=== PATIENT | female | born 1960 | race African-American/Black ===

== ENCOUNTER 2017-05-26 12:52 | Outpatient (CLI) | payer MEDICARE, MEDICAID ==
--- NOTE | 2017-05-26 15:40 | MMO ---
BILATERAL SCREENING MAMMOGRAMS: Date: 05/26/17 Comparison made to prior exam from 2014. This patient's mammogram was interpreted with the assistance of computer-aided detection. FINDINGS: Scattered fibroglandular densities. No evidence of mass or distortion. No suspicious calcification. Recommend one year follow-up. IMPRESSION: BIRADS 1: Negative POS: [facility]
== END 2017-05-26 12:53 | disposition home or self-care (01) ==
LOC: MAMMO 12:52
PROVIDERS: ATTEND Specialist
DX: Z12.31 Encounter for screening mammogram for malignant neoplasm of breast (principal)
CPT/HCPCS: 77067; G0202

== ENCOUNTER 2017-05-26 13:34 | Emergency (ER) | payer MEDICARE, MEDICAID ==
--- NOTE | 2017-05-26 14:06 | RAD ---
PA AND LATERAL CHEST: Date: 05/26/17 HISTORY: Cough and pleuritic chest pain. Fever. COMPARISON: 02/24/16. FINDINGS: Right subclavian MediPort catheter remains in place. Surgical clips again overlie the medial and lef t upper quadrant. There is mild eventration of each hemidiaphragm. Cardiac silhouette and pulmonary vasculature are within normal limits. Lungs remain clear. There has been no interval change from the prior study. IMPRESSION: No acute cardiopulmonary process. POS: [facility]
[2017-05-26 16:10] LABS: #Eosinphils 0.1 thou/uL (0.0-0.7); #Lymphocytes 3.3 thou/uL (1.20-3.40); #Monocytes 0.6 thou/uL (0.11-0.59); #Neutrophils 4.2 thou/uL (1.40-6.50); %Basophils 0.4 % (0.0-1.0); %Eosinophils 1.6 % (0.0-10.0); %Lymphocytes 40.2 % (21.0-51.0); %Monocytes 7.2 % (0.0-10.0); Hematocrit 37.5 % (36.0-47.0); Mean Platelet Volume 7.5 fL (7.4-10.4); Red Blood Cell (RBC) Count 4.23 mill/uL (4.20-5.40); White Blood Cell (WBC) Count 8.3 thou/uL (4.8-10.8)
[2017-05-26 16:34] LABS: ALT (SGPT) Less than 7 U/L (8-55); AST (SGOT) 12 U/L (5-34); Alkaline Phosphatase 77 U/L (40-150); Anion Gap 13 mmol/L (10-20); BUN (Urea Nitrogen) 13 mg/dL (9.8-20.1); Bilirubin, Total 0.5 mg/dL (0.2-1.2); Calc. Creatinine Clearance 0 mL/min (70-130); Calcium 9.8 mg/dL (7.8-10.44); Carbon Dioxide 26 mmol/L (22-29); Chloride 105 mmol/L (98-107); Estimated GFR-MDRD 67; Globulin 3.7 g/dL (2.4-3.5); Protein, Total 7.5 g/dL (6.0-8.3)
[2017-05-26] MEDS ORDERED: methylPREDNISolone Sod Succ/PF 125 MG/2 ML VIAL ONE (16:59)
[2017-05-26] MEDS ORDERED: Water For Inject, Bacteriostat 30 ML ONE (16:59)
[2017-05-26] MEDS ORDERED: Albuterol Sulfate 2.5 mg/0.5 ml Neb ONE (17:12)
[2017-05-26 18:19] LABS: Bilirubin Negative (Negative); Blood, Urine Negative (Negative); Glucose, Urine (Dipstick) Negative (Negative); Ketone, Urine Negative (Negative); Nitrite Negative (Negative); Protein, Urine (Dipstick) Negative (Neg-Trace)
== END 2017-05-26 19:05 | disposition home or self-care (01) ==
LOC: ERS 13:34
DX: J45.901 Unspecified asthma with (acute) exacerbation (principal); I11.0 Hypertensive heart disease with heart failure; I50.9 Heart failure, unspecified; K21.9 Gastro-esophageal reflux disease without esophagitis; F41.9 Anxiety disorder, unspecified; F32.9 Major depressive disorder, single episode, unspecified
CPT/HCPCS: 71020; 80053; 81003; 82274; 85025; 94640; 96374; J1642; J2930; J7611; J7620

== ENCOUNTER 2017-05-27 11:17 | Outpatient (CLI) | payer MEDICARE, MEDICAID ==
--- NOTE | 2017-05-27 13:27 | RAD ---
CHEST TWO VIEWS: History: Dyspnea. Comparison: 05-26-17 FINDINGS: Port catheter is similar. Mild elevation of the left hemidiaphragm. No pneumothorax or effusion. No focal airspace consolidation. IMPRESSION: No acute intrathoracic abnormality. No significant change from yesterday. POS: [facility]
== END 2017-05-27 11:18 | disposition home or self-care (01) ==
LOC: RAD 11:17
PROVIDERS: ATTEND Internal Medicine Critical Care Medicine
DX: R06.00 Dyspnea, unspecified (principal)
CPT/HCPCS: 71020

== ENCOUNTER 2017-07-11 21:59 | Emergency (ER) | payer MEDICARE, MEDICAID ==
--- NOTE | 2017-07-12 00:06 | RAD ---
AP VIEW OF THE CHEST 07/11/17 INDICATION: Chest pain. IMPRESSION: The examination does not appear appreciably changed from the comparison dated 06/13/17. Heart size rem ains mildly prominent. Surgical changes are again seen within the upper abdomen. Right chest wall por t is similar. No acute air space opacity or pleural effusion is evident. POS: [facility]
[2017-07-12] MEDS ORDERED: Acetaminophen 500 MG TAB ONE (00:22)
[2017-07-12] MEDS ORDERED: Acetaminophen 325 MG TAB ONE (00:55)
[2017-07-12 01:16] LABS: #Basophils 0.1 thou/uL (0.0-0.2); #Eosinphils 0.3 thou/uL (0.0-0.7); #Lymphocytes 2.9 thou/uL (1.20-3.40); #Neutrophils 5.6 thou/uL (1.40-6.50); %Basophils 0.6 % (0.0-1.0); %Eosinophils 2.6 % (0.0-10.0); %Lymphocytes 29.5 % (21.0-51.0); Hematocrit 28.7 % (36.0-47.0); Mean Platelet Volume 5.2 fL (7.4-10.4); Red Blood Cell (RBC) Count 3.13 mill/uL (4.20-5.40); White Blood Cell (WBC) Count 9.8 thou/uL (4.8-10.8)
[2017-07-12 01:38] LABS: ALT (SGPT) Less than 7 U/L (8-55); AST (SGOT) 11 U/L (5-34); Alkaline Phosphatase 52 U/L (40-150); Anion Gap 11 mmol/L (10-20); BUN (Urea Nitrogen) 11 mg/dL (9.8-20.1); Bilirubin, Total 0.6 mg/dL (0.2-1.2); Calc. Creatinine Clearance 0 mL/min (70-130); Carbon Dioxide 27 mmol/L (22-29); Chloride 101 mmol/L (98-107); Estimated GFR-MDRD 65; Globulin 3.4 g/dL (2.4-3.5); Magnesium 2.1 mg/dL (1.6-2.6); Protein, Total 6.5 g/dL (6.0-8.3)
[2017-07-12 01:41] LABS: Troponin I Less than 0.010 ng/mL (< 0.028)
--- NOTE | 2017-07-12 08:08 | ULT ---
PRELIMINARY REPORT/[facility]/EMERGENCY AFTER HOURS PROCEDURE: EXAM: US Duplex Right Lower Extremity Veins EXAM DATE/TIME: Exam ordered 07/12/2017 12:19 AM CLINICAL HISTORY: 57 years old, female; Pain; Other: Rle pain, S/P knee surg; Prior surgery; Surgery date: 3-7 days pos t-operative TECHNIQUE: Real-time ultrasound scan of the veins of the right lower extremity with color Doppler flow, spectral waveform analysis and compression. COMPARISON: No relevant prior studies available. FINDINGS: Deep veins: Unremarkable. No DVT in the visualized common femoral, femoral, proximal deep femoral or popliteal veins. The veins demonstrate normal color flow, are normally compressible, with normal phas ic flow and/or augmentation response. Superficial veins: Unremarkable. No thrombus in the visualized great saphenous vein. Soft tissues: No acute findings. No popliteal cyst. IMPRESSION: Normal right lower extremity duplex venous ultrasound. Thank you for allowing us to participate in the care of your patient. Dictated and Authenticated by: Jagdish Chanel MD 07/12/2017 2:04 AM Central Time ([place] & [place]) FINAL REPORT RIGHT LOWER EXTREMITY VENOUS DUPLEX EXAM: HISTORY: Right lower extremity pain status post knee surgery. FINDINGS: Real-time color Doppler evaluation of right lower extremity was performed from groin to calf. This i ncludes evaluation of common femoral, superficial, and profunda femoral, saphenous, popliteal, and t rifurcation veins. This shows a patent deep venous system with normal compressibility and augmentati on. There is no evidence of DVT. IMPRESSION: 1. No evidence of deep vein thrombosis of the right lower extremity. 2. This report is in agreement with the temporary report issued by [facility]. POS: [facility]
--- NOTE | 2017-07-12 08:09 | CT ---
PRELIMINARY REPORT/[facility]/EMERGENCY AFTER HOURS PROCEDURE: EXAM: CT Head Without Intravenous Contrast CLINICAL HISTORY: 57 years old, female; Signs and symptoms; Altered mental status/memory loss; Confusion or disorientat ion; Patient HX: 57 yo f with pmhx of chf here for r leg pain and AMS, resolved. Pt notes she felt we ird and altered 3 hours ago. She had trouble finding words and difficulty speaking but this resolved. Pt recently had r knee SX. TECHNIQUE: Axial computed tomography images of the head/brain without intravenous contrast. COMPARISON: No relevant prior studies available. FINDINGS: Brain: No intracranial hemorrhage. No CT evidence of acute ischemia. Ventricles: No ventriculomegaly. The subarachnoid cisterns and extar-axial CSF spaces are unremarkabl e. Bones/joints: Unremarkable. No acute fracture. Soft tissues: Unremarkable. Sinuses: No acute sinusitis. Mastoid air cells: No mastoid effusion. IMPRESSION: No acute intracranial pathology. Thank you for allowing us to participate in the care of your patient. Dictated and Authenticated by: Wander Hoffman MD 07/12/2017 12:12 AM Central Time ([place] & [place]) FINAL REPORT EMERGENT AFTER HOURS CT OF BRAIN PERFORMED WITHOUT CONTRAST ENHANCEMENT: HISTORY: Altered mental status, memory loss. COMPARISON: 02/11/17 study. FINDINGS: The ventricular and cisternal system is within normal limits. There are no signs of intracerebral he morrhage or extraaxial fluid collections. Mastoid air cells and visualized sinuses are clear. IMPRESSION: 1. No acute intracranial abnormality. 2. This report is in agreement with the temporary report issued by [facility]. POS: [facility]
--- NOTE | 2017-07-21 13:25 | EKG ---
Test Reason : CHEST PAIN Blood Pressure : / mmHG Vent. Rate : 087 BPM Atrial Rate : 087 BPM P-R Int : 126 ms QRS Dur : 076 ms QT Int : 344 ms P-R-T Axes : 049 003 015 degrees QTc Int : 413 ms Normal sinus rhythm Normal ECG Confirmed by ENRIQUE MARTIN ([id number]), index editor KAREN GAMBOA ([id number]) on 07/21/2017 1:24:31 PM Referred By: VIKKI Confirmed By:ENRIQUE MARTIN
== END 2017-07-12 05:13 | disposition home or self-care (01) ==
LOC: ERS 21:59
DX: R51 Headache (principal); R60.0 Localized edema; I11.0 Hypertensive heart disease with heart failure; I50.9 Heart failure, unspecified; I25.10 Atherosclerotic heart disease of native coronary artery without angina pectoris; K21.9 Gastro-esophageal reflux disease without esophagitis; J45.909 Unspecified asthma, uncomplicated; J44.9 Chronic obstructive pulmonary disease, unspecified; F41.9 Anxiety disorder, unspecified; F32.9 Major depressive disorder, single episode, unspecified; F20.9 Schizophrenia, unspecified
CPT/HCPCS: 36415; 70450; 71010; 80053; 82553; 83735; 83880; 84484; 85025; 87040; 93005

== ENCOUNTER 2017-12-18 22:06 | Observation (INO) | payer MEDICARE, MEDICAID ==
[2017-12-18 22:39] LABS: #Basophils 0.1 thou/uL (0.0-0.2); #Eosinphils 1.1 thou/uL (0.0-0.7); #Lymphocytes 4.4 thou/uL (1.20-3.40); #Monocytes 0.6 thou/uL (0.11-0.59); #Neutrophils 3.6 thou/uL (1.40-6.50); %Basophils 0.7 % (0.0-1.0); %Eosinophils 11.8 % (0.0-10.0); %Neutrophils 36.5 % (42.0-75.0); Hemoglobin 10.2 g/dL (12.0-16.0); Mean Corpuscular HGB CONC 32.9 g/dL (32.0-36.0); Mean Corpuscular Hemoglobin 28.7 pg (27.0-31.0); Mean Corpuscular Volume 87.4 fl (81.0-99.0); Mean Platelet Volume 7.1 fL (7.4-10.4); Platelet Count 259 thou/uL (130-400); RBC Distribution Width 13.5 % (11.5-14.5); Red Blood Cell (RBC) Count 3.55 mill/uL (4.20-5.40); White Blood Cell (WBC) Count 9.7 thou/uL (4.8-10.8)
[2017-12-18 23:01] LABS: ALT (SGPT) Less than 7 U/L (8-55); AST (SGOT) 9 U/L (5-34); Albumin 3.5 g/dL (3.5-5.0); Alkaline Phosphatase 70 U/L (40-150); Anion Gap 12 mmol/L (10-20); BUN (Urea Nitrogen) 16 mg/dL (9.8-20.1); Bilirubin, Total 0.4 mg/dL (0.2-1.2); CK (CPK) 90 U/L (29-168); Calc. Creatinine Clearance 0 mL/min (70-130); Calcium 8.8 mg/dL (7.8-10.44); Carbon Dioxide 21 mmol/L (22-29); Chloride 110 mmol/L (98-107); Estimated GFR-MDRD 89; Globulin 2.7 g/dL (2.4-3.5); Glucose 135 mg/dL (70-105); Potassium 3.6 mmol/L (3.5-5.1); Protein, Total 6.2 g/dL (6.0-8.3); Sodium 139 mmol/L (136-145)
--- NOTE | 2017-12-18 23:01 | RAD ---
AP VIEW OF THE CHEST: 12/18/17 INDICATION: History of chest pain. COMPARISON: Prior exam dated 07/11/17. IMPRESSION: No acute cardiopulmonary abnormality. There is stable cardiomegaly. Right chest wall is unchanged. Feng rgical clips are seen within the left upper quadrant. POS: [facility]
[2017-12-18 23:05] LABS: CKMB 0.8 ng/mL (0-6.6); Troponin I Less than 0.010 ng/mL (< 0.028)
[2017-12-19] MEDS ORDERED: Morphine 4 MG/ML VIAL ONE (00:29)
[2017-12-19] MEDS ORDERED: Nitroglycerin 0.4 MG TAB (25 Tab Bottle) ONE ×2 (00:56→03:53)
[2017-12-19 02:50] LABS: Troponin I Less than 0.010 ng/mL (< 0.028)
[2017-12-19] MEDS ORDERED: Nitroglycerin 2% Ointment 1 INCH/1 GM Packet ONE (03:53)
[2017-12-19 04:34] VITALS: BMI 30.2
[2017-12-19] MEDS ORDERED: Ondansetron HCl/PF 4 MG/2 ML Vial IVP PRN (04:36)
[2017-12-19] MEDS ORDERED: Acetaminophen 325 MG TAB PO PRN ×2 (04:36→08:53)
[2017-12-19] MEDS ORDERED: Ondansetron ODT 4 MG TAB SL PRN (04:36)
[2017-12-19] MEDS ORDERED: ADENOSINE 60 MG/20 ML VIAL ONE (06:47)
[2017-12-19 07:30] LABS: Troponin I Less than 0.010 ng/mL (< 0.028)
--- NOTE | 2017-12-19 08:50 | CT ---
PRELIMINARY REPORT/[facility]/EMERGENTY AFTER-HOURS PROCEDURE CT Angiography Chest With Intravenous Contrast CLINICAL HISTORY: 57 years old, female; Signs and symptoms; Shortness of breath; Patient HX: [id number] reports to ed C/O chest pain. Pt reports the pain is sharp. Pt reports she was lying down when the pain started and wang s been intermittent, longest duration is 30 minutes. Pt reports the pain radiates into her armpit. Pt reports subjective fever. Pt reports have an mi back in june, sees dr. Lund. Pt reports mild cp right now. Pt took x2 325 mg aspirin today. TECHNIQUE: Axial computed tomographic angiography images of the chest with intravenous contrast using pulmonary embolism protocol. MIP reconstructed images were created and reviewed. COMPARISON: No relevant prior studies available. FINDINGS: Pulmonary arteries: No pulmonary embolism. Aorta: No acute findings. Lungs: Moderate bilateral upper and lower lobe bronchial wall thickening, compatible with reactive ai rway disease or bronchitis. Pleural space: Normal. No significant effusion. No pneumothorax. Heart: Normal. Bones/joints: No acute fracture. No dislocation. Soft tissues: Normal. Lymph nodes: Several small lymph nodes within the mediastinum, likely reactive, but nonspecific. Gallbladder and bile ducts: Gallbladder is surgically absent. Adrenals: 13 mm left adrenal adenoma. Kidneys and ureters: Simple left renal cyst measuring approximately 3 cm in diameter. Intraperitoneal space: Multiple surgical clips within the left upper abdomen. Tubes, lines and devices: Right internal jugular central venous catheter in the lower superior vena cava. IMPRESSION: 1. No pulmonary embolism. 2. Moderate bilateral upper and lower lobe bronchial wall thickening, compatible with reactive airway disease or bronchitis. 3. Incidental/non-acute findings are described above. Thank you for allowing us to participate in the care of your patient. Dictated and Authenticated by: Jason Baptiste MD 12/19/2017 2:03 AM Central Time ([place] & [place]) FINAL REPORT CT ANGIOGRAM OF THE CHEST: HISTORY: Chest pain. COMPARISON: 01/10/17. TECHNIQUE: CT angiogram of the chest was performed in the axial plane. Three-dimensional reformatted images are submitted for interpretation. FINDINGS: This report is in agreement with the preliminary report by [facility]. No evidence of pulmonary artery embo lism to the level of the segmental arteries. Stable left adrenal lesion. POS: [facility]
--- NOTE | 2017-12-19 08:52 | ULT ---
PRELIMINARY REPORT/[facility]/EMERGENTY AFTER-HOURS PROCEDURE US Duplex Bilateral Lower Extremity Veins CLINICAL HISTORY: 57 years old, female; Pain; Other: Leg pain, elevated d-dimer, prev dvt; Prior surgery; Surgery date: 1-6 months; Surgery type: Lt knee surg TECHNIQUE: Real-time duplex ultrasound scan of the bilateral lower extremity veins integrating B-mode two dimens ional vascular structure, Doppler spectral analysis, color flow Doppler imaging and compression. COMPARISON: No relevant prior studies available. FINDINGS: Right deep veins: Normal. No DVT in the right common femoral, femoral, proximal deep femoral or popli teal veins. The veins demonstrate normal color flow, are normally compressible, with normal phasic fl ow and/or augmentation response. Right superficial veins: Normal. No thrombus in the visualized right great saphenous vein. Left deep veins: Normal. No DVT in the left common femoral, femoral, proximal deep femoral or poplite al veins. The veins demonstrate normal color flow, are normally compressible, with normal phasic flow and/or augmentation response. Left superficial veins: Normal. No thrombus in the visualized left great saphenous vein. Soft tissues: No acute findings. No popliteal cyst. IMPRESSION: Normal bilateral lower extremity duplex venous ultrasound. Thank you for allowing us to participate in the care of your patient. Dictated and Authenticated by: Jason Baptiste MD 12/19/2017 2:27 AM Central Time ([place] & [place]) FINAL REPORT BILATERAL LOWER EXTERMITY VENOUS ULTRASOUND WITH DOPPLER: HISTORY: Pain. Pervious surgery. COMPARISON: None. TECHNIQUE: Salmeron scale, color flow, Doppler imaging and spectral waveform analysis was performed of the left and right lower extremity venous system. FINDINGS: This report is in agreement with the preliminary report by [facility]. No evidence of thrombus in the left or right lower extremity deep venous system. POS: [facility]
[2017-12-19] MEDS ORDERED: Nitroglycerin 0.4 MG TAB (25 Tab Bottle) PO PRN (08:53)
[2017-12-19] MEDS ORDERED: Bisacodyl 5 MG TAB PO PRN (08:53)
[2017-12-19] MEDS ORDERED: Aspirin 325 MG TAB PO SCH (09:00)
[2017-12-19] MEDS ORDERED: Acetaminophen/Codeine 30-300mg Tablet PO PRN (11:01)
[2017-12-19] MEDS: Acetaminophen/Codeine 30-300mg Tablet PO PRN ×2 (11:19→12:02)
[2017-12-19] MEDS ORDERED: diphenhydrAMINE 50 MG/ML VIAL IVP SCH (11:45)
[2017-12-19] MEDS ORDERED: ISOVUE-370 76%-LOCM 1 ML ONE (13:22)
--- NOTE | 2017-12-19 15:24 | HP ---
PRIMARY CARE PROVIDER: Jean Ragsdale M.D. CHIEF COMPLAINT: Chest pain. HISTORY OF PRESENT ILLNESS: Ms. Krishna is a pleasant 57-year-old lady, who was seen at [facility] on 12/19/2017. She reports that she developed chest discomfort over the last couple of days. She describes that it is sharp, retrosternal, radiating to her left axilla, 8/10 at its worst, on and off, no known aggrava ting or relieving factors, accompanied by cough and by shortness of breath but not by nausea. She de nies any lightheadedness. She denies any fevers or chills. She does report that it improved with nitrates after she came to the emergency room. REVIEW OF SYSTEMS: All other systems reviewed and found to be negative. PAST MEDICAL HISTORY: Schizophrenia, rhabdomyolysis, lymphoma, bladder polyps x3, mitral valve prola pse, coronary artery disease, chronic diastolic heart failure, small-bowel obstruction, gastroesophag eal reflux disease, chronic abdominal pain, hypertension, COPD, asthma. PAST SURGICAL HISTORY: Significant for hysterectomy, AICD placement, cardiac catheterization with st ent placement, appendectomy, cholecystectomy, tonsillectomy, esophageal variceal banding, bowel resec tion, bladder sling surgery, lymph node dissection of the left axilla, bilateral carpal tunnel releas e, cystectomy of both breasts and MediPort placement. FAMILY HISTORY: Significant for heart attacks in both parents. SOCIAL HISTORY: The patient denies tobacco use, alcohol use or recreational drug use. ALLERGIES: CHLORPROMAZINE, HALOPERIDOL, LITHIUM CARBONATE, PENICILLIN, SULFA, THORAZINE, TOMATO and TRAMADOL. CURRENT MEDICATIONS: Include furosemide 40 mg daily, potassium 10 mg daily, Depakote 500 mg 2 times a day, risperidone 2 mg 2 times a day, magnesium 500 mg daily, montelukast 10 mg daily, metoprolol ta rtrate 25 mg 2 times a day, Nexium 40 mg 2 times a day, flecainide 50 mg 2 times a day, Ventolin p.r. n. and aspirin 325 mg daily. PHYSICAL EXAMINATION: GENERAL: On examination, Ms. Krishna is awake and alert, not in acute distress. VITAL SIGNS: Blood pressure is 108/74, pulse is 60. She is breathing at rate of 12 and saturating 9 7% on room air. She is afebrile. She is obese. EYES: No scleral icterus. No conjunctival pallor. ENT: Moist mucosal membranes. No oropharyngeal erythema or exudates. NECK: Supple, nontender, normal range of movement. Trachea is midline. RESPIRATORY: Accessory muscles of breathing are not active. Chest wall movements are symmetric bila terally. LUNGS: Clear to auscultation without wheeze, rhonchi or crepitations. CARDIOVASCULAR: S1 and S2 are heard, regular. Peripheral pulses palpable. No carotid bruit, no per icardial rub. ABDOMEN: Soft, nontender, bowel sounds are heard, no hepatomegaly, no splenomegaly. NEUROLOGIC: Cranial nerves II through XII intact. Deep tendon reflexes are 2+. MUSCULOSKELETAL: Power is 5/5 in all 4 extremities. SKIN: No rashes or subcutaneous nodules. LYMPHATIC: No cervical lymphadenopathy. PSYCHIATRIC: Normal mood, normal affect. The patient is oriented to person, place, and time. LABORATORY DATA: Ms. Krishna's labs and investigations were reviewed. I reviewed her electrocardi ogram, which shows normal sinus rhythm, no ST changes to suggest an acute coronary syndrome. I also reviewed her chest x-ray, which does not show any pulmonary infiltrates. She also had a CT angiogram of the chest, which did not show any pulmonary embolism. She had moderate bilateral upper and lower lobe bronchial wall thickening, compatible with reactive airway disease or bronchitis. She had nena ral small lymph nodes within the mediastinum, likely reactive, but nonspecific according to radiologi st. She also had a simple left renal cyst measuring approximately 3 cm in diameter. She has a margaret l white count, normocytic anemia with hemoglobin 10.2, normal platelet count, elevated D-dimer of 0.5 2, normal sodium, normal potassium, normal creatinine, unremarkable liver profile and normal troponin I x3. BNP is normal. ASSESSMENT AND PLAN: Ms. Krishna is a pleasant 57-year-old lady, who was seen at [facility] on 12/19/2017. Her problem list includes: 1. Chest pain: She has a history of coronary artery disease. At this point in time, pulmonary embo lism has been ruled out. We will admit the patient to athletic monitor and for a stress test. 2. Hypertension: Monitor vital signs, titrate antihypertensives as needed. 3. Chronic obstructive pulmonary disease/asthma: Stable, continue home medications. 4. Chronic diastolic heart failure: The patient is currently not in congestive heart failure exacer bation. 5. Gastroesophageal reflux disease: Stable. Many thanks for allowing me to participate in your patient's care. Please feel free to contact me wi th any questions or concerns. LEVEL OF RISK: High. LEVEL OF COMPLEXITY: High.
[2017-12-19 15:58] VITALS: BP 117/67; TEMP 97.8
--- NOTE | 2017-12-19 16:21 | NM ---
MYOCARDIAL PERFUSION STUDY: 12/19/17 HISTORY: Chest pain. Numbness in left arm. Shortness of breath. RADIOPHARMACEUTICALS: 29 millicuries technetium 99m Sestamibi, IV at stress and 9.6 millicuries technetium 99m Sestamibi, I V at rest. COMPARISON: 09/01/15. FINDINGS: There is a very small relatively fixed defect at the ventricular apex. No significant reversible defe ct is seen between stress and resting acquisitions. Gated images show normal ventricular wall motion and wall thickening. The calculated left ventricular ejection fraction is 69%. Quantitative analysis shows no significant reversible defect. The calculated left ventricular ejection fraction on prior study was 74%. The rotating planar images demonstrate activity seen within the anterior chest. Patient does have a M ediport catheter in place and this is likely site of injection of radiotracer within the Mediport. IMPRESSION: 1. Probably normal myocardial perfusion study without evidence of a reversible defect seen to guardado ggest ischemia. There is very small relatively fixed defect witin the ventricular apex which is proba efrem related to apical thinning as there is normal ventricular wall motion and wall thickening in this region. 2. Normal LVEF of 69%. LVEF on prior study of 09/01/15 was 74%. POS: [facility]
--- NOTE | 2017-12-19 23:03 | DIS ---
PRIMARY CARE PHYSICIAN: Dr. Jean Ragsdale. DATE OF ADMISSION: 12/20/2017 DATE OF DISCHARGE: 12/20/2017 DISCHARGE DIAGNOSIS: Chest pain. HOSPITAL COURSE: Ms. Krishna is a pleasant 57-year-old lady who was admitted to [facility] on 12/19/2017 for chest pain. Please refer to my history and physical note dated 07/2018 for further information. She had CT angiogram of the chest, which did not show any pulmonary embolism. She had a stable left adrenal lesion, simple left renal cyst measuring approximately 3 cm in diameter and moderate bilateral upper and lower lobe bronchial wall thickening, compatible with r eactive airway disease or bronchitis. She also had several small lymph nodes within the mediastinum, likely reactive, but nonspecific. She had nuclear stress test, which did not show any evidence of reversible defect to suggest ischemia . There is a very small relatively fixed defect within the ventricular apex, which is probably relat ed to apical thinning, as there is normal ventricular wall motion and wall thickening in this region, according to Radiology service. Her chest pain also resolved during this hospitalization. Left ventricular ejection fraction was 69% on the stress test. No change was made to her preadmissio n home medications as dictated on history and physical note. Many thanks for allowing me to participate in your patient's care. Please feel free to contact me wi th any questions or concerns. DISCHARGE DESTINATION: Home.
--- NOTE | 2017-12-26 14:31 | EKG ---
Test Reason : Blood Pressure : / mmHG Vent. Rate : 081 BPM Atrial Rate : 081 BPM P-R Int : 136 ms QRS Dur : 078 ms QT Int : 370 ms P-R-T Axes : 045 -03 014 degrees QTc Int : 429 ms Normal sinus rhythm Normal ECG Leftward axis No ST elevation/LA Confirmed by MELANIE GARZA M.D. ([id number]), web editor GIORGIO GARCIA ([id number]) on 12/26/2017 2:30:52 PM Referred By: Confirmed By:MELANIE GARZA M.D.
== END 2017-12-19 17:13 | disposition home or self-care (01) ==
LOC: ERS 22:06 → 2SW 12-19 02:20
PROVIDERS: ADMIT Internal Medicine; ATTEND Internal Medicine
DX: R07.89 Other chest pain (principal); F20.9 Schizophrenia, unspecified; I25.10 Atherosclerotic heart disease of native coronary artery without angina pectoris; I11.0 Hypertensive heart disease with heart failure; I50.32 Chronic diastolic (congestive) heart failure; I34.1 Nonrheumatic mitral (valve) prolapse; K21.9 Gastro-esophageal reflux disease without esophagitis; J44.9 Chronic obstructive pulmonary disease, unspecified; Z79.82 Long term (current) use of aspirin; Z79.51 Long term (current) use of inhaled steroids; Z79.899 Other long term (current) drug therapy; Z88.0 Allergy status to penicillin; Z88.2 Allergy status to sulfonamides; Z88.8 Allergy status to other drugs, medicaments and biological substances; Z88.5 Allergy status to narcotic agent; Z91.018 Allergy to other foods; Z95.810 Presence of automatic (implantable) cardiac defibrillator; Z95.5 Presence of coronary angioplasty implant and graft
CPT/HCPCS: 71045; 71275; 78452; 80053; 82550; 82553; 83880; 84484 ×3; 85025; 85379; 93005; 93017; 93970; 96361; 96374; 96375; 99285; A9500; G0378; 36415; J0153; J1200; J1642; J2270

== ENCOUNTER 2017-12-21 12:14 | Emergency (ER) | payer MEDICARE, MEDICAID ==
[2017-12-21 12:50] LABS: #Eosinphils 0.6 thou/uL (0.0-0.7); #Monocytes 0.5 thou/uL (0.11-0.59); #Neutrophils 3.8 thou/uL (1.40-6.50); %Basophils 0.5 % (0.0-1.0); %Eosinophils 7.2 % (0.0-10.0); %Lymphocytes 44.2 % (21.0-51.0); %Monocytes 5.6 % (0.0-10.0); %Neutrophils 42.6 % (42.0-75.0); Hemoglobin 10.7 g/dL (12.0-16.0); Mean Corpuscular HGB CONC 31.7 g/dL (32.0-36.0); Mean Corpuscular Hemoglobin 28.2 pg (27.0-31.0); Mean Corpuscular Volume 88.9 fl (81.0-99.0); Mean Platelet Volume 7.3 fL (7.4-10.4); Platelet Count 275 thou/uL (130-400); RBC Distribution Width 13.3 % (11.5-14.5); Red Blood Cell (RBC) Count 3.82 mill/uL (4.20-5.40)
[2017-12-21 13:11] LABS: ALT (SGPT) 9 U/L (8-55); AST (SGOT) 12 U/L (5-34); Albumin 3.9 g/dL (3.5-5.0); Alkaline Phosphatase 77 U/L (40-150); Anion Gap 8 mmol/L (10-20); BUN (Urea Nitrogen) 13 mg/dL (9.8-20.1); Bilirubin, Total 0.6 mg/dL (0.2-1.2); CK (CPK) 100 U/L (29-168); Calc. Creatinine Clearance 0 mL/min (70-130); Calcium 9.3 mg/dL (7.8-10.44); Carbon Dioxide 24 mmol/L (22-29); Chloride 109 mmol/L (98-107); Estimated GFR-MDRD 87; Globulin 3.1 g/dL (2.4-3.5); Glucose 87 mg/dL (70-105); Potassium 3.7 mmol/L (3.5-5.1); Sodium 137 mmol/L (136-145)
[2017-12-21 13:14] LABS: CKMB 0.9 ng/mL (0-6.6); Troponin I Less than 0.010 ng/mL (< 0.028)
--- NOTE | 2017-12-21 14:03 | RAD ---
AP VIEW OF THE CHEST: INDICATION: Chest pain and shortness of breath. COMPARISON: Prior exam dated 12/18/17. FINDINGS: Right chest wall port is stable. Heart size is mildly prominent but stable. Pulmonary vasculature i s within normal limits. No consolidation, pleural effusion, or pneumothorax is evident. There are s urgical clips in the left upper quadrant of the abdomen. No acute osseous abnormality is evident. IMPRESSION: Stable exam. No acute abnormality. POS: [facility]
[2017-12-21] MEDS ORDERED: Methocarbamol 500 MG TAB PO SCH (17:00)
[2017-12-21 18:30] LABS: CKMB 0.8 ng/mL (0-6.6); Troponin I Less than 0.010 ng/mL (< 0.028)
[2017-12-21] MEDS ORDERED: Enoxaparin Sodium 60 MG/0.6 ML SYRINGE ONE (19:47)
== END 2017-12-21 20:06 | disposition home or self-care (01) ==
LOC: ERS 12:14
DX: R07.9 Chest pain, unspecified (principal); I25.10 Atherosclerotic heart disease of native coronary artery without angina pectoris; I11.0 Hypertensive heart disease with heart failure; I50.9 Heart failure, unspecified; K21.9 Gastro-esophageal reflux disease without esophagitis; J44.9 Chronic obstructive pulmonary disease, unspecified; F41.9 Anxiety disorder, unspecified; F32.9 Major depressive disorder, single episode, unspecified; F20.9 Schizophrenia, unspecified; Z79.82 Long term (current) use of aspirin; Z79.899 Other long term (current) drug therapy
CPT/HCPCS: 36415; 71045; 80053; 82550; 82553; 84484; 85025; 85379; 93005; 94760; 96372; 96374; J1642; J1650

== ENCOUNTER 2017-12-28 16:41 | Emergency (ER) | payer MEDICARE, MEDICAID ==
[2017-12-28 21:04] LABS: #Basophils 0.1 thou/uL (0.0-0.2); #Eosinphils 0.5 thou/uL (0.0-0.7); #Lymphocytes 3.7 thou/uL (1.20-3.40); #Monocytes 0.5 thou/uL (0.11-0.59); #Neutrophils 3.6 thou/uL (1.40-6.50); %Eosinophils 6.5 % (0.0-10.0); %Lymphocytes 43.7 % (21.0-51.0); %Monocytes 5.9 % (0.0-10.0); %Neutrophils 42.9 % (42.0-75.0); Hemoglobin 11.1 g/dL (12.0-16.0); Mean Corpuscular HGB CONC 31.6 g/dL (32.0-36.0); Mean Corpuscular Hemoglobin 27.7 pg (27.0-31.0); Mean Corpuscular Volume 87.6 fl (81.0-99.0); Mean Platelet Volume 7.5 fL (7.4-10.4); Platelet Count 270 thou/uL (130-400); RBC Distribution Width 13.2 % (11.5-14.5); Red Blood Cell (RBC) Count 4.01 mill/uL (4.20-5.40); White Blood Cell (WBC) Count 8.4 thou/uL (4.8-10.8)
[2017-12-28 21:11] LABS: INR-International Normal Ratio 1.1; Prothrombin Time 14.5 SEC (12.0-14.7)
[2017-12-28 21:13] LABS: PTT 95.3 SEC (22.9-36.1)
[2017-12-28 21:23] LABS: ALT (SGPT) 12 U/L (8-55); AST (SGOT) 15 U/L (5-34); Albumin 3.7 g/dL (3.5-5.0); Alkaline Phosphatase 74 U/L (40-150); Anion Gap 11 mmol/L (10-20); BUN (Urea Nitrogen) 9 mg/dL (9.8-20.1); Bilirubin, Total 0.5 mg/dL (0.2-1.2); Calc. Creatinine Clearance 0 mL/min (70-130); Calcium 8.6 mg/dL (7.8-10.44); Carbon Dioxide 24 mmol/L (22-29); Chloride 109 mmol/L (98-107); Estimated GFR-MDRD Greater than 90; Globulin 2.8 g/dL (2.4-3.5); Glucose 80 mg/dL (70-105); Potassium 3.4 mmol/L (3.5-5.1); Protein, Total 6.5 g/dL (6.0-8.3); Sodium 141 mmol/L (136-145)
[2017-12-28 21:24] LABS: Magnesium 1.7 mg/dL (1.6-2.6)
== END 2017-12-28 21:19 | disposition home or self-care (01) ==
LOC: ERS 16:41
DX: K92.2 Gastrointestinal hemorrhage, unspecified (principal); N93.9 Abnormal uterine and vaginal bleeding, unspecified; F32.9 Major depressive disorder, single episode, unspecified; F41.9 Anxiety disorder, unspecified; F20.9 Schizophrenia, unspecified; I11.0 Hypertensive heart disease with heart failure; I50.9 Heart failure, unspecified; J44.9 Chronic obstructive pulmonary disease, unspecified; K21.9 Gastro-esophageal reflux disease without esophagitis; I25.10 Atherosclerotic heart disease of native coronary artery without angina pectoris; Z85.72 Personal history of non-Hodgkin lymphomas; Z79.82 Long term (current) use of aspirin; Z79.899 Other long term (current) drug therapy
CPT/HCPCS: 80053; 83690; 83735; 85025; 85610; 85730; 93005; J1642

== ENCOUNTER 2018-01-09 15:02 | Emergency (ER) | payer MEDICARE, MEDICAID ==
[2018-01-09 16:28] LABS: #Basophils 0.1 thou/uL (0.0-0.2); #Eosinphils 0.4 thou/uL (0.0-0.7); #Lymphocytes 2.8 thou/uL (1.20-3.40); #Monocytes 0.6 thou/uL (0.11-0.59); #Neutrophils 5.2 thou/uL (1.40-6.50); %Basophils 0.6 % (0.0-1.0); %Eosinophils 4.2 % (0.0-10.0); %Lymphocytes 30.9 % (21.0-51.0); %Monocytes 6.4 % (0.0-10.0); %Neutrophils 57.9 % (42.0-75.0); Mean Corpuscular HGB CONC 31.9 g/dL (32.0-36.0); Mean Corpuscular Hemoglobin 28.2 pg (27.0-31.0); Mean Corpuscular Volume 88.4 fl (81.0-99.0); Mean Platelet Volume 7.3 fL (7.4-10.4); Platelet Count 242 thou/uL (130-400); RBC Distribution Width 13.2 % (11.5-14.5); Red Blood Cell (RBC) Count 3.89 mill/uL (4.20-5.40)
[2018-01-09 16:51] LABS: ALT (SGPT) Less than 7 U/L (8-55); AST (SGOT) 11 U/L (5-34); Albumin 3.9 g/dL (3.5-5.0); Alkaline Phosphatase 78 U/L (40-150); Anion Gap 14 mmol/L (10-20); BUN (Urea Nitrogen) 12 mg/dL (9.8-20.1); Bilirubin, Total 0.5 mg/dL (0.2-1.2); Calc. Creatinine Clearance 0 mL/min (70-130); Calcium 8.8 mg/dL (7.8-10.44); Carbon Dioxide 21 mmol/L (22-29); Chloride 109 mmol/L (98-107); Estimated GFR-MDRD 72; Globulin 2.9 g/dL (2.4-3.5); Glucose 92 mg/dL (70-105); Potassium 3.8 mmol/L (3.5-5.1); Protein, Total 6.8 g/dL (6.0-8.3); Sodium 140 mmol/L (136-145)
== END 2018-01-09 16:59 | disposition home or self-care (01) ==
LOC: ERS 15:02
DX: E86.0 Dehydration (principal); I25.10 Atherosclerotic heart disease of native coronary artery without angina pectoris; K21.9 Gastro-esophageal reflux disease without esophagitis; I50.9 Heart failure, unspecified; I11.0 Hypertensive heart disease with heart failure; J44.9 Chronic obstructive pulmonary disease, unspecified; F41.9 Anxiety disorder, unspecified; F32.9 Major depressive disorder, single episode, unspecified; F20.9 Schizophrenia, unspecified; Z79.899 Other long term (current) drug therapy; Z79.82 Long term (current) use of aspirin
CPT/HCPCS: 36415; 80053; 85025; 93005; 96360

== ENCOUNTER 2018-01-10 00:40 | Emergency (ER) | payer MEDICARE, MEDICAID ==
[2018-01-10 01:27] LABS: #Basophils 0.1 thou/uL (0.0-0.2); #Eosinphils 0.5 thou/uL (0.0-0.7); #Lymphocytes 4.5 thou/uL (1.20-3.40); #Monocytes 0.7 thou/uL (0.11-0.59); #Neutrophils 5.2 thou/uL (1.40-6.50); %Basophils 0.8 % (0.0-1.0); %Eosinophils 4.7 % (0.0-10.0); %Neutrophils 47.5 % (42.0-75.0); Hemoglobin 11.1 g/dL (12.0-16.0); Mean Corpuscular HGB CONC 32.9 g/dL (32.0-36.0); Mean Corpuscular Hemoglobin 28.6 pg (27.0-31.0); Mean Corpuscular Volume 86.9 fl (81.0-99.0); Mean Platelet Volume 7.1 fL (7.4-10.4); Platelet Count 245 thou/uL (130-400); RBC Distribution Width 13.1 % (11.5-14.5); Red Blood Cell (RBC) Count 3.86 mill/uL (4.20-5.40)
[2018-01-10 01:49] LABS: ALT (SGPT) Less than 7 U/L (8-55); AST (SGOT) 14 U/L (5-34); Albumin 4.1 g/dL (3.5-5.0); Alkaline Phosphatase 79 U/L (40-150); Anion Gap 15 mmol/L (10-20); BUN (Urea Nitrogen) 10 mg/dL (9.8-20.1); Bilirubin, Total 0.6 mg/dL (0.2-1.2); CK (CPK) 135 U/L (29-168); Calc. Creatinine Clearance 0 mL/min (70-130); Calcium 9.1 mg/dL (7.8-10.44); Carbon Dioxide 21 mmol/L (22-29); Chloride 102 mmol/L (98-107); Estimated GFR-MDRD 77; Globulin 3.2 g/dL (2.4-3.5); Glucose 101 mg/dL (70-105); Potassium 3.3 mmol/L (3.5-5.1); Protein, Total 7.3 g/dL (6.0-8.3); Sodium 135 mmol/L (136-145)
[2018-01-10 01:52] LABS: CKMB 0.9 ng/mL (0-6.6); Troponin I Less than 0.010 ng/mL (< 0.028)
--- NOTE | 2018-01-10 10:16 | RAD ---
CHEST 1 VIEW: Date: 01/10/18 HISTORY: 57-year-old female with history of chest pain. COMPARISON: 12/21/17. FINDINGS: Extensive postoperative changes are noted in the left upper quadrant. Right subclavian catheter and i njection port. Heart size is normal. The lungs are clear. IMPRESSION: No acute intrathoracic disease. Stable from prior study. POS: [facility]
== END 2018-01-10 04:15 | disposition home or self-care (01) ==
LOC: ERS 00:40
DX: R07.9 Chest pain, unspecified (principal); J45.909 Unspecified asthma, uncomplicated; R51 Headache; R25.2 Cramp and spasm; F41.9 Anxiety disorder, unspecified; F32.9 Major depressive disorder, single episode, unspecified; F20.9 Schizophrenia, unspecified; K21.9 Gastro-esophageal reflux disease without esophagitis; I11.0 Hypertensive heart disease with heart failure; I50.9 Heart failure, unspecified; G89.29 Other chronic pain; I25.10 Atherosclerotic heart disease of native coronary artery without angina pectoris
CPT/HCPCS: 36415; 71045; 80053; 82550; 82553; 83880; 84484; 85025; 93005; J1642

== ENCOUNTER 2018-05-18 16:34 | Emergency (ER) | payer MEDICARE, OTHER ==
[2018-05-18 17:46] LABS: #Basophils 0.2 thou/uL (0.0-0.2); #Eosinphils 0.4 thou/uL (0.0-0.7); #Lymphocytes 4.9 thou/uL (1.20-3.40); #Monocytes 0.8 thou/uL (0.11-0.59); #Neutrophils 4.8 thou/uL (1.40-6.50); %Basophils 1.5 % (0.0-1.0); %Eosinophils 3.5 % (0.0-10.0); %Monocytes 7.2 % (0.0-10.0); %Neutrophils 43.9 % (42.0-75.0); Hemoglobin 11.7 g/dL (12.0-16.0); Mean Corpuscular HGB CONC 30.8 g/dL (32.0-36.0); Mean Corpuscular Hemoglobin 27.6 pg (27.0-31.0); Mean Corpuscular Volume 89.5 fL (78.0-98.0); Mean Platelet Volume 7.5 fL (7.4-10.4); Platelet Count 342 thou/uL (130-400); RBC Distribution Width 13.4 % (11.5-14.5); Red Blood Cell (RBC) Count 4.24 mill/uL (4.20-5.40)
[2018-05-18 18:16] LABS: CKMB 1.3 ng/mL (0-6.6); Troponin I Less than 0.010 ng/mL (< 0.028)
[2018-05-18 18:18] LABS: ALT (SGPT) 11 U/L (8-55); AST (SGOT) 13 U/L (5-34); Alkaline Phosphatase 72 U/L (40-150); Anion Gap 10 mmol/L (10-20); BUN (Urea Nitrogen) 11 mg/dL (9.8-20.1); Bilirubin, Total 0.4 mg/dL (0.2-1.2); CK (CPK) 109 U/L (29-168); Calc. Creatinine Clearance 0 mL/min (70-130); Carbon Dioxide 26 mmol/L (22-29); Chloride 110 mmol/L (98-107); Estimated GFR-MDRD 84; Globulin 3.2 g/dL (2.4-3.5); Glucose 95 mg/dL (70-105); Lipase 10 U/L (8-78); Potassium 4.1 mmol/L (3.5-5.1); Protein, Total 7.2 g/dL (6.0-8.3); Sodium 142 mmol/L (136-145)
--- NOTE | 2018-05-18 19:41 | RAD ---
PORTABLE CHEST ONE VIEW: 05/18/18 at 5:43 p.m. HISTORY: Chest pain, dizziness, headache. FINDINGS: Comparison is made with exam of 01/10/18. Right sided Port-A-Cath remains in place. The heart size is normal. Postop changes of the right upper quadrant are again seen. The lungs are well expanded without focal areas of consolidation, pneumotho races or pleural effusions. IMPRESSION: No acute process. POS: [facility]
[2018-05-18 20:05] LABS: Troponin I Less than 0.010 ng/mL (< 0.028)
== END 2018-05-18 20:38 | disposition home or self-care (01) ==
LOC: ERS 16:34
DX: R07.89 Other chest pain (principal); I25.10 Atherosclerotic heart disease of native coronary artery without angina pectoris; I50.9 Heart failure, unspecified; K21.9 Gastro-esophageal reflux disease without esophagitis; J44.9 Chronic obstructive pulmonary disease, unspecified; F41.9 Anxiety disorder, unspecified; F20.9 Schizophrenia, unspecified; Z79.82 Long term (current) use of aspirin; Z79.899 Other long term (current) drug therapy
CPT/HCPCS: 36415; 71045; 80053; 82553; 83690; 83880; 84484; 85025; 93005

== ENCOUNTER 2018-06-01 08:07 | Outpatient (CLI) | payer MEDICARE, MEDICAID | END 2018-06-01 08:08 | disposition home or self-care (01) | LOC: BICMAMMO 08:07 | PROVIDERS: ATTEND Specialist | DX: Z12.31 Encounter for screening mammogram for malignant neoplasm of breast (principal); Z80.3 Family history of malignant neoplasm of breast | CPT/HCPCS: 77063; 77067 ==

== ENCOUNTER 2018-06-15 19:12 | Observation (INO) | payer MEDICARE, MEDICAID ==
[2018-06-15 19:43] LABS: #Basophils 0.1 thou/uL (0.0-0.2); #Eosinphils 0.3 thou/uL (0.0-0.7); #Lymphocytes 4.5 thou/uL (1.20-3.40); #Monocytes 0.7 thou/uL (0.11-0.59); #Neutrophils 8.7 thou/uL (1.40-6.50); %Basophils 0.9 % (0.0-1.0); %Eosinophils 2.4 % (0.0-10.0); %Lymphocytes 31.1 % (21.0-51.0); %Neutrophils 60.6 % (42.0-75.0); Hemoglobin 12.4 g/dL (12.0-16.0); Mean Corpuscular HGB CONC 31.6 g/dL (32.0-36.0); Mean Corpuscular Hemoglobin 27.7 pg (27.0-31.0); Mean Corpuscular Volume 87.7 fL (78.0-98.0); Mean Platelet Volume 7.5 fL (7.4-10.4); Platelet Count 342 thou/uL (130-400); RBC Distribution Width 12.9 % (11.5-14.5); Red Blood Cell (RBC) Count 4.48 mill/uL (4.20-5.40); White Blood Cell (WBC) Count 14.3 thou/uL (4.8-10.8)
--- NOTE | 2018-06-15 19:48 | RAD ---
CHEST ONE VIEW: 06/15/18 INDICATION: Chest pain. FINDINGS: The lungs are clear. Right chest wall port is stable. Heart size is normal. No acute osseous abnormal ity is evident. IMPRESSION: No acute cardiopulmonary abnormality. POS: [facility]
[2018-06-15 20:07] LABS: ALT (SGPT) 8 U/L (8-55); AST (SGOT) 12 U/L (5-34); Albumin 4.1 g/dL (3.5-5.0); Alkaline Phosphatase 65 U/L (40-150); Anion Gap 18 mmol/L (10-20); BUN (Urea Nitrogen) 26 mg/dL (9.8-20.1); Bilirubin, Total 0.6 mg/dL (0.2-1.2); CK (CPK) 81 U/L (29-168); Calc. Creatinine Clearance 0 mL/min (70-130); Calcium 9.7 mg/dL (7.8-10.44); Carbon Dioxide 25 mmol/L (22-29); Chloride 101 mmol/L (98-107); Estimated GFR-MDRD 35; Globulin 3.1 g/dL (2.4-3.5); Glucose 83 mg/dL (70-105); Potassium 3.7 mmol/L (3.5-5.1); Protein, Total 7.2 g/dL (6.0-8.3); Sodium 140 mmol/L (136-145)
[2018-06-15 20:09] LABS: CKMB 1.1 ng/mL (0-6.6); Troponin I Less than 0.010 ng/mL (< 0.028)
[2018-06-15 23:16] LABS: Troponin I Less than 0.010 ng/mL (< 0.028)
[2018-06-15] MEDS ORDERED: Ondansetron PF 4 MG/2 ML Vial IVP PRN (23:27)
[2018-06-15] MEDS ORDERED: Bisacodyl 5 MG TAB PO PRN (23:27)
[2018-06-15] MEDS ORDERED: Calcium Carbonate 500 MG ChewTAB PO PRN (23:27)
[2018-06-15] MEDS ORDERED: Senokot S 8.6-50 MG TAB PO PRN (23:27)
[2018-06-15] MEDS ORDERED: Ondansetron ODT 4 MG TAB PO PRN (23:27)
[2018-06-15] MEDS ORDERED: Acetaminophen 325 MG TAB PO PRN (23:27)
[2018-06-15] MEDS ORDERED: Sodium Chloride 0.9% 1,000 ML IV SCH (23:30)
[2018-06-15 23:56] VITALS: BMI 28.4
[2018-06-16 02:57] LABS: Troponin I Less than 0.010 ng/mL (< 0.028)
[2018-06-16 04:41] LABS: #Basophils 0.1 thou/uL (0.0-0.2); #Eosinphils 0.4 thou/uL (0.0-0.7); #Lymphocytes 4.4 thou/uL (1.20-3.40); #Monocytes 0.6 thou/uL (0.11-0.59); #Neutrophils 4.5 thou/uL (1.40-6.50); %Basophils 0.9 % (0.0-1.0); %Eosinophils 3.9 % (0.0-10.0); %Lymphocytes 44.1 % (21.0-51.0); %Monocytes 5.6 % (0.0-10.0); %Neutrophils 45.5 % (42.0-75.0); Mean Corpuscular HGB CONC 31.5 g/dL (32.0-36.0); Mean Corpuscular Hemoglobin 27.8 pg (27.0-31.0); Mean Corpuscular Volume 88.1 fL (78.0-98.0); Mean Platelet Volume 7.4 fL (7.4-10.4); Platelet Count 304 thou/uL (130-400); RBC Distribution Width 12.8 % (11.5-14.5); Red Blood Cell (RBC) Count 3.97 mill/uL (4.20-5.40); White Blood Cell (WBC) Count 9.9 thou/uL (4.8-10.8)
[2018-06-16 05:01] LABS: Albumin 3.5 g/dL (3.5-5.0); Anion Gap 14 mmol/L (10-20); BUN (Urea Nitrogen) 24 mg/dL (9.8-20.1); BUN/Creatinine Ratio 17.78; Calc. Creatinine Clearance 52 mL/min (70-130); Calcium 8.9 mg/dL (7.8-10.44); Carbon Dioxide 25 mmol/L (22-29); Chloride 106 mmol/L (98-107); Estimated GFR-MDRD 49; Glucose 77 mg/dL (70-105); Potassium 3.6 mmol/L (3.5-5.1); Sodium 141 mmol/L (136-145)
[2018-06-16] MEDS ORDERED: Mometasone/Formoterol 120 PUFF INHALER INH SCH (06:30)
[2018-06-16] MEDS ORDERED: HYDROcodone/Acetaminophen 10/325 mg Tablet PO PRN ×2 (08:53→08:54)
[2018-06-16] MEDS ORDERED: Flecainide 50 MG TAB PO SCH (09:00)
[2018-06-16] MEDS ORDERED: risperiDONE 1 MG TAB PO SCH (09:00)
[2018-06-16] MEDS ORDERED: Heparin 5,000 UNITS/ML VIAL SC SCH (09:00)
[2018-06-16] MEDS ORDERED: Non-Formulary Item 1 EACH (Budesonide-Formoterol [Symbicort 160-4.5] 2 PUFF) INH SCH (09:00)
[2018-06-16] MEDS ORDERED: Montelukast Sodium 10 mg Tablet PO SCH (09:00)
[2018-06-16] MEDS ORDERED: Magnesium Oxide 250 MG TAB PO SCH (09:00)
[2018-06-16] MEDS ORDERED: Metoprolol Tartrate 25 MG TAB PO SCH (09:00)
[2018-06-16] MEDS ORDERED: Aspirin 325 mg Enteric Coated Tablet PO SCH (09:00)
--- NOTE | 2018-06-16 09:31 | HP ---
CHIEF COMPLAINT: Chest pain, lightheadedness. HISTORY OF PRESENT ILLNESS: This is a 58-year-old female who presented to our ED with chief complain t of chest pain and lightheadedness. The patient states that she had dizziness and then she sat down and passed out for a couple of minutes and the patient also reported associated symptoms of chest pa in which has been intermittent, it is located under the left breast and radiates to her back. She st ates that the chest pain is exacerbated by loud noises and when the chest pain comes on the patient states that she took aspirin at 1530 and this seemed to help somewhat with the pain. The patient sta marvin that when the pain comes on it is 8/10 and radiates to the back. The patient's chest pain is ass ociated with shortness of breath, nausea. Of note, the patient has been in our hospital numerous nilo es for similar symptoms of chest pain and lightheadedness. Last visit, the patient was here on 12/19 for chest pain. The patient had a CT angiogram of the chest which did not show any pulmonary e mbolism. The patient was stable and a stress test was done which did not show any evidence of revers ible defect to suggest ischemia. There was a small relatively fixed defect within the ventricular ap ex which probably related to apical thinning and a left ventricular ejection fraction on echo that wa s done showed 69% on the stress test. The patient was then discharged and the patient has been here numerous times for similar episodes. At this time the patient denies any fever, chills, abdominal pa in, dysuria, hematuria, hematochezia, diarrhea, constipation, generalized weakness. REVIEW OF SYSTEMS: Positive for chest discomfort, lightheadedness, otherwise as documented in my HPI . All other systems were reviewed and are negative. PAST MEDICAL HISTORY: Schizophrenia, rhabdomyolysis, lymphoma, bladder polyps x3, mitral valve prola pse, coronary artery disease, chronic diastolic heart failure, small-bowel obstruction, GERD, chronic abdominal pain, hypertension, COPD, asthma. FAMILY HISTORY: Reviewed and noncontributory to this visit. PAST SURGICAL HISTORY: Significant for hysterectomy, AICD placement, cardiac catheterization with st ent placement, appendectomy, cholecystectomy, tonsillectomy, esophageal variceal banding, bowel resec tion, bladder sling surgery, lymph node dissection of the left axilla, bilateral carpal tunnel releas e, cystectomy on both breast and MediPort placement at the right chest. SOCIAL HISTORY: The patient denied tobacco use and the patient denies illicit drug use. The patient states that she drinks recreationally. ALLERGIES: Patient is allergic to CHLORPROMAZINE, HALOPERIDOL, LITHIUM CARBONATE, PENICILLIN, SULFA, THYROXINE, TOMATO and TRAMADOL. MEDICATIONS: 1. Furosemide 40 mg. 2. Potassium 10 mEq daily. 3. Depakote 500 mg b.i.d. 4. Risperdal 2 mg b.i.d. 5. Magnesium 500 mg daily. 6. Montelukast 10 mg daily. 7. Metoprolol tartrate 25 mg b.i.d. 8. Nexium 40. 9. Flecainide 50. 10. Ventolin. 11. Aspirin. PHYSICAL EXAMINATION: GENERAL: The patient is awake, alert, and oriented x3, not in acute distress. The patient is able t o speak in full sentences. HEENT: Normocephalic, atraumatic. Pupils are equally round and react to light. Extraocular movemen ts are intact. No sclerae icterus. Mucous membranes are moist. NECK: Trachea is midline, full range of motion, supple. LUNGS: Clear to auscultation bilateral. No wheeze, no rales, no rhonchi is appreciated. CARDIOVASCULAR: S1, S2, regular rate and rhythm. No murmurs, no gallops or rubs appreciated. The p atient does have a right Port-A-Cath placed on the right upper chest. ABDOMEN: Soft, nontender, nondistended. Positive bowel sounds in all quadrants. No palpable masses . EXTREMITIES: The patient is has 5/5 upper extremity strength, 5/5 lower extremity strength. SKIN: Dry and intact. PSYCHIATRIC: Normal mood, normal affect. LABORATORY DATA: WBCs of 14.3, hemoglobin is 12.4, hematocrit is 39.3, RDW is 12.9, platelet count i s 243. Sodium 140, potassium 3.7, chloride 101, carbon dioxide 25, anion gap of 18, BUN is 28, creat inine is 1.78. Troponin is less than 0.010 x3. Lipase is 18. TSH is 1.5. AST is 12, ALT is 8, alk vitor phosphatase is 65. ASSESSMENT AND PLAN: 1. This is a 58-year-old female being admitted for chest pain to rule out acute coronary syndrome. At this point, patient's troponins have been negative x3. We will follow up with morning labs and we will possibly discharge the patient. We will continue patient on her home medications. 2. Acute kidney injury likely due to dehydration. The patient is currently on gentle hydration. We will follow up on morning creatinine. 3. Hypertension. We will monitor the patient's blood pressure closely. 4. Chronic obstructive pulmonary disease, currently stable. We will continue the patient on current management. 5. History of gastroesophageal reflux disease. Continue patient on current management. 6. Lymphoma, currently stable. 7. Deep venous thrombosis and gastrointestinal prophylaxis.
--- NOTE | 2018-06-16 10:30 | PDOC.EVN ---
Event Note - Event Note Event Note: patient management reviewed with VIDEO NEWS EDITOR Obriant, concur with DC home
[2018-06-16] MEDS: Famotidine/PF 20 mg/2ml Vial SLOW IVP SCH ×2 (10:34→10:39)
[2018-06-16 11:57] VITALS: BP 87/67; TEMP 97.9
--- NOTE | 2018-06-16 12:12 | ULT ---
CAROTID ULTRASOUND WITH MARTEL SCALE AND DOPPLER DUPLEX COLOR FLOW IMAGING SPECTRAL ANALYSIS PERFORMED: CLINICAL INDICATION: Syncope FINDINGS: There is no significant atherosclerotic calcification of the carotid arteries. PEAK SYSTOLIC VELOCITY (CM/S): Right CCA 117 Left CCA 139 Right ICA 79 Left ICA 93 There is antegrade flow within the visualized bilateral vertebral arteries. IMPRESSION: 1. No hemodynamically significant stenosis of the right internal carotid artery. 2. No hemodynamically significant stenosis of the left internal carotid artery. POS: [facility]
[2018-06-16] MEDS ORDERED: Lubiprostone 24 MCG CAP PO SCH (17:00)
--- NOTE | 2018-06-17 01:54 | DIS ---
DATE OF ADMISSION: 06/15/2018 DATE OF DISCHARGE: 06/16/2018 CHIEF COMPLAINT: Chest pain and lightheadedness. PRIMARY CARE PHYSICIAN: Dr. Ragsdale. CONSULTANTS: None. CODE STATUS: FULL. PROCEDURES: Patient had a carotid Doppler study that showed no hemodynamically significant stenosis of either internal carotid artery and no significant atherosclerotic calcification of the carotid arteries. Patient had a chest x- ray that showed no acute cardiopulmonary abnormality. DISCHARGE DIAGNOSES: 1. Chest pain, likely atypical. Serial troponins negative. 2. Presyncope. 3. Hypertension. 4. Schizophrenia. 5. Coronary artery disease. 6. Chronic diastolic heart failure, gastroesophageal reflux disease, chronic abdominal pain, chronic obstructive pulmonary disease, chronic asthma. REVIEW OF SYSTEMS: Review of systems performed. Patient denied any dizziness, current chest pain, lightheadedness. Denied any abdominal pain. All other review of systems is otherwise negative. PHYSICAL EXAMINATION: VITAL SIGNS: Temperature 98.2, pulse 75, respirations 16, blood pressure was 100/57. Patient's pulse ox 98 on room air. GENERAL: Patient is lying in bed, is nontoxic appearing, answering questions. Alert and oriented x3. HEENT: Head is normocephalic, atraumatic. Pupils are equal, round, and reactive to light. Extraocular motions are intact. Mucous membranes are moist. NECK: Supple. Trachea is midline. No tenderness. LUNGS: Clear to auscultation bilaterally. No wheezing, rales, or rhonchi. CARDIOVASCULAR: Positive S1, S2. Regular rate and rhythm. ABDOMEN: Soft, nontender, nondistended, positive bowel sounds in all quadrants. EXTREMITIES: Patient has upper and lower strength pulses and sensation. Patient has no edema in lower extremities is appreciated. NEUROLOGIC: Cranial nerves II through XII are grossly intact. No focal neurologic deficits are noted. SKIN: Warm, dry, and intact. HOSPITAL COURSE: This is a 58-year-old female who presented to the ED on 06/15/2018 with a complaint of chest pain and lightheadedness, reports that she has had some intermittent dizziness when she sat down and reports a presyncopal episode. Patient also states chest pain exacerbated by loud noises and was relieved by aspirin, which she took prior to arrival. Patient also reports the chest pain was associated with shortness of breath and nausea. Patient has been seen in our hospital numerous times for similar symptoms of chest pain and lightheadedness. On the last visit, patient was here on 12/19/2017 for chest pain, had a CT angiogram which was negative for pulmonary embolism. She also had a stress test at that time, did not show any evidence of reversible defect to suggest ischemia. There was at that time a small relatively fixed defect within the ventricular apex, which was probably related to apical thinning in the left ventricular ejection fraction on the echo that was shown at 69% on the stress test. Patient was admitted to observation. Serial troponins x3 were negative. Had a Doppler of carotids, which was also negative. Chest x-ray which was negative. Patient denied any chest pain or dizziness this morning. Dr. Bowers also saw patient and agreed with the assessment and discharge plan to home. HOME MEDICATIONS: Home medications will be continued which includes albuterol 0.5 mg nebs q.6 hours as needed, ProAir inhaler 2 puffs q.4 hours as needed, aspirin 81 mg p.o. daily, budesonide and formoterol two puffs b.i.d., vitamin D 1000 units p.o. daily, Depakote ER 500 mg p.o. q.a.m., Depakote 1000 mg p.o. q.p.m., Nexium 40 mg p.o. b.i.d., Tambocor 50 mg p.o. b.i.d., Lasix 40 mg p.o. b.i.d., Lortab 10 mg - 365 q.6 hours as needed for pain, Amitiza 24 mcg p.o. b.i.d., magnesium oxide 500 mg p.o. daily, metoprolol 25 mg p.o. b.i.d., Singulair 10 mg p.o. daily, potassium 20 mEq p.o. b.i.d., and Risperdal 2 mg p.o. b.i.d. ALLERGIES: THORAZINE, ALLOPURINOL, LITHIUM, PENICILLIN, SULFA, THYROXINE, TOMATO, AND TRAMADOL. DISCHARGE PLAN: Patient's condition is stable. Patient will be discharged to home. Patient is instructed to follow up with Dr. Ragsdale within 1 week. SID
[2018-06-17] MEDS ORDERED: Famotidine 20 MG TAB PO SCH (09:00)
== END 2018-06-16 12:54 | disposition home or self-care (01) ==
LOC: ERS 19:12 → 2SW 23:09
PROVIDERS: ADMIT Internal Medicine; ATTEND Internal Medicine
DX: R07.89 Other chest pain (principal); R55 Syncope and collapse; R42 Dizziness and giddiness; F20.9 Schizophrenia, unspecified; I25.10 Atherosclerotic heart disease of native coronary artery without angina pectoris; I11.0 Hypertensive heart disease with heart failure; I50.32 Chronic diastolic (congestive) heart failure; K21.9 Gastro-esophageal reflux disease without esophagitis; G89.29 Other chronic pain; R10.9 Unspecified abdominal pain; J44.9 Chronic obstructive pulmonary disease, unspecified; I34.1 Nonrheumatic mitral (valve) prolapse; N17.9 Acute kidney failure, unspecified; Z85.72 Personal history of non-Hodgkin lymphomas; Z79.51 Long term (current) use of inhaled steroids; Z79.82 Long term (current) use of aspirin; Z79.899 Other long term (current) drug therapy; Z88.0 Allergy status to penicillin; Z88.2 Allergy status to sulfonamides; Z88.5 Allergy status to narcotic agent; Z88.8 Allergy status to other drugs, medicaments and biological substances; Z91.018 Allergy to other foods
CPT/HCPCS: 71045; 80069; 82550; 82553; 83690; 84484 ×3; 85025; 93005; 93880; 94640 ×3; 96360; 96361; 99285; G0378 ×2; 36415; 80053; 84443; J1642; J1644; J7620; S0028

== ENCOUNTER 2018-06-20 19:31 | Emergency (ER) | payer MEDICARE, MEDICAID ==
[2018-06-20 20:25] LABS: #Basophils 0.1 thou/uL (0.0-0.2); #Eosinphils 0.3 thou/uL (0.0-0.7); #Lymphocytes 4.6 thou/uL (1.20-3.40); #Monocytes 0.6 thou/uL (0.11-0.59); %Eosinophils 2.7 % (0.0-10.0); %Lymphocytes 43.3 % (21.0-51.0); %Monocytes 5.5 % (0.0-10.0); %Neutrophils 47.5 % (42.0-75.0); Hemoglobin 11.5 g/dL (12.0-16.0); Mean Corpuscular Hemoglobin 27.5 pg (27.0-31.0); Mean Corpuscular Volume 88.6 fL (78.0-98.0); Mean Platelet Volume 7.5 fL (7.4-10.4); Platelet Count 298 thou/uL (130-400); RBC Distribution Width 12.8 % (11.5-14.5); Red Blood Cell (RBC) Count 4.19 mill/uL (4.20-5.40); White Blood Cell (WBC) Count 10.6 thou/uL (4.8-10.8)
--- NOTE | 2018-06-20 20:34 | RAD ---
CHEST ONE VIEW: History: Difficulty breathing. Comparison: 06-15-15 FINDINGS: Port catheter in similar position. No focal confluent airspace consolidation, pneumothorax, or effusi on. Interposition of bowel to the left hemidiaphragm and stomach. IMPRESSION: No acute intrathoracic abnormaliy. POS: [facility]
[2018-06-20] MEDS ORDERED: Acetaminophen 500 MG TAB ONE (20:37)
[2018-06-20 20:43] LABS: ALT (SGPT) 8 U/L (8-55); AST (SGOT) 14 U/L (5-34); Alkaline Phosphatase 60 U/L (40-150); Anion Gap 15 mmol/L (10-20); BUN (Urea Nitrogen) 8 mg/dL (9.8-20.1); Bilirubin, Total 0.9 mg/dL (0.2-1.2); Calc. Creatinine Clearance 0 mL/min (70-130); Calcium 9.8 mg/dL (7.8-10.44); Carbon Dioxide 21 mmol/L (22-29); Chloride 102 mmol/L (98-107); Estimated GFR-MDRD 84; Globulin 2.8 g/dL (2.4-3.5); Glucose 81 mg/dL (70-105); Potassium 3.8 mmol/L (3.5-5.1); Protein, Total 6.8 g/dL (6.0-8.3); Sodium 134 mmol/L (136-145)
[2018-06-20 20:45] LABS: CKMB 2.3 ng/mL (0-6.6); Troponin I Less than 0.010 ng/mL (< 0.028)
== END 2018-06-20 21:02 | disposition home or self-care (01) ==
LOC: ERS 19:31
DX: R06.00 Dyspnea, unspecified (principal); R07.9 Chest pain, unspecified; I11.0 Hypertensive heart disease with heart failure; I50.9 Heart failure, unspecified; J44.9 Chronic obstructive pulmonary disease, unspecified; Z79.899 Other long term (current) drug therapy
CPT/HCPCS: 36415; 71045; 80053; 82553; 83880; 84484; 85025; 93005

== ENCOUNTER 2018-06-21 00:31 | Emergency (ER) | payer MEDICARE, MEDICAID ==
[2018-06-21 01:28] LABS: Troponin I Less than 0.010 ng/mL (< 0.028)
--- NOTE | 2018-06-21 08:39 | RAD ---
TWO VIEW ABDOMEN SERIES: COMPARISON: 04/24/2017. INDICATION: Pain. FINDINGS: There are multiple metallic clips overlying the abdomen bilaterally. There are mildly distended air- filled loops of bowel with a component of differential air fluid levels. No free air is identified o n the upright view. Several calcifications of the pelvis indicate phleboliths. IMPRESSION: Bowel gas pattern, which can be seen in the setting of ileus versus developing obstruction. Correlat e clinically. This may be further assessed with contrast-enhanced CT exam utilizing IV and enteric c ontrast, as clinically necessary. POS: [facility]
== END 2018-06-21 02:10 | disposition home or self-care (01) ==
LOC: ERS 00:31
DX: R07.89 Other chest pain (principal); R10.9 Unspecified abdominal pain; I34.1 Nonrheumatic mitral (valve) prolapse; J44.9 Chronic obstructive pulmonary disease, unspecified; K21.9 Gastro-esophageal reflux disease without esophagitis; I11.0 Hypertensive heart disease with heart failure; I50.9 Heart failure, unspecified; F41.9 Anxiety disorder, unspecified; F32.9 Major depressive disorder, single episode, unspecified; F20.9 Schizophrenia, unspecified; Z79.899 Other long term (current) drug therapy; Z79.82 Long term (current) use of aspirin
CPT/HCPCS: 36415; 74019; 82274; 84484; 93005

== ENCOUNTER 2018-06-22 09:46 | Emergency (ER) | payer MEDICARE, MEDICAID ==
[2018-06-22 10:37] LABS: #Basophils 0.1 thou/uL (0.0-0.2); #Eosinphils 0.2 thou/uL (0.0-0.7); #Lymphocytes 5.7 thou/uL (1.20-3.40); #Neutrophils 7.5 thou/uL (1.40-6.50); %Eosinophils 1.3 % (0.0-10.0); %Lymphocytes 38.9 % (21.0-51.0); %Monocytes 7.1 % (0.0-10.0); %Neutrophils 51.7 % (42.0-75.0); Hemoglobin 11.6 g/dL (12.0-16.0); Mean Corpuscular HGB CONC 31.6 g/dL (32.0-36.0); Mean Corpuscular Hemoglobin 27.5 pg (27.0-31.0); Mean Corpuscular Volume 87.1 fL (78.0-98.0); Mean Platelet Volume 7.2 fL (7.4-10.4); Platelet Count 345 thou/uL (130-400); RBC Distribution Width 12.6 % (11.5-14.5); White Blood Cell (WBC) Count 14.5 thou/uL (4.8-10.8)
[2018-06-22 10:53] LABS: ALT (SGPT) 9 U/L (8-55); AST (SGOT) 19 U/L (5-34); Albumin 4.2 g/dL (3.5-5.0); Alkaline Phosphatase 61 U/L (40-150); Anion Gap 18 mmol/L (10-20); BUN (Urea Nitrogen) 10 mg/dL (9.8-20.1); Bilirubin, Total 0.8 mg/dL (0.2-1.2); Calc. Creatinine Clearance 0 mL/min (70-130); Calcium 9.2 mg/dL (7.8-10.44); Carbon Dioxide 20 mmol/L (22-29); Chloride 91 mmol/L (98-107); Estimated GFR-MDRD 78; Globulin 2.7 g/dL (2.4-3.5); Glucose 99 mg/dL (70-105); Potassium 3.5 mmol/L (3.5-5.1); Protein, Total 6.9 g/dL (6.0-8.3); Sodium 125 mmol/L (136-145)
[2018-06-22 10:57] LABS: CKMB 3.4 ng/mL (0-6.6); Troponin I Less than 0.010 ng/mL (< 0.028)
[2018-06-22 11:18] LABS: Bilirubin Negative (Negative); Blood, Urine Negative (Negative); Clarity CLEAR (Clear); Glucose, Urine (Dipstick) Negative (Negative); Leukocyte Negative (Negative); Nitrite Negative (Negative); Protein, Urine (Dipstick) Negative (Neg-Trace); Specific Gravity, Urine 1.005 (1.002-1.036)
--- NOTE | 2018-06-22 13:06 | RAD ---
SINGLE VIEW OF THE CHEST TWO VIEWS OF THE ABDOMEN: Comparison: 04-26-17 History: Intermittent chest pain that began three days ago with shortness of breath. Abdominal pain. FINDINGS: Supine and upright views of the abdomen and upright view of the chest shows a nonspecific, nonobstruc sandra bowel gas pattern. Surgical clips are seen in the abdomen. No free air or air fluid levels are se en on the upright examination. The Mediport is unchanged in position. There is no evidence of consolidation, mass or pleural effusio n. IMPRESSION: No evidence of obstruction or acute cardiopulmonary process. POS: [facility]
== END 2018-06-22 12:18 | disposition home or self-care (01) ==
LOC: ERS 09:46
DX: R07.9 Chest pain, unspecified (principal); D72.829 Elevated white blood cell count, unspecified; I25.10 Atherosclerotic heart disease of native coronary artery without angina pectoris; I11.0 Hypertensive heart disease with heart failure; I50.9 Heart failure, unspecified; I34.1 Nonrheumatic mitral (valve) prolapse; J44.9 Chronic obstructive pulmonary disease, unspecified; F41.9 Anxiety disorder, unspecified; F32.9 Major depressive disorder, single episode, unspecified; K21.9 Gastro-esophageal reflux disease without esophagitis; F20.9 Schizophrenia, unspecified; Z79.82 Long term (current) use of aspirin; Z79.899 Other long term (current) drug therapy
CPT/HCPCS: 36415; 51701; 74022; 80053; 81003; 82553; 84484; 85025; 87086; 93005; A4353

== ENCOUNTER 2018-06-27 04:52 | Emergency (ER) | payer MEDICARE, MEDICAID ==
[2018-06-27 05:41] LABS: #Eosinphils 0.1 thou/uL (0.0-0.7); #Lymphocytes 2.5 thou/uL (1.20-3.40); #Monocytes 0.8 thou/uL (0.11-0.59); #Neutrophils 5.8 thou/uL (1.40-6.50); %Basophils 0.3 % (0.0-1.0); %Eosinophils 1.2 % (0.0-10.0); %Lymphocytes 26.7 % (21.0-51.0); %Monocytes 9.1 % (0.0-10.0); %Neutrophils 62.7 % (42.0-75.0); Hemoglobin 11.9 g/dL (12.0-16.0); Mean Corpuscular HGB CONC 31.8 g/dL (32.0-36.0); Mean Corpuscular Hemoglobin 27.6 pg (27.0-31.0); Mean Corpuscular Volume 86.8 fL (78.0-98.0); Mean Platelet Volume 6.9 fL (7.4-10.4); Platelet Count 296 thou/uL (130-400); RBC Distribution Width 12.8 % (11.5-14.5); White Blood Cell (WBC) Count 9.3 thou/uL (4.8-10.8)
[2018-06-27 06:07] LABS: BHCG - Serum Negative (NEGATIVE); Pregs Control Background? CLEAR/WHITE (CLR/WHITE); Pregs Control Bar Appear? YES (CONTROL BAR)
[2018-06-27 06:08] LABS: ALT (SGPT) 11 U/L (8-55); AST (SGOT) 15 U/L (5-34); Albumin 4.4 g/dL (3.5-5.0); Alcohol Less than 10 mg/dL (Less than 10); Alkaline Phosphatase 64 U/L (40-150); Anion Gap 16 mmol/L (10-20); BUN (Urea Nitrogen) 9 mg/dL (9.8-20.1); Calc. Creatinine Clearance 0 mL/min (70-130); Carbon Dioxide 21 mmol/L (22-29); Chloride 98 mmol/L (98-107); Estimated GFR-MDRD 74; Globulin 2.9 g/dL (2.4-3.5); Glucose 126 mg/dL (70-105); Lipase 8 U/L (8-78); Protein, Total 7.3 g/dL (6.0-8.3); Sodium 131 mmol/L (136-145)
[2018-06-27 06:09] LABS: CKMB 2.6 ng/mL (0-6.6); Troponin I Less than 0.010 ng/mL (< 0.028)
[2018-06-27 06:23] LABS: Bilirubin Negative (Negative); Blood, Urine Moderate (Negative); Clarity CLOUDY (Clear); Glucose, Urine (Dipstick) Negative (Negative); Leukocyte Large (Negative); Nitrite Positive (Negative); Protein, Urine (Dipstick) Trace mg/dL (Neg-Trace); Specific Gravity, Urine 1.009 (1.002-1.036); pH, Urine 5.5 (5.0-9.0)
[2018-06-27 06:26] LABS: Bacteria/HPF 4+ HPF (None Seen); Hyaline Casts/LPF 0-3 HYALINE CAST LPF (0-3 Hyaline); RBC/HPF 21-50 HPF (0-3); Squamous Epithelial None Seen HPF (0-3)
[2018-06-27 06:33] LABS: Amphetamine Not Detected (NotDetected); Barbiturates Screen Not Detected (NotDetected); Benzodiazepine Screen Detected (NotDetected); Cocaine Metabolite Screen Not Detected (NotDetected); Medtox Control Line Valid? VALID (VALID); Medtox Reader # READER 1; Methadone Not Detected (NotDetected); Methamphetamine Not Detected (NotDetected); Opiate Screen Not Detected (NotDetected); Oxycodone Screen Not Detected (NotDetected); Phencyclidine (PCP) Not Detected (NotDetected); THC/Cannabinoid Screen Not Detected (NotDetected); Tricyclic Screen Not Detected (NotDetected)
[2018-06-27 06:43] LABS: Acetaminophen Less than 6.0 mcg/mL (10.0-30.0); Alcohol Less than 10 mg/dL (Less than 10); CK (CPK) 408 U/L (29-168); Salicylate Less than 8.0 mg/dL (15.0-30.0)
[2018-06-27] MEDS ORDERED: Ziprasidone 20 MG VIAL ONE (06:51)
[2018-06-27] MEDS ORDERED: Lidocaine 1% (PF) 30 ML VIAL ONE (06:51)
[2018-06-27] MEDS ORDERED: cefTRIAXone\\ROCEPHIN 1 GM VIAL ONE (06:51)
[2018-06-27] MEDS ORDERED: Water For Inject, Bacteriostat 30 ML ONE (06:54)
--- NOTE | 2018-06-27 10:09 | RAD ---
CHEST 1 VIEW AND ABDOMEN 2 VIEWS: Date: 06/27/18 HISTORY: Abdominal pain. FINDINGS/IMPRESSION: Comparison made with exam of 06/22/18. The heart size is normal. Right-sided Port-A-Cath remains in place. The lungs are well expanded witho ut focal areas of consolidation, pneumothorax, or pleural effusions. Postop changes in the left upper and right upper quadrant are again noted. No free air or differentia l fluid levels are seen. Bowel gas pattern is unremarkable. POS: [facility]
[2018-06-27] MEDS ORDERED: Lorazepam 1 MG TAB ONE (12:25)
== END 2018-06-27 13:08 ==
LOC: ERS 04:52
DX: R10.9 Unspecified abdominal pain (principal); F23 Brief psychotic disorder; I11.0 Hypertensive heart disease with heart failure; I50.9 Heart failure, unspecified; J44.9 Chronic obstructive pulmonary disease, unspecified
CPT/HCPCS: 36415; 51701; 74022; 80053; 80306; 80307; 81003; 81015; 82553; 83690; 84443; 84484; 84703; 85025; 93005; 96372; A4353; J0696; J2001; J3486

== ENCOUNTER 2018-10-01 13:47 | Observation (INO) | payer MEDICARE, MEDICAID ==
--- NOTE | 2018-10-01 15:19 | ULT ---
BILATERAL VENOUS DOPPLER ULTRASOUND: History: Post-operative syncope. Knee replacement with left knee edema. Technique: Multiplanar grayscale and color doppler images were obtained in a bilateral lower extremit y venous ultrasound. Spectral analysis of the doppler waveforms were performed. FINDINGS: The bilateral common femoral vein, profunda femoral veins, superficial femoral veins, and popliteal v eins are normal in appearance without visible thrombus. These vessels demonstrate normal compression, flow, and augmentation. The posterior tibial vein and greater saphenous vein are also patent. IMPRESSION: No evidence of DVT in either leg. POS: [facility]
[2018-10-01 15:58] LABS: #Eosinphils 0.5 thou/uL (0.0-0.7); #Monocytes 0.5 thou/uL (0.11-0.59); #Neutrophils 5.8 thou/uL (1.40-6.50); %Basophils 0.5 % (0.0-1.0); %Eosinophils 5.8 % (0.0-10.0); %Lymphocytes 22.5 % (21.0-51.0); %Monocytes 5.1 % (0.0-10.0); %Neutrophils 66.1 % (42.0-75.0); Hemoglobin 8.7 g/dL (12.0-16.0); Mean Corpuscular HGB CONC 30.7 g/dL (32.0-36.0); Mean Corpuscular Hemoglobin 27.3 pg (27.0-31.0); Mean Corpuscular Volume 89.1 fL (78.0-98.0); Mean Platelet Volume 7.1 fL (7.4-10.4); Platelet Count 302 thou/uL (130-400); RBC Distribution Width 12.1 % (11.5-14.5); Red Blood Cell (RBC) Count 3.19 mill/uL (4.20-5.40); White Blood Cell (WBC) Count 8.8 thou/uL (4.8-10.8)
--- NOTE | 2018-10-01 16:13 | CT ---
HEAD CT WITHOUT CONTRAST: Date: 10/01/18 HISTORY: Altered mental status. Unconsciousness. Hypotension. COMPARISON: 07/12/17. FINDINGS: Limited evaluation by motion degradation. No parenchymal hemorrhage. No extra-axial hematoma. No midl ine shift. Basilar cisterns are patent. Brain volume, age-appropriate. Cortical awrren-white matter dif ferentiation preserved. No evidence of hydrocephalus. Note is made of a prominent calvarium with a slight component of hyperostosis frontalis interna. Calvarium is intact. No fracture. Adequate aeration of the sinuses and mastoid air cells. IMPRESSION: No intracranial post-traumatic sequelae. POS: [facility]
[2018-10-01 16:24] LABS: ALT (SGPT) Less than 7 U/L (8-55); AST (SGOT) 8 U/L (5-34); Albumin 3.2 g/dL (3.5-5.0); Alkaline Phosphatase 58 U/L (40-150); Anion Gap 12 mmol/L (10-20); BUN (Urea Nitrogen) 13 mg/dL (9.8-20.1); Bilirubin, Total 0.4 mg/dL (0.2-1.2); CK (CPK) 81 U/L (29-168); Calc. Creatinine Clearance 0 mL/min (70-130); Calcium 8.3 mg/dL (7.8-10.44); Carbon Dioxide 22 mmol/L (22-29); Chloride 109 mmol/L (98-107); Estimated GFR-MDRD 81; Globulin 2.8 g/dL (2.4-3.5); Glucose 100 mg/dL (70-105); Potassium 4.1 mmol/L (3.5-5.1); Sodium 139 mmol/L (136-145)
[2018-10-01] MEDS ORDERED: Ondansetron ODT 4 MG TAB PO PRN (17:43)
[2018-10-01] MEDS ORDERED: Ondansetron PF 4 MG/2 ML Vial IVP PRN (17:43)
[2018-10-01 20:02] VITALS: BMI 28.4
--- NOTE | 2018-10-01 20:24 | HP ---
PRIMARY CARE PHYSICIAN: Jean Ragsdale MD CHIEF COMPLAINT: Hypotension. HISTORY OF PRESENT ILLNESS: Mrs. Krishna is a pleasant 58-year-old female with past medical history of schizophrenia, lymphoma, coronary artery disease, chronic diastolic heart failure, GERD, hypertension, COPD, and asthma, who had presented to [facility] via EMS status post being unconscious. Family friend called EMS due to the patient being unconscious and unresponsive and upon arrival, the patient was noticed to have a very low blood pressure with a systolic blood pressure in the 60s. She was treated with IV fluids. Upon arrival to see [facility] ER, the patient was awake, alert, and oriented x4. Blood pressures had improved. However, she had remained on IV fluids for hydration. The patient states that she had pain down her legs over the last several days and had been taking someone else's pain medication earlier today prior to her symptoms starting. CT brain was unremarkable. Lower extremity venous Doppler was negative for DVT at this time. The patient had denied any headache, blurred vision, dizziness, chest pain, palpitations, shortness of breath, abdominal pain, nausea, vomiting. It was determined that the patient be admitted under observation and be kept on tele overnight for further monitoring with possible discharge home tomorrow. REVIEW OF SYSTEMS: All other systems reviewed and found to be negative unless mentioned in the HPI. PAST MEDICAL HISTORY: Schizophrenia, lymphoma, coronary artery disease, chronic diastolic heart failure, GERD, hypertension, COPD, and asthma. PAST SURGICAL HISTORY: Hysterectomy, AICD placement, cardiac catheterization with stent placement, appendectomy, cholecystectomy, tonsillectomy, esophageal varices banding, bowel resection, bladder sling surgery, lymph node dissection of left axilla, bilateral carpal tunnel release, cystectomy on both breasts, MediPort placement in right chest. SOCIAL HISTORY: The patient denies any alcohol, tobacco, or illicit drug use. ALLERGIES: THE PATIENT IS ALLERGIC TO CHLORPROMAZINE, HALOPERIDOL, LITHIUM CARBONATE, PENICILLIN, SULFA, THYROXINE, TOMATO, AND TRAMADOL. CURRENT HOME MEDICATIONS: The patient cannot tell me her home medications at this time. PHYSICAL EXAMINATION: VITAL SIGNS: BP 101/65, pulse 75, respirations 18, temp 99.1 degrees Fahrenheit, O2 saturation 99% on room air. GENERAL: The patient is awake, alert, and oriented x4. No acute distress noted. HEENT: Atraumatic, normocephalic. Pupils are round and reactive to light. Extraocular muscles are intact. The patient is edentulous. Moist mucous membranes are noted. NECK: Soft and supple. No JVD noted. CARDIOVASCULAR: Positive S1 and S2. Regular rate and rhythm. No murmurs are auscultated. RESPIRATORY: Clear to auscultation bilaterally. No wheezes, rales, or rhonchi. ABDOMEN: Soft, nontender. Bowel sounds are present. Nondistended. MUSCULOSKELETAL: Strength 5+ bilaterally, upper and lower extremities. Moves all extremities equal. 1+ nonpitting edema, bilateral lower extremities. NEUROLOGIC: Cranial nerves 2 through 12 are grossly intact. No focal deficits noted. Speech is intact and normal. Gait is normal. PSYCHIATRIC: Good mood and affect. LABORATORY DATA: WBC 8.8, RBC 3.19, hemoglobin 8.7, platelet 302. Sodium 139, potassium 4.1, anion gap 12, creatinine 0.87, estimated GFR 81. Troponin less than 0.010, lactic acid 0.8. DIAGNOSTIC IMAGING: Lower extremity venous Doppler showed no evidence of DVT in either leg. CT brain was unremarkable. EKG showed normal sinus rhythm with a rate of 78 beats per minute. No ST-T wave changes. Normal axis. ASSESSMENT/PLAN: 1. Hypotension, symptomatic, continue with IV fluid hydration at this time. We will hold off on any further IV fluids than what she has gotten in the emergency department secondary to her history of chronic diastolic heart failure. Monitor for further signs of edema. The patient had a negative cardiac workup within the last 12 months. Therefore, we will hold off at this time, and place the patient on telemetry for observation overnight. Once her home medications are reconciled, we will restart her home medications. Monitor vital signs closely and adjust home medications as needed. Check urine drug screen, the patient had ingested several unknown medications prior to her symptoms starting, she states that these were all for pain. However, we will rule out any illicit drugs. 2. History of diastolic heart failure, currently stable at this time. 3. History of coronary artery disease. The patient remains asymptomatic. Denies any chest pain, troponin less than 0.010. Continue on home regimen once reconciled. 4. History of schizophrenia. 5. History of gastroesophageal reflux disease. Continue with GI prophylaxis. 6. History of chronic obstructive pulmonary disease and asthma. Continue with home bronchodilators as needed. 7. Acute on chronic anemia. Recheck CBC. We will hold off on any blood transfusions at this time secondary to the patient being asymptomatic and showing no signs of any bleeding. If her repeat H and H shows a hemoglobin trending down, we will then add blood transfusions as needed. 8. Code status, full code. DISPOSITION: Pending further workup and clinical findings. Job ID: [id number]
[2018-10-01 20:28] LABS: Amphetamine Not Detected (NotDetected); Barbiturates Screen Not Detected (NotDetected); Benzodiazepine Screen Not Detected (NotDetected); Cocaine Metabolite Screen Not Detected (NotDetected); Medtox Reader # READER 1; Methadone Not Detected (NotDetected); Methamphetamine Not Detected (NotDetected); Opiate Screen Detected (NotDetected); Oxycodone Screen Not Detected (NotDetected); Phencyclidine (PCP) Not Detected (NotDetected); THC/Cannabinoid Screen Not Detected (NotDetected); Tricyclic Screen Not Detected (NotDetected)
[2018-10-01 20:29] LABS: Medtox Control Line Valid? VALID (VALID)
[2018-10-01] MEDS ORDERED: PROVENTIL INHALER 6.7 G (200 INHALATIONS) INH PRN (20:37)
[2018-10-01] MEDS ORDERED: Cyclobenzaprine 10 MG TAB PO PRN (20:37)
[2018-10-01] MEDS ORDERED: Albuterol Sulfate 1.25 MG/3 ML NEB NEB PRN (20:37)
[2018-10-01] MEDS: Famotidine 20 MG TAB PO SCH (20:44)
[2018-10-01] MEDS: Acetaminophen 325 MG TAB PO PRN (20:44)
[2018-10-01 20:54] LABS: Bilirubin Negative (Negative); Blood, Urine Small (Negative); Clarity TURBID (Clear); Glucose, Urine (Dipstick) Negative (Negative); Leukocyte Large (Negative); Nitrite Positive (Negative); Protein, Urine (Dipstick) Negative (Neg-Trace); Specific Gravity, Urine 1.011 (1.002-1.036)
[2018-10-01 20:55] LABS: Bacteria/HPF Rare-Few HPF (None Seen); Hyaline Casts/LPF 0-3 HYALINE CAST LPF (0-3 Hyaline); Pathc Cast-AUWi Flag 0.33 (0-2.49); Squamous Epithelial None Seen HPF (0-3)
[2018-10-01] MEDS ORDERED: Non-Formulary Item 1 EACH (Budesonide-Formoterol [Symbicort 160-4.5] 2 PUFF) INH SCH (21:00)
[2018-10-01] MEDS: Flecainide 50 MG TAB PO SCH (21:15)
[2018-10-01] MEDS: RisperDAL M-TAB 1 MG TAB PO SCH (21:15)
[2018-10-01] MEDS: Ketorolac Tromethamine 30 MG/ML VIAL IVP SCH (23:37)
[2018-10-02 05:12] VITALS: TEMP 98.4
[2018-10-02 05:20] LABS: #Eosinphils 0.5 thou/uL (0.0-0.7); #Lymphocytes 2.7 thou/uL (1.20-3.40); #Monocytes 0.4 thou/uL (0.11-0.59); #Neutrophils 3.1 thou/uL (1.40-6.50); %Basophils 0.4 % (0.0-1.0); %Lymphocytes 39.1 % (21.0-51.0); %Monocytes 6.4 % (0.0-10.0); %Neutrophils 46.1 % (42.0-75.0); Hemoglobin 8.8 g/dL (12.0-16.0); Mean Corpuscular HGB CONC 30.8 g/dL (32.0-36.0); Mean Corpuscular Hemoglobin 27.7 pg (27.0-31.0); Mean Corpuscular Volume 89.9 fL (78.0-98.0); Mean Platelet Volume 7.1 fL (7.4-10.4); Platelet Count 309 thou/uL (130-400); RBC Distribution Width 12.1 % (11.5-14.5); Red Blood Cell (RBC) Count 3.19 mill/uL (4.20-5.40); White Blood Cell (WBC) Count 6.8 thou/uL (4.8-10.8)
[2018-10-02 05:48] LABS: Anion Gap 10 mmol/L (10-20); BUN (Urea Nitrogen) 12 mg/dL (9.8-20.1); Calc. Creatinine Clearance 92 mL/min (70-130); Calcium 8.7 mg/dL (7.8-10.44); Carbon Dioxide 23 mmol/L (22-29); Chloride 109 mmol/L (98-107); Estimated GFR-MDRD 90; Glucose 84 mg/dL (70-105); Potassium 4.4 mmol/L (3.5-5.1); Sodium 138 mmol/L (136-145)
[2018-10-02] MEDS ORDERED: Furosemide 40 MG TAB PO SCH (06:00)
[2018-10-02] MEDS: Ketorolac Tromethamine 30 MG/ML VIAL IVP SCH (06:09)
[2018-10-02] MEDS ORDERED: Mometasone/Formoterol 120 PUFF INHALER INH SCH (06:30)
[2018-10-02] MEDS ORDERED: Lubiprostone 24 MCG CAP PO SCH (08:00)
[2018-10-02] MEDS: Acetaminophen 325 MG TAB PO PRN (08:18)
[2018-10-02] MEDS: Famotidine 20 MG TAB PO SCH (08:18)
[2018-10-02] MEDS: Flecainide 50 MG TAB PO SCH (08:18)
[2018-10-02] MEDS: RisperDAL M-TAB 1 MG TAB PO SCH (08:18)
[2018-10-02 08:27] VITALS: BP 111/71
[2018-10-02] MEDS ORDERED: Nitrofurantoin Monohyd/M-Cryst 100 MG CAP PO SCH (09:00)
[2018-10-02] MEDS ORDERED: Aspirin 325 MG TAB PO SCH (09:00)
--- NOTE | 2018-10-02 10:03 | DIS ---
DATE OF ADMISSION: 10/01/2018 DATE OF DISCHARGE: 10/02/2018 PRIMARY CARE PHYSICIAN: [facility] call admission. DISCHARGE DISPOSITION: Home. PRIMARY DISCHARGE DIAGNOSES: 1. Transient hypotension, resolved. 2. Acute metabolic encephalopathy, resolved. 3. Urinary tract infection. SECONDARY DISCHARGE DIAGNOSES: 1. Schizoaffective disorder. 2. Noncompliance with medication. 3. Hypertension. 4. Gastroesophageal reflux disease. 5. Chronic diastolic heart failure. 6. Coronary artery disease. 7. Mild asthma. 8. Normocytic normochromic anemia. PRIMARY PROCEDURE/OPERATION: None. RADIOLOGICAL INVESTIGATION: CT brain; negative. Ultrasound; negative for DVT. SIGNIFICANT LABORATORY DATA: WBC 6.8, hemoglobin 8.8, and platelets 309. Sodium 138, creatinine 0.79. LFT normal. Cardiac enzyme negative. Lactic acid 0.8. Urinalysis suggestive of UTI. Urine drug screen positive for opiates. DISCHARGE MEDICATION: 1. ProAir HFA two puffs q.4 hourly p.r.n. 2. Ventolin nebulization q.6 hourly p.r.n. 3. [place] 1 tablet q.6 hourly p.r.n. 4. Ipratropium nebulization q.6 hourly. 5. Aspirin 325 mg p.o. daily. 6. Symbicort two puffs inhalation b.i.d. 7. Vitamin D3, 1000 units p.o. daily. 8. Flexeril 10 mg t.i.d. p.r.n. 9. Nexium 40 mg p.o. b.i.d. 10. Tambocor 50 mg p.o. b.i.d. 11. Lasix 40 mg p.o. b.i.d. 12. Amitiza 24 mcg p.o. b.i.d. 13. Magnesium 500 mg p.o. daily. 14. Metoprolol 25 mg b.i.d. 15. Singulair 10 mg daily. 16. Potassium chloride 99 mg tablet daily. 17. Risperidone 1 mg b.i.d. 18. Macrobid 100 mg p.o. b.i.d. for 7 days. CONTRAINDICATION: None. CODE STATUS: Full code. INPATIENT SUPPORT SERVICES MANAGER: None. ALLERGIES: CHLORPROMAZINE, PENICILLIN, AND HALOPERIDOL. DISCHARGE PLAN: Posthospital, the patient will follow up with primary care physician. HOSPITAL COURSE: A 58-year-old female who was brought to hospital by paramedics for acute alteration in mental status. She was found hypotensive at the scene, but rapidly improved with IV fluid. She was found with urinary tract infection. Her CT brain was negative. She is completely neurologically intact. Her vitals stabilized after admission. She did not have any sepsis. At this point, the patient is back to her baseline and normal. We educated about the patient's medication. She will resume all medication as previous. During this admission, ultrasound was done, which was negative for any DVT. She was on room air. She was given Macrobid for possible urinary tract infection. The patient was seen and examined at bedside today. All review of systems reviewed with her and negative. PHYSICAL EXAMINATION: VITAL SIGNS: Currently, temperature 98.4, pulse 93, respiratory rate 20, blood pressure 124/81, and saturation 97% on room air. Weight 165 pounds. GENERAL: The patient is currently alert, awake, in no obvious acute distress. HEENT: Head; normocephalic, atraumatic. LUNGS: Clear to auscultation without any rhonchi or rales. CARDIAC: S1, S2. Regular without any murmur. No gallop. No rub. ABDOMEN: Soft and benign. EXTREMITIES: No edema. NEUROLOGIC: Nonfocal examination. The patient is medically stable for discharge. Job ID: [id number]
== END 2018-10-02 10:28 | disposition home or self-care (01) ==
LOC: ERS 13:47 → 2SW 18:17
PROVIDERS: ADMIT Internal Medicine; ATTEND Internal Medicine
DX: I95.89 Other hypotension (principal); D64.89 Other specified anemias; J44.9 Chronic obstructive pulmonary disease, unspecified; I11.0 Hypertensive heart disease with heart failure; I50.32 Chronic diastolic (congestive) heart failure; I25.10 Atherosclerotic heart disease of native coronary artery without angina pectoris; F20.9 Schizophrenia, unspecified; K21.9 Gastro-esophageal reflux disease without esophagitis; G93.41 Metabolic encephalopathy; N39.0 Urinary tract infection, site not specified; Z79.51 Long term (current) use of inhaled steroids; Z79.82 Long term (current) use of aspirin; Z79.899 Other long term (current) drug therapy; Z88.0 Allergy status to penicillin; Z88.2 Allergy status to sulfonamides; Z88.8 Allergy status to other drugs, medicaments and biological substances; Z91.018 Allergy to other foods; Z91.14 Patient's other noncompliance with medication regimen
CPT/HCPCS: 70450; 80048; 80053; 80306; 81001; 82550; 83605; 84484; 85025 ×2; 87077; 87086; 87186; 93005; 93970; 94640; 96361; 96374; 96376; 99285; G0378 ×2; 36415; 96360; J1642; J1885

== ENCOUNTER 2018-10-05 19:03 | Emergency (ER) | payer MEDICARE, MEDICAID | END 2018-10-05 19:33 | disposition left against medical advice (07) | LOC: ERS 19:03 | DX: Z53.21 Procedure and treatment not carried out due to patient leaving prior to being seen by health care provider (principal) ==

== ENCOUNTER 2019-01-06 08:12 | Day surgery (SDC) | payer MEDICARE, MEDICAID ==
[2019-01-05 12:38] VITALS: BMI 26.2
[2019-01-06] MEDS ORDERED: Sodium Chloride 0.9% 10 ML ONE (10:32)
[2019-01-06] MEDS ORDERED: PROPOFOL 200 MG/20 ML VIAL ONE (15:20)
--- NOTE | 2019-01-06 15:59 | OP ---
DATE OF PROCEDURE: 01/06/2019 PROCEDURES PERFORMED: Esophagogastroduodenoscopy with biopsy, colonoscopy (diagnostic). INDICATIONS FOR PROCEDURE: Nausea, vomiting, hematochezia, anemia. DESCRIPTION OF PROCEDURE: After the risks and benefits of the procedures were explained to the patient including risks of bleeding, infection, perforation, reaction to anesthesia, aspiration and/or pain, informed consent was obtained. The patient was then taken to the endoscopy suite, where deep sedation was administered via propofol and anesthesia support. Once adequate sedation was achieved, the standard gastroscope was introduced into the mouth with intubation of the esophagus, stomach, and the proximal small intestines with the findings listed below. Upon completion of this portion of the procedures, all equipment was removed from the patient and the bed was rotated to 180 degrees in anticipation for the colonoscopy. A digital rectal examination was then performed, followed by introduction of the standard colonoscope, which was then advanced to the terminal ileum with some difficulty due to significant tortuosity and looping of the colonoscope itself, but was able to be advanced without any additional interventions. The quality of the prep was excellent. The patient tolerated this portion of the procedure well with no immediate perioperative complications. Upon completion of the colonoscopy, all equipment was removed from the patient and she was taken to Day Stay in satisfactory condition. EGD FINDINGS: Esophagus: Normal-appearing mucosa was seen in the proximal, mid, and distal esophagus. There was no evidence of erosions, ulcerations, mass, lesions, or active/recent bleeding. Both the diaphragmatic pinch and GE junction were well seen at approximately 38 cm past the incisors. Stomach: Diffuse mildly erythematous mucosa was seen throughout the entire stomach including the gastric cardia, fundus, body, antrum, and incisura. However, there were no associated erosions, ulcerations, mass, lesions, or active/recent bleeding associated with this increased redness. Random biopsies were then taken from the antrum body and fundus for evaluation of possible H. pylori. On gastric retroflexion, the gastric cardia appeared to be slightly rotated in a swirl type pattern around the GE junction and maybe indicative of a paraesophageal hernia. Duodenum: The duodenal bulb was easily intubated with a widely patent pyloric valve. Normal-appearing mucosa was seen in both the duodenal bulb and second portion of the duodenum. There was no evidence of erosions, ulcerations, mass, lesions, or active/recent bleeding. IMPRESSION: 1. Diffuse mildly erythematous mucosa seen throughout the entire stomach concerning for possible NSAID use versus Helicobacter pylori status post random biopsies. 2. Slight swirl pattern to the gastric cardia around the gastroesophageal junction concerning for possible paraesophageal hernia versus a prior Mary procedure. 3. Widely patent pyloric valve with indeterminate significance. 4. No etiology for the patient's nausea and vomiting was seen during this examination. COLONOSCOPY FINDINGS: Digital rectal exam, small external hemorrhoids were seen on external examination. COLON FINDINGS: Normal-appearing mucosa was seen in the terminal ileum as well as at the ileocecal valve and appendiceal orifice. Normal-appearing mucosa was then seen in the cecum, ascending, transverse, descending, sigmoid colons, and rectum. There was no evidence of erosions, ulcerations, mass, lesions, or active/recent bleeding seen throughout the entire colon. On rectal retroflexion, there were small internal hemorrhoids seen as well, but none actively bleeding or erythematous. IMPRESSION: 1. Small internal and external hemorrhoids, which is likely source of the patient's hematochezia in addition to her constipation. 2. Otherwise normal colonoscopy. RECOMMENDATIONS: 1. We will follow up on the biopsy results with further care dictated by the pathology report. 2. Would continue with the current acid reflux regimen given the mild symptomatic relief. 3. We will continue with bowel regimen including Amitiza and higher fiber/FODMAP diet with a likely source of hematochezia being from either her internal or external hemorrhoids. 4. Would have the patient follow up in the GI Clinic in 3 weeks with the physician assistant front office manager. Job ID: [id number]
== END 2019-01-06 11:20 | disposition home or self-care (01) ==
LOC: SDC 08:12
PROVIDERS: ATTEND Internal Medicine
PROC: 0DJD8ZZ Inspection of Lower Intestinal Tract, Via Natural or Artificial Opening Endoscopic (ICD-10-PCS; principal; 2019-01-06)
PROC: 0DB68ZX Excision of Stomach, Via Natural or Artificial Opening Endoscopic, Diagnostic (ICD-10-PCS; 2019-01-06)
DX: K92.1 Melena (principal); D64.9 Anemia, unspecified; K64.4 Residual hemorrhoidal skin tags; K64.8 Other hemorrhoids; K59.00 Constipation, unspecified; K29.50 Unspecified chronic gastritis without bleeding; R11.2 Nausea with vomiting, unspecified; Z79.82 Long term (current) use of aspirin; Z79.899 Other long term (current) drug therapy; Z88.0 Allergy status to penicillin; Z88.2 Allergy status to sulfonamides; Z88.6 Allergy status to analgesic agent; Z88.8 Allergy status to other drugs, medicaments and biological substances
CPT/HCPCS: 88305; 88312; J1642; J2704

== ENCOUNTER 2019-01-22 03:49 | Observation (INO) | payer MEDICARE, MEDICAID ==
[2019-01-22 04:27] LABS: #Eosinphils 0.1 thou/uL (0.0-0.7); #Lymphocytes 3.3 thou/uL (1.20-3.40); #Monocytes 1.1 thou/uL (0.11-0.59); %Basophils 0.4 % (0.0-1.0); %Eosinophils 0.5 % (0.0-10.0); %Lymphocytes 26.6 % (21.0-51.0); %Neutrophils 63.6 % (42.0-75.0); Hemoglobin 13.2 g/dL (12.0-16.0); Mean Corpuscular HGB CONC 32.4 g/dL (32.0-36.0); Mean Corpuscular Hemoglobin 26.7 pg (27.0-31.0); Mean Corpuscular Volume 82.3 fL (78.0-98.0); Mean Platelet Volume 7.4 fL (7.4-10.4); Platelet Count 328 thou/uL (130-400); RBC Distribution Width 13.4 % (11.5-14.5); Red Blood Cell (RBC) Count 4.95 mill/uL (4.20-5.40); White Blood Cell (WBC) Count 12.5 thou/uL (4.8-10.8)
[2019-01-22] MEDS ORDERED: Lorazepam 2 MG/ML VIAL ONE (04:27)
[2019-01-22] MEDS ORDERED: Ketorolac Tromethamine 30 MG/ML VIAL ONE (04:27)
[2019-01-22 04:48] LABS: ALT (SGPT) 17 U/L (8-55); AST (SGOT) 24 U/L (5-34); Albumin 4.7 g/dL (3.5-5.0); Alkaline Phosphatase 95 U/L (40-150); Anion Gap 19 mmol/L (10-20); BUN (Urea Nitrogen) 21 mg/dL (9.8-20.1); Bilirubin, Total 0.7 mg/dL (0.2-1.2); Calc. Creatinine Clearance 0 mL/min (70-130); Calcium 10.1 mg/dL (7.8-10.44); Carbon Dioxide 20 mmol/L (22-29); Chloride 99 mmol/L (98-107); Estimated GFR-MDRD 41; Globulin 3.5 g/dL (2.4-3.5); Glucose 110 mg/dL (70-105); Lipase 21 U/L (8-78); Potassium 3.2 mmol/L (3.5-5.1); Protein, Total 8.2 g/dL (6.0-8.3); Sodium 135 mmol/L (136-145)
[2019-01-22 04:53] LABS: Acetaminophen Less than 6.0 mcg/mL (10.0-30.0); Alcohol Less than 10 mg/dL (Less than 10); Salicylate Less than 8.0 mg/dL (15.0-30.0)
[2019-01-22 06:10] LABS: Bilirubin Negative (Negative); Blood, Urine Negative (Negative); Clarity CLEAR (Clear); Glucose, Urine (Dipstick) Negative (Negative); Leukocyte Small (Negative); Nitrite Negative (Negative); Protein, Urine (Dipstick) Negative (Neg-Trace); Specific Gravity, Urine 1.008 (1.002-1.036); Urobilinogen 0.2 mg/dL (0.2-1.0)
[2019-01-22 06:11] LABS: Bacteria/HPF None Seen HPF (None Seen); Hyaline Casts/LPF 0-3 HYALINE CAST LPF (0-3 Hyaline); Pathc Cast-AUWi Flag 0.27 (0-2.49); RBC/HPF 0-3 HPF (0-3); Squamous Epithelial 0-3 HPF (0-3); WBC/HPF 0-3 HPF (0-3)
[2019-01-22 06:23] LABS: Amphetamine Not Detected (NotDetected); Barbiturates Screen Not Detected (NotDetected); Benzodiazepine Screen Not Detected (NotDetected); Cocaine Metabolite Screen Not Detected (NotDetected); Medtox Reader # READER 4; Methadone Not Detected (NotDetected); Methamphetamine Not Detected (NotDetected); Opiate Screen Detected (NotDetected); Oxycodone Screen Not Detected (NotDetected); Phencyclidine (PCP) Not Detected (NotDetected); THC/Cannabinoid Screen Not Detected (NotDetected); Tricyclic Screen Not Detected (NotDetected)
[2019-01-22 06:24] LABS: Medtox Control Line Valid? VALID (VALID)
[2019-01-22 07:08] LABS: Troponin I 0.023 ng/mL (< 0.028)
[2019-01-22] MEDS ORDERED: Aspirin Chewable 81 MG TAB ONE (07:58)
[2019-01-22] MEDS ORDERED: Potassium Chloride 20 MEQ TAB ONE (07:58)
--- NOTE | 2019-01-22 08:23 | RAD ---
EXAM: Single view of the chest HISTORY: Chest pain COMPARISON: 06/20/2018 FINDINGS: Single view of the chest shows a normal sized cardiomediastinal silhouette. The Mediport i s unchanged in position. There is no evidence of consolidation, mass, or pleural effusion. Degenerative changes are seen in the spine. Surgical clips are seen near the gastroesophageal junctio n. IMPRESSION: No evidence of acute cardiopulmonary disease
[2019-01-22 09:33] VITALS: BMI 25.0
[2019-01-22] MEDS ORDERED: Acetaminophen/Codeine 30-300mg Tablet PO PRN (10:57)
[2019-01-22] MEDS ORDERED: PROVENTIL INHALER 6.7 G (200 INHALATIONS) INH PRN (10:57)
[2019-01-22] MEDS ORDERED: risperiDONE 1 MG TAB PO SCH (10:58)
[2019-01-22 13:00] LABS: Troponin I 0.027 ng/mL (< 0.028)
--- NOTE | 2019-01-22 15:49 | HP ---
REASON FOR ADMISSION: Acute psychosis, chest pain. HISTORY OF PRESENTING ILLNESS: The patient gives history of having had chest pain associated with diaphoresis earlier this morning. She has been having rough time with her family members. The patient is hallucinating at present. She is also worried about some of her family members being injured, again this could be hallucination which cannot be confirmed at present. The patient also says that she has not been taking her Risperdal as prescribed for schizoaffective disorder for almost a month now. She has dry cough, but no expectoration. No complaints of palpitations, PND, or orthopnea. The patient is ambulating in the room. No nausea, vomiting, or diarrhea. PAST MEDICAL AND SURGICAL HISTORY: History of cardiac catheterization done in January of 2016, which was normal. She has had a stress test done in December of 2017 which was normal, schizoaffective disorder, paroxysmal atrial fibrillation, COPD, hypertension, AICD, hysterectomy, prior cardiac cath done in January of [address] Roberts was negative, GERD, cholecystectomy, appendectomy, tonsillectomy, bowel surgery, bladder sling surgery, carpal tunnel release, MediPort in the right chest for venous access. CURRENT MEDICATIONS: 1. The patient is on Risperdal 1 mg p.o. at bedtime, which she has not been taking for almost a month now. 2. Zantac 300 mg p.o. at bedtime. 3. Potassium 99 mg p.o. daily. 4. Singulair 10 mg p.o. daily. 5. Lopressor 25 mg twice daily. 6. Lasix 40 mg daily. 7. Flecainide 50 mg twice daily. 8. Symbicort inhaler 160/4.5 mcg two puffs twice daily. 9. Aspirin 325 mg daily. 10. Albuterol inhaler q.6 hourly p.r.n. 11. Tylenol No. 3 p.r.n. ALLERGIES: TO CHLORPROMAZINE, PENICILLIN, HALOPERIDOL, LITHIUM, MORPHINE, SULFA , TOMATO, AND ULTRAM. PERSONAL HISTORY: Denies alcohol use or tobacco. Does not abuse drugs. The patient is currently psychotic and does not recall if her parents have any heart disease. But per prior records from December of 2017, there is family members who have had history of heart attacks in specifically parents. CODE STATUS: Full. REVIEW OF SYSTEMS: CONSTITUTIONAL: Negative for weight loss or gain, ability to conduct usual activities. SKIN: Negative for rash, itching. EYES: Negative for double vision, pain. ENT/MOUTH: Negative for nose bleeding, neck stiffness, pain, tenderness. CARDIOVASCULAR: Negative for palpitations, dyspnea on exertion, orthopnea. RESPIRATORY: Negative for shortness of breath, wheezing, cough, hemoptysis, fever or night sweats. GASTROINTESTINAL: Negative for poor appetite, abdominal pain, heartburn, nausea , vomiting, constipation, or diarrhea. GENITOURINARY: Negative for urgency, frequency, dysuria, nocturia. MUSCULOSKELETAL: Negative for pain, swelling. NEUROLOGIC/PSYCHIATRIC: Negative for anxiety, depression. ALLERGY/IMMUNOLOGIC: Negative for skin rash, bleeding tendency. PHYSICAL EXAMINATION: GENERAL: The patient is a 58-year-old female, who is currently not in any acute distress, but psychotic at present. She is currently maniac and singing. VITAL SIGNS: Blood pressure 116/86, pulse 100 per minute, respiratory rate 18 per minute, temperature 98 degrees Fahrenheit, saturating 96% on room air. NECK: Supple. No elevated JVD. HEENT: Eyes; extraocular muscles intact. Pupils reacting to light. Oral cavity, mucous membranes are moist. No exudates or congestion. The patient does not have much teeth left in the oral cavity. CARDIOVASCULAR: S1 and S2 heard, regular rhythm. RESPIRATORY: Air entry 1+ bilateral. Scattered rhonchi. No rales or wheezes. ABDOMEN: Soft. Bowel sounds heard. No tenderness, rigidity, or guarding. EXTREMITIES: No peripheral edema or calf tenderness. VASCULAR SYSTEM: Peripheral pulses 1+ bilateral. No ischemic ulcerations or gangrene. CENTRAL NERVOUS SYSTEM: No gross focal deficits noted. The patient is alert, awake, and oriented well. PSYCHIATRIC: The patient's mood is a bit psychotic at present and is hallucinating. No suicidal ideation or thoughts at present. LABORATORY DATA: EKG done shows normal sinus rhythm at 100 beats per minute. There is poor R-wave progression. White count of 12, hemoglobin and hematocrit of 13 and 40, platelet count 328. MCV is 82 with 63% neutrophils. D-dimer 0.43. Potassium 3.2, bicarb 20, BUN 21, creatinine 1.56, serum glucose 110. Liver enzymes are within normal limits. Troponin I x3 is negative. Lipase is 21. Urine drug screen is positive for opiates. Plasma alcohol less than 10. DIAGNOSTIC DATA: Chest x-ray done shows no acute cardiopulmonary abnormalities. CLINICAL IMPRESSION AND PLAN: The patient is hemodynamically stable with no current chest pains. Three sets of troponin were negative. Ms. Krishna has had coronary angiogram done in 2016, which was clean. She has had a stress test done last year which showed no reversible ischemia. She is currently having acute psychosis due to noncompliance with her Risperdal for schizoaffective disorder. [facility] counselor is here evaluating the patient. Per [facility] counselors advise, she likely will need inpatient psychiatric hospitalization to control her psychosis. She is trying to arrange the same and the patient is cleared medically for discharge at any time. She is given a dose of 1 mg Risperdal at present. We will also continue aspirin , flecainide, Lasix, Lopressor, Singulair, DuoNebs p.r.n. as before. Addendum: she has been accepted to [facility]. Please note this is a same day observation admit and discharge. This is a short stay summary. Job ID: [id number] MTDD
[2019-01-22 16:24] VITALS: BP 122/69; TEMP 98.4
[2019-01-22] MEDS ORDERED: Mometasone/Formoterol 120 PUFF INHALER INH SCH (18:30)
[2019-01-22] MEDS ORDERED: Flecainide 50 MG TAB PO SCH (21:00)
[2019-01-22] MEDS ORDERED: Metoprolol Tartrate 25 MG TAB PO SCH (21:00)
[2019-01-22] MEDS ORDERED: Famotidine 20 MG TAB PO SCH (21:00)
[2019-01-23] MEDS ORDERED: Potassium Chloride 20 MEQ TAB PO SCH (08:00)
[2019-01-23] MEDS ORDERED: Furosemide 40 MG TAB PO SCH (09:00)
[2019-01-23] MEDS ORDERED: Aspirin 325 MG TAB PO SCH (09:00)
[2019-01-23] MEDS ORDERED: Montelukast Sodium 10 mg Tablet PO SCH (09:00)
== END 2019-01-22 18:41 | disposition short-term general hospital (02) ==
LOC: ERS 03:49 → 2SW 09:01
PROVIDERS: ADMIT Internal Medicine; ATTEND Internal Medicine
DX: F23 Brief psychotic disorder (principal); R07.9 Chest pain, unspecified; F25.9 Schizoaffective disorder, unspecified; I48.0 Paroxysmal atrial fibrillation; J44.9 Chronic obstructive pulmonary disease, unspecified; I11.0 Hypertensive heart disease with heart failure; I50.9 Heart failure, unspecified; K21.9 Gastro-esophageal reflux disease without esophagitis; Z91.14 Patient's other noncompliance with medication regimen; Z98.890 Other specified postprocedural states; Z88.0 Allergy status to penicillin; Z88.5 Allergy status to narcotic agent; Z88.2 Allergy status to sulfonamides; Z91.018 Allergy to other foods; Z88.8 Allergy status to other drugs, medicaments and biological substances; Z79.82 Long term (current) use of aspirin; Z79.899 Other long term (current) drug therapy
CPT/HCPCS: 71045; 80053; 80306; 80307; 83690; 84484 ×2; 85025; 85379; 93005; 96361; 96374; 96375; 99285; G0378 ×2; 36415; 81003; 81015; J1885; J2060

== ENCOUNTER 2019-02-08 12:17 | Emergency (ER) | payer MEDICARE, MEDICAID ==
[2019-02-08] MEDS ORDERED: Ketorolac Tromethamine 60 MG/2 ML VIAL ONE (13:09)
== END 2019-02-08 13:25 | disposition home or self-care (01) ==
LOC: ERS 12:17
DX: R51 Headache (principal); R00.2 Palpitations; F20.9 Schizophrenia, unspecified
CPT/HCPCS: 93005; 96372; J1885

== ENCOUNTER 2019-02-14 23:21 | Emergency (ER) | payer MEDICARE, MEDICAID ==
[2019-02-15 02:53] LABS: #Basophils 0.1 thou/uL (0.0-0.2); #Eosinphils 0.1 thou/uL (0.0-0.7); #Lymphocytes 4.2 thou/uL (1.20-3.40); #Monocytes 0.7 thou/uL (0.11-0.59); #Neutrophils 4.3 thou/uL (1.40-6.50); %Basophils 0.8 % (0.0-1.0); %Eosinophils 1.1 % (0.0-10.0); %Lymphocytes 45.1 % (21.0-51.0); Hemoglobin 11.8 g/dL (12.0-16.0); Mean Corpuscular HGB CONC 31.6 g/dL (32.0-36.0); Mean Corpuscular Hemoglobin 26.9 pg (27.0-31.0); Platelet Count 452 thou/uL (130-400); RBC Distribution Width 14.2 % (11.5-14.5); Red Blood Cell (RBC) Count 4.41 mill/uL (4.20-5.40); White Blood Cell (WBC) Count 9.2 thou/uL (4.8-10.8)
[2019-02-15 03:13] LABS: ALT (SGPT) 8 U/L (8-55); AST (SGOT) 12 U/L (5-34); Albumin 4.4 g/dL (3.5-5.0); Alkaline Phosphatase 77 U/L (40-150); Anion Gap 17 mmol/L (10-20); BUN (Urea Nitrogen) 19 mg/dL (9.8-20.1); Calc. Creatinine Clearance 0 mL/min (70-130); Calcium 10.3 mg/dL (7.8-10.44); Carbon Dioxide 20 mmol/L (22-29); Chloride 106 mmol/L (98-107); Estimated GFR-MDRD 46; Globulin 3.2 g/dL (2.4-3.5); Glucose 107 mg/dL (70-105); Lipase 17 U/L (8-78); Potassium 4.1 mmol/L (3.5-5.1); Protein, Total 7.6 g/dL (6.0-8.3); Sodium 139 mmol/L (136-145)
[2019-02-15] MEDS ORDERED: Ketorolac Tromethamine 30 MG/ML VIAL ONE (03:30)
[2019-02-15] MEDS ORDERED: Ondansetron ODT 4 MG TAB ONE (03:30)
--- NOTE | 2019-02-15 07:41 | RAD ---
ACUTE ABDOMINAL SERIES: INDICATIONS: History of nausea and vomiting. Suspicious for small bowel obstruction. COMPARISON: Prior exam dated 06/27/2018. FINDINGS: The right-sided chest wall port is stable. The lungs are clear. No pneumoperitoneum is evident. Th ere is extensive surgical change within the upper abdomen. The bowel gas pattern is nonspecific but without overt evidence of obstruction. There are numerous phleboliths within the lower pelvis. No a cute osseous abnormality is noted. IMPRESSION: No acute abnormality. POS: [facility]
--- NOTE | 2019-02-19 12:12 | EKG ---
Test Reason : CP Blood Pressure : / mmHG Vent. Rate : 080 BPM Atrial Rate : 080 BPM P-R Int : 106 ms QRS Dur : 086 ms QT Int : 380 ms P-R-T Axes : 069 022 050 degrees QTc Int : 438 ms Sinus rhythm with short NE Nonspecific ST and T wave abnormality Abnormal ECG Confirmed by AYLIN HERMAN ([id number]), film and video editor GIORGIO GARCIA ([id number]) on 02/19/2019 12:12:27 PM Referred By: PERI Confirmed By:AYLIN HERMAN
== END 2019-02-15 04:05 | disposition home or self-care (01) ==
LOC: ERS 23:21
DX: K59.00 Constipation, unspecified (principal); I20.9 Angina pectoris, unspecified; K21.9 Gastro-esophageal reflux disease without esophagitis; I11.0 Hypertensive heart disease with heart failure; I50.9 Heart failure, unspecified; Z86.73 Personal history of transient ischemic attack (TIA), and cerebral infarction without residual deficits; F25.9 Schizoaffective disorder, unspecified
CPT/HCPCS: 74022; 80053; 83690; 84484; 85025; 93005; 96361; 96374; J1885; Q0162

== ENCOUNTER 2019-02-18 22:46 | Emergency (ER) | payer MEDICARE, MEDICAID ==
[2019-02-18 23:21] LABS: #Basophils 0.1 thou/uL (0.0-0.2); #Eosinphils 0.1 thou/uL (0.0-0.7); #Lymphocytes 3.9 thou/uL (1.20-3.40); #Monocytes 0.8 thou/uL (0.11-0.59); #Neutrophils 6.1 thou/uL (1.40-6.50); %Basophils 0.5 % (0.0-1.0); %Eosinophils 0.6 % (0.0-10.0); %Lymphocytes 35.7 % (21.0-51.0); %Neutrophils 56.2 % (42.0-75.0); Hemoglobin 11.4 g/dL (12.0-16.0); Mean Corpuscular HGB CONC 31.7 g/dL (32.0-36.0); Mean Corpuscular Hemoglobin 26.5 pg (27.0-31.0); Mean Corpuscular Volume 83.6 fL (78.0-98.0); Platelet Count 407 thou/uL (130-400); Red Blood Cell (RBC) Count 4.32 mill/uL (4.20-5.40); White Blood Cell (WBC) Count 10.9 thou/uL (4.8-10.8)
--- NOTE | 2019-02-18 23:28 | RAD ---
Exam: Chest one view HISTORY:Chest pain Comparison: 01/22/2019 FINDINGS: Lungs: No masses or consolidation. Cardiac silhouette:Stable Pulmonary vessels: Normal Pleural Spaces: Clear Pneumothorax: None Right chest port remains. Persistent elevation of left hemidiaphragm with underlying surgical bia at the left upper quadran t. Osseous abnormalities: None of acuity. IMPRESSION: No focal consolidation.
[2019-02-18 23:43] LABS: ALT (SGPT) 7 U/L (8-55); AST (SGOT) 15 U/L (5-34); Albumin 4.3 g/dL (3.5-5.0); Alkaline Phosphatase 76 U/L (40-150); Anion Gap 16 mmol/L (10-20); BUN (Urea Nitrogen) 16 mg/dL (9.8-20.1); Calc. Creatinine Clearance 0 mL/min (70-130); Carbon Dioxide 20 mmol/L (22-29); Chloride 106 mmol/L (98-107); Estimated GFR-MDRD 46; Globulin 3.2 g/dL (2.4-3.5); Glucose 113 mg/dL (70-105); Potassium 3.7 mmol/L (3.5-5.1); Protein, Total 7.5 g/dL (6.0-8.3); Sodium 138 mmol/L (136-145)
[2019-02-19 02:42] LABS: Troponin I 0.014 ng/mL (< 0.028)
== END 2019-02-19 03:09 | disposition home or self-care (01) ==
LOC: ERS 22:46
DX: R07.89 Other chest pain (principal); I11.0 Hypertensive heart disease with heart failure; I50.9 Heart failure, unspecified; K21.9 Gastro-esophageal reflux disease without esophagitis; Z86.73 Personal history of transient ischemic attack (TIA), and cerebral infarction without residual deficits; F20.9 Schizophrenia, unspecified
CPT/HCPCS: 36415; 71045; 80053; 84484; 85025; 93005

== ENCOUNTER 2019-02-19 09:19 | Emergency (ER) | payer MEDICARE, MEDICAID ==
[2019-02-19 10:08] LABS: Bilirubin Negative (Negative); Blood, Urine Negative (Negative); Clarity Turbid (Clear); Glucose, Urine (Dipstick) Normal (Negative); Leukocyte 500 Leu/uL (Negative); Nitrite Negative (Negative); Protein, Urine (Dipstick) 30 mg/dL (Neg-Trace); Urobilinogen 6 mg/dL (Less than 2)
[2019-02-19 10:09] LABS: Pregnancy Test - Urine (BHCG) Negative (Negative); Pregu Control Background? CLEAR/WHITE (CLR/WHITE); Pregu Control Bar Appear? YES (CONTROL BAR); Specific Gravity 1.029 (1.002-1.036)
[2019-02-19 10:11] LABS: #Basophils 0.1 thou/uL (0.0-0.2); #Lymphocytes 2.7 thou/uL (1.20-3.40); #Monocytes 0.8 thou/uL (0.11-0.59); #Neutrophils 8.5 thou/uL (1.40-6.50); %Basophils 0.8 % (0.0-1.0); %Eosinophils 0.2 % (0.0-10.0); %Monocytes 6.8 % (0.0-10.0); %Neutrophils 70.2 % (42.0-75.0); Hemoglobin 12.4 g/dL (12.0-16.0); Mean Corpuscular HGB CONC 31.3 g/dL (32.0-36.0); Mean Corpuscular Hemoglobin 26.4 pg (27.0-31.0); Mean Corpuscular Volume 84.3 fL (78.0-98.0); Platelet Count 422 thou/uL (130-400); RBC Distribution Width 14.2 % (11.5-14.5); White Blood Cell (WBC) Count 12.1 thou/uL (4.8-10.8)
[2019-02-19 10:17] LABS: Bacteria/HPF Rare-Few HPF (None Seen); RBC/HPF 0-3 HPF (0-3)
[2019-02-19 10:29] LABS: Amphetamine Not Detected (NotDetected); Barbiturates Screen Not Detected (NotDetected); Benzodiazepine Screen Not Detected (NotDetected); Cocaine Metabolite Screen Not Detected (NotDetected); Medtox Reader # READER 1; Methadone Not Detected (NotDetected); Methamphetamine Not Detected (NotDetected); Opiate Screen Not Detected (NotDetected); Oxycodone Screen Not Detected (NotDetected); Phencyclidine (PCP) Not Detected (NotDetected); THC/Cannabinoid Screen Not Detected (NotDetected); Tricyclic Screen Not Detected (NotDetected)
[2019-02-19 10:30] LABS: Medtox Control Line Valid? VALID (VALID)
[2019-02-19 10:34] LABS: Acetaminophen Less than 6.0 mcg/mL (10.0-30.0); Alcohol Less than 10 mg/dL (Less than 10); Salicylate Less than 8.0 mg/dL (15.0-30.0)
[2019-02-19 10:37] LABS: ALT (SGPT) 8 U/L (8-55); AST (SGOT) 18 U/L (5-34); Albumin 4.7 g/dL (3.5-5.0); Alkaline Phosphatase 82 U/L (40-150); Anion Gap 17 mmol/L (10-20); BUN (Urea Nitrogen) 23 mg/dL (9.8-20.1); Bilirubin, Total 1.5 mg/dL (0.2-1.2); CK (CPK) 348 U/L (29-168); Calc. Creatinine Clearance 0 mL/min (70-130); Calcium 10.5 mg/dL (7.8-10.44); Carbon Dioxide 21 mmol/L (22-29); Chloride 106 mmol/L (98-107); Estimated GFR-MDRD 39; Globulin 3.4 g/dL (2.4-3.5); Glucose 106 mg/dL (70-105); Potassium 4.1 mmol/L (3.5-5.1); Protein, Total 8.1 g/dL (6.0-8.3); Sodium 140 mmol/L (136-145)
[2019-02-19] MEDS ORDERED: risperiDONE 1 MG TAB ONE (11:23)
[2019-02-19] MEDS ORDERED: Ziprasidone 20 MG VIAL ONE (16:19)
[2019-02-19] MEDS ORDERED: Lorazepam 2 MG/ML VIAL ONE (23:22)
[2019-02-20] MEDS ORDERED: Ziprasidone 20 MG VIAL ONE (06:26)
== END 2019-02-19 11:07 | disposition home or self-care (01) ==
LOC: ERS 09:19
DX: F23 Brief psychotic disorder (principal)
CPT/HCPCS: 80053; 80306; 80307; 81003; 81015; 81025; 82550; 84443; 85025; 87086; 93005; 94640; 96361; 96372; 96374; J2060; J3486; J7620

== ENCOUNTER 2019-03-23 08:34 | Outpatient (CLI) | payer MEDICARE, MEDICAID ==
--- NOTE | 2019-03-23 10:52 | RAD ---
GASTROGRAFIN SMALL BOWEL: HISTORY: Right abdominal pain. Evaluate for obstruction. FINDINGS: Initial energy scheduler radiograph demonstrates fecal material in a nondistended colon. The one hour image dem onstrates passage of oral contrast into the colon. There are contrast opacified distal small bowel l oops. IMPRESSION: No evidence of high-grade obstruction. POS: OFF
== END 2019-03-23 08:35 | disposition home or self-care (01) ==
LOC: RAD 08:34
PROVIDERS: ATTEND Specialist
DX: R10.9 Unspecified abdominal pain (principal)
CPT/HCPCS: 74250

== ENCOUNTER 2019-04-04 15:00 | Emergency (ER) | payer MEDICARE, MEDICAID ==
[2019-04-04] MEDS ORDERED: Ondansetron ODT 8 MG TAB ONE (15:55)
[2019-04-04 16:10] LABS: Bilirubin Negative (Negative); Blood, Urine Trace (Negative); Clarity Clear (Clear); Glucose, Urine (Dipstick) Normal (Negative); Leukocyte Negative Leu/uL (Negative); Nitrite Negative (Negative); Protein, Urine (Dipstick) Negative (Neg-Trace); RBC/HPF 0-3 HPF (0-3); Squamous Epithelial 0-3 HPF (0-3); WBC/HPF 0-3 HPF (0-3)
[2019-04-04 16:18] LABS: Bacteria/HPF 1+ HPF (None Seen)
== END 2019-04-04 16:43 | disposition home or self-care (01) ==
LOC: ERS 15:00
DX: R19.7 Diarrhea, unspecified (principal); R11.2 Nausea with vomiting, unspecified; I11.0 Hypertensive heart disease with heart failure; I50.9 Heart failure, unspecified; I20.9 Angina pectoris, unspecified; K21.9 Gastro-esophageal reflux disease without esophagitis; F20.9 Schizophrenia, unspecified; Z86.73 Personal history of transient ischemic attack (TIA), and cerebral infarction without residual deficits; Z79.82 Long term (current) use of aspirin; Z79.899 Other long term (current) drug therapy
CPT/HCPCS: 81003; 81015; 99284

== ENCOUNTER 2019-04-07 12:30 | Outpatient (CLI) | payer MEDICARE, MEDICAID ==
--- NOTE | 2019-04-07 13:53 | RAD ---
2 views of the abdomen: 04/07/2019 COMPARISON: 06/21/2018 HISTORY: Abdominal pain FINDINGS: There are numerous postoperative clips in the left upper quadrant. There are also postopera tive clips in the right upper quadrant. The bowel gas pattern appears nonobstructed. Vascular calcifications are noted within the pelvis. IMPRESSION: Postoperative clips within the upper abdomen. Nonobstructed bowel gas pattern.
== END 2019-04-07 12:31 | disposition home or self-care (01) ==
LOC: RAD 12:30
PROVIDERS: ATTEND Specialist
DX: R10.9 Unspecified abdominal pain (principal); Z98.890 Other specified postprocedural states
CPT/HCPCS: 74019

== ENCOUNTER 2019-04-21 13:00 | Emergency (ER) | payer MEDICARE, MEDICAID ==
--- NOTE | 2019-04-21 13:35 | RAD ---
XR Chest 1 View Portable HISTORY: Chest pain COMPARISON: 02/18/2019 study. FINDINGS: Heart size and mediastinum are within normal limits. The lungs are clear of infiltrates. A right-sided Mediport catheter is present. Surgical clips are seen in the left upper quadrant of the abdomen. IMPRESSION: No active intrathoracic disease.
[2019-04-21 13:38] LABS: #Basophils 0.1 thou/uL (0.0-0.2); #Eosinphils 0.2 thou/uL (0.0-0.7); #Lymphocytes 4.4 thou/uL (1.20-3.40); #Monocytes 0.6 thou/uL (0.11-0.59); #Neutrophils 7.3 thou/uL (1.40-6.50); %Eosinophils 1.5 % (0.0-10.0); %Neutrophils 57.5 % (42.0-75.0); Hemoglobin 13.6 g/dL (12.0-16.0); Mean Corpuscular HGB CONC 31.5 g/dL (32.0-36.0); Mean Corpuscular Hemoglobin 26.7 pg (27.0-31.0); Mean Platelet Volume 7.9 fL (7.4-10.4); Platelet Count 340 thou/uL (130-400); RBC Distribution Width 14.2 % (11.5-14.5); Red Blood Cell (RBC) Count 5.08 mill/uL (4.20-5.40); White Blood Cell (WBC) Count 12.7 thou/uL (4.8-10.8)
[2019-04-21 13:51] LABS: ALT (SGPT) Less than 7 U/L (8-55); AST (SGOT) 14 U/L (5-34); Albumin 4.6 g/dL (3.5-5.0); Alkaline Phosphatase 69 U/L (40-150); Anion Gap 17 mmol/L (10-20); BUN (Urea Nitrogen) 21 mg/dL (9.8-20.1); Bilirubin, Total 0.4 mg/dL (0.2-1.2); CK (CPK) 71 U/L (29-168); Calc. Creatinine Clearance 0 mL/min (70-130); Carbon Dioxide 24 mmol/L (22-29); Chloride 100 mmol/L (98-107); Estimated GFR-MDRD 53; Globulin 3.8 g/dL (2.4-3.5); Glucose 95 mg/dL (70-105); Lipase 16 U/L (8-78); Potassium 4.9 mmol/L (3.5-5.1); Protein, Total 8.4 g/dL (6.0-8.3); Sodium 136 mmol/L (136-145)
[2019-04-21] MEDS ORDERED: Aspirin Chewable 81 MG TAB ONE (14:32)
--- NOTE | 2019-04-23 13:39 | EKG ---
Test Reason : ER INDICATION Blood Pressure : / mmHG Vent. Rate : 101 BPM Atrial Rate : 101 BPM P-R Int : 118 ms QRS Dur : 076 ms QT Int : 318 ms P-R-T Axes : 064 014 055 degrees QTc Int : 412 ms Sinus tachycardia Otherwise normal ECG Confirmed by SHADY LANDAVERDE D.O. ([id number]), visual effects editor GIORGIO GARCIA ([id number]) on 04/23/2019 1:38:49 PM Referred By: Confirmed By:SHADY LANDAVERDE D.O.
== END 2019-04-21 15:46 | disposition home or self-care (01) ==
LOC: ERS 13:00
DX: R07.89 Other chest pain (principal); I50.9 Heart failure, unspecified; I20.9 Angina pectoris, unspecified; Z86.73 Personal history of transient ischemic attack (TIA), and cerebral infarction without residual deficits; J44.9 Chronic obstructive pulmonary disease, unspecified; F20.9 Schizophrenia, unspecified; K21.9 Gastro-esophageal reflux disease without esophagitis; I10 Essential (primary) hypertension; Z79.899 Other long term (current) drug therapy; Z79.82 Long term (current) use of aspirin
CPT/HCPCS: 36415; 71045; 80053; 82550; 83690; 84484; 85025; 93005; 94760

== ENCOUNTER 2019-05-01 18:11 | Emergency (ER) | payer MEDICARE, MEDICAID ==
--- NOTE | 2019-05-01 19:24 | RAD ---
Frontal radiograph chest Upright and supine imaging of abdomen and pelvis: 05/02/2019 COMPARISON: 02/15/2019 HISTORY: Chest pain FINDINGS: There is a right-sided Port-A-Cath. There is no pneumothorax or pleural fluid and no focal consolidation or alveolar edema. There is mild elevation of the left hemidiaphragm, stable. Stable surgical clips are noted in the right upper quadrant and left upper quadrant the abdomen. No free intraperitoneal air. The bowel gas pattern appears nonobstructed. IMPRESSION: No acute findings.
[2019-05-01 19:55] LABS: #Basophils 0.1 thou/uL (0.0-0.2); #Eosinphils 0.2 thou/uL (0.0-0.7); #Lymphocytes 3.7 thou/uL (1.20-3.40); %Basophils 0.9 % (0.0-1.0); %Eosinophils 2.3 % (0.0-10.0); %Lymphocytes 41.1 % (21.0-51.0); %Monocytes 11.3 % (0.0-10.0); %Neutrophils 44.4 % (42.0-75.0); Hemoglobin 10.2 g/dL (12.0-16.0); Mean Corpuscular HGB CONC 32.6 g/dL (32.0-36.0); Mean Corpuscular Hemoglobin 28.1 pg (27.0-31.0); Mean Platelet Volume 7.3 fL (7.4-10.4); Platelet Count 289 thou/uL (130-400); RBC Distribution Width 13.4 % (11.5-14.5); Red Blood Cell (RBC) Count 3.63 mill/uL (4.20-5.40)
[2019-05-01 20:19] LABS: ALT (SGPT) 8 U/L (8-55); AST (SGOT) 20 U/L (5-34); Alkaline Phosphatase 56 U/L (40-150); Anion Gap 13 mmol/L (10-20); BUN (Urea Nitrogen) 13 mg/dL (9.8-20.1); Bilirubin, Total 0.4 mg/dL (0.2-1.2); Calc. Creatinine Clearance 0 mL/min (70-130); Calcium 9.1 mg/dL (7.8-10.44); Carbon Dioxide 24 mmol/L (22-29); Chloride 99 mmol/L (98-107); Estimated GFR-MDRD 54; Globulin 2.6 g/dL (2.4-3.5); Glucose 85 mg/dL (70-105); Potassium 4.3 mmol/L (3.5-5.1); Protein, Total 6.6 g/dL (6.0-8.3); Sodium 132 mmol/L (136-145)
[2019-05-01 22:24] LABS: Troponin I Less than 0.010 ng/mL (< 0.028)
== END 2019-05-01 22:37 | disposition home or self-care (01) ==
LOC: ERS 18:11
DX: R07.89 Other chest pain (principal); I11.0 Hypertensive heart disease with heart failure; I50.9 Heart failure, unspecified; I20.9 Angina pectoris, unspecified; K21.9 Gastro-esophageal reflux disease without esophagitis; J44.9 Chronic obstructive pulmonary disease, unspecified; F20.9 Schizophrenia, unspecified; Z86.73 Personal history of transient ischemic attack (TIA), and cerebral infarction without residual deficits
CPT/HCPCS: 36415; 74022; 80053; 84484; 85025; 93005; J1642

== ENCOUNTER 2019-05-03 06:36 | Emergency (ER) | payer MEDICARE, MEDICAID ==
[2019-05-03 07:19] LABS: Bilirubin Small (Negative); Blood, Urine Trace (Negative); Glucose, Urine (Dipstick) Negative (Negative); Leukocyte Negative (Negative); Nitrite Negative (Negative); Protein, Urine (Dipstick) Negative (Neg-Trace)
[2019-05-03 07:20] LABS: Clarity Clear (Clear)
[2019-05-03 07:29] LABS: Bacteria/HPF 1+ HPF (None Seen); Squamous Epithelial 0-3 HPF (0-3)
[2019-05-03 07:34] LABS: #Eosinphils 0.1 thou/uL (0.0-0.7); #Lymphocytes 3.6 thou/uL (1.20-3.40); #Monocytes 0.7 thou/uL (0.11-0.59); #Neutrophils 4.4 thou/uL (1.40-6.50); %Basophils 0.5 % (0.0-1.0); %Eosinophils 1.6 % (0.0-10.0); %Lymphocytes 40.1 % (21.0-51.0); %Monocytes 8.1 % (0.0-10.0); %Neutrophils 49.8 % (42.0-75.0); Hemoglobin 11.2 g/dL (12.0-16.0); Mean Corpuscular Hemoglobin 27.8 pg (27.0-31.0); Mean Corpuscular Volume 86.9 fL (78.0-98.0); Mean Platelet Volume 7.3 fL (7.4-10.4); Platelet Count 330 thou/uL (130-400); RBC Distribution Width 13.8 % (11.5-14.5); Red Blood Cell (RBC) Count 4.04 mill/uL (4.20-5.40); White Blood Cell (WBC) Count 8.9 thou/uL (4.8-10.8)
[2019-05-03 07:50] LABS: Albumin 4.3 g/dL (3.5-5.0)
[2019-05-03 07:51] LABS: Chloride 103 mmol/L (98-107)
[2019-05-03 07:52] LABS: Calcium 9.4 mg/dL (7.8-10.44); Potassium 4.3 mmol/L (3.5-5.1); Sodium 136 mmol/L (136-145)
[2019-05-03 07:53] LABS: Glucose 92 mg/dL (70-105); Protein, Total 7.3 g/dL (6.0-8.3)
[2019-05-03 07:54] LABS: Anion Gap 15 mmol/L (10-20); Carbon Dioxide 22 mmol/L (22-29)
[2019-05-03 07:55] LABS: Bilirubin, Total 0.4 mg/dL (0.2-1.2)
[2019-05-03 07:56] LABS: Alkaline Phosphatase 58 U/L (40-150); Calc. Creatinine Clearance 0 mL/min (70-130); Estimated GFR-MDRD 50
[2019-05-03 07:59] LABS: ALT (SGPT) 10 U/L (8-55); AST (SGOT) 20 U/L (5-34); BUN (Urea Nitrogen) 18 mg/dL (9.8-20.1); Lipase 12 U/L (8-78)
[2019-05-03] MEDS ORDERED: predniSONE 20 MG TAB ONE (08:41)
--- NOTE | 2019-05-03 08:59 | RAD ---
CHEST ONE VIEW: INDICATIONS: Chest pain and anxiety. COMPARISON: Prior exam dated 04/21/2019. FINDINGS: Lungs are clear. Heart size is normal. Right chest wall port is unchanged. Surgical changes in the left upper quadrant of the abdomen appear similar appearing. Bowel gas pattern underlying the left hemidiaphragm is stable. No acute osseous abnormality is evident. IMPRESSION: No acute cardiopulmonary abnormality. POS: [facility]
== END 2019-05-03 09:30 | disposition home or self-care (01) ==
LOC: ERS 06:36
DX: J45.901 Unspecified asthma with (acute) exacerbation (principal); F20.9 Schizophrenia, unspecified; I11.0 Hypertensive heart disease with heart failure; I50.9 Heart failure, unspecified; K21.9 Gastro-esophageal reflux disease without esophagitis; Z86.73 Personal history of transient ischemic attack (TIA), and cerebral infarction without residual deficits; Z79.899 Other long term (current) drug therapy; Z95.5 Presence of coronary angioplasty implant and graft; Z79.82 Long term (current) use of aspirin
CPT/HCPCS: 36415; 71045; 80053; 81003; 81015; 83690; 84484; 85025; 93005; 94640; J7512; J7620

== ENCOUNTER 2019-05-03 22:28 | Emergency (ER) | payer MEDICARE, MEDICAID | END 2019-05-04 00:32 | disposition home or self-care (01) | LOC: ERS 22:28 | DX: R07.89 Other chest pain (principal); I11.0 Hypertensive heart disease with heart failure; I50.9 Heart failure, unspecified; Z79.899 Other long term (current) drug therapy | CPT/HCPCS: 36415; 71045; 80053; 81003; 81015; 83690; 84484; 85025; 93005; 94640; J7512; J7620 ==

== ENCOUNTER 2019-05-10 00:25 | Emergency (ER) | payer MEDICARE, MEDICAID ==
[2019-05-10 01:02] LABS: #Eosinphils 0.1 thou/uL (0.0-0.7); #Lymphocytes 4.3 thou/uL (1.20-3.40); #Monocytes 0.7 thou/uL (0.11-0.59); #Neutrophils 4.3 thou/uL (1.40-6.50); %Basophils 0.4 % (0.0-1.0); %Eosinophils 0.7 % (0.0-10.0); %Lymphocytes 46.1 % (21.0-51.0); %Monocytes 7.2 % (0.0-10.0); %Neutrophils 45.7 % (42.0-75.0); Hemoglobin 10.4 g/dL (12.0-16.0); Mean Corpuscular HGB CONC 32.4 g/dL (32.0-36.0); Mean Corpuscular Hemoglobin 27.9 pg (27.0-31.0); Platelet Count 276 thou/uL (130-400); RBC Distribution Width 13.8 % (11.5-14.5); Red Blood Cell (RBC) Count 3.71 mill/uL (4.20-5.40); White Blood Cell (WBC) Count 9.4 thou/uL (4.8-10.8)
[2019-05-10] MEDS ORDERED: predniSONE 20 MG TAB ONE (01:12)
[2019-05-10 01:22] LABS: ALT (SGPT) 8 U/L (8-55); AST (SGOT) 15 U/L (5-34); Albumin 3.7 g/dL (3.5-5.0); Alkaline Phosphatase 50 U/L (40-110); Anion Gap 11 mmol/L (10-20); BUN (Urea Nitrogen) 25 mg/dL (9.8-20.1); Bilirubin, Total 0.3 mg/dL (0.2-1.2); Calc. Creatinine Clearance 0 mL/min (70-130); Calcium 8.8 mg/dL (7.8-10.44); Carbon Dioxide 22 mmol/L (22-29); Chloride 109 mmol/L (98-107); Estimated GFR-MDRD 61; Globulin 2.8 g/dL (2.4-3.5); Glucose 90 mg/dL (70-105); Protein, Total 6.5 g/dL (6.0-8.3); Sodium 138 mmol/L (136-145)
--- NOTE | 2019-05-10 08:09 | RAD ---
SINGLE VIEW OF THE CHEST: COMPARISON: 05/03/2019. HISTORY: Cough and shortness of breath. FINDINGS: A single view of the chest shows a normal-size cardiomediastinal silhouette. The MediPort is unchang ed in position. There is no evidence of consolidation, mass, or pleural effusion. IMPRESSION: No evidence of acute cardiopulmonary disease. POS: [facility]
--- NOTE | 2019-05-14 13:57 | EKG ---
Test Reason : Blood Pressure : / mmHG Vent. Rate : 087 BPM Atrial Rate : 087 BPM P-R Int : 118 ms QRS Dur : 072 ms QT Int : 358 ms P-R-T Axes : 066 007 017 degrees QTc Int : 430 ms Normal sinus rhythm Normal ECG Confirmed by SHREYAS HENRIQUEZ DO ([id number]), editor publications KAREN GAMBOA ([id number]) on 05/14/2019 1:56:44 PM Referred By: Confirmed By:SHREYAS HENRIQUEZ DO
== END 2019-05-10 02:01 | disposition home or self-care (01) ==
LOC: ERS 00:25
DX: J45.901 Unspecified asthma with (acute) exacerbation (principal); K21.9 Gastro-esophageal reflux disease without esophagitis; I11.0 Hypertensive heart disease with heart failure; I50.9 Heart failure, unspecified; F20.9 Schizophrenia, unspecified; Z79.899 Other long term (current) drug therapy; Z79.51 Long term (current) use of inhaled steroids; Z79.82 Long term (current) use of aspirin
CPT/HCPCS: 36415; 71045; 80053; 85025; 93005; 94640; J7512; J7620

== ENCOUNTER 2019-05-11 00:31 | Emergency (ER) | payer MEDICARE, MEDICAID ==
[2019-05-11] MEDS ORDERED: Acetaminophen 500 MG TAB ONE (01:28)
--- NOTE | 2019-05-11 09:19 | RAD ---
ABDOMINAL SURVEY WITH UPRIGHT PA CHEST AND TWO VIEW ABDOMEN: INDICATIONS: Abdominal pain. FINDINGS: The lungs are clear on the frontal chest film. A Mediport catheter is in place and appears adequately positioned. Two views of the abdomen show numerous surgical clips overlying the left upper quadrant and surgical clips in the right mid abdomen. There is scattered stool and gas throughout the colon. Some scattered small bowel gas is unremarkable . No free air or soft tissue mass identified. No abnormal calcification. IMPRESSION: No acute findings. POS: OFF
== END 2019-05-11 02:08 | disposition home or self-care (01) ==
LOC: ERS 00:31
DX: R51 Headache (principal); R10.9 Unspecified abdominal pain; I11.0 Hypertensive heart disease with heart failure; I50.9 Heart failure, unspecified; K21.9 Gastro-esophageal reflux disease without esophagitis; J44.9 Chronic obstructive pulmonary disease, unspecified; F25.9 Schizoaffective disorder, unspecified; Z85.060 Personal history of malignant carcinoid tumor of small intestine; Z79.899 Other long term (current) drug therapy; Z79.82 Long term (current) use of aspirin; Z79.52 Long term (current) use of systemic steroids; Z95.5 Presence of coronary angioplasty implant and graft; Z86.73 Personal history of transient ischemic attack (TIA), and cerebral infarction without residual deficits
CPT/HCPCS: 74022

== ENCOUNTER 2019-07-01 09:28 | Emergency (ER) | payer MEDICARE, MEDICAID ==
[2019-07-01 10:52] LABS: #Eosinphils 0.2 thou/uL (0.0-0.7); #Lymphocytes 2.8 thou/uL (1.20-3.40); #Monocytes 0.5 thou/uL (0.11-0.59); #Neutrophils 4.3 thou/uL (1.40-6.50); %Basophils 0.5 % (0.0-1.0); %Eosinophils 2.2 % (0.0-10.0); %Lymphocytes 35.9 % (21.0-51.0); %Monocytes 6.7 % (0.0-10.0); %Neutrophils 54.7 % (42.0-75.0); Hemoglobin 11.1 g/dL (12.0-16.0); Mean Corpuscular HGB CONC 32.2 g/dL (32.0-36.0); Mean Corpuscular Hemoglobin 28.2 pg (27.0-31.0); Mean Corpuscular Volume 87.4 fL (78.0-98.0); Mean Platelet Volume 7.2 fL (7.4-10.4); Platelet Count 213 thou/uL (130-400); RBC Distribution Width 13.7 % (11.5-14.5); Red Blood Cell (RBC) Count 3.93 mill/uL (4.20-5.40); White Blood Cell (WBC) Count 7.9 thou/uL (4.8-10.8)
[2019-07-01 11:22] LABS: ALT (SGPT) 8 U/L (8-55); AST (SGOT) 12 U/L (5-34); Albumin 3.6 g/dL (3.5-5.0); Alkaline Phosphatase 50 U/L (40-110); Anion Gap 13 mmol/L (10-20); BUN (Urea Nitrogen) 35 mg/dL (9.8-20.1); Bilirubin, Total 0.4 mg/dL (0.2-1.2); Calc. Creatinine Clearance 0 mL/min (70-130); Calcium 8.8 mg/dL (7.8-10.44); Carbon Dioxide 25 mmol/L (22-29); Chloride 105 mmol/L (98-107); Estimated GFR-MDRD 60; Globulin 2.8 g/dL (2.4-3.5); Glucose 98 mg/dL (70-105); Lipase 14 U/L (8-78); Potassium 4.6 mmol/L (3.5-5.1); Protein, Total 6.4 g/dL (6.0-8.3); Sodium 138 mmol/L (136-145)
[2019-07-01] MEDS ORDERED: Ketorolac Tromethamine 30 MG/ML VIAL ONE (11:25)
[2019-07-01] MEDS ORDERED: Metoclopramide HCl 10 MG/2 ML VIAL ONE (11:25)
[2019-07-01] MEDS ORDERED: diphenhydrAMINE 50 MG/ML VIAL ONE (11:25)
[2019-07-01 11:34] LABS: Bilirubin Negative (Negative); Blood, Urine Negative (Negative); Clarity Clear (Clear); Glucose, Urine (Dipstick) Normal (Negative); Leukocyte Negative Leu/uL (Negative); Nitrite Negative (Negative); Protein, Urine (Dipstick) Negative (Neg-Trace); Urobilinogen Normal mg/dL (Less than 2)
--- NOTE | 2019-07-01 11:35 | RAD ---
PORTABLE CHEST 1 VIEW: Date: 07/01/19 Time: 1048 hours HISTORY: Chest pain. FINDINGS: Comparison made with exam of 05/10/19. Right-sided Port-A-Cath remains in place. The heart size is normal. The lungs are expanded without fo armando areas of consolidation, pneumothoraces, or pleural effusions. IMPRESSION: No radiographic evidence of acute cardiopulmonary process. POS: [facility]
== END 2019-07-01 14:22 | disposition home or self-care (01) ==
LOC: ERS 09:28
DX: R51 Headache (principal); R25.1 Tremor, unspecified; R07.9 Chest pain, unspecified; M54.41 Lumbago with sciatica, right side; K21.9 Gastro-esophageal reflux disease without esophagitis; I10 Essential (primary) hypertension; J44.9 Chronic obstructive pulmonary disease, unspecified; I20.9 Angina pectoris, unspecified; F20.9 Schizophrenia, unspecified; Z86.73 Personal history of transient ischemic attack (TIA), and cerebral infarction without residual deficits; Z79.899 Other long term (current) drug therapy; Z79.51 Long term (current) use of inhaled steroids; Z79.82 Long term (current) use of aspirin
CPT/HCPCS: 36415; 71045; 80053; 81003; 83690; 84443; 84484; 85025; 93005; 94760; 96365; 96366; 96375; J1200; J1642; J1885; J2765

== ENCOUNTER 2019-07-11 15:11 | Outpatient (CLI) | payer MEDICARE, MEDICAID ==
--- NOTE | 2019-07-11 15:53 | MMO ---
Bilateral MAMMO Bilat Screen [facility]. CLINICAL HISTORY: Patient is 59 years old and is seen for screening. The patient has the following family history of breast cancer: mother, malignant (generic); sister, malignant (generic) and niece, malignant (generic). The patient has a history of lymphoma. The patient has a history of right Ultrasound Guided Core Biopsy in 2006 - benign and left needle biopsy more than 10 years ago - benign. VIEWS: The views performed were: bilateral craniocaudal with tomosynthesis and bilateral mediolateral oblique with tomosynthesis. FILMS COMPARED: The present examination has been compared to prior imaging studies performed at [facility] on 11/16/2015, 05/15/2016, 05/26/2017 and 06/01/2018. This study has been interpreted with the assistance of computer-aided detection. MAMMOGRAM FINDINGS: There are scattered fibroglandular densities. There are vascular calcifications seen in both breasts. There are no suspicious masses, suspicious calcifications, or new areas of architectural distortion. IMPRESSION: A ROUTINE FOLLOW-UP MAMMOGRAM IN 1 YEAR IS RECOMMENDED. THE RESULTS OF THIS EXAM WERE SENT TO THE PATIENT. ACR BI-RADS Category 2 - Benign finding MAMMOGRAPHY NOTE: 1. A negative mammogram report should not delay a biopsy if a dominant of clinically suspicious mass is present. 2. Approximately 10% to 15% of breast cancers are not detected by mammography. 3. Adenosis and dense breasts may obscure an underlying neoplasm. Reported by: RADHA URIARTE MD Electonically Signed: [id number]
== END 2019-07-11 15:12 | disposition home or self-care (01) ==
LOC: BICMAMMO 15:11
PROVIDERS: ATTEND Specialist
DX: Z12.31 Encounter for screening mammogram for malignant neoplasm of breast (principal); Z91.89 Other specified personal risk factors, not elsewhere classified; Z85.72 Personal history of non-Hodgkin lymphomas; Z80.3 Family history of malignant neoplasm of breast
CPT/HCPCS: 77063; 77067

== ENCOUNTER 2019-07-16 14:33 | Observation (INO) | payer MEDICARE, MEDICAID ==
[2019-07-16 15:22] LABS: #Eosinphils 0.2 thou/uL (0.0-0.7); #Lymphocytes 3.5 thou/uL (1.20-3.40); #Monocytes 0.8 thou/uL (0.11-0.59); #Neutrophils 3.5 thou/uL (1.40-6.50); %Basophils 0.4 % (0.0-1.0); %Eosinophils 2.5 % (0.0-10.0); %Lymphocytes 43.6 % (21.0-51.0); %Monocytes 9.5 % (0.0-10.0); %Neutrophils 44.1 % (42.0-75.0); Hemoglobin 10.6 g/dL (12.0-16.0); Mean Corpuscular HGB CONC 32.2 g/dL (32.0-36.0); Mean Corpuscular Hemoglobin 28.6 pg (27.0-31.0); Mean Corpuscular Volume 88.9 fL (78.0-98.0); Mean Platelet Volume 7.7 fL (7.4-10.4); Platelet Count 198 thou/uL (130-400); RBC Distribution Width 14.3 % (11.5-14.5); Red Blood Cell (RBC) Count 3.71 mill/uL (4.20-5.40)
--- NOTE | 2019-07-16 15:25 | RAD ---
EXAM: Single view of the chest HISTORY: Left-sided numbness COMPARISON: 07/01/2019 FINDINGS: Single view of the chest shows a normal sized cardiomediastinal silhouette. The Mediport i s unchanged in position. There is no evidence of consolidation, mass, or pleural effusion. The bones are unremarkable. IMPRESSION: No evidence of acute cardiopulmonary disease
--- NOTE | 2019-07-16 15:37 | CT ---
EXAM: CT brain without contrast HISTORY: Left-sided numbness COMPARISON: 10/01/2018 TECHNIQUE: Multiple contiguous axial images were obtained and a CT of the brain without contrast. FINDINGS: The brain is normal in morphology and attenuation without focal lesions or confluent areas of infarction. There is no evidence of hydrocephalus, intracranial hemorrhage, or extra-axial fluid collection. The calvarium and overlying soft tissues are unremarkable. The visualized paranasal sinuses and masto id air cells are well aerated. IMPRESSION: No evidence of acute intracranial abnormality
[2019-07-16 15:45] LABS: ALT (SGPT) Less than 7 U/L (8-55); AST (SGOT) 12 U/L (5-34); Albumin 3.4 g/dL (3.5-5.0); Alkaline Phosphatase 51 U/L (40-110); Anion Gap 12 mmol/L (10-20); BUN (Urea Nitrogen) 23 mg/dL (9.8-20.1); Bilirubin, Total 0.3 mg/dL (0.2-1.2); Calc. Creatinine Clearance 0 mL/min (70-130); Calcium 8.7 mg/dL (7.8-10.44); Carbon Dioxide 24 mmol/L (22-29); Chloride 106 mmol/L (98-107); Estimated GFR-MDRD 60; Glucose 94 mg/dL (70-105); Potassium 4.3 mmol/L (3.5-5.1); Protein, Total 6.4 g/dL (6.0-8.3); Sodium 138 mmol/L (136-145)
[2019-07-16 15:51] LABS: Bilirubin Negative (Negative); Blood, Urine Negative (Negative); Glucose, Urine (Dipstick) Negative (Negative); Leukocyte Small (Negative); Nitrite Negative (Negative); Protein, Urine (Dipstick) Negative (Neg-Trace)
[2019-07-16 16:01] LABS: Clarity Clear (Clear); RBC/HPF 0-3 HPF (0-3); Squamous Epithelial 0-3 HPF (0-3)
[2019-07-16 16:02] LABS: Bacteria/HPF None Seen HPF (None Seen); Renal Epithelial None Seen HPF (None Seen)
[2019-07-16] MEDS ORDERED: Acetaminophen 500 MG TAB ONE (16:22)
[2019-07-16] MEDS ORDERED: Aspirin 325 MG TAB ONE (17:37)
[2019-07-16] MEDS ORDERED: Benztropine 1 MG TAB PO SCH (21:00)
[2019-07-16] MEDS ORDERED: Metoprolol Tartrate 25 MG TAB PO SCH (21:00)
[2019-07-16] MEDS ORDERED: risperiDONE 1 MG TAB PO SCH ×2 (21:00→22:12)
[2019-07-16 21:10] VITALS: BMI 28.8
--- NOTE | 2019-07-16 22:12 | HP ---
HISTORY OF PRESENT ILLNESS: Mrs. Krishna is a 59-year-old black woman. She came to this facility earlier today after she was complaining of left-sided numbness and weakness which started since yesterday. She was seen by her PCP today and she was sent to the ER in view of possible CVA. She denies any associated headache. She had multiple TIAs in the past. She is also known to have hypertension, coronary artery disease. She is status post pacemaker placement, and also she has a history of COPD. PAST SURGICAL HISTORY: Remarkable for colon resection due to colon cancer and also she had some surgery involved in her laryngeal area. ALLERGIES: SHE CLAIMS TO HAVE ALLERGY TO PENICILLIN, SULFA, THORAZINE, ULTRAM, AND LITHIUM. SOCIAL HISTORY: She denies any history of cigarette smoking, ETOH abuse, or substance abuse . FAMILY HISTORY: Reviewed and is not contributory. MEDICATIONS: Prior to admission, she was on 1. Tylenol with Codeine. 2. Albuterol inhaler. 3. Aspirin. 4. Cogentin. 5. Symbicort inhaler. 6. Flecainide. 7. Lasix. 8. Metoprolol tartrate. 9. Singulair. 10. Potassium chloride. 11. Ranitidine. 12. Risperdal. REVIEW OF SYSTEMS: CONSTITUTIONAL: Denies any fever. HEENT: No headache. No ocular pain. No sore throat. No rhinorrhea. No earache. No epistaxis. NECK: No neck pain. No neck stiffness. CARDIOVASCULAR: Admits to shortness of breath. No chest pain. PULMONARY: Some dry cough. GASTROINTESTINAL: No nausea, no vomiting. No diarrhea. No abdominal pain. GENITOURINARY: No dysuria. No hematuria. ENDOCRINOLOGY: No heat or cold intolerance. No polyuria, polydipsia or polyphagia. MUSCULOSKELETAL: Arthralgia, on and off. HEMATOLOGY: No abnormal bleeding. No ecchymosis. LYMPHATIC: No palpable lymphadenopathy. No painful lymphadenopathy. SKIN: No rash. No itching. ALLERGY: No hay fever. NEUROLOGIC: She has left-sided weakness and numbness which started since yesterday. PSYCHOLOGICAL: Admits to anxiety and depression. PHYSICAL EXAMINATION: GENERAL: At the current time, she is alert, oriented, in no distress. VITAL SIGNS: Her latest vital signs show a temperature of 98.1, pulse rate 76, respiratory rate 16, blood pressure 117/79. HEENT: Head is normocephalic and atraumatic. Both her pupils are equal, reactive. Ears and nose normal. Oral mucosa is moist. Pharyngeal area is clear with no exudate. No hyperemia. NECK: Supple. There is no distention of the jugular vein. No lymphadenopathy felt. Thyroid gland is not palpable. There is no carotid bruit. CHEST: Symmetrical with regular S1 and S2. LUNGS: Clear. ABDOMEN: Soft. Bowel sounds heard. We could not appreciate any organomegaly. LIMBS: Show no edema. NEUROLOGIC: She has 4/5 muscular power on the left side. LABORATORY DATA: Her CBC showed WBC of 8, hemoglobin of 10.6, hematocrit of 32.9, MCV of 88.9, platelet of 198. Chemistry and lytes showed a sodium of 138, potassium 4.3, chloride 106, CO2 24, BUN 23, creatinine 1.12. Urinalysis was reviewed. Head CT without contrast was reported to show no acute intracranial abnormality. Chest x-ray was reported to show no evidence of acute pulmonary disease. ASSESSMENT: This is a 59-year-old black woman with a history of hypertension, previous transient ischemic attack, coronary artery disease, chronic obstructive pulmonary disease, status post pacemaker placement in the past, who was admitted with left-sided weakness. A head CT done is negative. The patient has a pacemaker and we will not be able to order an MRI of the brain. We will order a CT angiogram of the head and neck and also an echocardiogram. We will start TIA protocol. Neurology will be consulted. She will be admitted to the stroke floor. Further evaluation and management will depend on the course of her hospitalization and her response to therapy. Job ID: [id number]
[2019-07-16] MEDS ORDERED: PROVENTIL INHALER 6.7 G (200 INHALATIONS) INH PRN (22:13)
[2019-07-16] MEDS ORDERED: risperiDONE 3 MG TAB PO SCH (22:45)
[2019-07-16] MEDS ORDERED: Divalproex Sodium DR 500 MG TAB PO SCH (22:45)
[2019-07-16] MEDS: Atorvastatin Calcium 40 MG TAB PO SCH (22:59)
[2019-07-16] MEDS: Famotidine 20 MG TAB PO SCH (22:59)
[2019-07-16] MEDS: Flecainide 50 MG TAB PO SCH (22:59)
[2019-07-16] MEDS: Enoxaparin Sodium 40 MG/0.4 ML SYRINGE SC SCH (23:00)
[2019-07-17] MEDS: HYDROcodone/Acetaminophen 10/325 mg Tablet PO PRN ×2 (03:00→18:15)
[2019-07-17] MEDS: Budesonide 0.25 MG/2 ML NEB INH SCH ×2 (06:15→19:01)
[2019-07-17] MEDS: Mometasone/Formoterol 120 PUFF INHALER INH SCH ×2 (06:27→19:19)
--- NOTE | 2019-07-17 10:01 | PDOC.HOSPP ---
- Subjective Encounter Date: 07/17/19 Encounter Time: 08:00 Subjective: No new complaint.. +numbness still present. - Objective Vital Signs & Weight: Vital Signs (12 hours) Temp Pulse Resp BP BP Pulse Ox 07/17/19 07:19 98.3 F 72 16 112/67 98 07/17/19 06:27 71 16 07/17/19 06:15 71 6 L 07/17/19 03:39 69 18 100 07/17/19 02:27 98.0 F 67 14 100/59 L 97 Weight Weight 167 lb 9.6 oz I&O: 07/16/19 07/17/19 07/18/19 06:59 06:59 06:59 Intake Total 720 Output Total 600 Balance 120 Result Diagrams: 07/16/19 14:41 07/16/19 14:41 Hospitalist ROS - Medication Medications: Active Medications Generic Name Dose Route Start Last Admin Trade Name Freq PRN Reason Stop Dose Admin Hydrocodone Bitart/Acetaminophen 1 tab 07/16/19 22:13 07/17/19 03:00 [place] 10/325 PO 1 tab Q6HR PRN Administration Moderate Pain (4-6) Albuterol/Ipratropium 3 ml 07/17/19 07:00 07/17/19 06:15 Duoneb NEB 3 ml [id number] YESSI Administration Albuterol/Ipratropium 3 ml 07/16/19 22:13 07/17/19 03:39 Duoneb NEB 3 ml QID PRN Administration Wheezing Atorvastatin Calcium 40 mg 07/16/19 21:00 07/16/19 22:59 Lipitor PO 40 mg HS YESSI Administration Budesonide 0.25 mg 07/17/19 06:30 07/17/19 06:15 Pulmicort Neb Solution INH 0.25 mg BID-RT YESSI Administration Enoxaparin Sodium 40 mg 07/16/19 21:00 07/16/19 23:00 Lovenox SC 40 mg 2100 YESSI Administration Famotidine 20 mg 07/16/19 21:00 07/16/19 22:59 Pepcid PO 20 mg 2100 YESSI Administration Flecainide Acetate 50 mg 07/16/19 21:00 07/16/19 22:59 Tambocor PO 50 mg BID YESSI Administration Mometasone Furoate/Formoterol Fumar 2 puff 07/17/19 06:30 07/17/19 06:27 Dulera 200 Mcg/5 Mcg Inhaler INH 2 puff BID-RT YESSI Administration - Exam General Appearance: NAD Neck: no JVD Heart: RRR Respiratory: CTAB Gastrointestinal: soft Extremities: no edema (Left hemiparesis 4/5 muscular power...) Hosp A/P (1) COPD (chronic obstructive pulmonary disease) Status: Acute (2) COPD (chronic obstructive pulmonary disease) Status: Acute (3) CVA (cerebral vascular accident) Code(s): I63.9 - CEREBRAL INFARCTION, UNSPECIFIED Status: Acute (4) CAD (coronary artery disease) Code(s): I25.10 - ATHSCL HEART DISEASE OF [place] CORONARY ARTERY W/O ANG PCTRS Status: Chronic (5) HTN (hypertension) Code(s): I10 - ESSENTIAL (PRIMARY) HYPERTENSION Status: Chronic (6) Schizoaffective disorder Code(s): F25.9 - SCHIZOAFFECTIVE DISORDER, UNSPECIFIED Status: Chronic - Plan F/u with neurology.. On watch list because of many CT's in the past.. On ASA, Statin. Continue steroids, bronchodilators. Continue antipsychotic meds..
--- NOTE | 2019-07-17 10:36 | CON ---
DATE OF CONSULTATION: 07/17/2019 CONSULTING PHYSICIAN: Hospitalist Service. IMPRESSION: 1. Possible lacunar stroke with left hemibody numbness. 2. Aspirin failure. PLAN: 1. Continue aspirin. 2. Lipitor has been added. 3. Add Plavix 75 mg per day. HISTORY OF PRESENT ILLNESS: Ms. Krishna is a 59-year-old black female with a known history of prior stroke earlier this year. She reports being worked up at the [facility]. No changes in her treatment were made from her baseline of taking aspirin daily. She presented at this point with complaints of left hemibody numbness, this began about 3 days ago. There was no other associated headache, nausea, vomiting, vertigo, chest pain, or shortness of breath. She reports some slight difficulty with her strength and walking. She had a CT of the brain done on admission, which did not reveal any significant ischemic changes. Lab work was unremarkable other than mildly elevated creatinine of 1.12. Cholesterol panel has not been run. Urine was clear. She reports her symptoms are stable. PAST MEDICAL HISTORY: Bipolar disorder, stroke, and hyperlipidemia. FAMILY HISTORY: Noncontributory. SOCIAL HISTORY: She denies tobacco use. MEDICATIONS: Medication list was reviewed. REVIEW OF SYSTEMS: Ten-system review of systems otherwise negative. PHYSICAL EXAMINATION: VITAL SIGNS: Blood pressure 112/67, pulse 72, respirations 16, and temperature 98.3. HEENT: Pupils equal and reactive. Conjunctivae clear. Oropharynx clear. Cranium, normocephalic and atraumatic. NECK: Supple. No lymphadenopathy. EXTREMITIES: No cyanosis, clubbing, or edema. NEUROLOGIC: She is alert and cooperative. Her speech is fluent and clear. I did not see any definitive facial asymmetry. There is subjective decreased light touch on the left side of the face. Motor exam showed good antigravity strength bilaterally. No fix or drift was noted. She did not have any tremor or dysmetria. She reports diminished sensation to light touch in the left arm and leg. LABORATORY DATA: Laboratory studies were reviewed. IMAGING STUDIES: Imaging was reviewed. SUMMARY: A 59-year-old woman with complaints of hemibody numbness, suggesting the possibility of a right thalamic stroke. Nothing was visible on CT scan. An MRI of the brain would be helpful to determine whether this is organic in etiology. Job ID: [id number]
[2019-07-17] MEDS: Flecainide 50 MG TAB PO SCH ×2 (10:37→20:36)
[2019-07-17] MEDS: Furosemide 40 MG TAB PO SCH (10:37)
[2019-07-17] MEDS: Montelukast Sodium 10 mg Tablet PO SCH (10:37)
[2019-07-17] MEDS: risperiDONE 1 MG TAB PO SCH (10:37)
[2019-07-17] MEDS: Divalproex Sodium DR 500 MG TAB PO SCH (10:38)
[2019-07-17] MEDS: Ferrous Sulfate 325 MG TAB PO SCH (10:38)
[2019-07-17] MEDS: Aspirin 325 MG TAB PO SCH (10:38)
[2019-07-17] MEDS: methylPREDNISolone Sod Succ/PF 125 MG/2 ML VIAL IVP SCH (10:38)
[2019-07-17] MEDS: Lubiprostone 8 MCG CAP PO SCH (12:09)
[2019-07-17] MEDS: Atorvastatin Calcium 40 MG TAB PO SCH (20:35)
[2019-07-17] MEDS: Famotidine 20 MG TAB PO SCH (20:35)
[2019-07-17] MEDS: Enoxaparin Sodium 40 MG/0.4 ML SYRINGE SC SCH (20:36)
[2019-07-17] MEDS ORDERED: risperiDONE 3 MG TAB PO SCH (21:00)
[2019-07-17] MEDS ORDERED: Divalproex Sodium DR 500 MG TAB PO SCH (21:00)
[2019-07-18] MEDS: Mometasone/Formoterol 120 PUFF INHALER INH SCH (08:05)
[2019-07-18] MEDS: Budesonide 0.25 MG/2 ML NEB INH SCH (08:05)
[2019-07-18] MEDS: Ferrous Sulfate 325 MG TAB PO SCH (09:32)
[2019-07-18] MEDS: Divalproex Sodium DR 500 MG TAB PO SCH (09:32)
[2019-07-18] MEDS: Furosemide 40 MG TAB PO SCH (09:32)
[2019-07-18] MEDS: Aspirin 325 MG TAB PO SCH (09:32)
[2019-07-18] MEDS: Montelukast Sodium 10 mg Tablet PO SCH (09:32)
[2019-07-18] MEDS: Flecainide 50 MG TAB PO SCH (09:32)
[2019-07-18] MEDS: risperiDONE 1 MG TAB PO SCH (09:32)
[2019-07-18] MEDS: Lubiprostone 8 MCG CAP PO SCH (09:33)
[2019-07-18] MEDS: methylPREDNISolone Sod Succ/PF 125 MG/2 ML VIAL IVP SCH (10:17)
--- NOTE | 2019-07-18 11:47 | MRI ---
Exam: Brain MRI without contrast HISTORY: Left-sided weakness. Evaluate for CVA. COMPARISON: None FINDINGS: Calvarial marrow signal intensity: Appropriate T1 signal Gradient echo sequence: No hemorrhage Brain parenchyma: No mass, mass effect or midline shift. Brain volume, slightly less than expected fo r patient's age. Cortical warren-white matter differentiation: Preserved Restricted diffusion: Central arterial flow voids are maintained. Absent restricted diffusion White matter signal intensities: T2, FLAIR white matter hyperintensities due to chronic small vessel ischemic changes Sinuses: Adequate aeration of the paranasal sinuses and mastoid air cells. IMPRESSION: 1. Absent restricted diffusion. No acute infarct. 2. Brain volume, slightly less than expected for patient's age.
--- NOTE | 2019-07-18 14:59 | MRI ---
MRI Cervical Spine WO Con History: Neck pain and left arm numbness Comparison: None. Findings: The cerebral tonsils terminate at level of the foramen magnum. Subtle increased cord signal at C6/C7. No marrow infiltrative process. Paraspinal musculature is symmetric. No adenopathy. The levels are as follows: C2/C3: Mild degenerative disc space height loss. Mild uncinate process hypertrophy. No significant ne ural foraminal or spinal canal narrowing. C3/C4: Moderate degenerative disc space height loss. Circumferential disc osteophyte complex. Moderat e left and mild right neural foraminal narrowing. Moderate to severe left hypertrophic facet arthropathy. Spinal canal is mildly narrowed measuring 9 mm. Mild ligament of flavum hypertrophy. C4/C5: Moderate degenerative disc space height loss. Circumferential disc osteophyte complex. Moderat e to severe left and moderate right hypertrophic facet arthropathy. Minimal effacement of ventral CSF space with the spinal canal measuring approximately 1 cm. Moderate bilateral neural foraminal claire rowing. C5/C6: Moderate degenerative disc space height loss. Circumferential disc osteophyte complex. Moderat e ligament of flavum hypertrophy. The spinal canal is narrowed to approximately 8 mm. Moderate to severe right and left neural foraminal narrowing. C6/C7: Moderate degenerative disc space height loss and circumferential disc osteophyte complex. Liga ment of flavum hypertrophy. There is cord abutment with the spinal canal measuring approximately 7 mm. Mild bilateral neural foraminal narrowing. Impression: Multilevel spondylosis as described with neural foraminal and spinal canal narrowing jonathan g with subtle increased cord signal at C6/C7.
[2019-07-18 15:20] VITALS: BP 126/83; TEMP 97.8
[2019-07-18] MEDS ORDERED: Sodium Chloride 0.9% 10 ML ONE (17:38)
--- NOTE | 2019-07-19 10:35 | DIS ---
DATE OF ADMISSION: 07/16/2019 DATE OF DISCHARGE: 07/18/2019 DISCHARGE DIAGNOSES: Left arm numbness and leg weakness, possibly secondary to cervical spine degenerative disk disease with possible increased cord signal at C6/C7, anemia, and chronic kidney disease. BRIEF HISTORY OF PRESENT ILLNESS: This is a 59-year-old female, who presented to the emergency room with left-sided numbness and weakness. She had gone to her PCP's office, who sent her to the ER to rule out a stroke. Upon presentation in the emergency room, the patient had mild anemia with a hemoglobin of 10.6, and a CMP that was unremarkable. She underwent a CT scan of her head, which was negative. The patient was admitted for stroke workup. HOSPITAL COURSE: Left arm numbness/weakness, possibly secondary to cervical degenerative disk disease, the possible pinched nerve: The patient had a CT scan of her brain on admission, which was negative. She was initially placed on aspirin and atorvastatin for workup of TIA. She underwent an echocardiogram on 07/17, which showed an EF of 60% to 65% with no thrombus. She underwent an MRI of her brain, which ruled out a stroke. She was seen by Neurology, who did not have any further recommendations. Upon exam, the patient was noted to have pain while abducting her left arm above 180 degrees. She also had pain to palpation of her neck. For this reason, a cervical spine MRI was ordered, which showed multilevel spondylosis with neuroforaminal and spinal canal narrowing with increased cord signal at C6/C7. On exam, the patient does have 3/5 strength in her left upper extremity. She was seen by Physical Therapy and was discharged from Physical Therapy and was ambulating without any assistive devices. Subjectively, however, she reports numbness in her left arm and left leg, however, she is able to move both of these with full range of motion. The patient will be referred as an outpatient to Neurosurgery. This was discussed with physician financial sales assistant that was nursing home admissions director, and the patient was advised to follow up with Dr. Nielson as an outpatient. She should return to the ER if she has any new bowel or bladder incontinence or saddle anesthesia. Anemia: The patient has hemoglobin and hematocrit of 10.6/32.9, which is stable and chronic. This can be followed as an outpatient. CKD: The patient has a creatinine of 1.12, which is her baseline. She can follow up with her PCP as an outpatient. DISCHARGE PHYSICAL EXAMINATION: VITAL SIGNS: Temperature is 97.8, heart rate 83, respiratory rate 16, O2 saturations 100% on room air, and blood pressure 126/ 83. GENERAL: The patient is alert, awake, and oriented x3. She has some mild head bobbing and tremor of her neck with unclear etiology. NEURO: Cranial nerves 2 through 12 are intact. The patient does have pain with passive abduction of her left arm above 180 degrees. She has 3/5 strength in her left upper extremity, 4/5 strength in her left lower extremity. Her right upper extremity, right lower extremity are 5/5 in strength. She has intact sensation in all 4 extremities. Reflexes are 2+ in all 4 extremities. She has negative Babinski sign. CVS: Regular rate and rhythm with no murmurs, rubs, or gallops. LUNGS: Clear to auscultation bilaterally. ABDOMEN: Positive bowel sounds, soft, nontender, and nondistended. EXTREMITIES: No edema. NECK: The patient has tenderness to palpation of her cervical spine. PERTINENT LABORATORY DATA: CBC on 07/16: hemoglobin and hematocrit of 10.6/32.9. BMP on 07/16:shows a creatinine of 1.12. LFTs and rest of BMP are unremarkable. UA on 07/16: shows small leukocyte esterase, 4 to 6 white blood cells, 4 to 6 transitional epithelial cells. The patient denies any symptoms of UTI. PERTINENT IMAGING STUDIES: CT brain on 07/16: shows no evidence of acute intracranial abnormality. Chest x-ray on 07/16: shows no evidence of acute cardiopulmonary disease. Brain MRI on 07/18: shows no acute infarct. Brain volume slightly less than expected for the patient's age. Cervical spine MRI on 07/18,:shows moderate degenerative disk disease with narrowing of the spinal canal to 8 mm at C5/C6. [id number] right and left neuroforaminal narrowing at C5 to C6. There is also cord abutment within the spinal canal measuring approximately 7 mm at C6/C7. ACTIVITY: As tolerated. DIET: Regular diet. DISCHARGE MEDICATIONS: The patient will resume all her home medications. She was advised that she can take gabapentin for her neuropathy, which she already has at home. DISCHARGE INSTRUCTIONS: The patient should follow up with her PCP and Dr. Nielson from Neurosurgery within a week. She should come back to the ER if she has any saddle anesthesia or bowel or bladder incontinence. Job ID: [id number] MTDD
== END 2019-07-18 17:55 | disposition home or self-care (01) ==
LOC: ERS 14:33 → 2SW 20:21
PROVIDERS: ADMIT Hospitalist; ATTEND Hospitalist
DX: R20.0 Anesthesia of skin (principal); R53.1 Weakness; M50.30 Other cervical disc degeneration, unspecified cervical region; M48.02 Spinal stenosis, cervical region; M47.812 Spondylosis without myelopathy or radiculopathy, cervical region; I12.9 Hypertensive chronic kidney disease with stage 1 through stage 4 chronic kidney disease, or unspecified chronic kidney disease; N18.9 Chronic kidney disease, unspecified; D63.1 Anemia in chronic kidney disease; J44.9 Chronic obstructive pulmonary disease, unspecified; I25.10 Atherosclerotic heart disease of native coronary artery without angina pectoris; F25.9 Schizoaffective disorder, unspecified; Z86.73 Personal history of transient ischemic attack (TIA), and cerebral infarction without residual deficits; Z79.82 Long term (current) use of aspirin; Z79.899 Other long term (current) drug therapy; Z88.8 Allergy status to other drugs, medicaments and biological substances; Z88.0 Allergy status to penicillin; Z88.2 Allergy status to sulfonamides; Z88.5 Allergy status to narcotic agent; Z91.018 Allergy to other foods; Z95.0 Presence of cardiac pacemaker
CPT/HCPCS: 51701; 70450; 70551; 71045; 72141; 80053; 85025; 93005; 93306; 94640 ×5; 94664; 96372; 96374 ×2; 96376; 97116; 97139 ×2; 99285; G0378 ×4; 81003; 81015; J1642; J1650; J2930; J7620; J7626

== ENCOUNTER 2019-09-05 15:43 | Outpatient (CLI) | payer MEDICARE, MEDICAID ==
--- NOTE | 2019-09-05 16:06 | RAD ---
Exam: Single view of the chest and 2 views of the abdomen HISTORY: Abdominal pain COMPARISON: 05/11/2019 FINDINGS: 2 views of the abdomen and a single view the chest shows a nonspecific, nonobstructive ainsley l gas pattern. Surgical clips are seen in the left upper quadrant of the abdomen. Air is seen to the level of the rectum. No free air or air-fluid levels are seen on upright examination. The cardiomediastinal silhouette is normal in size. There is a Mediport with its tip in the superior vena cava. There is no evidence of consolidation, mass, or pleural effusion. IMPRESSION: Nonobstructive bowel gas pattern
== END 2019-09-05 15:44 | disposition home or self-care (01) ==
LOC: BICRAD 15:43
PROVIDERS: ATTEND Specialist
DX: R10.84 Generalized abdominal pain (principal)
CPT/HCPCS: 74022

== ENCOUNTER 2019-09-28 14:54 | Emergency (ER) | payer MEDICARE, MEDICAID ==
[2019-09-28] MEDS ORDERED: predniSONE 20 MG TAB ONE (16:15)
--- NOTE | 2019-09-28 16:28 | RAD ---
PA AND LATERAL CHEST: 09/28/19 HISTORY: Cough. COMPARISON: 06/04/17 study. Heart size is within normal limits. A right sided Mediport catheter is present. Lungs are clear of in filtrates. Surgical clips are seen in the left upper quadrant of the abdomen. IMPRESSION: No active intrathoracic disease. POS: TPC
== END 2019-09-28 17:05 | disposition home or self-care (01) ==
LOC: ERS 14:54
DX: J44.1 Chronic obstructive pulmonary disease with (acute) exacerbation (principal); I11.0 Hypertensive heart disease with heart failure; I50.9 Heart failure, unspecified; K21.9 Gastro-esophageal reflux disease without esophagitis; Z86.73 Personal history of transient ischemic attack (TIA), and cerebral infarction without residual deficits; F25.9 Schizoaffective disorder, unspecified; I48.91 Unspecified atrial fibrillation; Z79.899 Other long term (current) drug therapy; Z79.82 Long term (current) use of aspirin; Z79.51 Long term (current) use of inhaled steroids
CPT/HCPCS: 71046; 94640; J7512; J7620

== ENCOUNTER 2019-10-04 12:54 | Outpatient (CLI) | payer MEDICARE, MEDICAID ==
--- NOTE | 2019-10-04 13:14 | RAD ---
EXAM: Chest PA and lateral: HISTORY: Dyspnea COMPARISON: 05/27/2017 FINDINGS: Lung harman are clear. Vascular markings are normal. Elevated left hemidiaphragm is stable. Heart and mediastinum appear unremarkable. Mediport catheter is unchanged in position. Osseous structures are unremarkable. IMPRESSION: Unremarkable chest
== END 2019-10-04 12:55 | disposition home or self-care (01) ==
LOC: RAD 12:54
PROVIDERS: ATTEND Internal Medicine Critical Care Medicine
DX: R06.00 Dyspnea, unspecified (principal)
CPT/HCPCS: 71046

== ENCOUNTER 2019-10-20 10:55 | Emergency (ER) | payer MEDICARE, MEDICAID ==
[2019-10-20] MEDS ORDERED: Ondansetron PF 4 MG/2 ML Vial ONE (11:38)
[2019-10-20] MEDS ORDERED: Fentanyl 100 MCG/2 ML VIAL ONE (11:38)
[2019-10-20 12:04] LABS: #Eosinphils 0.3 thou/uL (0.0-0.7); #Lymphocytes 3.1 thou/uL (1.20-3.40); #Monocytes 0.9 thou/uL (0.11-0.59); #Neutrophils 4.3 thou/uL (1.40-6.50); %Basophils 0.1 % (0.0-1.0); %Eosinophils 3.2 % (0.0-10.0); %Lymphocytes 36.2 % (21.0-51.0); %Monocytes 9.9 % (0.0-10.0); %Neutrophils 50.6 % (42.0-75.0); Hemoglobin 11.1 g/dL (12.0-16.0); Mean Corpuscular HGB CONC 32.6 g/dL (32.0-36.0); Mean Corpuscular Hemoglobin 30.1 pg (27.0-31.0); Mean Corpuscular Volume 92.3 fL (78.0-98.0); Mean Platelet Volume 7.7 fL (7.4-10.4); Platelet Count 177 thou/uL (130-400); RBC Distribution Width 13.4 % (11.5-14.5); White Blood Cell (WBC) Count 8.6 thou/uL (4.8-10.8)
[2019-10-20 12:21] LABS: Bacteria/HPF None Seen HPF (None Seen); Bilirubin Negative (Negative); Blood, Urine 1+ (Negative); Clarity Clear (Clear); Glucose, Urine (Dipstick) Normal (Negative); Leukocyte Negative Leu/uL (Negative); Nitrite Negative (Negative); Protein, Urine (Dipstick) Negative (Neg-Trace); Squamous Epithelial 0-3 HPF (0-3); Urobilinogen 3 mg/dL (Less than 2); WBC/HPF 0-3 HPF (0-3)
--- NOTE | 2019-10-20 12:22 | RAD ---
ABDOMEN 2 VIEWS CHEST 1 VIEW: Date: 10/20/2019 HISTORY: Abdominal pain, vomiting, headache. History of pancreatitis. FINDINGS: CHEST 1 VIEW: Inspiration is less than optimal. Hair víctor overlie the right chest, somewhat obscuring it. Right s ubclavian catheter and injection port. Multiple surgical clips in the upper abdomen. No significant a cute intrathoracic disease. Stable appearing chest from 10/04/2019. ABDOMEN 2 VIEWS: In the abdomen, scattered gas and fecal material are noted in the colon. Postoperative changes. No ev idence for free intraperitoneal air. No evidence for large or small bowel obstruction, or overt calcu yves. IMPRESSION: Fecal material in the colon without bowel obstruction or other acute process. POS: TPC
[2019-10-20 12:28] LABS: ALT (SGPT) 9 U/L (8-55); AST (SGOT) 15 U/L (5-34); Albumin 3.5 g/dL (3.5-5.0); Alkaline Phosphatase 50 U/L (40-110); Anion Gap 14 mmol/L (10-20); BUN (Urea Nitrogen) 27 mg/dL (9.8-20.1); Bilirubin, Total 0.4 mg/dL (0.2-1.2); Calc. Creatinine Clearance 0 mL/min (70-130); Calcium 8.6 mg/dL (7.8-10.44); Carbon Dioxide 23 mmol/L (22-29); Chloride 105 mmol/L (98-107); Estimated GFR-MDRD 68; Glucose 79 mg/dL (70-105); Lipase 11 U/L (8-78); Potassium 4.1 mmol/L (3.5-5.1); Protein, Total 6.5 g/dL (6.0-8.3); Sodium 138 mmol/L (136-145)
[2019-10-20] MEDS ORDERED: Lidocaine Viscous Sol 2% 15 ml UD Cup ONE (14:10)
[2019-10-20] MEDS ORDERED: Mag-Al 1200 mg/1200 mg/30 ML UDCUP ONE (14:10)
--- NOTE | 2019-10-22 16:24 | EKG ---
Test Reason : Blood Pressure : / mmHG Vent. Rate : 079 BPM Atrial Rate : 079 BPM P-R Int : 122 ms QRS Dur : 070 ms QT Int : 366 ms P-R-T Axes : 048 007 012 degrees QTc Int : 419 ms Normal sinus rhythm Normal ECG Confirmed by MELANIE GARZA M.D. ([id number]), editor farm journal GIORGIO GARCIA ([id number]) on 10/22/2019 4:24:09 PM Referred By: Confirmed By:MELANIE GARZA M.D.
== END 2019-10-20 15:09 | disposition home or self-care (01) ==
LOC: ERS 10:55
DX: R10.9 Unspecified abdominal pain (principal); I10 Essential (primary) hypertension; J44.9 Chronic obstructive pulmonary disease, unspecified; I20.9 Angina pectoris, unspecified; K21.9 Gastro-esophageal reflux disease without esophagitis; F25.9 Schizoaffective disorder, unspecified; F32.9 Major depressive disorder, single episode, unspecified; Z86.73 Personal history of transient ischemic attack (TIA), and cerebral infarction without residual deficits; Z79.82 Long term (current) use of aspirin; Z79.899 Other long term (current) drug therapy
CPT/HCPCS: 36415; 74022; 80053; 81003; 81015; 83605; 83690; 85025; 93005; 96361; 96374; 96375; J2405; J3010

== ENCOUNTER 2019-10-27 15:41 | Emergency (ER) | payer MEDICARE, MEDICAID ==
--- NOTE | 2019-10-27 17:04 | RAD ---
KUB INDICATION: Nausea vomiting and abdominal pain COMPARISON: None FINDINGS: Bowel gas: Nonspecific but without overt appearance of obstruction. There is stable surgical clips se en within the upper abdomen. Lung bases: Clear. Additional findings: No suspicious calcification demonstrated. Osseous structures: No acute osseous abnormality is demonstrated. IMPRESSION: 1. No acute abnormality.
== END 2019-10-27 17:35 | disposition home or self-care (01) ==
LOC: ERS 15:41
DX: R10.84 Generalized abdominal pain (principal); K21.9 Gastro-esophageal reflux disease without esophagitis; I10 Essential (primary) hypertension; J45.909 Unspecified asthma, uncomplicated; F20.9 Schizophrenia, unspecified; F25.9 Schizoaffective disorder, unspecified; F32.9 Major depressive disorder, single episode, unspecified; Z86.73 Personal history of transient ischemic attack (TIA), and cerebral infarction without residual deficits; Z79.899 Other long term (current) drug therapy; Z79.82 Long term (current) use of aspirin
CPT/HCPCS: 74018

== ENCOUNTER 2019-10-29 11:23 | Emergency (ER) | payer MEDICARE, MEDICAID ==
[2019-10-29] MEDS ORDERED: Promethazine 25 MG TAB ONE (12:07)
--- NOTE | 2019-10-29 12:24 | RAD ---
Exam: Chest one view HISTORY:Chest pain. Comparison: 07/16/2019, 10/20/2019, 10/04/2019 FINDINGS: Mediport catheter: Stable right-sided Mediport catheter. Cardiac silhouette: Normal Aorta: Unremarkable Pulmonary vessels: Normal Costophrenic angles: Clear LUNGS: No masses or consolidation. Pneumothorax: None Osseous abnormalities: None IMPRESSION: No acute cardiopulmonary process.
[2019-10-29 12:30] LABS: #Eosinphils 0.1 thou/uL (0.0-0.7); #Lymphocytes 3.7 thou/uL (1.20-3.40); #Monocytes 0.9 thou/uL (0.11-0.59); #Neutrophils 5.1 thou/uL (1.40-6.50); %Basophils 0.4 % (0.0-1.0); %Eosinophils 1.2 % (0.0-10.0); %Lymphocytes 37.2 % (21.0-51.0); %Monocytes 8.9 % (0.0-10.0); %Neutrophils 52.3 % (42.0-75.0); Hemoglobin 12.2 g/dL (12.0-16.0); Mean Corpuscular Volume 93.8 fL (78.0-98.0); Mean Platelet Volume 7.1 fL (7.4-10.4); Platelet Count 242 thou/uL (130-400); RBC Distribution Width 13.1 % (11.5-14.5); Red Blood Cell (RBC) Count 4.05 mill/uL (4.20-5.40); White Blood Cell (WBC) Count 9.8 thou/uL (4.8-10.8)
[2019-10-29 12:51] LABS: ALT (SGPT) 10 U/L (8-55); AST (SGOT) 16 U/L (5-34); Albumin 3.7 g/dL (3.5-5.0); Alkaline Phosphatase 54 U/L (40-110); Anion Gap 14 mmol/L (10-20); BUN (Urea Nitrogen) 27 mg/dL (9.8-20.1); Bilirubin, Total 0.5 mg/dL (0.2-1.2); Calc. Creatinine Clearance 0 mL/min (70-130); Calcium 8.8 mg/dL (7.8-10.44); Carbon Dioxide 25 mmol/L (22-29); Chloride 106 mmol/L (98-107); Estimated GFR-MDRD 50; Globulin 3.2 g/dL (2.4-3.5); Glucose 100 mg/dL (70-105); Potassium 4.7 mmol/L (3.5-5.1); Protein, Total 6.9 g/dL (6.0-8.3); Sodium 140 mmol/L (136-145)
[2019-10-29] MEDS ORDERED: Aspirin Chewable 81 MG TAB ONE (13:39)
== END 2019-10-29 14:05 | disposition home or self-care (01) ==
LOC: ERS 11:23
DX: R07.89 Other chest pain (principal); I10 Essential (primary) hypertension; K21.9 Gastro-esophageal reflux disease without esophagitis; J44.9 Chronic obstructive pulmonary disease, unspecified; F32.9 Major depressive disorder, single episode, unspecified; Z79.899 Other long term (current) drug therapy
CPT/HCPCS: 71045; 80053; 83880; 84484; 85025; 85379; 93005; Q0169

== ENCOUNTER 2019-11-05 13:21 | Observation (INO) | payer MEDICARE, MEDICAID ==
[2019-11-05 14:24] LABS: #Basophils 0.1 thou/uL (0.0-0.2); #Eosinphils 0.2 thou/uL (0.0-0.7); #Lymphocytes 3.5 thou/uL (1.20-3.40); #Monocytes 0.7 thou/uL (0.11-0.59); #Neutrophils 3.2 thou/uL (1.40-6.50); %Eosinophils 2.7 % (0.0-10.0); %Lymphocytes 46.2 % (21.0-51.0); %Monocytes 8.8 % (0.0-10.0); %Neutrophils 41.3 % (42.0-75.0); Hemoglobin 11.6 g/dL (12.0-16.0); Mean Corpuscular HGB CONC 32.8 g/dL (32.0-36.0); Mean Corpuscular Hemoglobin 30.2 pg (27.0-31.0); Mean Corpuscular Volume 92.3 fL (78.0-98.0); Mean Platelet Volume 7.5 fL (7.4-10.4); Platelet Count 188 thou/uL (130-400); RBC Distribution Width 12.6 % (11.5-14.5); Red Blood Cell (RBC) Count 3.83 mill/uL (4.20-5.40); White Blood Cell (WBC) Count 7.7 thou/uL (4.8-10.8)
--- NOTE | 2019-11-05 14:28 | RAD ---
EXAM: CHEST ONE VIEW HISTORY: Chest pain COMPARISON: 10/29/2019 FINDINGS: Right subclavian Mediport catheter remains in place The cardiac silhouette and pulmonary vasculature is within normal limits. The lungs are clear. Multiple surgical clips again overlie the left upper quadrant. Chest is stable compared to prior exam. IMPRESSION: No acute cardiopulmonary process.
[2019-11-05 14:54] LABS: ALT (SGPT) 11 U/L (8-55); AST (SGOT) 25 U/L (5-34); Albumin 3.6 g/dL (3.5-5.0); Alkaline Phosphatase 54 U/L (40-110); Anion Gap 15 mmol/L (10-20); BUN (Urea Nitrogen) 40 mg/dL (9.8-20.1); Bilirubin, Total 0.3 mg/dL (0.2-1.2); Calc. Creatinine Clearance 0 mL/min (70-130); Calcium 8.5 mg/dL (7.8-10.44); Carbon Dioxide 23 mmol/L (22-29); Chloride 103 mmol/L (98-107); Estimated GFR-MDRD 49; Globulin 2.9 g/dL (2.4-3.5); Glucose 95 mg/dL (70-105); Lipase 22 U/L (8-78); Potassium 4.3 mmol/L (3.5-5.1); Protein, Total 6.5 g/dL (6.0-8.3); Sodium 137 mmol/L (136-145)
[2019-11-05] MEDS ORDERED: Fentanyl 100 MCG/2 ML VIAL ONE (16:24)
[2019-11-05 18:16] LABS: Troponin I Less than 0.010 ng/mL (< 0.028)
[2019-11-05] MEDS ORDERED: Acetaminophen 325 MG TAB PO PRN (18:21)
[2019-11-05] MEDS ORDERED: Senokot S 8.6-50 MG TAB PO PRN (18:21)
[2019-11-05] MEDS ORDERED: Bisacodyl 10 MG SUPP PR PRN (18:21)
[2019-11-05] MEDS ORDERED: Guaifenesin DM 100-10/5 ML UDCUP PO PRN (18:21)
[2019-11-05] MEDS ORDERED: Nitroglycerin 0.4 MG TAB (25 Tab Bottle) PO PRN (18:21)
[2019-11-05] MEDS ORDERED: Sodium Chloride 0.9% 1,000 ML IV SCH (18:30)
[2019-11-05] MEDS ORDERED: Albuterol Sulfate 2.5 mg/3 ml Neb NEB PRN (18:30)
[2019-11-05 18:44] VITALS: BMI 33.6
--- NOTE | 2019-11-05 20:54 | HP ---
REASON FOR ADMISSION: Chest pain, acute kidney injury, adzj-gx-gftapion dehydration. HISTORY OF PRESENTING ILLNESS: The patient gives history of having retrosternal chest pain, going to radiate into her right armpit off and on from last 4 days on minimal exertion. She also found her heart rate to be going up to 129 beats per minute per the patient. Her blood pressure was also low at home, sometimes recording 60/48 per the patient. She had noticed some swelling on her feet yesterday, but none at present. In view of multiple issues, the patient made it to emergency room. Currently, has no chest pain. No cough or expectoration. No complaints of fever at home or exposure to flu-like illness from others. She has not traveled outside of her home and immediate surroundings. PAST MEDICAL AND SURGICAL HISTORY: 1. History of hypertension. 2. Schizophrenia. 3. History of chronic AFib. 4. History of asthma. 5. Prior TIA. 6. History of pancreatic cancer with prior radiation and chemotherapy. 7. CABG. 8. History of colon resection. 9. Bilateral knee replacement. 10. Tonsillectomy. 11. Carpal tunnel surgery. 12. Cholecystectomy. 13. Cardiac cath in 2015 was normal. 14. Stress test in 12/2017 was negative. 15. Appendectomy. 16. Bladder sling surgery. 17. MediPort in the right chest. PERSONAL HISTORY: Does not abuse alcohol or drugs. Denies tobacco use. She ambulates by herself. FAMILY HISTORY: Mother of ovarian cancer and its complications at the age of 73. Father of pancreatic cancer and its complications at the age of 67. CURRENT MEDICATIONS: The patient is on: 1. Cogentin 1 mg twice daily. 2. Amitiza 8 mcg p.o. daily. 3. Albuterol inhaler q.i.d. p.r.n. 4. Aspirin 325 mg daily. 5. Symbicort inhaler 160/4.5 mcg two puffs twice daily. 6. Vitamin D3 at 1000 units p.o. daily. 7. Depakote 1500 mg p.o. nightly and 500 mg p.o. q.a.m. 8. Nexium 40 mg daily. 9. Ferrous sulfate 325 mg daily. 10. Flecainide 50 mg twice daily. 11. Lasix 40 mg daily. 12. [place] p.r.n. for pain. 13. Singulair 10 mg daily. 14. Potassium chloride 20 mEq p.o. daily. 15. Risperdal 2 mg p.o. q.a.m. and 3 mg p.o. nightly. ALLERGIES: ALLERGIC TO MULTIPLE MEDICATIONS INCLUDING THORAZINE, PENICILLIN, HALDOL, LITHIUM, MORPHINE, SULFA, TOMATO, AND ULTRAM. CODE STATUS: Full. REVIEW OF SYSTEMS: CONSTITUTIONAL: Negative for weight loss or gain, ability to conduct usual activities. SKIN: Negative for rash, itching. EYES: Negative for double vision, pain. ENT/MOUTH: Negative for nose bleeding, neck stiffness, pain, tenderness. CARDIOVASCULAR: Negative for palpitations, dyspnea on exertion, orthopnea. RESPIRATORY: Negative for shortness of breath, wheezing, cough, hemoptysis, fever or night sweats. GASTROINTESTINAL: Negative for poor appetite, abdominal pain, heartburn, nausea, vomiting, constipation, or diarrhea. GENITOURINARY: Negative for urgency, frequency, dysuria, nocturia. MUSCULOSKELETAL: Negative for pain, swelling. NEUROLOGIC/PSYCHIATRIC: Negative for anxiety, depression. ALLERGY/IMMUNOLOGIC: Negative for skin rash, bleeding tendency. PHYSICAL EXAMINATION: GENERAL: The patient is a 59-year-old female who is currently not in any acute distress. VITAL SIGNS: Blood pressure 112/82, pulse 90 per minute, respiratory rate 20 per minute, temperature 98.1 degrees Fahrenheit, and saturating 100% on room air. NECK: Supple. No elevated JVP. EYES: Extraocular muscles intact. Pupils reacting to light. ORAL CAVITY: Mucous membranes are dry. No exudates or congestion. CARDIOVASCULAR SYSTEM: S1 and S2 heard. Regular rhythm. RESPIRATORY SYSTEM: Air entry 2+ bilateral. Scattered rhonchi. No wheezes or rales. ABDOMEN: Soft. Bowel sounds heard. No tenderness, rigidity, or guarding. EXTREMITIES: No peripheral edema or calf tenderness. VASCULAR SYSTEM: Peripheral pulses 1+ bilateral. No ischemic ulcerations or gangrene. CENTRAL NERVOUS SYSTEM: No gross focal deficits noted. The patient is alert, awake, and oriented well. PSYCHIATRIC SYSTEM: No obvious hallucinations or delusions. LABORATORY DATA: EKG done shows normal sinus rhythm at 91 beats per minute, there is Q-wave seen in V2 and V3, EKG has low voltage. White count of 7.7, hemoglobin and hematocrit 11 and 35, platelet count 188, MCV is 92 with 41% neutrophils, 46% lymphocytes. BUN 40, creatinine 1.3, and serum bicarb 23. Liver enzymes within normal limits. Two sets of troponin are negative. Albumin is 3.6. BNP is 36. Lipase is 22. Chest x-ray done shows no acute cardiopulmonary process. CLINICAL IMPRESSION AND PLAN: The patient will be placed under observation on telemetry for chest pain, which likely is atypical to rule out acute coronary syndrome. We will follow ACS evidence based protocol. She will be on full-dose aspirin and we will obtain a nuclear stress test in the morning. We will continue her home dose of Risperdal, Depakote, Cogentin, flecainide, Amitiza, albuterol inhaler, and Singulair inhaler as before. She will be gently hydrated with normal saline at 100 mL per hour for a total of 1 L due to acute kidney injury with wauv-vo-wzzzvjpe dehydration. The patient has history of chronic atrial fibrillation, but her current rhythm is sinus. She will be closely monitored on telemetry. Job ID: [id number]
[2019-11-05 20:57] LABS: Troponin I Less than 0.010 ng/mL (< 0.028)
[2019-11-05] MEDS ORDERED: Divalproex Sodium DR 500 MG TAB PO SCH (21:00)
[2019-11-05] MEDS ORDERED: risperiDONE 3 MG TAB PO SCH (21:00)
[2019-11-05] MEDS: Famotidine 20 MG TAB PO SCH (21:12)
[2019-11-05] MEDS: Flecainide 50 MG TAB PO SCH (21:12)
[2019-11-05] MEDS: HYDROcodone/Acetaminophen 10/325 mg Tablet PO PRN (21:16)
[2019-11-05] MEDS: Ondansetron PF 4 MG/2 ML Vial IVP PRN (22:11)
[2019-11-06] MEDS: HYDROcodone/Acetaminophen 10/325 mg Tablet PO PRN ×2 (04:03→14:22)
[2019-11-06 04:52] LABS: Anion Gap 14 mmol/L (10-20); BUN (Urea Nitrogen) 32 mg/dL (9.8-20.1); Calc. Creatinine Clearance 73 mL/min (70-130); Carbon Dioxide 24 mmol/L (22-29); Chloride 106 mmol/L (98-107); Cholesterol 146 mg/dl (< 200 Desired); Estimated GFR-MDRD 57; Glucose 80 mg/dL (70-105); HDL Cholesterol 72 mg/dL (>60 Neg Risk); LDL Cholesterol, Calculated 63 mg/dL; Potassium 4.5 mmol/L (3.5-5.1); Sodium 139 mmol/L (136-145); Triglycerides 56 mg/dL (Less than 150)
[2019-11-06] MEDS ORDERED: Mometasone 200 MCG/Formoterol 5 MCG 120 PUFF INHALER INH SCH (06:30)
[2019-11-06 08:36] LABS: Band 1 % (5-11); Eosinophils 1 % (0-10); Lymphocytes 68 % (21-51); MDiff Complete? YES; Mean Corpuscular HGB CONC 32.8 g/dL (32.0-36.0); Mean Corpuscular Hemoglobin 30.4 pg (27.0-31.0); Mean Corpuscular Volume 92.7 fL (78.0-98.0); Mean Platelet Volume 7.6 fL (7.4-10.4); Monocytes 8 % (0-10); Neutrophil 22 % (42-75); Platelet Count 180 thou/uL (130-400); RBC Distribution Width 12.8 % (11.5-14.5); Red Blood Cell (RBC) Count 3.62 mill/uL (4.20-5.40); White Blood Cell (WBC) Count 6.2 thou/uL (4.8-10.8)
[2019-11-06] MEDS ORDERED: Regadenoson 0.4 MG/5 ML SYRINGE ONE (08:55)
[2019-11-06] MEDS ORDERED: Enoxaparin Sodium 40 MG/0.4 ML SYRINGE SC SCH (09:00)
[2019-11-06] MEDS ORDERED: Lubiprostone 8 MCG CAP PO SCH (09:00)
[2019-11-06] MEDS ORDERED: Ferrous Sulfate 325 MG TAB PO SCH (09:00)
[2019-11-06] MEDS ORDERED: Divalproex Sodium DR 500 MG TAB PO SCH (09:00)
[2019-11-06] MEDS ORDERED: risperiDONE 1 MG TAB PO SCH ×2 (09:00→21:00)
[2019-11-06] MEDS ORDERED: Montelukast Sodium 10 mg Tablet PO SCH (09:00)
[2019-11-06] MEDS ORDERED: Aspirin 325 mg Enteric Coated Tablet PO SCH (09:00)
[2019-11-06 14:13] VITALS: TEMP 98.4
[2019-11-06] MEDS: Ondansetron PF 4 MG/2 ML Vial IVP PRN (14:42)
[2019-11-06] MEDS: Flecainide 50 MG TAB PO SCH (14:52)
[2019-11-06] MEDS: Famotidine 20 MG TAB PO SCH (14:52)
--- NOTE | 2019-11-06 15:14 | NM ---
EXAM: NM Cardiac Stress W EF WF PROVIDED CLINICAL HISTORY: Chest pain. History of coronary artery disease and prior CABG. COMPARISON: 07/29/2018. FINDINGS: There is normal uptake of radiotracer seen within the left ventricular myocardium. No significant rev ersible defect is seen between the stress and resting acquisitions. Gated images show normal ventricular wall motion and wall thickening. Calculated left ventricular ejection fraction of 88% was obtained. Left ventricular ejection fraction on the prior study in 2018 was 69%. IMPRESSION: 1. Normal myocardial perfusion study without evidence of a reversible defect seen to suggest ischemia . 2. Normal LVEF of 88%.
[2019-11-06 16:09] VITALS: BP 118/76
--- NOTE | 2019-11-07 12:02 | DIS ---
DATE OF ADMISSION: 11/05/2019 DATE OF DISCHARGE: 11/06/2019 DISCHARGE DISPOSITION: Home. PRIMARY DISCHARGE DIAGNOSES: Atypical chest pain, which is noncardiac; acute kidney injury. SECONDARY DISCHARGE DIAGNOSES: History of chronic atrial fibrillation, hypertension, schizophrenia, history of asthma, history of pancreatic cancer with prior radiation and chemotherapy. PROCEDURES DONE DURING HOSPITALIZATION: Chest x-ray done showed no acute cardiopulmonary abnormality. Nuclear stress test done showed normal myocardial perfusion study without evidence of reversible defect. EF was 88%. Hemoglobin and hematocrit 11 and 33, platelet count 180. MCV is 92. Discharge BUN and creatinine are 32 and 1.1. Admitting BUN and creatinine were 40 and 1.3. Troponin x3 negative. Total cholesterol 146, LDL 63, triglycerides 56, HDL 72. DISCHARGE MEDICATIONS: The patient is to continue all her home medication as before including, 1. Aspirin. 2. Symbicort inhaler. 3. Bentyl. 4. Depakote 500 mg twice daily. 5. Flecainide 50 mg twice daily. 6. [place] p.r.n. for pain. 7. Lactulose 20 g p.o. twice daily. 8. Prednisone 40 mg daily. 9. Risperdal 2 mg twice daily. 10. Amitiza 8 mcg p.o. twice daily p.r.n. 11. Albuterol inhaler 4 times daily p.r.n. ALLERGIES: CHLORPROMAZINE, PENICILLIN, HALDOL, LITHIUM, MORPHINE, SULFA, ULTRAM, AND TOMATOES. DISCHARGE PLAN: The patient to follow up with her primary care physician, Dr. Ragsdale in 1 week. BRIEF COURSE DURING HOSPITALIZATION: The patient initially came in with complaints of retrosternal chest pain radiating to right armpit, off and on for the last 4 days on minimal exertion. In view of this history, she was placed under observation on telemetry. Three sets of troponin were done, which were negative. Nuclear stress test done showed no reversible ischemia. Chest x-ray was clear. Her atypical chest pain completely got resolved during her stay here. She has remained hemodynamically stable, ambulating and eating well prior to discharge. Please note, I have seen and examined the patient on the day of discharge. Job ID: [id number]
--- NOTE | 2019-11-10 14:21 | EKG ---
Test Reason : Blood Pressure : / mmHG Vent. Rate : 091 BPM Atrial Rate : 091 BPM P-R Int : 132 ms QRS Dur : 070 ms QT Int : 336 ms P-R-T Axes : 039 -03 012 degrees QTc Int : 413 ms Normal sinus rhythm Cannot rule out Anterior infarct , age undetermined Abnormal ECG Reconfirmed by NORRIS PURVIS ([id number]), department editor KAREN GAMBOA ([id number]) on 11/10/2019 2:21:07 PM Referred By: Confirmed By:NORRIS Chamberlain
== END 2019-11-06 17:50 | disposition home or self-care (01) ==
LOC: ERS 13:21 → 2NO 16:41 → INTOOBSV 16:41
PROVIDERS: ADMIT Internal Medicine; ATTEND Internal Medicine
DX: R07.89 Other chest pain (principal); N17.9 Acute kidney failure, unspecified; E86.0 Dehydration; I10 Essential (primary) hypertension; F20.9 Schizophrenia, unspecified; I48.20 Chronic atrial fibrillation, unspecified; J45.909 Unspecified asthma, uncomplicated; Z86.73 Personal history of transient ischemic attack (TIA), and cerebral infarction without residual deficits; Z95.1 Presence of aortocoronary bypass graft; Z95.5 Presence of coronary angioplasty implant and graft; Z79.82 Long term (current) use of aspirin; Z79.899 Other long term (current) drug therapy; Z88.0 Allergy status to penicillin; Z88.5 Allergy status to narcotic agent; Z88.8 Allergy status to other drugs, medicaments and biological substances; Z91.018 Allergy to other foods
CPT/HCPCS: 71045; 78452; 80048; 80053; 80061; 83690; 83880; 84484 ×2; 85025 ×2; 93005; 93017; 94640; 94760; 96361; 96372; 96374; 96375; 96376; 99285; A9500; G0378 ×3; 36415; J1642; J1650; J2405; J2785; J3010

== ENCOUNTER 2019-11-09 17:04 | Emergency (ER) | payer MEDICARE, MEDICAID ==
--- NOTE | 2019-11-09 18:21 | RAD ---
SINGLE VIEW OF THE CHEST: 11/09/19 COMPARISON: 10/07/19 HISTORY: Chest pain and shortness of breath. FINDINGS: Single view of the chest shows a normal sized cardiomediastinal silhouette. The Mediport is unchanged in position. There is no evidence of consolidation, mass, or pleural effusion. Degenerative changes are seen in the spine. IMPRESSION: No evidence of acute cardiopulmonary disease. POS: C
[2019-11-09 18:27] LABS: #Basophils 0.1 thou/uL (0.0-0.2); #Eosinphils 0.2 thou/uL (0.0-0.7); #Lymphocytes 4.3 thou/uL (1.20-3.40); #Monocytes 0.8 thou/uL (0.11-0.59); #Neutrophils 4.2 thou/uL (1.40-6.50); %Basophils 0.8 % (0.0-1.0); %Eosinophils 2.6 % (0.0-10.0); %Lymphocytes 44.7 % (21.0-51.0); %Monocytes 8.5 % (0.0-10.0); %Neutrophils 43.5 % (42.0-75.0); Mean Corpuscular HGB CONC 32.7 g/dL (32.0-36.0); Mean Corpuscular Volume 91.6 fL (78.0-98.0); Mean Platelet Volume 7.5 fL (7.4-10.4); Platelet Count 198 thou/uL (130-400); RBC Distribution Width 12.7 % (11.5-14.5); White Blood Cell (WBC) Count 9.6 thou/uL (4.8-10.8)
[2019-11-09 18:49] LABS: ALT (SGPT) 11 U/L (8-55); AST (SGOT) 20 U/L (5-34); Albumin 3.8 g/dL (3.5-5.0); Alkaline Phosphatase 55 U/L (40-110); Anion Gap 17 mmol/L (10-20); BUN (Urea Nitrogen) 33 mg/dL (9.8-20.1); Bilirubin, Total 0.3 mg/dL (0.2-1.2); CK (CPK) 134 U/L (29-168); Calc. Creatinine Clearance 0 mL/min (70-130); Calcium 9.1 mg/dL (7.8-10.44); Carbon Dioxide 22 mmol/L (22-29); Chloride 107 mmol/L (98-107); Estimated GFR-MDRD 51; Globulin 3.1 g/dL (2.4-3.5); Glucose 85 mg/dL (70-105); Potassium 4.7 mmol/L (3.5-5.1); Protein, Total 6.9 g/dL (6.0-8.3); Sodium 141 mmol/L (136-145)
[2019-11-09] MEDS ORDERED: ALPRAZolam 0.25 MG TAB ONE (18:49)
== END 2019-11-09 20:15 | disposition home or self-care (01) ==
LOC: ERS 17:04
DX: R07.89 Other chest pain (principal); I10 Essential (primary) hypertension; J44.9 Chronic obstructive pulmonary disease, unspecified; I20.9 Angina pectoris, unspecified; F20.9 Schizophrenia, unspecified; K21.9 Gastro-esophageal reflux disease without esophagitis; Z86.73 Personal history of transient ischemic attack (TIA), and cerebral infarction without residual deficits; Z79.899 Other long term (current) drug therapy; Z79.82 Long term (current) use of aspirin
CPT/HCPCS: 36415; 71045; 80053; 82550; 84484; 85025; 93005; J1642

== ENCOUNTER 2019-11-13 20:02 | Emergency (ER) | payer MEDICARE, MEDICAID ==
[2019-11-13 20:49] LABS: #Eosinphils 0.2 thou/uL (0.0-0.7); #Lymphocytes 1.8 thou/uL (1.20-3.40); #Monocytes 0.4 thou/uL (0.11-0.59); #Neutrophils 5.9 thou/uL (1.40-6.50); %Eosinophils 2.5 % (0.0-10.0); %Monocytes 5.1 % (0.0-10.0); %Neutrophils 70.5 % (42.0-75.0); Hemoglobin 11.6 g/dL (12.0-16.0); Mean Corpuscular HGB CONC 32.8 g/dL (32.0-36.0); Mean Corpuscular Hemoglobin 30.7 pg (27.0-31.0); Mean Corpuscular Volume 93.8 fL (78.0-98.0); Mean Platelet Volume 7.4 fL (7.4-10.4); Platelet Count 181 thou/uL (130-400); RBC Distribution Width 13.1 % (11.5-14.5); Red Blood Cell (RBC) Count 3.76 mill/uL (4.20-5.40); White Blood Cell (WBC) Count 8.3 thou/uL (4.8-10.8)
[2019-11-13 21:11] LABS: ALT (SGPT) 11 U/L (8-55); AST (SGOT) 13 U/L (5-34); Albumin 3.8 g/dL (3.5-5.0); Alkaline Phosphatase 57 U/L (40-110); Anion Gap 14 mmol/L (10-20); BUN (Urea Nitrogen) 30 mg/dL (9.8-20.1); Bilirubin, Total 0.3 mg/dL (0.2-1.2); Calc. Creatinine Clearance 0 mL/min (70-130); Calcium 8.9 mg/dL (7.8-10.44); Carbon Dioxide 21 mmol/L (22-29); Chloride 107 mmol/L (98-107); Estimated GFR-MDRD 63; Globulin 3.4 g/dL (2.4-3.5); Glucose 109 mg/dL (70-105); Potassium 4.8 mmol/L (3.5-5.1); Protein, Total 7.2 g/dL (6.0-8.3); Sodium 137 mmol/L (136-145)
[2019-11-13 21:39] LABS: Bacteria/HPF None Seen HPF (None Seen); Bilirubin Negative (Negative); Blood, Urine Trace (Negative); Clarity Clear (Clear); Glucose, Urine (Dipstick) Normal (Negative); Leukocyte Negative Leu/uL (Negative); Nitrite Negative (Negative); Protein, Urine (Dipstick) Negative (Neg-Trace); RBC/HPF 0-3 HPF (0-3); Squamous Epithelial None Seen HPF (0-3); Urobilinogen Normal mg/dL (Less than 2); WBC/HPF None Seen HPF (0-3)
--- NOTE | 2019-11-13 21:52 | RAD ---
KUB: History: Left lower quadrant pain. History of small bowel obstruction. FINDINGS: There is air in both small and large bowel without evidence of obstruction. A moderate amount of stoo l is seen in the right colon. Post-operative changes are again noted. Surgical clips in the left uppe r quadrant and what appear to be probable cholecystectomy change. IMPRESSION: Nonobstructed bowel gas pattern. A moderate amount of stool is seen in the right and transverse colon regions. POS: EDIN
== END 2019-11-13 21:48 | disposition home or self-care (01) ==
LOC: ERS 20:02
DX: K59.00 Constipation, unspecified (principal); K21.9 Gastro-esophageal reflux disease without esophagitis; I10 Essential (primary) hypertension; J44.9 Chronic obstructive pulmonary disease, unspecified; I25.2 Old myocardial infarction; I48.91 Unspecified atrial fibrillation; F25.9 Schizoaffective disorder, unspecified; F31.9 Bipolar disorder, unspecified; Z86.73 Personal history of transient ischemic attack (TIA), and cerebral infarction without residual deficits; Z79.2 Long term (current) use of antibiotics; Z79.51 Long term (current) use of inhaled steroids; Z79.899 Other long term (current) drug therapy; Z79.52 Long term (current) use of systemic steroids
CPT/HCPCS: 74018; 80053; 81003; 81015; 85025

== ENCOUNTER 2019-11-14 14:22 | Emergency (ER) | payer MEDICARE, MEDICAID ==
--- NOTE | 2019-11-14 16:32 | RAD ---
Exam: One view chest 2 views abdomen COMPARISON: 10/20/2019, 11/13/2019 HISTORY: Pain FINDINGS: 1. View chest: Stable right-sided Mediport. Normal cardiac silhouette. Pulmonary vessels and hilum are normal. Costo phrenic angles are clear. No consolidation or mass. No pneumothorax or acute osseous abnormalities. Stable eventration of the right hemidiaphragm Abdomen 2 views: Stable postsurgical clips. Nonspecific bowel gas pattern. No suspicious densities in the abdomen. No evidence of pneumoperitoneum. Phlebolith in the left and right hemipelvis are redemonstrated. There is interval development of a oblique increased density in the right hemipelvis, measuring 1.8 cm in m aximum dimension. Etiology is uncertain. Better interrogation with CT may be beneficial. IMPRESSION: 1. No acute cardiac pulmonary process. 2. Nonspecific bowel gas pattern. Interval presence of the oblique density in the right hemipelvis of uncertain etiology.
[2019-11-14 17:06] LABS: #Eosinphils 0.2 thou/uL (0.0-0.7); #Lymphocytes 4.9 thou/uL (1.20-3.40); #Neutrophils 3.9 thou/uL (1.40-6.50); %Basophils 0.3 % (0.0-1.0); %Eosinophils 2.3 % (0.0-10.0); %Lymphocytes 48.8 % (21.0-51.0); %Monocytes 9.5 % (0.0-10.0); %Neutrophils 39.2 % (42.0-75.0); Hemoglobin 10.9 g/dL (12.0-16.0); Mean Corpuscular HGB CONC 32.3 g/dL (32.0-36.0); Mean Corpuscular Hemoglobin 30.3 pg (27.0-31.0); Mean Corpuscular Volume 93.6 fL (78.0-98.0); Mean Platelet Volume 7.5 fL (7.4-10.4); Platelet Count 172 thou/uL (130-400); Red Blood Cell (RBC) Count 3.59 mill/uL (4.20-5.40); White Blood Cell (WBC) Count 10.1 thou/uL (4.8-10.8)
[2019-11-14 17:42] LABS: ALT (SGPT) 11 U/L (8-55); AST (SGOT) 21 U/L (5-34); Albumin 3.5 g/dL (3.5-5.0); Alkaline Phosphatase 46 U/L (40-110); Anion Gap 12 mmol/L (10-20); BUN (Urea Nitrogen) 26 mg/dL (9.8-20.1); Bilirubin, Total 0.2 mg/dL (0.2-1.2); Calc. Creatinine Clearance 0 mL/min (70-130); Calcium 8.8 mg/dL (7.8-10.44); Carbon Dioxide 22 mmol/L (22-29); Chloride 110 mmol/L (98-107); Estimated GFR-MDRD 78; Globulin 2.9 g/dL (2.4-3.5); Lipase 23 U/L (8-78); Protein, Total 6.4 g/dL (6.0-8.3); Sodium 140 mmol/L (136-145)
[2019-11-14 17:46] LABS: Glucose 59 mg/dL (70-105)
[2019-11-14] MEDS ORDERED: Ondansetron ODT 4 MG TAB ONE (18:19)
[2019-11-14] MEDS ORDERED: Acetaminophen 500 MG TAB ONE (18:39)
[2019-11-14 19:35] LABS: Troponin I Less than 0.010 ng/mL (< 0.028)
== END 2019-11-14 19:42 | disposition home or self-care (01) ==
LOC: ERS 14:22
DX: K62.5 Hemorrhage of anus and rectum (principal); R07.89 Other chest pain; K21.9 Gastro-esophageal reflux disease without esophagitis; I10 Essential (primary) hypertension; J44.9 Chronic obstructive pulmonary disease, unspecified; Z79.899 Other long term (current) drug therapy; Z86.73 Personal history of transient ischemic attack (TIA), and cerebral infarction without residual deficits
CPT/HCPCS: 36415; 36416; 74022; 80053; 82274; 83690; 84484; 85025; 93005; Q0162

== ENCOUNTER 2019-12-19 19:20 | Observation (INO) | payer MEDICARE, MEDICAID ==
[2019-12-19 19:50] LABS: #Basophils 0.1 thou/uL (0.0-0.2); #Eosinphils 0.1 thou/uL (0.0-0.7); #Lymphocytes 3.5 thou/uL (1.20-3.40); #Neutrophils 5.1 thou/uL (1.40-6.50); %Basophils 1.4 % (0.0-1.0); %Eosinophils 0.9 % (0.0-10.0); %Lymphocytes 35.5 % (21.0-51.0); %Monocytes 9.8 % (0.0-10.0); %Neutrophils 52.5 % (42.0-75.0); Hemoglobin 12.2 g/dL (12.0-16.0); Mean Corpuscular Hemoglobin 30.4 pg (27.0-31.0); Mean Corpuscular Volume 94.8 fL (78.0-98.0); Mean Platelet Volume 7.9 fL (7.4-10.4); Platelet Count 182 thou/uL (130-400); RBC Distribution Width 12.9 % (11.5-14.5); Red Blood Cell (RBC) Count 4.02 mill/uL (4.20-5.40); White Blood Cell (WBC) Count 9.8 thou/uL (4.8-10.8)
[2019-12-19 20:10] LABS: ALT (SGPT) 14 U/L (8-55); AST (SGOT) 21 U/L (5-34); Albumin 4.2 g/dL (3.5-5.0); Alkaline Phosphatase 53 U/L (40-110); Anion Gap 18 mmol/L (10-20); BUN (Urea Nitrogen) 50 mg/dL (9.8-20.1); Bilirubin, Total 0.4 mg/dL (0.2-1.2); Calc. Creatinine Clearance 0 mL/min (70-130); Calcium 9.8 mg/dL (7.8-10.44); Carbon Dioxide 26 mmol/L (22-29); Chloride 102 mmol/L (98-107); Estimated GFR-MDRD 21; Globulin 3.4 g/dL (2.4-3.5); Glucose 81 mg/dL (70-105); Potassium 4.9 mmol/L (3.5-5.1); Protein, Total 7.6 g/dL (6.0-8.3); Sodium 141 mmol/L (136-145)
--- NOTE | 2019-12-19 20:48 | RAD ---
CHEST ONE VIEW: History: Chest pain, palpitations. Comparison: 11-09-2019 IMPRESSION: No acute cardiopulmonary abnormality is evident. The examination appears unchanged from the compariso n exam. Chest wall port is stable in position. POS: BH
--- NOTE | 2019-12-19 21:26 | PDOC.FPRHP ---
- History of Present Illness Chief Complaint: chest pain History of Present Illness: 59 y/o F wiht pmhx of CAD s/p X3 stents, schizophrenia, HTN and a fib presents to ED with CP off and on for the last 3 days. PT states today about 4 pm she became SOB, nauseous, and sweaty, feeling like she might pass out. The CP radiating to R arm and upper abdomen then followed. Exacerbated by movement and alleviated with rest. PT states she checked her BP which was 68/37 and began to hydrate with water. When she got to the ER BP improved per pt. c/o increased swelling in LE's and abdomen, and 20 lbs weight gain over last 2 weeks. c/o 4 pillow orthopnea and PND that started 2-3 weeks ago. Pt states she always has a tremor since she has had TIA's in the past. 3 days ago pt had N/D and this has now ceased. last BM 2 days ago was diarrhea. ED Course: trop 0.021, CXR no acute findings, Cr 2.76, BUN 36 - Allergies/Adverse Reactions Allergies Allergy/AdvReac Type Severity Reaction Status Date / Time chlorpromazine HCl Allergy Severe Anxiety Verified 11/05/19 20:34 [From Thorazine] Penicillins Allergy Severe Anaphylaxis Verified 11/05/19 20:34 haloperidol [From Haldol] Allergy Verified 11/05/19 20:34 lithium [[place]] Allergy SORES Verified 11/05/19 20:34 morphine Allergy Anaphylaxis Verified 11/05/19 20:34 Sulfa (Sulfonamide Allergy Anaphylaxis Verified 11/05/19 20:34 Antibiotics) tomato [Tomato] Allergy Hives Verified 11/05/19 20:34 tramadol HCl [From Ultram] Allergy Anaphylaxis Verified 11/05/19 20:34 - Home Medications Medication Instructions Recorded Confirmed Type Albuterol Sulfate [Proair HFA] 2 puff INH QID PRN 03/07/15 12/20/19 History Budesonide-Formoterol [Symbicort 2 puff INH BID 03/07/15 12/20/19 History 160-4.5] Flecainide [Tambocor] 50 mg PO BID 01/26/16 12/20/19 History Amitiza 8 mcg PO DAILY 07/16/19 12/20/19 History risperiDONE [RisperDAL] 4 mg PO HS 07/16/19 12/20/19 History Aspirin [Ecotrin] 325 mg PO DAILY 11/05/19 12/20/19 History Ondansetron [Zofran ODT] 8 mg PO Q6HR PRN 11/05/19 12/20/19 History predniSONE 5 mg PO DAILY 11/05/19 12/20/19 History Albuterol Sulfate [Albuterol 1.25 mg NEB QID 12/20/19 12/20/19 History Sulfate Neb] Divalproex Sodium DR [Depakote] 1,500 mg PO HS 12/20/19 12/20/[address] [Depakote] 500 mg PO DAILY 12/20/19 12/20/19 History Furosemide [Lasix] 40 mg PO DAILY 12/20/19 12/20/19 History HYDROcodone/Acetaminophen [[place] 1 each PO Q6H PRN 12/20/19 12/20/19 History 10-325 Tablet] - History PMHx: CAD s/p CABG, HTN, Schizophrenia, A fib, asthma, TIA, Pancreatic CA, mitral valve prolapse, obstructing colonic cancerous mass s/p resection PSHx: colon resection, CABG, carpal tunnel, cholecystectomy, appendectomy, bladder sling, mediport R chest FHx: father: pancreatic CA at age 67 Mother: ovarian CA at age 73 Social: denies tobacco, etoh or drug use lives with daughter who is a LOGGING ENGINEER and takes care of her - Review of Systems General: reports: fever/chills (denies fever, admits to chills), weight/appetite /sleep changes (increase in weight 20 lbs last 2-3 weeks) ENT: denies: nasal congestion Respiratory: reports: shortness of breath, exercise intolerance. denies: cough Cardiovascular: reports: chest pain, palpitation, edema, paroxysmal nocturnal dyspnea, orthopnea Gastrointestinal: reports: nausea, vomiting, diarrhea, other (abd swelling) Neurological: reports: weakness, other (light headedness) - Vital signs BP: 124/87 HR: 82 RR: 15 Tmax: 96.1 F Pox: 100% % on ra Wt: 88 kg - Physical Exam Constitutional: NAD -Constitutional: resting tremor HEENT: normocephalic and atraumatic, PERRLA, EOMI, grossly normal vision, grossly normal hearing -HEENT: dry MM Neck: supple, trachea midline Heart: RRR, normal S1/S2, no murmurs/rubs/gallops, pulses present, no edema (no LE pitting edema) Lungs: CTAB, no respiratory distress, good air movement, no rales/rhonchi, no wheezing, no retractions Abdomen: soft, bowel sounds present Musculoskeletal: normal structure, normal tone Neurological: no focal deficit, normal sensation Skin: no rash/lesions, capillary refill <2 seconds Heme/Lymphatic: no unusual bruising or bleeding, no purpura -Psychiatric: pressured speech alert and oriented X3 FMR H&P: Results - Labs Result Diagrams: 12/19/19 19:36 12/20/19 01:59 Lab results: WBC 9.8 thou/uL (4.8-10.8) 12/19/19 19:36 Hgb 12.2 g/dL (12.0-16.0) 12/19/19 19:36 Hct 38.1 % (36.0-47.0) 12/19/19 19:36 MCV 94.8 fL (78.0-98.0) 12/19/19 19:36 Plt Count 182 thou/uL (130-400) 12/19/19 19:36 Neutrophils % 52.5 % (42.0-75.0) 12/19/19 19:36 Sodium 141 mmol/L (136-145) 12/19/19 19:36 Potassium 4.9 mmol/L (3.5-5.1) 12/19/19 19:36 Chloride 102 mmol/L (98-107) 12/19/19 19:36 Carbon Dioxide 26 mmol/L (22-29) 12/19/19 19:36 BUN 50 mg/dL (9.8-20.1) H 12/19/19 19:36 Creatinine 2.76 mg/dL (0.6-1.1) H 12/19/19 19:36 Glucose 81 mg/dL (70-105) 12/19/19 19:36 Calcium 9.8 mg/dL (7.8-10.44) 12/19/19 19:36 Total Bilirubin 0.4 mg/dL (0.2-1.2) 12/19/19 19:36 AST 21 U/L (5-34) 12/19/19 19:36 ALT 14 U/L (8-55) 12/19/19 19:36 Alkaline Phosphatase 53 U/L (40-110) 12/19/19 19:36 Serum Total Protein 7.6 g/dL (6.0-8.3) 12/19/19 19:36 Albumin 4.2 g/dL (3.5-5.0) 12/19/19 19:36 - EKG Interpretation EK bpm NSR no STEMI - Radiology Interpretation Chest x-ray Status: report reviewed by me (no acute findings, port stable) FMR H&P: A/P - Problem List (1) MAYKEL (acute kidney injury) Current Visit: Yes Status: Acute Code(s): N17.9 - ACUTE KIDNEY FAILURE, UNSPECIFIED (2) Hypotension Current Visit: Yes Status: Acute (3) Typical angina Current Visit: Yes Status: Acute Code(s): I20.9 - ANGINA PECTORIS, UNSPECIFIED (4) CAD (coronary artery disease) Current Visit: No Status: Chronic Code(s): I25.10 - ATHSCL HEART DISEASE OF [place] CORONARY ARTERY W/O ANG PCTRS (5) HTN (hypertension) Current Visit: No Status: Chronic Code(s): I10 - ESSENTIAL (PRIMARY) HYPERTENSION (6) Schizoaffective disorder Current Visit: No Status: Chronic Code(s): F25.9 - SCHIZOAFFECTIVE DISORDER , UNSPECIFIED - Plan 59 y/o F admitted to [facility] obs for further workup and evaluation of typical chest pain 1. Typical angina - SOB, diaphoresis, radiating to R UE, exertional - EKG nml, Trop 0.021, Lipase 22 - Trend trops - Normal stress test 10/2019 - Dr. 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 Will trend trops and decide cardiology consult inpt vs f/u out pt in AM. - Echo 07/28: EF 60-65% no evidence of sys or virgie dysfunction 2. S/P X3 vessel stents 2002 - stress neg in 10/2019 - trop neg 3. MAYKEL - Cr 2.76, has been 1.1-1.2 in recent admission - Ordered 1 L LR and then 100 ml/hr LR - BMP in AM to monitor for improvement - Ordered FeUrea as pt takes lasix and may have continued lasix thorugh recent GI upset. 4. Hypotension - Ordered orthostatis BP's as pt is likely volume down with evidence of Cr and low BP's - Recent GI illness diarrhea and vomiting 2-3 days ago is not resolved but may have caused hypovolemia. - Orthostatic hypotension could be the leading cause of her symptoms. 5. Hx of HTN - hold BP medications until pt uvolemic 6. Hx of schizophrenia - nurse to reconcile medications as pt was unsure. - will restart home psych meds 7. Hx of a fib - stable, EKG normal upon admission - continue home meds 8. Hx of TIA - Neurologically intact upon PE 9. Hx of pancreatic CA - S/P chemo and radiation X3 years ago - in remission - Lipase 22 10. Hx of obstructing colonic mass, S/P partial colectomy - stable - will give miralax as pt has not had BM in 2 days Code status: full code diet: HH VTE ppx: SCD's, walking program dispo: stable, admit to tele obs. Trend trops, and IV fluid hydration. FMR H&P: Upper Level - Plan Date/Time: 12/19/192125 IRajan DO, have evaluated this patient and agree with findings/plan as outlined by legal summer intern resident. Pertinent changes/additions are listed here. This is a 59 yo female with a pmh of HTN, CAD, CVA who presents to the ED with a cc of chest pain. She states the pains started this afternoon around 5-6PM. She states the pain was made worse with standing and walking around She states she had low blood pressure at that time, 60s/30s. She reports associated diaphoresis, nausea, SOB, and radiation to her right arm and stomach. She states she has been feeling worse for the last 3 weeks. The last 3 days, she has been complaining of pain off and on but came in tonight because of worsening pain and at her daughters recommendations. She has a past history of SC with three stents placed. Objective: Vitals: BP 124/83, HR 79, RR 18, Temp 98.2, SpO2 99% on RA General: NAD HEENT: Dry mm Cardio: RRR, 2/6 systolic murmur Resp: CTAB, no crackles Extremities: 2+ pulses throughout, 1+ pitting edema A/P Typical chest pain -Admit to tele obs -EKG shows NSR, no ST elevations or depression -CXR: no acute changes -Trop negative x1 -Negative stress test in October 2019 -Likely related to hypotension from recent start of lasix -Pending orthostatic vitals MAYKEL -Cr 2.76, baseline appears to be around 1 -Will replace fluids, no signs of fluid overload -Pending FeUrea to r/o cause -Will monitor with AM BMP Hypotension -Likely related to above Mitral valve prolapse -Murmur consistent with diagnosis COPD, stable, will monitor See Clay Transporter note for further information regarding chronic conditions and history Code: Full Prophylaxis: SCDs, walking program Family: None at bedside Fluids: LR 100ml/hr Diet: HH Disposition: DC in 1-2 days PCP: [facility]ONE[facility], Dr. Jean Ragsdale Addendum - Attending - Attending Attestation Date/Time: 12/20/19 1018 I personally evaluated the patient and discussed the management with Dr. Huerta. I agree with the History, Examination, Assessment and Plan documented above with any addition or exceptions noted below. Patient with relatively typical chest pain, except started when not exerted herself and spontaneously remits. Also right sided. Of note, she recently restarted lasix about 7 days ago. She is convinced she still has edema, although I can find none. CP -recent negative stress -would repeat TnI MAYKEL -likely 2/2 patient directed over diuresis with resultant dehydration -fluid challenge -recheck in AM -hold lasix
[2019-12-19] MEDS ORDERED: Ondansetron ODT 4 MG TAB PO PRN (22:00)
[2019-12-19] MEDS ORDERED: Lactated Ringer's 1,000 ML IV SCH (22:30)
[2019-12-19] MEDS ORDERED: Polyethylene Glycol 3350 17 GM Packet PO PRN (22:39)
[2019-12-20] MEDS: Lactated Ringer's 1,000 ML IV SCH ×2 (01:10→08:51)
[2019-12-20 01:51] VITALS: BMI 32.8
[2019-12-20] MEDS ORDERED: PROVENTIL INHALER 6.7 G (200 INHALATIONS) INH PRN (02:36)
[2019-12-20 02:40] LABS: Anion Gap 17 mmol/L (10-20); BUN (Urea Nitrogen) 45 mg/dL (9.8-20.1); Calc. Creatinine Clearance 49 mL/min (70-130); Calcium 8.9 mg/dL (7.8-10.44); Carbon Dioxide 21 mmol/L (22-29); Chloride 106 mmol/L (98-107); Estimated GFR-MDRD 37; Glucose 92 mg/dL (70-105); Potassium 3.7 mmol/L (3.5-5.1); Sodium 140 mmol/L (136-145)
[2019-12-20] MEDS ORDERED: Mometasone 200 MCG/Formoterol 5 MCG 120 PUFF INHALER INH SCH (06:30)
--- NOTE | 2019-12-20 07:22 | PDOC.FM ---
- Subjective Subjective: pt resting in bed, reports 9/10 chest pain worse with deep breaths, sob. - Objective Vital Signs & Weight: Vital Signs (12 hours) Temp Pulse Resp BP Pulse Ox 12/20/19 07:03 97.8 F 66 14 107/62 98 12/20/19 04:00 97.9 F 67 18 106/60 97 12/19/19 22:00 97.4 F L 74 18 118/77 98 Weight Weight 86.806 kg I&O: 12/19/19 12/20/19 12/21/19 06:59 06:59 06:59 Intake Total 637 Output Total 400 Balance 237 Result Diagrams: 12/19/19 19:36 12/20/19 01:59 Phys Exam - Physical Examination Constitutional: NAD HEENT: moist MMs Neck: no JVD Respiratory: wheezing present Cardiovascular: RRR, no significant murmur Gastrointestinal: non-tender, no distention Musculoskeletal: pulses present Neurological: moves all 4 limbs Lymphatic: no nodes Psychiatric: normal affect Skin: no rash Dx/Plan (1) MAYKEL (acute kidney injury) Code(s): N17.9 - ACUTE KIDNEY FAILURE, UNSPECIFIED Status: Acute (2) Hypotension Status: Acute (3) COPD (chronic obstructive pulmonary disease) Status: Acute (4) CAD (coronary artery disease) Code(s): I25.10 - ATHSCL HEART DISEASE OF [place] CORONARY ARTERY W/O ANG PCTRS Status: Chronic (5) Chronic diastolic (congestive) heart failure Code(s): I50.32 - CHRONIC DIASTOLIC (CONGESTIVE) HEART FAILURE Status: Chronic (6) HTN (hypertension) Code(s): I10 - ESSENTIAL (PRIMARY) HYPERTENSION Status: Chronic (7) Schizoaffective disorder Code(s): F25.9 - SCHIZOAFFECTIVE DISORDER, UNSPECIFIED Status: Chronic - Plan Plan: Typical chest pain -EKG shows NSR, no ST elevations or depression, CXR: no acute changes -Trop negative x3 - prn ekg/nitro for chest pain -Negative stress test in October 2019 -most likely psychosomatic vs mild copd flare/pleurisy MAYKEL -Cr 2.76 on admission -improved, oral hydration Hypotension -Likely related to above Mitral valve prolapse -Murmur consistent with diagnosis COPD - start duonebs schizophrenia - cont. risperidone Code status: full code diet: HH VTE ppx: SCD's, walking program dispo: consider DC later today or tomorrow Addendum - Attending - Attending Attestation Date/Time: 12/20/19 1139 I personally evaluated the patient and discussed the management with Dr. Francis. I agree with the History, Examination, Assessment and Plan documented above with any addition or exceptions noted below. Patient stable, hypovolemic and MAYKEL from lasix use. She has no edema nor has any heart failure. Rehydrating kidneys and feels well. Likely d/c later today.
[2019-12-20] MEDS ORDERED: predniSONE 5 MG TAB PO SCH (08:00)
[2019-12-20] MEDS: Nitroglycerin 0.4 MG TAB (25 Tab Bottle) SL PRN ×3 (08:49→14:12)
[2019-12-20] MEDS ORDERED: Divalproex Sodium DR 500 MG TAB PO SCH ×2 (09:00→21:00)
[2019-12-20] MEDS ORDERED: Lubiprostone 8 MCG CAP PO SCH (09:00)
[2019-12-20] MEDS ORDERED: Flecainide 50 MG TAB PO SCH (09:00)
[2019-12-20] MEDS ORDERED: Aspirin 325 mg Enteric Coated Tablet PO SCH (09:00)
[2019-12-20] MEDS ORDERED: Ibuprofen 600 MG TAB PO PRN (14:19)
[2019-12-20 14:41] LABS: Anion Gap 15 mmol/L (10-20); BUN (Urea Nitrogen) 38 mg/dL (9.8-20.1); Calc. Creatinine Clearance 65 mL/min (70-130); Calcium 8.9 mg/dL (7.8-10.44); Carbon Dioxide 22 mmol/L (22-29); Chloride 107 mmol/L (98-107); Estimated GFR-MDRD 52; Glucose 90 mg/dL (70-105); Potassium 4.9 mmol/L (3.5-5.1); Sodium 139 mmol/L (136-145)
[2019-12-20 15:08] VITALS: BP 118/65; TEMP 97.8
--- NOTE | 2019-12-20 20:19 | EKG ---
Test Reason : C/O CHEST PAIN Blood Pressure : / mmHG Vent. Rate : 075 BPM Atrial Rate : 075 BPM P-R Int : 124 ms QRS Dur : 080 ms QT Int : 374 ms P-R-T Axes : 062 010 030 degrees QTc Int : 417 ms Normal sinus rhythm Normal ECG When compared with ECG of 19-DEC-2019 19:31, (Unconfirmed) No significant change was found Confirmed by KAROLINA LIANG, . S. ([id number]) on 12/20/2019 8:19:35 PM Referred By: KHOI Confirmed By:DR. Edith TURCIOS MD
[2019-12-20] MEDS ORDERED: risperiDONE 1 MG TAB PO SCH (21:00)
--- NOTE | 2019-12-21 10:00 | DIS ---
DATE OF ADMISSION: 12/19/2019 DATE OF DISCHARGE: 12/20/2019 ADMITTING ATTENDING: Nilo Harrell MD DISCHARGE ATTENDING: Sourav Benavidez MD CONSULTS: None. IMAGING: Chest x-ray shows a stable chest x-ray for previous exams. MEDICATIONS: 1. Symbicort two puffs inhaled b.i.d. 2. ProAir two puffs inhaled q.i.d. p.r.n. 3. Flecainide 50 mg p.o. b.i.d. 4. risperidal 4 mg p.o. at bedtime. 5. Amitiza 8 mcg p.o. daily. 6. Zofran 8 mg p.o. q.6 hours p.r.n. 7. Prednisone 5 mg p.o. daily. 8. Aspirin 325 mg p.o. daily. 9. Depakote 500 mg p.o. daily. 10. Depakote 1500 mg p.o. at bedtime. 11. [place]ia 10/325 one tablet p.o. q.6 hours p.r.n. 12. Albuterol nebs 1.25 mg nebs q.i.d. DISCONTINUED MEDICATIONS: Lasix 40 mg p.o. daily. DISCHARGE DIAGNOSES: 1. Atypical chest pain related to hypovolemia. 2. Acute kidney injury. SECONDARY DIAGNOSES: 1. Mitral valve prolapse. 2. Chronic obstructive pulmonary disease. 3. Schizophrenia. HISTORY OF PRESENT ILLNESS/HOSPITAL COURSE: Ms. Krishna is a 59-year-old female with a past medical history significant for schizophrenia and hypertension, presents to the ER frequently with complaints of chest pain among other things. This time, she reported chest pain that is very typical in nature, radiating to her arm and exacerbated by movement, made better with rest. However, later she did notice that it was more painful to take a deep breath. She was feeling short of breath at that time and reported varying other symptoms throughout her hospitalization. The patient was given nitroglycerin and aspirin and did not have any relief. Troponin remained normal. EKG was without any changes. No sternotomy wires were noted on chest x-ray reported coronary artery bypass graft. It was determined that the patient was hypertense. Electrolyte abnormalities were related to recent starting of Lasix. It is unknown who started this for. The patient was instructed to follow up with this person and not continue the Lasix. DISCHARGE INSTRUCTIONS: 1. Location: Home. 2. Diet: Heart healthy low-sodium. 3. Activity: As tolerated. 4. Followup: Follow up with PCP in the next 3 to 7 days. Job ID: [id number] MTDD
--- NOTE | 2019-12-24 11:54 | EKG ---
Test Reason : EPIGASTRIC PAIN Blood Pressure : / mmHG Vent. Rate : 092 BPM Atrial Rate : 092 BPM P-R Int : 118 ms QRS Dur : 078 ms QT Int : 328 ms P-R-T Axes : 050 -06 032 degrees QTc Int : 405 ms Normal sinus rhythm Normal ECG Confirmed by NORRIS PURVIS ([id number]), editor house organ GIORGIO GARCIA ([id number]) on 12/24/2019 11:54:37 AM Referred By: Confirmed By:NORRIS Chamberlain
== END 2019-12-20 16:32 | disposition home or self-care (01) ==
LOC: ERS 19:20 → 2NO 21:49
PROVIDERS: ADMIT Emergency Medicine; ATTEND Emergency Medicine
DX: R07.89 Other chest pain (principal); E86.1 Hypovolemia; N17.9 Acute kidney failure, unspecified; N14.1 Nephropathy induced by other drugs, medicaments and biological substances; T50.1X5A Adverse effect of loop [high-ceiling] diuretics, initial encounter; I34.1 Nonrheumatic mitral (valve) prolapse; J44.9 Chronic obstructive pulmonary disease, unspecified; F20.9 Schizophrenia, unspecified; I25.10 Atherosclerotic heart disease of native coronary artery without angina pectoris; I48.91 Unspecified atrial fibrillation; I95.1 Orthostatic hypotension; I11.0 Hypertensive heart disease with heart failure; I50.32 Chronic diastolic (congestive) heart failure; Z85.07 Personal history of malignant neoplasm of pancreas; Z86.73 Personal history of transient ischemic attack (TIA), and cerebral infarction without residual deficits; Z79.51 Long term (current) use of inhaled steroids; Z79.82 Long term (current) use of aspirin; Z79.899 Other long term (current) drug therapy; Z88.0 Allergy status to penicillin; Z88.2 Allergy status to sulfonamides; Z88.5 Allergy status to narcotic agent; Z88.8 Allergy status to other drugs, medicaments and biological substances; Z91.018 Allergy to other foods; Z95.5 Presence of coronary angioplasty implant and graft; Z90.49 Acquired absence of other specified parts of digestive tract
CPT/HCPCS: 71045; 80048 ×2; 80053; 82570; 84484 ×3; 84540; 85025; 93005 ×2; 94640 ×2; 94760; 97139; 99285; G0378 ×3; 36415; 93010; J7512; J7620; Q0162

== ENCOUNTER 2019-12-29 15:03 | Emergency (ER) | payer MEDICARE, MEDICAID ==
--- NOTE | 2019-12-29 16:18 | RAD ---
PORTABLE CHEST: 12/29/19 PROVIDED CLINICAL HISTORY: Chest pain. FINDINGS: comparison 12/19/19. Cardiac and mediastinal silhouette is unchanged in appearance. Right sided implanted port is again se en in similar position. No focal consolidation, pleural fluid, or pneumothorax apparent. IMPRESSION: No evidence for an acute cardiopulmonary process. POS: [facility]
[2019-12-29 17:03] LABS: #Basophils 0.1 thou/uL (0.0-0.2); #Eosinphils 0.2 thou/uL (0.0-0.7); #Lymphocytes 2.9 thou/uL (1.20-3.40); #Monocytes 0.5 thou/uL (0.11-0.59); #Neutrophils 5.1 thou/uL (1.40-6.50); %Basophils 0.7 % (0.0-1.0); %Eosinophils 1.9 % (0.0-10.0); %Lymphocytes 33.5 % (21.0-51.0); %Monocytes 5.8 % (0.0-10.0); %Neutrophils 58.1 % (42.0-75.0); Hemoglobin 11.6 g/dL (12.0-16.0); Mean Corpuscular HGB CONC 31.7 g/dL (32.0-36.0); Mean Corpuscular Hemoglobin 30.4 pg (27.0-31.0); Mean Corpuscular Volume 95.8 fL (78.0-98.0); Mean Platelet Volume 7.5 fL (7.4-10.4); Platelet Count 183 thou/uL (130-400); RBC Distribution Width 12.6 % (11.5-14.5); Red Blood Cell (RBC) Count 3.81 mill/uL (4.20-5.40); White Blood Cell (WBC) Count 8.7 thou/uL (4.8-10.8)
[2019-12-29] MEDS ORDERED: Ondansetron PF 4 MG/2 ML Vial ONE (17:17)
[2019-12-29] MEDS ORDERED: Aspirin Chewable 81 MG TAB ONE (17:17)
[2019-12-29 17:28] LABS: ALT (SGPT) 15 U/L (8-55); AST (SGOT) 20 U/L (5-34); Albumin 3.7 g/dL (3.5-5.0); Alkaline Phosphatase 53 U/L (40-110); Anion Gap 13 mmol/L (10-20); BUN (Urea Nitrogen) 23 mg/dL (9.8-20.1); Bilirubin, Total 0.3 mg/dL (0.2-1.2); CK (CPK) 95 U/L (29-168); Calc. Creatinine Clearance 0 mL/min (70-130); Calcium 8.7 mg/dL (7.8-10.44); Carbon Dioxide 24 mmol/L (22-29); Chloride 110 mmol/L (98-107); Estimated GFR-MDRD 78; Globulin 3.1 g/dL (2.4-3.5); Glucose 102 mg/dL (70-105); Protein, Total 6.8 g/dL (6.0-8.3); Sodium 142 mmol/L (136-145)
[2019-12-29 19:29] LABS: Troponin I 0.013 ng/mL (< 0.028)
== END 2019-12-29 19:53 | disposition home or self-care (01) ==
LOC: ERS 15:03
DX: R07.2 Precordial pain (principal); K21.9 Gastro-esophageal reflux disease without esophagitis; I10 Essential (primary) hypertension; J44.9 Chronic obstructive pulmonary disease, unspecified; I20.9 Angina pectoris, unspecified; I48.91 Unspecified atrial fibrillation; F20.9 Schizophrenia, unspecified; F31.9 Bipolar disorder, unspecified; Z79.899 Other long term (current) drug therapy; Z86.73 Personal history of transient ischemic attack (TIA), and cerebral infarction without residual deficits; Z79.82 Long term (current) use of aspirin
CPT/HCPCS: 36415; 71045; 80053; 82550; 84484; 85025; 93005; 96361; 96374; J2405

== ENCOUNTER 2019-12-30 10:29 | Emergency (ER) | payer MEDICARE, MEDICAID ==
[2019-12-30] MEDS ORDERED: Aspirin Chewable 81 MG TAB ONE (11:49)
[2019-12-30 12:38] LABS: #Basophils 0.1 thou/uL (0.0-0.2); #Eosinphils 0.2 thou/uL (0.0-0.7); #Lymphocytes 2.4 thou/uL (1.20-3.40); #Monocytes 0.5 thou/uL (0.11-0.59); #Neutrophils 4.6 thou/uL (1.40-6.50); %Basophils 1.1 % (0.0-1.0); %Eosinophils 2.4 % (0.0-10.0); %Lymphocytes 30.9 % (21.0-51.0); %Monocytes 6.9 % (0.0-10.0); %Neutrophils 58.8 % (42.0-75.0); Hemoglobin 11.6 g/dL (12.0-16.0); Mean Corpuscular HGB CONC 30.8 g/dL (32.0-36.0); Mean Corpuscular Hemoglobin 29.6 pg (27.0-31.0); Mean Corpuscular Volume 96.2 fL (78.0-98.0); Mean Platelet Volume 7.6 fL (7.4-10.4); Platelet Count 187 thou/uL (130-400); RBC Distribution Width 12.6 % (11.5-14.5); White Blood Cell (WBC) Count 7.9 thou/uL (4.8-10.8)
--- NOTE | 2019-12-30 12:47 | RAD ---
PORTABLE CHEST 1 VIEW: Date: 12/30/2019 Time: 1204 hours HISTORY: Chest pain. COMPARISON: 12/29/2019. FINDINGS: The heart size is normal. Right-sided Port-A-Cath remains in place. No pneumothoraces, lobar consolid ation, tsering pulmonary edema, or large effusions are seen. IMPRESSION: Stable exam since yesterday. POS: [facility]
[2019-12-30 13:08] LABS: ALT (SGPT) 13 U/L (8-55); AST (SGOT) 20 U/L (5-34); Albumin 3.6 g/dL (3.5-5.0); Alkaline Phosphatase 49 U/L (40-110); Anion Gap 14 mmol/L (10-20); BUN (Urea Nitrogen) 17 mg/dL (9.8-20.1); Bilirubin, Total 0.3 mg/dL (0.2-1.2); Calc. Creatinine Clearance 0 mL/min (70-130); Calcium 8.3 mg/dL (7.8-10.44); Carbon Dioxide 19 mmol/L (22-29); Chloride 111 mmol/L (98-107); Estimated GFR-MDRD 75; Globulin 2.9 g/dL (2.4-3.5); Glucose 105 mg/dL (70-105); Potassium 5.1 mmol/L (3.5-5.1); Protein, Total 6.5 g/dL (6.0-8.3); Sodium 139 mmol/L (136-145)
[2019-12-30] MEDS ORDERED: Nitroglycerin 2% Ointment 1 INCH/1 GM Packet ONE (14:17)
[2019-12-30 15:37] LABS: Troponin I 0.012 ng/mL (< 0.028)
== END 2019-12-30 15:50 | disposition home or self-care (01) ==
LOC: ERS 10:29
DX: R07.89 Other chest pain (principal); K21.9 Gastro-esophageal reflux disease without esophagitis; I10 Essential (primary) hypertension; J44.9 Chronic obstructive pulmonary disease, unspecified; I48.91 Unspecified atrial fibrillation; F20.9 Schizophrenia, unspecified; F31.9 Bipolar disorder, unspecified; I20.9 Angina pectoris, unspecified; Z86.73 Personal history of transient ischemic attack (TIA), and cerebral infarction without residual deficits; Z79.899 Other long term (current) drug therapy; Z79.82 Long term (current) use of aspirin
CPT/HCPCS: 36415; 71045; 80053; 84484; 85025; 93005

== ENCOUNTER 2020-01-01 | Observation (INO) | payer MEDICARE, MEDICAID | END 2020-01-02 14:10 | disposition home or self-care (01) | PROVIDERS: ADMIT Family Medicine | DX: I26.99 Other pulmonary embolism without acute cor pulmonale (principal); I25.10 Atherosclerotic heart disease of native coronary artery without angina pectoris; I10 Essential (primary) hypertension; F25.9 Schizoaffective disorder, unspecified; I48.91 Unspecified atrial fibrillation; J44.9 Chronic obstructive pulmonary disease, unspecified; I34.1 Nonrheumatic mitral (valve) prolapse; K21.9 Gastro-esophageal reflux disease without esophagitis; M19.90 Unspecified osteoarthritis, unspecified site; Z85.07 Personal history of malignant neoplasm of pancreas; Z85.3 Personal history of malignant neoplasm of breast; Z86.718 Personal history of other venous thrombosis and embolism; Z86.73 Personal history of transient ischemic attack (TIA), and cerebral infarction without residual deficits; Z79.82 Long term (current) use of aspirin; Z79.899 Other long term (current) drug therapy; Z88.0 Allergy status to penicillin; Z88.2 Allergy status to sulfonamides; Z88.5 Allergy status to narcotic agent; Z88.8 Allergy status to other drugs, medicaments and biological substances; Z91.018 Allergy to other foods; Z95.1 Presence of aortocoronary bypass graft; Z95.810 Presence of automatic (implantable) cardiac defibrillator ==

== ENCOUNTER 2020-01-09 15:15 | Emergency (ER) | payer MEDICARE, MEDICAID ==
[2020-01-09 16:11] LABS: #Basophils 0.1 thou/uL (0.0-0.2); #Eosinphils 0.1 thou/uL (0.0-0.7); #Lymphocytes 3.8 thou/uL (1.20-3.40); #Monocytes 0.5 thou/uL (0.11-0.59); #Neutrophils 3.2 thou/uL (1.40-6.50); %Eosinophils 1.1 % (0.0-10.0); %Lymphocytes 49.3 % (21.0-51.0); %Monocytes 6.3 % (0.0-10.0); %Neutrophils 42.2 % (42.0-75.0); Mean Corpuscular HGB CONC 32.7 g/dL (32.0-36.0); Mean Corpuscular Hemoglobin 30.9 pg (27.0-31.0); Mean Corpuscular Volume 94.5 fL (78.0-98.0); Mean Platelet Volume 7.8 fL (7.4-10.4); Platelet Count 184 thou/uL (130-400); RBC Distribution Width 12.6 % (11.5-14.5); Red Blood Cell (RBC) Count 3.89 mill/uL (4.20-5.40); White Blood Cell (WBC) Count 7.6 thou/uL (4.8-10.8)
[2020-01-09 16:37] LABS: ALT (SGPT) 14 U/L (8-55); AST (SGOT) 24 U/L (5-34); Albumin 3.8 g/dL (3.5-5.0); Alkaline Phosphatase 52 U/L (40-110); Anion Gap 14 mmol/L (10-20); BUN (Urea Nitrogen) 29 mg/dL (9.8-20.1); Bilirubin, Total 0.3 mg/dL (0.2-1.2); Calc. Creatinine Clearance 0 mL/min (70-130); Calcium 9.1 mg/dL (7.8-10.44); Carbon Dioxide 20 mmol/L (22-29); Chloride 110 mmol/L (98-107); Estimated GFR-MDRD 66; Globulin 3.3 g/dL (2.4-3.5); Glucose 93 mg/dL (70-105); Potassium 4.3 mmol/L (3.5-5.1); Protein, Total 7.1 g/dL (6.0-8.3); Sodium 140 mmol/L (136-145)
--- NOTE | 2020-01-09 18:18 | RAD ---
CHEST ONE VIEW: History: Shortness of breath Comparison: 01-01-2020 FINDINGS: Rekh-r-jazgselk is in place with its tip at the mid inferior SVC. There is felt to be interposition o f bowel within the left hemidiaphragm and the spleen, most likely free air. Left upper quadrant surgi armando clips. Mild elevation left hemidiaphragm. No confluent airspace consolidation, pneumothorax or effusion. IMPRESSION: No acute intrathoracic abnormality. POS: HOME
[2020-01-09] MEDS ORDERED: Ketorolac Tromethamine 30 MG/ML VIAL ONE (18:25)
--- NOTE | 2020-01-14 13:56 | EKG ---
Test Reason : Blood Pressure : / mmHG Vent. Rate : 092 BPM Atrial Rate : 092 BPM P-R Int : 116 ms QRS Dur : 076 ms QT Int : 344 ms P-R-T Axes : 043 -16 034 degrees QTc Int : 425 ms Normal sinus rhythm Minimal voltage criteria for LVH, may be normal variant Borderline ECG Confirmed by ARACELI WALDROP ([id number]), editor trade journal GIORGIO GARCIA ([id number]) on 01/14/2020 1:56:20 PM Referred By: Confirmed By:ARACELI WALDROP
== END 2020-01-09 19:07 | disposition home or self-care (01) ==
LOC: ERS 15:15
DX: I26.99 Other pulmonary embolism without acute cor pulmonale (principal); R07.2 Precordial pain; K21.9 Gastro-esophageal reflux disease without esophagitis; J44.9 Chronic obstructive pulmonary disease, unspecified; I10 Essential (primary) hypertension; I20.9 Angina pectoris, unspecified; I48.91 Unspecified atrial fibrillation; F25.9 Schizoaffective disorder, unspecified; F31.9 Bipolar disorder, unspecified; Z86.73 Personal history of transient ischemic attack (TIA), and cerebral infarction without residual deficits; Z79.899 Other long term (current) drug therapy; Z79.82 Long term (current) use of aspirin
CPT/HCPCS: 36415; 71045; 80053; 84484; 85025; 93005; 96372; J1885

== ENCOUNTER 2020-01-13 18:16 | Emergency (ER) | payer MEDICARE, MEDICAID ==
[2020-01-13 19:03] LABS: #Basophils 0.1 thou/uL (0.0-0.2); #Eosinphils 0.1 thou/uL (0.0-0.7); #Lymphocytes 2.6 thou/uL (1.20-3.40); #Monocytes 0.5 thou/uL (0.11-0.59); #Neutrophils 4.1 thou/uL (1.40-6.50); %Basophils 0.9 % (0.0-1.0); %Eosinophils 0.8 % (0.0-10.0); %Lymphocytes 35.8 % (21.0-51.0); %Monocytes 6.9 % (0.0-10.0); %Neutrophils 55.7 % (42.0-75.0); Hemoglobin 11.5 g/dL (12.0-16.0); Mean Corpuscular HGB CONC 32.4 g/dL (32.0-36.0); Mean Corpuscular Hemoglobin 30.7 pg (27.0-31.0); Mean Corpuscular Volume 94.8 fL (78.0-98.0); Mean Platelet Volume 7.7 fL (7.4-10.4); Platelet Count 180 thou/uL (130-400); RBC Distribution Width 12.4 % (11.5-14.5); Red Blood Cell (RBC) Count 3.74 mill/uL (4.20-5.40); White Blood Cell (WBC) Count 7.4 thou/uL (4.8-10.8)
[2020-01-13 19:46] LABS: ALT (SGPT) 13 U/L (8-55); AST (SGOT) 19 U/L (5-34); Albumin 3.8 g/dL (3.5-5.0); Alkaline Phosphatase 50 U/L (40-110); Anion Gap 16 mmol/L (10-20); BUN (Urea Nitrogen) 25 mg/dL (9.8-20.1); Bilirubin, Total 0.3 mg/dL (0.2-1.2); CK (CPK) 127 U/L (29-168); Calc. Creatinine Clearance 0 mL/min (70-130); Calcium 8.4 mg/dL (7.8-10.44); Carbon Dioxide 17 mmol/L (22-29); Chloride 111 mmol/L (98-107); Estimated GFR-MDRD 63; Glucose 134 mg/dL (70-105); Potassium 4.6 mmol/L (3.5-5.1); Protein, Total 6.8 g/dL (6.0-8.3); Sodium 139 mmol/L (136-145)
--- NOTE | 2020-01-13 20:56 | RAD ---
FRONTAL RADIOGRAPH CHEST: 01/13/20 COMPARISON: 01/09/20 HISTORY: Fall, chest pain, shortness of breath. FINDINGS: There is a CT injectable right [id number], distal tip overlying the cavoatrial junction. Postoperat emilia clips are noted in the left upper quadrant. No pneumothorax, pleural fluid, focal consolidation, or alveolar edema. IMPRESSION: No acute findings. POS: [facility]
--- NOTE | 2020-01-14 14:52 | EKG ---
Test Reason : Blood Pressure : / mmHG Vent. Rate : 088 BPM Atrial Rate : 088 BPM P-R Int : 118 ms QRS Dur : 080 ms QT Int : 346 ms P-R-T Axes : 042 -10 028 degrees QTc Int : 418 ms Normal sinus rhythm Cannot rule out Anterior infarct , age undetermined Abnormal ECG Confirmed by KEERTHI GIL ([id number]), material expeditor GIORGIO GARCIA ([id number]) on 01/14/2020 2:51:45 PM Referred By: Confirmed By:KEERTHI GIL
== END 2020-01-13 21:28 | disposition home or self-care (01) ==
LOC: ERS 18:16
DX: R07.9 Chest pain, unspecified (principal); Z86.711 Personal history of pulmonary embolism; K21.9 Gastro-esophageal reflux disease without esophagitis; I10 Essential (primary) hypertension; Z86.73 Personal history of transient ischemic attack (TIA), and cerebral infarction without residual deficits; J44.9 Chronic obstructive pulmonary disease, unspecified; F31.9 Bipolar disorder, unspecified; Z79.899 Other long term (current) drug therapy; Z79.82 Long term (current) use of aspirin
CPT/HCPCS: 36415; 71045; 80053; 82550; 84484; 85025; 93005

== ENCOUNTER 2020-01-15 12:54 | Emergency (ER) | payer MEDICARE, MEDICAID ==
[2020-01-15 13:38] LABS: #Eosinphils 0.1 thou/uL (0.0-0.7); #Lymphocytes 3.6 thou/uL (1.20-3.40); #Monocytes 0.7 thou/uL (0.11-0.59); #Neutrophils 3.8 thou/uL (1.40-6.50); %Basophils 0.4 % (0.0-1.0); %Eosinophils 1.2 % (0.0-10.0); %Lymphocytes 43.9 % (21.0-51.0); %Monocytes 8.1 % (0.0-10.0); %Neutrophils 46.4 % (42.0-75.0); Hemoglobin 11.5 g/dL (12.0-16.0); Mean Corpuscular HGB CONC 32.3 g/dL (32.0-36.0); Mean Corpuscular Hemoglobin 30.3 pg (27.0-31.0); Mean Corpuscular Volume 93.9 fL (78.0-98.0); RBC Distribution Width 12.6 % (11.5-14.5); Red Blood Cell (RBC) Count 3.79 mill/uL (4.20-5.40); White Blood Cell (WBC) Count 8.1 thou/uL (4.8-10.8)
--- NOTE | 2020-01-15 13:40 | RAD ---
PORTABLE CHEST: Indications: Chest pain FINDINGS: Lungs are clear. No infiltrate or vascular congestion. Heart and mediastinum unremarkable. Mediport c atheter is in adequate position. IMPRESSION: No acute process. POS: [facility]
[2020-01-15 13:56] LABS: ALT (SGPT) 12 U/L (8-55); AST (SGOT) 17 U/L (5-34); Albumin 3.6 g/dL (3.5-5.0); Alkaline Phosphatase 48 U/L (40-110); Anion Gap 15 mmol/L (10-20); BUN (Urea Nitrogen) 18 mg/dL (9.8-20.1); Bilirubin, Total 0.2 mg/dL (0.2-1.2); Calc. Creatinine Clearance 0 mL/min (70-130); Calcium 8.7 mg/dL (7.8-10.44); Carbon Dioxide 20 mmol/L (22-29); Chloride 110 mmol/L (98-107); Estimated GFR-MDRD 64; Globulin 3.1 g/dL (2.4-3.5); Glucose 98 mg/dL (70-105); Lipase 15 U/L (8-78); Potassium 5.2 mmol/L (3.5-5.1); Protein, Total 6.7 g/dL (6.0-8.3); Sodium 140 mmol/L (136-145)
[2020-01-15 14:00] LABS: MDiff Complete? YES; Platelet Clumps MODERATE; Platelet Morphology Comment PLT clumps seen-ADEQ; RBC Morphology Normal
[2020-01-15] MEDS ORDERED: Ondansetron ODT 4 MG TAB ONE (14:11)
[2020-01-15] MEDS ORDERED: Acetaminophen 500 MG TAB ONE (14:11)
[2020-01-15 15:38] LABS: Actual Bicarbonate (HCO3a) 24.9 mEq/L (22-28); Analyzer IN Cardio ER; Base Excess (BEa) 1.3 mEq/L (-2.0 to +3.0); CO2 Tension 36.2 mmHg (35.0-45.0); Calcium, Ionized 1.17 mmol/L (1.12-1.30); Carboxyhemoglobin (COHb) 0.3 gm% (0.0-3.0); O2 Tension (PaO2), arterial 97.2 mmHg (80.0-100.0); Potassium - ABG Lab 5.47 mmol/L (3.70-5.30); pH, Arterial 7.46 (7.35-7.45)
[2020-01-15 15:39] LABS: Puncture Site RRA
== END 2020-01-15 16:15 | disposition home or self-care (01) ==
LOC: ERS 12:54
DX: R07.89 Other chest pain (principal); K21.9 Gastro-esophageal reflux disease without esophagitis; I10 Essential (primary) hypertension; J44.9 Chronic obstructive pulmonary disease, unspecified; I25.2 Old myocardial infarction; I48.91 Unspecified atrial fibrillation; F25.9 Schizoaffective disorder, unspecified; Z86.73 Personal history of transient ischemic attack (TIA), and cerebral infarction without residual deficits
CPT/HCPCS: 36415; 71045; 80053; 82805; 83690; 84484; 85025; 93005; 94760; J7620; Q0162

== ENCOUNTER 2020-01-16 14:56 | Emergency (ER) | payer MEDICARE, MEDICAID ==
[2020-01-16 15:40] LABS: #Eosinphils 0.2 thou/uL (0.0-0.7); #Lymphocytes 3.1 thou/uL (1.20-3.40); #Monocytes 0.6 thou/uL (0.11-0.59); #Neutrophils 4.6 thou/uL (1.40-6.50); %Basophils 0.1 % (0.0-1.0); %Eosinophils 1.8 % (0.0-10.0); %Lymphocytes 36.4 % (21.0-51.0); %Monocytes 7.5 % (0.0-10.0); %Neutrophils 54.3 % (42.0-75.0); Hemoglobin 12.1 g/dL (12.0-16.0); Mean Corpuscular HGB CONC 32.7 g/dL (32.0-36.0); Mean Corpuscular Hemoglobin 30.3 pg (27.0-31.0); Mean Corpuscular Volume 92.7 fL (78.0-98.0); Mean Platelet Volume 8.3 fL (7.4-10.4); Platelet Count 147 thou/uL (130-400); RBC Distribution Width 12.4 % (11.5-14.5); Red Blood Cell (RBC) Count 4.01 mill/uL (4.20-5.40); White Blood Cell (WBC) Count 8.6 thou/uL (4.8-10.8)
[2020-01-16] MEDS ORDERED: Nitroglycerin 0.4 MG TAB 1 EACH ONE (16:14)
[2020-01-16 16:26] LABS: ALT (SGPT) 11 U/L (8-55); AST (SGOT) 19 U/L (5-34); Albumin 3.8 g/dL (3.5-5.0); Alkaline Phosphatase 47 U/L (40-110); Anion Gap 18 mmol/L (10-20); BUN (Urea Nitrogen) 27 mg/dL (9.8-20.1); Bilirubin, Total 0.3 mg/dL (0.2-1.2); Calc. Creatinine Clearance 0 mL/min (70-130); Calcium 8.8 mg/dL (7.8-10.44); Carbon Dioxide 18 mmol/L (22-29); Chloride 109 mmol/L (98-107); Estimated GFR-MDRD 63; Globulin 3.3 g/dL (2.4-3.5); Glucose 92 mg/dL (70-105); Potassium 5.6 mmol/L (3.5-5.1); Protein, Total 7.1 g/dL (6.0-8.3); Sodium 139 mmol/L (136-145)
--- NOTE | 2020-01-16 17:56 | RAD ---
PORTABLE CHEST: DATE: 01/16/2020. PROVIDED CLINICAL HISTORY: Chest pain. FINDINGS: Comparison 01/15/2020. Cardiac and mediastinal silhouette is within normal limits. Right subclavian i mplanted port is redemonstrated in similar position. No focal consolidation, pleural fluid, or pneum othorax apparent. IMPRESSION: No evidence for an acute cardiopulmonary process. POS: [facility]
[2020-01-16] MEDS ORDERED: Bacitracin 1 PK ONE (18:19)
== END 2020-01-16 20:25 | disposition home or self-care (01) ==
LOC: ERS 14:56
DX: R07.9 Chest pain, unspecified (principal); K21.9 Gastro-esophageal reflux disease without esophagitis; I10 Essential (primary) hypertension; J44.9 Chronic obstructive pulmonary disease, unspecified; Z79.899 Other long term (current) drug therapy; Z79.82 Long term (current) use of aspirin
CPT/HCPCS: 36415; 71045; 80053; 84484; 85025; 93005; 94760

== ENCOUNTER 2020-01-17 11:17 | Emergency (ER) | payer MEDICARE, MEDICAID ==
[2020-01-17 11:40] LABS: #Basophils 0.1 thou/uL (0.0-0.2); #Eosinphils 0.2 thou/uL (0.0-0.7); #Lymphocytes 3.5 thou/uL (1.20-3.40); #Monocytes 0.6 thou/uL (0.11-0.59); #Neutrophils 4.1 thou/uL (1.40-6.50); %Basophils 1.5 % (0.0-1.0); %Eosinophils 2.2 % (0.0-10.0); %Lymphocytes 41.5 % (21.0-51.0); %Neutrophils 47.9 % (42.0-75.0); Hemoglobin 12.5 g/dL (12.0-16.0); Mean Corpuscular HGB CONC 31.4 g/dL (32.0-36.0); Mean Corpuscular Hemoglobin 29.3 pg (27.0-31.0); Mean Corpuscular Volume 93.3 fL (78.0-98.0); Mean Platelet Volume 7.5 fL (7.4-10.4); Platelet Count 189 thou/uL (130-400); RBC Distribution Width 12.5 % (11.5-14.5); Red Blood Cell (RBC) Count 4.27 mill/uL (4.20-5.40); White Blood Cell (WBC) Count 8.5 thou/uL (4.8-10.8)
--- NOTE | 2020-01-17 11:44 | RAD ---
RADIOGRAPH CHEST 1 VIEW: DATE: 01/17/2020 HISTORY: 59-year-old female with chest pain FINDINGS: There are no airspace densities, pulmonary edema, pneumothorax, or cardiomegaly. The lateral costophr enic angles are sharp. There is a right subclavian implantable vascular access port. No interval change since 01/16/2020 IMPRESSION: No acute cardiopulmonary findings.
[2020-01-17 12:15] LABS: ALT (SGPT) 11 U/L (8-55); AST (SGOT) 19 U/L (5-34); Alkaline Phosphatase 51 U/L (40-110); Anion Gap 16 mmol/L (10-20); BUN (Urea Nitrogen) 25 mg/dL (9.8-20.1); Bilirubin, Total 0.4 mg/dL (0.2-1.2); CK (CPK) 74 U/L (29-168); Calc. Creatinine Clearance 0 mL/min (70-130); Calcium 9.1 mg/dL (7.8-10.44); Carbon Dioxide 24 mmol/L (22-29); Chloride 104 mmol/L (98-107); Estimated GFR-MDRD 68; Globulin 3.5 g/dL (2.4-3.5); Glucose 112 mg/dL (70-105); Potassium 4.5 mmol/L (3.5-5.1); Protein, Total 7.5 g/dL (6.0-8.3); Sodium 139 mmol/L (136-145)
[2020-01-17] MEDS ORDERED: Ketorolac Tromethamine 30 MG/ML VIAL ONE (12:23)
[2020-01-17] MEDS ORDERED: Nitroglycerin 0.4 MG TAB 1 EACH ONE (12:23)
[2020-01-17] MEDS ORDERED: Acetaminophen 500 MG TAB ONE (15:38)
[2020-01-17 16:22] LABS: Troponin I Less than 0.010 ng/mL (< 0.028)
== END 2020-01-17 16:40 | disposition home or self-care (01) ==
LOC: ERS 11:17
DX: R07.89 Other chest pain (principal); R07.81 Pleurodynia; K21.9 Gastro-esophageal reflux disease without esophagitis; I10 Essential (primary) hypertension; J45.909 Unspecified asthma, uncomplicated; I48.91 Unspecified atrial fibrillation; F25.9 Schizoaffective disorder, unspecified; F31.9 Bipolar disorder, unspecified; Z86.73 Personal history of transient ischemic attack (TIA), and cerebral infarction without residual deficits; Z79.899 Other long term (current) drug therapy; Z79.01 Long term (current) use of anticoagulants; Z79.82 Long term (current) use of aspirin
CPT/HCPCS: 36415; 71045; 80053; 82550; 83880; 84484; 85025; 93005; 96374; J1885

== ENCOUNTER 2020-01-21 10:22 | Emergency (ER) | payer MEDICARE, MEDICAID ==
[2020-01-21] MEDS ORDERED: Lorazepam 1 MG TAB ONE (11:48)
[2020-01-21 12:05] LABS: Hemoglobin 11.2 g/dL (12.0-16.0); Mean Corpuscular Hemoglobin 30.7 pg (27.0-31.0); Mean Corpuscular Volume 93.1 fL (78.0-98.0); Mean Platelet Volume 7.6 fL (7.4-10.4); Platelet Count 170 thou/uL (130-400); RBC Distribution Width 12.4 % (11.5-14.5); Red Blood Cell (RBC) Count 3.63 mill/uL (4.20-5.40); White Blood Cell (WBC) Count 7.7 thou/uL (4.8-10.8)
[2020-01-21 12:20] LABS: Band 1 % (5-11); Eosinophils 1 % (0-10); Lymphocytes 33 % (21-51); MDiff Complete? YES; Metamyelocyte 2 % (0-0); Monocytes 10 % (0-10); Myelocyte 4 % (0-0); Neutrophil 48 % (42-75); Platelet Morphology Comment Appears Adequate; RBC Morphology Normal; Reactive Lymphocytes 1 % (0-10)
[2020-01-21 12:27] LABS: ALT (SGPT) 14 U/L (8-55); AST (SGOT) 17 U/L (5-34); Albumin 3.7 g/dL (3.5-5.0); Alkaline Phosphatase 47 U/L (40-110); Anion Gap 15 mmol/L (10-20); BUN (Urea Nitrogen) 19 mg/dL (9.8-20.1); Bilirubin, Total 0.3 mg/dL (0.2-1.2); Calc. Creatinine Clearance 0 mL/min (70-130); Calcium 8.5 mg/dL (7.8-10.44); Carbon Dioxide 22 mmol/L (22-29); Chloride 106 mmol/L (98-107); Estimated GFR-MDRD 86; Globulin 2.9 g/dL (2.4-3.5); Glucose 99 mg/dL (70-105); Potassium 4.3 mmol/L (3.5-5.1); Protein, Total 6.6 g/dL (6.0-8.3); Sodium 139 mmol/L (136-145)
== END 2020-01-21 13:28 | disposition home or self-care (01) ==
LOC: ERS 10:22
DX: R07.89 Other chest pain (principal); K21.9 Gastro-esophageal reflux disease without esophagitis; I10 Essential (primary) hypertension; J44.9 Chronic obstructive pulmonary disease, unspecified; I48.91 Unspecified atrial fibrillation; F25.9 Schizoaffective disorder, unspecified; F31.9 Bipolar disorder, unspecified; I25.2 Old myocardial infarction; Z86.73 Personal history of transient ischemic attack (TIA), and cerebral infarction without residual deficits; Z79.01 Long term (current) use of anticoagulants; Z79.51 Long term (current) use of inhaled steroids; Z79.52 Long term (current) use of systemic steroids; Z79.899 Other long term (current) drug therapy
CPT/HCPCS: 36600; 80053; 84484; 85025; 93005

== ENCOUNTER 2020-01-25 11:20 | Emergency (ER) | payer MEDICARE, MEDICAID ==
[2020-01-25 13:36] LABS: #Eosinphils 0.1 thou/uL (0.0-0.7); #Lymphocytes 3.6 thou/uL (1.20-3.40); #Monocytes 1.1 thou/uL (0.11-0.59); #Neutrophils 4.2 thou/uL (1.40-6.50); %Basophils 0.1 % (0.0-1.0); %Lymphocytes 40.5 % (21.0-51.0); %Monocytes 11.8 % (0.0-10.0); %Neutrophils 46.6 % (42.0-75.0); Hemoglobin 11.4 g/dL (12.0-16.0); Mean Corpuscular HGB CONC 31.1 g/dL (32.0-36.0); Mean Corpuscular Hemoglobin 29.1 pg (27.0-31.0); Mean Corpuscular Volume 93.7 fL (78.0-98.0); Platelet Count 167 thou/uL (130-400); RBC Distribution Width 12.5 % (11.5-14.5); Red Blood Cell (RBC) Count 3.92 mill/uL (4.20-5.40)
--- NOTE | 2020-01-25 13:52 | RAD ---
CHEST ONE VIEW: 01/25/20 at 1:30 p.m. HISTORY: Chest pain. COMPARISON: 01/17/20. Right sided Port-A-Cath remains in place. The heart size is normal. The aorta is tortuous. No focal a tae of consolidation, pneumothoraces, or pleural effusions are seen. IMPRESSION: No radiographic evidence of acute cardiopulmonary process. POS: [facility]
[2020-01-25 14:04] LABS: ALT (SGPT) 12 U/L (8-55); AST (SGOT) 17 U/L (5-34); Albumin 3.6 g/dL (3.5-5.0); Alkaline Phosphatase 45 U/L (40-110); Anion Gap 14 mmol/L (10-20); BUN (Urea Nitrogen) 22 mg/dL (9.8-20.1); Bilirubin, Total 0.2 mg/dL (0.2-1.2); Calc. Creatinine Clearance 0 mL/min (70-130); Calcium 8.6 mg/dL (7.8-10.44); Carbon Dioxide 24 mmol/L (22-29); Chloride 107 mmol/L (98-107); Estimated GFR-MDRD 73; Globulin 2.8 g/dL (2.4-3.5); Glucose 80 mg/dL (70-105); Potassium 4.7 mmol/L (3.5-5.1); Protein, Total 6.4 g/dL (6.0-8.3); Sodium 140 mmol/L (136-145)
--- NOTE | 2020-01-25 14:37 | CT ---
EXAM: CT brain without contrast HISTORY: Headache and numbness COMPARISON: 07/16/2019 TECHNIQUE: Multiple contiguous axial images were obtained and a CT of the brain without contrast. FINDINGS: The brain is normal in morphology and attenuation without focal lesions or confluent areas of infarction. There is no evidence of hydrocephalus, intracranial hemorrhage, or extra-axial fluid collection. The calvarium and overlying soft tissues are unremarkable. The visualized paranasal sinuses and masto id air cells are well aerated. IMPRESSION: No evidence of acute intracranial abnormality
--- NOTE | 2020-01-28 15:44 | EKG ---
Test Reason : Blood Pressure : / mmHG Vent. Rate : 104 BPM Atrial Rate : 104 BPM P-R Int : 128 ms QRS Dur : 072 ms QT Int : 314 ms P-R-T Axes : 038 002 031 degrees QTc Int : 412 ms Sinus tachycardia Nonspecific ST and T wave abnormality Abnormal ECG Confirmed by NIELS LIANG, ROSE MARIE ([id number]), editor book GIORGIO GARCIA ([id number]) on 01/28/2020 3:44:24 PM Referred By: Confirmed By:ROSE MARIE BOWSER MD
== END 2020-01-25 15:35 | disposition home or self-care (01) ==
LOC: ERS 11:20
DX: R20.2 Paresthesia of skin (principal); K56.609 Unspecified intestinal obstruction, unspecified as to partial versus complete obstruction; K21.9 Gastro-esophageal reflux disease without esophagitis; I10 Essential (primary) hypertension; J44.9 Chronic obstructive pulmonary disease, unspecified; I20.9 Angina pectoris, unspecified; I48.91 Unspecified atrial fibrillation; F20.9 Schizophrenia, unspecified; F31.9 Bipolar disorder, unspecified; Z86.73 Personal history of transient ischemic attack (TIA), and cerebral infarction without residual deficits; Z79.899 Other long term (current) drug therapy
CPT/HCPCS: 36415; 70450; 71045; 80053; 84484; 85025; 93005

== ENCOUNTER 2020-01-27 11:09 | Emergency (ER) | payer MEDICARE, MEDICAID ==
[2020-01-27 11:56] LABS: #Basophils 0.1 thou/uL (0.0-0.2); #Eosinphils 0.1 thou/uL (0.0-0.7); #Lymphocytes 3.9 thou/uL (1.20-3.40); #Neutrophils 3.6 thou/uL (1.40-6.50); %Basophils 1.3 % (0.0-1.0); %Eosinophils 1.3 % (0.0-10.0); %Lymphocytes 45.3 % (21.0-51.0); %Monocytes 11.1 % (0.0-10.0); Hemoglobin 11.3 g/dL (12.0-16.0); Mean Corpuscular HGB CONC 32.6 g/dL (32.0-36.0); Mean Corpuscular Hemoglobin 30.7 pg (27.0-31.0); Mean Corpuscular Volume 94.3 fL (78.0-98.0); Mean Platelet Volume 7.4 fL (7.4-10.4); Platelet Count 187 thou/uL (130-400); RBC Distribution Width 12.6 % (11.5-14.5); Red Blood Cell (RBC) Count 3.68 mill/uL (4.20-5.40); White Blood Cell (WBC) Count 8.7 thou/uL (4.8-10.8)
[2020-01-27] MEDS ORDERED: Acetaminophen 500 MG TAB ONE (12:08)
--- NOTE | 2020-01-27 12:12 | RAD ---
EXAM: CHEST ONE VIEW HISTORY: Rapid heart rate COMPARISON: 01/25/2020 FINDINGS: Right-sided Mediport catheter remains in place. Cardiac silhouette is magnified by projection. Pulmon tanisha vasculature is within normal limits. The lungs are clear. Multiple surgical clips again overlie the medial left upper quadrant. Chest is stable compared to prior study. IMPRESSION: No acute cardiopulmonary process.
[2020-01-27 12:21] LABS: ALT (SGPT) 10 U/L (8-55); AST (SGOT) 15 U/L (5-34); Albumin 3.6 g/dL (3.5-5.0); Alkaline Phosphatase 47 U/L (40-110); Anion Gap 12 mmol/L (10-20); BUN (Urea Nitrogen) 20 mg/dL (9.8-20.1); Bilirubin, Total 0.2 mg/dL (0.2-1.2); Calc. Creatinine Clearance 0 mL/min (70-130); Calcium 8.8 mg/dL (7.8-10.44); Carbon Dioxide 26 mmol/L (22-29); Chloride 106 mmol/L (98-107); Estimated GFR-MDRD 62; Globulin 2.7 g/dL (2.4-3.5); Glucose 88 mg/dL (70-105); Potassium 4.5 mmol/L (3.5-5.1); Protein, Total 6.3 g/dL (6.0-8.3); Sodium 139 mmol/L (136-145)
[2020-01-27 14:38] LABS: Troponin I Less than 0.010 ng/mL (< 0.028)
== END 2020-01-27 15:08 | disposition home or self-care (01) ==
LOC: ERS 11:09
DX: R07.9 Chest pain, unspecified (principal); K21.9 Gastro-esophageal reflux disease without esophagitis; I10 Essential (primary) hypertension; J45.909 Unspecified asthma, uncomplicated; J44.9 Chronic obstructive pulmonary disease, unspecified; I11.0 Hypertensive heart disease with heart failure; I50.9 Heart failure, unspecified; I48.91 Unspecified atrial fibrillation; F20.9 Schizophrenia, unspecified; F31.9 Bipolar disorder, unspecified; Z86.73 Personal history of transient ischemic attack (TIA), and cerebral infarction without residual deficits; Z79.899 Other long term (current) drug therapy
CPT/HCPCS: 36415; 71045; 80053; 84484; 85025; 93005; 96360; 96361; J1642

== ENCOUNTER 2020-01-31 16:00 | Emergency (ER) | payer MEDICARE, MEDICAID, OTHER ==
[2020-01-31 16:49] LABS: #Eosinphils 0.3 thou/uL (0.0-0.7); #Lymphocytes 3.1 thou/uL (1.20-3.40); #Monocytes 0.6 thou/uL (0.11-0.59); #Neutrophils 3.7 thou/uL (1.40-6.50); %Basophils 0.6 % (0.0-1.0); %Eosinophils 3.8 % (0.0-10.0); %Lymphocytes 39.6 % (21.0-51.0); %Monocytes 8.1 % (0.0-10.0); %Neutrophils 47.9 % (42.0-75.0); Hemoglobin 11.4 g/dL (12.0-16.0); Mean Corpuscular HGB CONC 32.9 g/dL (32.0-36.0); Mean Corpuscular Hemoglobin 30.6 pg (27.0-31.0); Mean Corpuscular Volume 93.1 fL (78.0-98.0); Mean Platelet Volume 7.8 fL (7.4-10.4); Platelet Count 187 thou/uL (130-400); RBC Distribution Width 12.7 % (11.5-14.5); Red Blood Cell (RBC) Count 3.71 mill/uL (4.20-5.40); White Blood Cell (WBC) Count 7.8 thou/uL (4.8-10.8)
[2020-01-31 17:16] LABS: ALT (SGPT) 14 U/L (8-55); AST (SGOT) 21 U/L (5-34); Albumin 3.7 g/dL (3.5-5.0); Alkaline Phosphatase 49 U/L (40-110); Anion Gap 12 mmol/L (10-20); BUN (Urea Nitrogen) 16 mg/dL (9.8-20.1); Bilirubin, Total 0.2 mg/dL (0.2-1.2); Calc. Creatinine Clearance 0 mL/min (70-130); Carbon Dioxide 24 mmol/L (22-29); Chloride 107 mmol/L (98-107); Estimated GFR-MDRD 73; Globulin 3.1 g/dL (2.4-3.5); Glucose 100 mg/dL (70-105); Potassium 4.3 mmol/L (3.5-5.1); Protein, Total 6.8 g/dL (6.0-8.3); Sodium 139 mmol/L (136-145)
--- NOTE | 2020-02-04 16:56 | EKG ---
Test Reason : Blood Pressure : / mmHG Vent. Rate : 092 BPM Atrial Rate : 092 BPM P-R Int : 122 ms QRS Dur : 076 ms QT Int : 338 ms P-R-T Axes : 050 -07 025 degrees QTc Int : 417 ms Normal sinus rhythm Normal ECG Confirmed by LAKESHIA PERLA M.D. ([id number]), associate entertainment editor GIORGIO GARCIA ([id number]) on 02/04/2020 4:56:24 PM Referred By: Confirmed By:LAKESHIA PERLA M.D.
== END 2020-01-31 17:38 | disposition home or self-care (01) ==
LOC: ERS 16:00
DX: R06.02 Shortness of breath (principal); K21.9 Gastro-esophageal reflux disease without esophagitis; I10 Essential (primary) hypertension; J44.9 Chronic obstructive pulmonary disease, unspecified; Z86.73 Personal history of transient ischemic attack (TIA), and cerebral infarction without residual deficits; I48.91 Unspecified atrial fibrillation; I11.0 Hypertensive heart disease with heart failure; I50.9 Heart failure, unspecified; F25.9 Schizoaffective disorder, unspecified; F31.9 Bipolar disorder, unspecified; Z79.899 Other long term (current) drug therapy; Z79.51 Long term (current) use of inhaled steroids
CPT/HCPCS: 36415; 80053; 84443; 84484; 85025; 93005

== ENCOUNTER 2020-02-02 09:42 | Emergency (ER) | payer MEDICARE, MEDICAID ==
[2020-02-02 10:41] LABS: #Eosinphils 0.2 thou/uL (0.0-0.7); #Lymphocytes 4.1 thou/uL (1.20-3.40); #Neutrophils 4.3 thou/uL (1.40-6.50); %Basophils 0.3 % (0.0-1.0); %Eosinophils 2.4 % (0.0-10.0); %Lymphocytes 42.1 % (21.0-51.0); %Neutrophils 45.2 % (42.0-75.0); Hemoglobin 12.5 g/dL (12.0-16.0); Mean Corpuscular HGB CONC 32.5 g/dL (32.0-36.0); Mean Corpuscular Hemoglobin 30.2 pg (27.0-31.0); Mean Platelet Volume 8.8 fL (7.4-10.4); Platelet Count 126 thou/uL (130-400); RBC Distribution Width 12.5 % (11.5-14.5); Red Blood Cell (RBC) Count 4.12 mill/uL (4.20-5.40); White Blood Cell (WBC) Count 9.6 thou/uL (4.8-10.8)
[2020-02-02 11:10] LABS: ALT (SGPT) 12 U/L (8-55); AST (SGOT) 20 U/L (5-34); Albumin 3.8 g/dL (3.5-5.0); Alkaline Phosphatase 49 U/L (40-110); Anion Gap 17 mmol/L (10-20); BUN (Urea Nitrogen) 19 mg/dL (9.8-20.1); Bilirubin, Total 0.3 mg/dL (0.2-1.2); Calc. Creatinine Clearance 0 mL/min (70-130); Calcium 9.2 mg/dL (7.8-10.44); Carbon Dioxide 21 mmol/L (22-29); Chloride 106 mmol/L (98-107); Estimated GFR-MDRD 73; Globulin 3.4 g/dL (2.4-3.5); Glucose 80 mg/dL (70-105); Potassium 4.9 mmol/L (3.5-5.1); Protein, Total 7.2 g/dL (6.0-8.3); Sodium 139 mmol/L (136-145)
--- NOTE | 2020-02-02 12:05 | RAD ---
CHEST 1 VIEW PORTABLE: HISTORY: Chest pain. Elevated heart rate. COMPARISON: 01/27/2020. FINDINGS: Postsurgical clips in the epigastric region. Subclavian catheter and injection port on the right cesia e. No confluent pneumonia, overt edema, or pleural effusion. IMPRESSION: No acute intrathoracic disease. Stable from prior study. POS: [facility]
== END 2020-02-02 12:53 | disposition home or self-care (01) ==
LOC: ERS 09:42
DX: R07.89 Other chest pain (principal); R00.2 Palpitations; K21.9 Gastro-esophageal reflux disease without esophagitis; J44.9 Chronic obstructive pulmonary disease, unspecified; I25.10 Atherosclerotic heart disease of native coronary artery without angina pectoris; I48.91 Unspecified atrial fibrillation; F25.9 Schizoaffective disorder, unspecified; F31.9 Bipolar disorder, unspecified; Z86.73 Personal history of transient ischemic attack (TIA), and cerebral infarction without residual deficits; Z79.899 Other long term (current) drug therapy; Z79.01 Long term (current) use of anticoagulants
CPT/HCPCS: 36415; 71045; 80053; 84484; 85025; 93005

== ENCOUNTER 2020-02-07 11:14 | Emergency (ER) | payer MEDICARE, MEDICAID ==
[2020-02-07 12:06] LABS: #Eosinphils 0.2 thou/uL (0.0-0.7); #Monocytes 0.7 thou/uL (0.11-0.59); %Basophils 0.3 % (0.0-1.0); %Eosinophils 2.4 % (0.0-10.0); %Lymphocytes 37.9 % (21.0-51.0); %Monocytes 8.4 % (0.0-10.0); Hemoglobin 11.5 g/dL (12.0-16.0); Mean Corpuscular HGB CONC 32.4 g/dL (32.0-36.0); Mean Corpuscular Hemoglobin 30.4 pg (27.0-31.0); Mean Platelet Volume 7.7 fL (7.4-10.4); Platelet Count 155 thou/uL (130-400); RBC Distribution Width 12.4 % (11.5-14.5); Red Blood Cell (RBC) Count 3.77 mill/uL (4.20-5.40); White Blood Cell (WBC) Count 7.8 thou/uL (4.8-10.8)
[2020-02-07 12:28] LABS: ALT (SGPT) 12 U/L (8-55); AST (SGOT) 19 U/L (5-34); Albumin 3.8 g/dL (3.5-5.0); Alkaline Phosphatase 45 U/L (40-110); Anion Gap 15 mmol/L (10-20); BUN (Urea Nitrogen) 28 mg/dL (9.8-20.1); Bilirubin, Total 0.5 mg/dL (0.2-1.2); Calc. Creatinine Clearance 0 mL/min (70-130); Calcium 8.7 mg/dL (7.8-10.44); Carbon Dioxide 21 mmol/L (22-29); Chloride 108 mmol/L (98-107); Estimated GFR-MDRD 68; Globulin 2.8 g/dL (2.4-3.5); Glucose 80 mg/dL (70-105); Potassium 4.4 mmol/L (3.5-5.1); Protein, Total 6.6 g/dL (6.0-8.3); Sodium 140 mmol/L (136-145)
== END 2020-02-07 13:28 | disposition home or self-care (01) ==
LOC: ERS 11:14
DX: R07.89 Other chest pain (principal); F41.9 Anxiety disorder, unspecified; K21.9 Gastro-esophageal reflux disease without esophagitis; J44.9 Chronic obstructive pulmonary disease, unspecified; I20.9 Angina pectoris, unspecified; I11.0 Hypertensive heart disease with heart failure; I50.9 Heart failure, unspecified; I48.91 Unspecified atrial fibrillation; F25.9 Schizoaffective disorder, unspecified; F31.9 Bipolar disorder, unspecified; Z86.73 Personal history of transient ischemic attack (TIA), and cerebral infarction without residual deficits; Z79.899 Other long term (current) drug therapy
CPT/HCPCS: 36415; 80053; 84484; 85025; 93005; 94760

== ENCOUNTER 2020-02-19 00:05 | Emergency (ER) | payer MEDICARE, MEDICAID ==
[2020-02-19 00:57] LABS: #Eosinphils 0.2 thou/uL (0.0-0.7); #Lymphocytes 4.2 thou/uL (1.20-3.40); #Monocytes 1.1 thou/uL (0.11-0.59); #Neutrophils 3.2 thou/uL (1.40-6.50); %Basophils 0.3 % (0.0-1.0); %Eosinophils 1.9 % (0.0-10.0); %Lymphocytes 48.5 % (21.0-51.0); %Monocytes 12.8 % (0.0-10.0); %Neutrophils 36.4 % (42.0-75.0); Hemoglobin 11.2 g/dL (12.0-16.0); Mean Corpuscular HGB CONC 31.9 g/dL (32.0-36.0); Mean Platelet Volume 7.6 fL (7.4-10.4); Platelet Count 170 thou/uL (130-400); RBC Distribution Width 12.6 % (11.5-14.5); Red Blood Cell (RBC) Count 3.73 mill/uL (4.20-5.40); White Blood Cell (WBC) Count 8.7 thou/uL (4.8-10.8)
[2020-02-19 01:11] LABS: ALT (SGPT) 11 U/L (8-55); AST (SGOT) 16 U/L (5-34); Albumin 3.7 g/dL (3.5-5.0); Alkaline Phosphatase 46 U/L (40-110); Anion Gap 16 mmol/L (10-20); BUN (Urea Nitrogen) 20 mg/dL (9.8-20.1); Bilirubin, Total 0.3 mg/dL (0.2-1.2); Calc. Creatinine Clearance 0 mL/min (70-130); Calcium 8.9 mg/dL (7.8-10.44); Carbon Dioxide 21 mmol/L (22-29); Chloride 105 mmol/L (98-107); Estimated GFR-MDRD 66; Globulin 2.9 g/dL (2.4-3.5); Glucose 87 mg/dL (70-105); Protein, Total 6.6 g/dL (6.0-8.3); Sodium 138 mmol/L (136-145)
[2020-02-19] MEDS ORDERED: Acetaminophen 500 MG TAB ONE (02:40)
[2020-02-19 04:04] LABS: Troponin I 0.014 ng/mL (< 0.028)
--- NOTE | 2020-02-19 08:23 | RAD ---
RADIOGRAPH CHEST 1 VIEW: DATE: 02/19/2020 HISTORY: 59-year-old female with dyspnea FINDINGS: There are no airspace densities, pulmonary edema, pneumothorax, or cardiomegaly. The lateral costophr enic angles are sharp. Right subclavian implantable vascular access port with distal tip at SVC/right atrial junction. IMPRESSION: No acute cardiopulmonary findings.
== END 2020-02-19 04:52 | disposition home or self-care (01) ==
LOC: ERS 00:05
DX: R07.9 Chest pain, unspecified (principal); D64.9 Anemia, unspecified; K21.9 Gastro-esophageal reflux disease without esophagitis; J44.9 Chronic obstructive pulmonary disease, unspecified; I11.0 Hypertensive heart disease with heart failure; I50.9 Heart failure, unspecified; I48.91 Unspecified atrial fibrillation; F31.9 Bipolar disorder, unspecified; F25.9 Schizoaffective disorder, unspecified; Z86.73 Personal history of transient ischemic attack (TIA), and cerebral infarction without residual deficits; Z79.01 Long term (current) use of anticoagulants; Z79.899 Other long term (current) drug therapy
CPT/HCPCS: 36415; 71045; 80053; 83880; 84484; 85025; 93005; 94760

== ENCOUNTER 2020-03-06 08:14 | Outpatient (CLI) | payer MEDICARE, MEDICAID ==
--- NOTE | 2020-03-06 09:10 | CT ---
CT Abdomen Pelvis W Con: 03/06/2020 12:00 AM CLINICAL INFORMATION: Right upper quadrant abdominal pain for 2 weeks COMPARISON: 06/03/2016 TECHNIQUE: Multiple contiguous axial images were obtained and a CT of the abdomen and pelvis with IV contrast. Oral contrast was administered. Coronal and sagittal reformats were performed. FINDINGS: Lower Chest: within normal limits. Abdomen: Liver: within normal limits. Bile Ducts: Normal caliber. Gallbladder: Removed Pancreas: within normal limits. Spleen: within normal limits. Adrenals: Stable 1.6 cm left adrenal mass Kidneys: 3.4 cm left renal cyst. Pelvis: Reproductive Organs: Status post hysterectomy. Ureters: within normal limits. Bladder: within normal limits. Peritoneum: No ascites or free air, no fluid collection. Bowel: Normal caliber. Mesentery and Retroperitoneum: No enlarged mesenteric or retroperitoneal lymph nodes. Vessels: Normal. Abdominal Wall: within normal limits. Bones: Degenerative changes in the spine. IMPRESSION: 1. No evidence of acute intraabdominal or pelvic abnormality. 2. Left renal cyst 3. Stable left adrenal nodule
[2020-03-06] MEDS ORDERED: Iopamidol-370 76% 500 ML 1 ML ONE (15:37)
== END 2020-03-06 08:15 | disposition home or self-care (01) ==
LOC: BICCT 08:14
PROVIDERS: ATTEND Physician Assistant Medical
DX: R10.11 Right upper quadrant pain (principal); K21.9 Gastro-esophageal reflux disease without esophagitis; K92.1 Melena; N28.1 Cyst of kidney, acquired; E27.8 Other specified disorders of adrenal gland
CPT/HCPCS: 74177; Q9967

== ENCOUNTER 2020-03-14 13:50 | Emergency (ER) | payer MEDICARE, MEDICAID ==
[2020-03-14 14:35] LABS: #Basophils 0.1 thou/uL (0.0-0.2); #Eosinphils 0.2 thou/uL (0.0-0.7); #Monocytes 0.6 thou/uL (0.11-0.59); #Neutrophils 3.8 thou/uL (1.40-6.50); %Basophils 1.2 % (0.0-1.0); %Eosinophils 2.3 % (0.0-10.0); %Lymphocytes 39.3 % (21.0-51.0); %Monocytes 8.1 % (0.0-10.0); %Neutrophils 49.1 % (42.0-75.0); Hemoglobin 11.5 g/dL (12.0-16.0); Mean Corpuscular HGB CONC 31.8 g/dL (32.0-36.0); Mean Corpuscular Hemoglobin 29.8 pg (27.0-31.0); Mean Corpuscular Volume 93.7 fL (78.0-98.0); Mean Platelet Volume 7.9 fL (7.4-10.4); Platelet Count 184 thou/uL (130-400); RBC Distribution Width 12.1 % (11.5-14.5); Red Blood Cell (RBC) Count 3.87 mill/uL (4.20-5.40); White Blood Cell (WBC) Count 7.7 thou/uL (4.8-10.8)
[2020-03-14 15:00] LABS: ALT (SGPT) 12 U/L (8-55); AST (SGOT) 29 U/L (5-34); Albumin 3.6 g/dL (3.5-5.0); Alkaline Phosphatase 52 U/L (40-110); Anion Gap 14 mmol/L (10-20); BUN (Urea Nitrogen) 19 mg/dL (9.8-20.1); Bilirubin, Total 0.5 mg/dL (0.2-1.2); CK (CPK) 152 U/L (29-168); Calc. Creatinine Clearance 0 mL/min (70-130); Calcium 8.6 mg/dL (7.8-10.44); Carbon Dioxide 21 mmol/L (22-29); Chloride 108 mmol/L (98-107); Estimated GFR-MDRD 57; Globulin 3.1 g/dL (2.4-3.5); Glucose 76 mg/dL (70-105); Potassium 4.7 mmol/L (3.5-5.1); Protein, Total 6.7 g/dL (6.0-8.3); Sodium 138 mmol/L (136-145)
--- NOTE | 2020-03-14 15:25 | RAD ---
EXAM: CHEST ONE VIEW HISTORY: Chest pain for one hour. COMPARISON: 02/19/2020 FINDINGS: Right-sided Mediport catheter remains in place. The cardiac silhouette and pulmonary vasculature are within normal limits. The lungs are clear. Multiple surgical clips overlie the left upper quadrant and epigastric region. Chest is stable compared to prior study. IMPRESSION: No acute cardiopulmonary process.
== END 2020-03-14 18:34 | disposition home or self-care (01) ==
LOC: ERS 13:50
DX: R07.9 Chest pain, unspecified (principal); K21.9 Gastro-esophageal reflux disease without esophagitis; J44.9 Chronic obstructive pulmonary disease, unspecified; I11.0 Hypertensive heart disease with heart failure; I50.9 Heart failure, unspecified; Z86.73 Personal history of transient ischemic attack (TIA), and cerebral infarction without residual deficits; I48.91 Unspecified atrial fibrillation; F25.9 Schizoaffective disorder, unspecified; F31.9 Bipolar disorder, unspecified; Z79.899 Other long term (current) drug therapy
CPT/HCPCS: 36415; 71045; 80053; 82550; 84484; 85025; 93005

== ENCOUNTER 2020-04-03 13:18 | Emergency (ER) | payer MEDICARE, MEDICAID ==
[2020-04-03 14:34] LABS: Bacteria/HPF None Seen HPF (None Seen); Bilirubin Negative (Negative); Blood, Urine 1+ (Negative); Clarity Clear (Clear); Glucose, Urine (Dipstick) Normal (Negative); Ketone, Urine Negative (Negative); Leukocyte Negative Leu/uL (Negative); Nitrite Negative (Negative); Protein, Urine (Dipstick) Negative (Neg-Trace); RBC/HPF 0-3 HPF (0-3); Specific Gravity, Urine 1.011 (1.002-1.036); Squamous Epithelial None Seen HPF (0-3); Urobilinogen Normal mg/dL (Less than 2); WBC/HPF 0-3 HPF (0-3)
[2020-04-03 15:12] LABS: #Basophils 0.1 thou/uL (0.0-0.2); #Eosinphils 0.1 thou/uL (0.0-0.7); #Lymphocytes 3.1 thou/uL (1.20-3.40); #Monocytes 0.7 thou/uL (0.11-0.59); #Neutrophils 3.9 thou/uL (1.40-6.50); %Eosinophils 1.8 % (0.0-10.0); %Lymphocytes 39.2 % (21.0-51.0); %Monocytes 9.1 % (0.0-10.0); %Neutrophils 48.9 % (42.0-75.0); Hemoglobin 11.9 g/dL (12.0-16.0); Mean Corpuscular HGB CONC 32.4 g/dL (32.0-36.0); Mean Corpuscular Hemoglobin 30.1 pg (27.0-31.0); Mean Corpuscular Volume 92.7 fL (78.0-98.0); Mean Platelet Volume 7.7 fL (7.4-10.4); Platelet Count 180 thou/uL (130-400); RBC Distribution Width 12.2 % (11.5-14.5); Red Blood Cell (RBC) Count 3.96 mill/uL (4.20-5.40)
[2020-04-03] MEDS ORDERED: Acetaminophen 500 MG TAB ONE (15:18)
[2020-04-03 15:34] LABS: ALT (SGPT) 12 U/L (8-55); AST (SGOT) 24 U/L (5-34); Albumin 3.9 g/dL (3.5-5.0); Alkaline Phosphatase 51 U/L (40-110); Anion Gap 13 mmol/L (10-20); BUN (Urea Nitrogen) 28 mg/dL (9.8-20.1); Bilirubin, Total 0.5 mg/dL (0.2-1.2); Calc. Creatinine Clearance 0 mL/min (70-130); Calcium 8.8 mg/dL (7.8-10.44); Carbon Dioxide 27 mmol/L (22-29); Chloride 103 mmol/L (98-107); Estimated GFR-MDRD 51; Globulin 3.2 g/dL (2.4-3.5); Glucose 91 mg/dL (70-105); Potassium 4.2 mmol/L (3.5-5.1); Protein, Total 7.1 g/dL (6.0-8.3); Sodium 139 mmol/L (136-145)
[2020-04-03] MEDS ORDERED: diphenhydrAMINE 50 MG/ML VIAL ONE (16:27)
[2020-04-03] MEDS ORDERED: Metoclopramide HCl 10 MG/2 ML VIAL ONE (16:27)
[2020-04-03] MEDS ORDERED: Dexamethasone 10 MG/ML VIAL ONE (17:49)
== END 2020-04-03 18:45 | disposition home or self-care (01) ==
LOC: ERS 13:18
DX: R51 Headache (principal); E86.0 Dehydration; I11.0 Hypertensive heart disease with heart failure; I50.9 Heart failure, unspecified; K21.9 Gastro-esophageal reflux disease without esophagitis; I48.91 Unspecified atrial fibrillation; F20.9 Schizophrenia, unspecified; F31.9 Bipolar disorder, unspecified; Z95.0 Presence of cardiac pacemaker; Z86.73 Personal history of transient ischemic attack (TIA), and cerebral infarction without residual deficits; Z79.899 Other long term (current) drug therapy
CPT/HCPCS: 36415; 80053; 81003; 81015; 83605; 85025; 96361; 96374; 96375; J1100; J1200; J1642; J2765

== ENCOUNTER 2020-04-30 15:24 | Emergency (ER) | payer MEDICARE, MEDICAID ==
[2020-04-30] MEDS ORDERED: Ondansetron PF 4 MG/2 ML Vial ONE (17:24)
[2020-04-30] MEDS ORDERED: Lorazepam 2 MG/ML VIAL ONE (17:59)
[2020-04-30 18:27] LABS: #Basophils 0.1 thou/uL (0.0-0.2); #Eosinphils 0.1 thou/uL (0.0-0.7); #Lymphocytes 3.5 thou/uL (1.20-3.40); #Monocytes 0.8 thou/uL (0.11-0.59); %Eosinophils 1.4 % (0.0-10.0); %Monocytes 9.7 % (0.0-10.0); %Neutrophils 46.9 % (42.0-75.0); Hemoglobin 11.4 g/dL (12.0-16.0); Mean Corpuscular HGB CONC 32.2 g/dL (32.0-36.0); Mean Corpuscular Hemoglobin 30.1 pg (27.0-31.0); Mean Corpuscular Volume 93.5 fL (78.0-98.0); Mean Platelet Volume 7.2 fL (7.4-10.4); Platelet Count 192 thou/uL (130-400); RBC Distribution Width 12.1 % (11.5-14.5); Red Blood Cell (RBC) Count 3.77 mill/uL (4.20-5.40); White Blood Cell (WBC) Count 8.6 thou/uL (4.8-10.8)
[2020-04-30] MEDS ORDERED: risperiDONE 1 MG TAB ONE (18:31)
[2020-04-30 18:50] LABS: ALT (SGPT) 14 U/L (8-55); AST (SGOT) 22 U/L (5-34); Albumin 3.7 g/dL (3.5-5.0); Alkaline Phosphatase 53 U/L (40-110); Anion Gap 15 mmol/L (10-20); BUN (Urea Nitrogen) 21 mg/dL (9.8-20.1); Bilirubin, Total 0.5 mg/dL (0.2-1.2); Calc. Creatinine Clearance 0 mL/min (70-130); Calcium 8.9 mg/dL (7.8-10.44); Carbon Dioxide 24 mmol/L (22-29); Chloride 103 mmol/L (98-107); Estimated GFR-MDRD 71; Globulin 3.1 g/dL (2.4-3.5); Glucose 77 mg/dL (70-105); Potassium 4.4 mmol/L (3.5-5.1); Protein, Total 6.8 g/dL (6.0-8.3); Sodium 138 mmol/L (136-145)
--- NOTE | 2020-04-30 18:54 | RAD ---
PORTABLE CHEST: Date: 04-30-2020 PROVIDED CLINICAL HISTORY: Shortness of breath FINDINGS: Comparison 03-14-2020. Cardiac and mediastinal silhouette is unchanged in appearance. Right sided implanted port is again se en in similar position. There is no focal consolidation, pleural fluid, or pneumothorax apparent. IMPRESSION: No evidence for an acute cardiopulmonary process. POS: [facility]
[2020-04-30] MEDS ORDERED: Dexamethasone 4 mg/ml Vial ONE ×2 (19:23→19:24)
== END 2020-04-30 20:12 | disposition home or self-care (01) ==
LOC: ERS 15:24
DX: J45.901 Unspecified asthma with (acute) exacerbation (principal); J44.9 Chronic obstructive pulmonary disease, unspecified; K21.9 Gastro-esophageal reflux disease without esophagitis; I11.0 Hypertensive heart disease with heart failure; I50.9 Heart failure, unspecified; I20.9 Angina pectoris, unspecified; I48.91 Unspecified atrial fibrillation; F25.9 Schizoaffective disorder, unspecified; F31.9 Bipolar disorder, unspecified; Z86.73 Personal history of transient ischemic attack (TIA), and cerebral infarction without residual deficits; Z79.01 Long term (current) use of anticoagulants; Z79.899 Other long term (current) drug therapy
CPT/HCPCS: 36415; 71045; 80053; 85025; 93005; 94640; 96361; 96374; 96375; J1100; J1642; J2060; J2405; J7620

== ENCOUNTER 2020-05-04 16:00 | Inpatient (IN) | payer MEDICARE, MEDICAID, OTHER ==
--- NOTE | 2020-05-04 16:53 | RAD ---
Exam: Chest one view HISTORY:Chest pain Comparison: 04/30/2020 FINDINGS: Cardiac silhouette:Stable cardiac silhouette. Stable right-sided Mediport. Aorta: Unremarkable Pulmonary vessels: Normal Costophrenic angles: Clear LUNGS: No masses or consolidation. Pneumothorax: None Osseous abnormalities: None IMPRESSION: No acute cardiac pulmonary process. No significant interval change.
[2020-05-04 17:40] LABS: #Basophils 0.1 thou/uL (0.0-0.2); #Eosinphils 0.2 thou/uL (0.0-0.7); #Lymphocytes 4.4 thou/uL (1.20-3.40); #Monocytes 0.9 thou/uL (0.11-0.59); #Neutrophils 4.1 thou/uL (1.40-6.50); %Basophils 0.8 % (0.0-1.0); %Eosinophils 1.7 % (0.0-10.0); %Lymphocytes 45.7 % (21.0-51.0); %Monocytes 9.3 % (0.0-10.0); %Neutrophils 42.6 % (42.0-75.0); Hemoglobin 11.6 g/dL (12.0-16.0); Mean Corpuscular HGB CONC 32.2 g/dL (32.0-36.0); Mean Corpuscular Hemoglobin 30.1 pg (27.0-31.0); Mean Corpuscular Volume 93.6 fL (78.0-98.0); Mean Platelet Volume 7.8 fL (7.4-10.4); Platelet Count 168 thou/uL (130-400); RBC Distribution Width 12.4 % (11.5-14.5); Red Blood Cell (RBC) Count 3.84 mill/uL (4.20-5.40); White Blood Cell (WBC) Count 9.6 thou/uL (4.8-10.8)
[2020-05-04 17:49] LABS: ALT (SGPT) 14 U/L (8-55); AST (SGOT) 24 U/L (5-34); Albumin 3.3 g/dL (3.5-5.0); Alkaline Phosphatase 51 U/L (40-110); Anion Gap 15 mmol/L (10-20); BUN (Urea Nitrogen) 22 mg/dL (9.8-20.1); Bilirubin, Total 0.3 mg/dL (0.2-1.2); Calc. Creatinine Clearance 0 mL/min (70-130); Calcium 8.3 mg/dL (7.8-10.44); Carbon Dioxide 19 mmol/L (22-29); Chloride 110 mmol/L (98-107); Estimated GFR-MDRD 66; Glucose 122 mg/dL (70-105); Lipase 18 U/L (8-78); Magnesium 1.8 mg/dL (1.6-2.6); Potassium 3.9 mmol/L (3.5-5.1); Protein, Total 6.3 g/dL (6.0-8.3); Sodium 140 mmol/L (136-145)
[2020-05-04 20:51] LABS: Troponin I Less than 0.010 ng/mL (< 0.028)
[2020-05-04] MEDS ORDERED: Acetaminophen 325 MG TAB PO PRN (21:00)
[2020-05-04] MEDS ORDERED: Ondansetron PF 4 MG/2 ML Vial IVP PRN (21:00)
[2020-05-04] MEDS ORDERED: Ondansetron ODT 4 MG TAB SL PRN (21:00)
--- NOTE | 2020-05-04 21:18 | PDOC.HHP ---
Hospitalist HPI - History of Present Illness Abdominal pain History of Present Illness: This is a 59-year-old female patient with a history of schizoaffective disorder, colon cancer, TIA, PE, asthma, COPD, heart failure with multiple presentations to the ED presenting today complaining of ongoing abdominal pain and intermittent chest pain. She notes pain is mainly in the epigastric region, 9/10 in intensity localized not associated with meals and not radiating. She also noted having associated diaphoresis with nausea and one episode of vomiting. She also notes 3 episodes of diarrhea this morning, denies any dysuria frequency. She also notes having had intermittent left-sided chest pain today which was unrelated to activity. This was 5/10 in intensity however had resolved at the time of evaluation. Of note she had a stress test on 11/06/2019 Which was within normal limits. Also had a CTA on 01/01/2020 which was positive for subsegmental bilateral upper lobe pulmonary embolism. She was discharged on apixaban. She also has history of arrhythmia and is on flecainide. Initial assessment showed mild metabolic acidosis with bicarbonate of 19, troponin x2 was negative,She also had a mild anemia of 11.6. Chest x-ray revealed no acute pulmonary events. While in the ED, she had a run of V. tach noted on monitoring. Hospitalist team was consulted to admit patient. Hospitalist ROS - Review of Systems Constitutional: denies: fever, chills, sweats, weakness Respiratory: denies: cough, shortness of breath, hemoptysis, SOB with excertion Cardiovascular: reports: palpitations. denies: chest pain, orthopnea, paroxysmal noc. dyspnea Gastrointestinal: reports: nausea, vomiting, abdominal pain, diarrhea Genitourinary: denies: dysuria, frequency, incontinence, hematuria Skin: denies: rash, lesions, jairon, bruising Neurological: denies: weakness, numbness, incoordination, change in speech - Medication Medications: Medications Amitiza 8 mcg daily Divalproex 50 mg daily Aspirin 3 2 5 mg daily Ferrous sulfate 3 2 5 mg daily Nitroglycerin 0.4 mg as needed Prednisone 5 mg daily Risperdal 4 mg at night Symbicort 2 puffs twice daily Flecainide 50 mg twice daily Apixaban 5 mg twice daily Allergies Chlorpromazine Penicillin Haloperidol Saranac Morphine Sulfa Hospitalist History - Past Medical History Heme/Onc: reports: Anemia NOS, Cancer Psych: reports: Schizophrenia Other Medical History: Pulmonary embolism - Past Surgical History Past Surgical History: reports: Hysterectomy - Family History Family History: reports: hypertension - Social History Other Social History: Lives by herself, independent - Exam General - other findings: Patient in bed, no acute distress. Neck - other findings: No JVD, no lymphadenopathy. Heart - other findings: S1-S2 present. No murmurs gallops or rubs. Respiratory - other findings: Aeration adequate bilaterally. No rhonchi rales Gastrointestinal - other findings: Mild epigastric tenderness. No rebound tenderness or guarding. Bowel soun Extremities - other findings: Trace edema bilaterally Hospitalist Results - Labs Result Diagrams: 05/04/20 17:22 05/04/20 17:22 Lab results: WBC 9.6 thou/uL (4.8-10.8) 05/04/20 17:22 Hgb 11.6 g/dL (12.0-16.0) L 05/04/20 17:22 Hct 36.0 % (36.0-47.0) 05/04/20 17:22 MCV 93.6 fL (78.0-98.0) 05/04/20 17:22 Plt Count 168 thou/uL (130-400) 05/04/20 17:22 Neutrophils % 42.6 % (42.0-75.0) 05/04/20 17:22 Sodium 140 mmol/L (136-145) 05/04/20 17:22 Potassium 3.9 mmol/L (3.5-5.1) 05/04/20 17:22 Chloride 110 mmol/L (98-107) H 05/04/20 17:22 Carbon Dioxide 19 mmol/L (22-29) L 05/04/20 17:22 BUN 22 mg/dL (9.8-20.1) H 05/04/20 17:22 Creatinine 1.03 mg/dL (0.6-1.1) 05/04/20 17:22 Glucose 122 mg/dL (70-105) H 05/04/20 17:22 Calcium 8.3 mg/dL (7.8-10.44) 05/04/20 17:22 Total Bilirubin 0.3 mg/dL (0.2-1.2) 05/04/20 17:22 AST 24 U/L (5-34) 05/04/20 17:22 ALT 14 U/L (8-55) 05/04/20 17:22 Alkaline Phosphatase 51 U/L (40-110) 05/04/20 17:22 Troponin I Less than 0.010 ng/mL (< 0.028) 05/04/20 20:20 B-Natriuretic Peptide 133.6 pg/mL (0-100) H 05/04/20 17:22 Serum Total Protein 6.3 g/dL (6.0-8.3) 05/04/20 17: Albumin 3.3 g/dL (3.5-5.0) L 05/04/20: Lipase 18 U/L (8-78) 05/04/20 17:22 Hospitalist H&P A/P - Plan Plan: This is a 59-year-old female patient with a history of pulmonary embolism, schizoaffective disorder presented on account of abdomen and chest pain with a run of V. tach noted in the ED. Chest pain Pain is typical Has a history of PE on apixaban We will continue on home dose aspirin and Have cardiology evaluate in the a.m. Nonsustained V. 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 Next Abdominal pain Possible GERD Trial of PPI Had EGD on 01/06/2019 with diffuse mild erythematous mucosa involving the stomach Monitor closely. -Diarrhea Diarrhea in a.m. currently no stools Will observe for any more stools Check C. difficile if stools recur Continue on gentle hydration. History of PE Continue apixaban once medications verified. Schizoaffective disorder Continue antipsychotic medications. DVT prophylaxis Therapeutic on apixaban
[2020-05-04] MEDS ORDERED: Magnesium 2 GM/50 ML 2 GM in Premix Bag 1 BAG IVPB SCH (21:45)
[2020-05-04] MEDS ORDERED: Sodium Chloride 0.9% (PF) 10 ML VIAL FS PRN (21:45)
[2020-05-04] MEDS ORDERED: Pantoprazole 40 MG VIAL IVP SCH (21:45)
[2020-05-04 22:02] VITALS: BMI 36.7
[2020-05-04] MEDS ORDERED: Albuterol 200 PUFF (6.7GM INHALER) INH PRN (22:30)
[2020-05-04] MEDS ORDERED: risperiDONE 1 MG TAB PO SCH (23:00)
[2020-05-04] MEDS ORDERED: Divalproex Sodium DR 500 MG TAB PO SCH (23:00)
[2020-05-04] MEDS ORDERED: Flecainide 50 MG TAB PO SCH (23:00)
[2020-05-04] MEDS ORDERED: Albuterol 200 PUFF (6.7GM INHALER) INH SCH (23:00)
[2020-05-04] MEDS ORDERED: Mometasone 200 MCG/Formoterol 5 MCG 120 PUFF INHALER INH SCH (23:00)
[2020-05-04] MEDS ORDERED: Apixaban 5 MG TAB PO SCH (23:00)
[2020-05-04 23:46] LABS: Troponin I Less than 0.010 ng/mL (< 0.028)
[2020-05-04] MEDS: Sodium Chloride 0.9% 1,000 ML IV SCH (23:53)
[2020-05-05] MEDS: HYDROcodone/Acetaminophen 10/325 mg Tablet PO PRN ×2 (00:16→13:58)
[2020-05-05] MEDS: Albuterol 200 PUFF (6.7GM INHALER) INH SCH ×6 (00:28→18:32)
[2020-05-05 04:59] LABS: Anion Gap 12 mmol/L (10-20); BUN (Urea Nitrogen) 21 mg/dL (9.8-20.1); Calc. Creatinine Clearance 97 mL/min (70-130); Calcium 7.9 mg/dL (7.8-10.44); Carbon Dioxide 23 mmol/L (22-29); Chloride 109 mmol/L (98-107); Estimated GFR-MDRD 72; Glucose 90 mg/dL (70-105); Potassium 4.1 mmol/L (3.5-5.1); Sodium 140 mmol/L (136-145)
[2020-05-05 05:18] LABS: Band 2 % (5-11); Eosinophils 1 % (0-10); Hemoglobin 10.4 g/dL (12.0-16.0); Lymphocytes 60 % (21-51); MDiff Complete? YES; Mean Corpuscular HGB CONC 32.5 g/dL (32.0-36.0); Mean Corpuscular Hemoglobin 30.3 pg (27.0-31.0); Mean Corpuscular Volume 93.3 fL (78.0-98.0); Mean Platelet Volume 7.5 fL (7.4-10.4); Monocytes 5 % (0-10); Neutrophil 32 % (42-75); Platelet Count 178 thou/uL (130-400); RBC Distribution Width 12.5 % (11.5-14.5); Red Blood Cell (RBC) Count 3.41 mill/uL (4.20-5.40); White Blood Cell (WBC) Count 9.3 thou/uL (4.8-10.8)
[2020-05-05] MEDS: Mometasone 200 MCG/Formoterol 5 MCG 120 PUFF INHALER INH SCH ×2 (06:30→18:32)
[2020-05-05] MEDS ORDERED: Albuterol Sulfate 1.25 MG/3 ML NEB NEB SCH (07:00)
[2020-05-05] MEDS: Pantoprazole 40 MG VIAL IVP SCH (07:58)
[2020-05-05] MEDS: Lubiprostone 8 MCG CAP PO SCH (08:01)
[2020-05-05] MEDS: Divalproex Sodium DR 500 MG TAB PO SCH ×2 (08:01→20:44)
[2020-05-05] MEDS: Ferrous Sulfate 325 MG TAB PO SCH (08:01)
[2020-05-05] MEDS: predniSONE 50 MG TAB PO SCH (08:02)
[2020-05-05] MEDS: Furosemide 20 MG TAB PO SCH (08:02)
[2020-05-05] MEDS: Flecainide 50 MG TAB PO SCH ×2 (08:02→20:45)
[2020-05-05] MEDS ORDERED: Regadenoson 0.4 MG/5 ML SYRINGE ONE (09:23)
[2020-05-05] MEDS: Apixaban 5 MG TAB PO SCH ×2 (11:39→20:44)
[2020-05-05] MEDS: Sodium Chloride 0.9% 1,000 ML IV SCH (13:54)
[2020-05-05 15:08] LABS: SARS-CoV-2 MS2 Positive; SARS-CoV-2 N Gene Negative; SARS-CoV-2 S Gene Negative; SARS-CoV-2 by NAA Not Detected (NotDetected); SARS-CoV-2 orf1ab Negative
--- NOTE | 2020-05-05 15:35 | PDOC.HOSPP ---
- Subjective Encounter Date: 05/05/20 Encounter Time: 12:00 Subjective: Patient was seen and examined in bed. She denied any chest pain or shortness of breath. Denies any abdominal pain today. Has had no diarrhea stools since admission No VT abnormality noted telemetry - Objective Vital Signs & Weight: Vital Signs (12 hours) Temp Pulse Resp BP Pulse Ox 05/05/20 11:32 98.3 F 72 20 116/72 99 05/05/20 07:23 98.4 F 77 20 111/66 98 05/05/20 06:30 78 16 05/05/20 03:55 98.5 F 72 16 118/71 98 Weight Admit Weight 214 lb Weight 214 lb I&O: 05/04/20 05/05/20 05/06/20 06:59 06:59 06:59 Intake Total 1472 Output Total 500 Balance 972 Result Diagrams: 05/05/20 04:21 05/05/20 04:21 Hospitalist ROS - Medication Medications: Active Medications Generic Name Dose Route Start Last Admin Trade Name Freq PRN Reason Stop Dose Admin Hydrocodone Bitart/Acetaminophen 1 tab 05/04/20 22:30 05/05/20 13:58 Hydrocodone/Acetaminophen 10/325 Mg Tablet PO 1 tab Q6H PRN Administration Moderate Pain (4-6) Albuterol Sulfate 1 puff 05/05/20 07:00 05/05/20 14:49 Albuterol 200 Puff (6.7gm Inhaler) INH Not Given QID-RT YESSI Apixaban 5 mg 05/05/20 09:00 05/05/20 11:39 Apixaban 5 Mg Tab PO 5 mg BID YESSI Administration Divalproex Sodium 500 mg 05/05/20 09:00 05/05/20 08:[address] 500 Mg Tab PO 500 mg DAILY YESSI Administration Ferrous Sulfate 325 mg 05/05/20 08:00 05/05/20 08:01 Ferrous Sulfate 325 Mg Tab PO 325 mg QAM-WM YESSI Administration Flecainide Acetate 50 mg 05/05/20 09:00 05/05/20 08:02 Flecainide 50 Mg Tab PO 50 mg BID YESSI Administration Furosemide 20 mg 05/05/20 09:00 05/05/20 08:02 Furosemide 20 Mg Tab PO 20 mg DAILY YESSI Administration Sodium Chloride 1,000 mls @ 75 mls/hr 05/04/20 22:00 05/05/20 13:54 Normal Saline 0.9% IV 1,000 mls .[id number] YESSI Administration Lubiprostone 8 mcg 05/05/20 09:00 05/05/20 08:01 Lubiprostone 8 Mcg Cap PO 8 mcg DAILY YESSI Administration Mometasone Furoate/Formoterol Fumar 2 puff 05/05/20 06:30 05/05/20 06:30 Mometasone 200 Mcg/Formoterol 5 Mcg 120 Puff Inhaler INH 2 puff BID-RT YESSI Administration Pantoprazole Sodium 40 mg 05/05/20 09:00 05/05/20 07:58 Pantoprazole 40 Mg Vial IVP 40 mg DAILY YESSI Administration Prednisone 50 mg 05/05/20 08:00 05/05/20 08:02 Prednisone 50 Mg Tab PO 50 mg QAM-WM YESSI Administration - Exam General - other findings: In bed, no acute distress. Heart - other findings: S1-S2 present and normal. No murmurs gallops or rubs. Respiratory - other findings: Air entry adequate bilaterally. No rhonchi or rales Gastrointestinal - other findings: Soft, nontender. Bowel sounds present and normal. Extremities - other findings: No edema noted. Hosp A/P - Plan This is a 59-year-old female patient with a history of pulmonary embolism, schizoaffective disorder presented on account of abdomen and chest pain with a run of V. tach noted in the ED. No VT noted overnight and patient has remained stable. On discussion with cardiology it was concluded that she could have stress test ER on discharge given a stress test about 5 months ago were within normal limits Patient opted to have stress test on admission. Chest pain Pain is typical Has a history of PE on apixaban We will continue on home dose aspirin and Cardiology consultedinput appreciated. Nonsustained V. tach None noted overnight Continue on flecainide Correct magnesium and potassium as needed. Abdominal pain Possible GERD Trial of PPI Had EGD on 01/06/2019 with diffuse mild erythematous mucosa involving the stomach Monitor closely. -Diarrhearesolved History of PE Continue apixaban Schizoaffective disorder Continue antipsychotic medications. DVT prophylaxis Therapeutic on apixaban
--- NOTE | 2020-05-05 17:25 | CON ---
DATE OF CONSULTATION: CONSULTING PHYSICIAN: Orlando Domingo MD HISTORY OF PRESENT ILLNESS: The patient is a 59-year-old woman, who presents for evaluation of recurrent chest discomfort. The patient has a long history of atypical chest pain. She underwent a cardiac catheterization in 2007, 2011, and 2015. She was found to have normal left ventricular systolic function with normal coronary arteries. She subsequently was admitted in October of 2018. She underwent a Cardiolite stress test, which revealed normal left ventricular systolic function with no evidence of ischemia. The patient states she presents once again with recurrent chest discomfort. She states this discomfort is in the center of her chest and radiates into her jaw. This discomfort was present throughout the day yesterday and continued today. The patient reports being mildly dyspneic. PAST MEDICAL HISTORY: 1. Schizophrenia. 2. Hypertension. 3. COPD. 4. Pancreatic carcinoma. 5. Pulmonary embolus. 6. History of atrial fibrillation. PAST SURGICAL HISTORY: Cholecystectomy and hysterectomy ALLERGIES: 1. PENICILLIN. 2. HALDOL. 3. LITHIUM. 4. MORPHINE. 5. SULFA. MEDICATIONS: See nursing list. FAMILY HISTORY: No strong family history of heart disease. SOCIAL HISTORY: Nonsmoker. PHYSICAL EXAMINATION: GENERAL: Obese, anxious woman. VITAL SIGNS: Blood pressure 111/66. NECK: No jugular venous distention. LUNGS: Clear to auscultation. HEART: Regular rate and rhythm. Normal S1 and S2. No murmurs. ABDOMEN: Nondistended. EXTREMITIES: Showed trace edema. VASCULAR: Radial pulses are 2+. LABORATORY DATA: Sodium is 140, potassium 4.1, chloride 109, bicarbonate 23, BUN 21, creatinine 0.96. Troponin less than 0.01. White blood cell count 9.3, hemoglobin 10.4, hematocrit was 31.9, and her platelets were 178. EKG normal sinus rhythm, nonspecific T-wave abnormality. Telemetry monitoring revealed normal sinus rhythm with artifact. IMPRESSION: 1. Chest pain, atypical. 2. History of pulmonary embolus. 3. History of atrial fibrillation. 4. History of normal coronary arteries. 5. Schizophrenia. This patient presents with recurrent atypical chest pain. EKG shows no acute changes. Cardiac enzymes revealed no evidence of myocardial infarction. From a cardiac standpoint, she can either undergo in-hospital or outpatient stress testing. We will follow This patient with you through her hospitalization. Job ID: [id number] [facility]
[2020-05-05] MEDS: risperiDONE 1 MG TAB PO SCH (20:45)
[2020-05-06] MEDS: Albuterol 200 PUFF (6.7GM INHALER) INH SCH ×4 (06:36→17:54)
[2020-05-06] MEDS: Mometasone 200 MCG/Formoterol 5 MCG 120 PUFF INHALER INH SCH ×2 (06:36→17:52)
[2020-05-06] MEDS: Apixaban 5 MG TAB PO SCH ×2 (07:42→21:01)
[2020-05-06] MEDS: Flecainide 50 MG TAB PO SCH ×2 (07:44→21:03)
[2020-05-06] MEDS: predniSONE 50 MG TAB PO SCH (07:44)
[2020-05-06] MEDS: Ferrous Sulfate 325 MG TAB PO SCH (07:44)
[2020-05-06] MEDS: Divalproex Sodium DR 500 MG TAB PO SCH ×2 (07:44→21:01)
[2020-05-06] MEDS: Furosemide 20 MG TAB PO SCH (07:44)
[2020-05-06] MEDS: Lubiprostone 8 MCG CAP PO SCH (07:44)
[2020-05-06] MEDS: Pantoprazole 40 MG VIAL IVP SCH (07:45)
--- NOTE | 2020-05-06 11:56 | NM ---
CARDIAC STRESS TEST WITH EJECTION FRACTION: HISTORY: Chest pain. History of coronary artery disease and myocardial infarction. TECHNIQUE: A two-day nuclear medicine cardiac perfusion examination was performed. Rest images were obtained usi ng 27.7 millicuries of technetium 99m sestamibi. Stress images were obtained using 29.3 millicuries o f technetium 99m sestamibi and Lexiscan. FINDINGS: Tomographic images show no fixed or reversible perfusion defects. Gated images show normal wall motio n with an ejection fraction of greater than 70%. EDV is 59 mL. LHR is 0.4. TID is 0.8. IMPRESSION: No evidence of ischemia. POS: [facility]
--- NOTE | 2020-05-06 15:19 | PDOC.HOSPP ---
- Subjective Encounter Date: 05/06/20 Encounter Time: 15:17 Subjective: Patient was seen and examined in bed. She complains of shortness of breath and wheezing. Otherwise denies any chest pain - Objective Vital Signs & Weight: Vital Signs (12 hours) Temp Pulse Resp BP Pulse Ox 05/06/20 15:05 87 20 05/06/20 11:21 98.3 F 86 16 111/84 98 05/06/20 07:40 98.2 F 76 16 110/70 97 05/06/20 06:36 68 14 05/06/20 05:01 98.5 F 68 12 119/76 97 Weight Admit Weight 214 lb Weight 219 lb 1.6 oz I&O: 05/05/20 05/06/20 05/07/20 06:59 06:59 06:59 Intake Total 1472 1628 Output Total 500 1000 1400 Balance 972 628 -1400 Result Diagrams: 05/05/20 04:21 05/05/20 04:21 Hospitalist ROS - Medication Medications: Active Medications Generic Name Dose Route Start Last Admin Trade Name Freq PRN Reason Stop Dose Admin Hydrocodone Bitart/Acetaminophen 1 tab 05/04/20 22:30 05/05/20 13:58 Hydrocodone/Acetaminophen 10/325 Mg Tablet PO 1 tab Q6H PRN Administration Moderate Pain (4-6) Albuterol Sulfate 1 puff 05/05/20 07:00 05/06/20 14:26 Albuterol 200 Puff (6.7gm Inhaler) INH Not Given QID-RT YESSI Albuterol/Ipratropium 3 ml 05/06/20 14:59 05/06/20 15:05 Ipratropium/Albuterol Sulfate 3 Ml Neb NEB 3 ml Q4H PRN Administration SOB &/or Wheezing Apixaban 5 mg 05/05/20 09:00 05/06/20 07:42 Apixaban 5 Mg Tab PO 5 mg BID YESSI Administration Divalproex Sodium 1,500 mg 05/05/20 21:00 05/05/20 20:[address] 500 Mg Tab PO 1,500 mg HS YESSI Administration Divalproex Sodium 500 mg 05/05/20 09:00 05/06/20 07:[address] 500 Mg Tab PO 500 mg DAILY YESSI Administration Ferrous Sulfate 325 mg 05/05/20 08:00 05/06/20 07:44 Ferrous Sulfate 325 Mg Tab PO 325 mg QAM-WM YESSI Administration Flecainide Acetate 50 mg 05/05/20 09:00 05/06/20 07:44 Flecainide 50 Mg Tab PO 50 mg BID YESSI Administration Furosemide 20 mg 05/05/20 09:00 05/06/20 07:44 Furosemide 20 Mg Tab PO 20 mg DAILY YESSI Administration Lubiprostone 8 mcg 05/05/20 09:00 05/06/20 07:44 Lubiprostone 8 Mcg Cap PO 8 mcg DAILY YESSI Administration Mometasone Furoate/Formoterol Fumar 2 puff 05/05/20 06:30 05/06/20 06:36 Mometasone 200 Mcg/Formoterol 5 Mcg 120 Puff Inhaler INH 2 puff BID-RT YESSI Administration Pantoprazole Sodium 40 mg 05/05/20 09:00 05/06/20 07:45 Pantoprazole 40 Mg Vial IVP 40 mg DAILY YESSI Administration Prednisone 50 mg 05/05/20 08:00 05/06/20 07:44 Prednisone 50 Mg Tab PO 50 mg QAM-WM YESSI Administration Risperidone 4 mg 05/05/20 21:00 05/05/20 20:45 Risperidone 1 Mg Tab PO 4 mg HS YESSI Administration - Exam General - other findings: In bed, mild respiratory distress. Heart - other findings: S1-S2 present. No murmurs gallops or rubs. Respiratory - other findings: Generalized bilateral wheezing. Gastrointestinal: soft, non-tender, non-distended, normal bowel sounds Extremities: no cyanosis, no edema Neurological: cranial nerve grossly intact, no focal deficits Psychiatric: A&O x 3 Hosp A/P - Plan This is a 59-year-old female patient with a history of pulmonary embolism, schizoaffective disorder presented on account of abdomen and chest pain with a run of V. tach noted in the ED. No VT noted overnight and patient has remained stable. On discussion with cardiology it was concluded that she could have stress test ER on discharge given a stress test about 5 months ago were within normal limits Patient opted to have stress test on admission. Today after stress test he complained of generalized wheezing with examination revealing bilateral generalized wheezing respiratory distress. On that account we will keep a formal DVT. Treatment for COPD exacerbation and possible discharge tomorrow. Will change status to inpatient. Chest pain Normal stress test We will continue aspirin and statins. Cardiology following Dyspnea concerns for acute COPD exacerbation Breathing treatment duo nebs PRN and scheduled. Continue steroid Close monitoring for today Nonsustained V. tach Telemetry monitoring has been normal. Abdominal pain Possible GERD Trial of PPI Had EGD on 01/06/2019 with diffuse mild erythematous mucosa involving the stomach Monitor closely. -Diarrhearesolved History of PE Continue apixaban Schizoaffective disorder Continue antipsychotic medications. DVT prophylaxis Therapeutic on apixaban
[2020-05-06] MEDS: HYDROcodone/Acetaminophen 10/325 mg Tablet PO PRN (21:01)
[2020-05-06] MEDS: risperiDONE 1 MG TAB PO SCH (21:04)
[2020-05-07] MEDS: HYDROcodone/Acetaminophen 10/325 mg Tablet PO PRN (02:54)
[2020-05-07] MEDS: Mometasone 200 MCG/Formoterol 5 MCG 120 PUFF INHALER INH SCH (07:17)
[2020-05-07] MEDS: Albuterol 200 PUFF (6.7GM INHALER) INH SCH (07:19)
[2020-05-07 07:46] VITALS: BP 114/77; TEMP 98.3
[2020-05-07] MEDS: predniSONE 50 MG TAB PO SCH (08:15)
[2020-05-07] MEDS: Furosemide 20 MG TAB PO SCH (08:16)
[2020-05-07] MEDS: Flecainide 50 MG TAB PO SCH (08:16)
[2020-05-07] MEDS: Apixaban 5 MG TAB PO SCH (08:16)
[2020-05-07] MEDS: Pantoprazole 40 MG VIAL IVP SCH (08:17)
[2020-05-07] MEDS: Ferrous Sulfate 325 MG TAB PO SCH (08:17)
[2020-05-07] MEDS: Lubiprostone 8 MCG CAP PO SCH (08:17)
[2020-05-07] MEDS: Divalproex Sodium DR 500 MG TAB PO SCH (08:17)
[2020-05-07] MEDS ORDERED: predniSONE 20 MG TAB PO SCH (10:30)
--- NOTE | 2020-05-08 11:35 | DIS ---
DATE OF ADMISSION: 05/06/2020 DATE OF DISCHARGE: 05/07/2020 DISCHARGE DIAGNOSES: 1. Atypical chest pain. 2. Ventricular tachycardia. 3. History of pulmonary embolism. 4. Schizoaffective disorder. BRIEF HOSPITAL COURSE: This is a 59-year-old female patient with history of pulmonary embolism, schizoaffective disorder, who presented on account of abdomen and chest pain. She has had multiple admissions in the past. At presentation to the ED, chest pain was evaluated with troponin and EKG, both of them turned out negative. She was admitted for stress test. Abdominal pain was evaluated, however, yielded no etiology. Stress test was done, which was negative. Cardiology was consulted. After stress test, the patient became dyspneic and was noted to have mild COPD exacerbation. She was given breathing treatment and started on Solu-Medrol. The patient was discharged to complete 5 days of steroids, breathing treatments and she was to go home on pantoprazole, however, she noticed she had Nexium at home, so this was held. DISCHARGE EXAMINATION: GENERAL: The patient is in bed, obese, in no acute distress. RESPIRATORY SYSTEM: Air entry adequate bilaterally. No rhonchi or rales. CARDIOVASCULAR SYSTEM: S1 and S2 present and normal. No murmurs, gallops, or rubs. ABDOMEN: Benign. EXTREMITIES: No edema noted. DISCHARGE MEDICATIONS: Prednisone 50 mg for 2 days. CONSULTATION: Cardiology - Dr. Ribeiro. DISCHARGE CONDITION: Stable. Job ID: [id number] [facility]
--- NOTE | 2020-05-09 13:19 | PQF ---
CLINICAL DOCUMENTATION CLARIFICATION FORM: Dear : Orlando Domingo MD, PhD Date / Time: 05/09/2020 Please exercise your independent, professional judgment in responding to the clarification form. Clinical indicators are provided on the bottom of this form for your review Please check appropriate box(es): [ ] Chest pain due to COPD Exacerbation [ ] Chest pain due to Ventricular Tachycardia [ ] Other diagnosis (Please specify if any) [x ] Unable to determine Physician Signature: CHANTE Date/Time:05/09/20 For continuity of documentation, please document condition throughout progress notes and discharge summary. Thank You. To be completed by CDI/Coding staff for physician review: Present Clinical Indicators - Signs / Symptoms / Labs Results and Location in Medical Record [x ] Patient presents to the ED with c/ chest pain and had a run of V-tach ED provider report on 05/06 [ x ] Chest pain, pain is atypical. We will continue on home dose aspirin H&P on 05/04 [ x ] Nonsustained V.Tach. Patient is on flecainide for unclear inidcation H&P on 05/04 [ x ] Dyspnea concerning for acute COPD exacerbation Hospitalist PN on 05/06 [ ] Present Risk Factors Results and Location in Medical Record [ x ] Aged person 59 yrs H&P on 05/04 [ ] [ ] [ ] Present Treatments Results and Location in Medical Record [ x] Breathing treatment duo nebs PRN and scheduled, continue steroid Hospitalist PN on 05/06 [ x ] Albuterol 1puff INH Medication on 05/04, 05/05 [ x] We will continue on home dose aspirin H&P on 05/04 [ ] CDS/Material Crew Supervisor Signature: AFSHIN Phone #: Date/Time: 05/09/2020 This is a permanent part of the Medical Record [facility]
--- NOTE | 2020-05-16 13:49 | STRESS ---
Acquisition Time: 2020-05-05 15:10:18 Total Exercise Time: 00:01:00 Test Indications: CHEST PAIN Medications: Protocol: LEXISCAN Max HR: 104 BPM 64% of Pred: 161 BPM Max BP: 110/060 mmHG Max Work Load: 1.0 METS THE PATIENT WAS INJECTED WITH LEXISCAN. SHE DID DEVELOP CHEST PAIN. THERE WAS NO SIGNIFICANT ST DEPRESSION. AWAIT NUCLEAR IMAGES FOR DEFINITIVE DIAGNOSIS. Confirmed by CASANDRA MONTES ([id number]), acquisitions editor ANN ESCAMILLA ([id number]) on 05/16/2020 1:49:39 PM Referred By: MD Afshin GAITAN Confirmed By:CASANDRA MONTES
--- NOTE | 2020-05-17 14:30 | EKG ---
Test Reason : Blood Pressure : / mmHG Vent. Rate : 079 BPM Atrial Rate : 079 BPM P-R Int : 118 ms QRS Dur : 074 ms QT Int : 356 ms P-R-T Axes : 057 016 042 degrees QTc Int : 408 ms Normal sinus rhythm Normal ECG Confirmed by CAMILLE LIANG, STEPHY Valencia ([id number]), editorial writer KAREN GAMBOA ([id number]) on 05/17/2020 2:29:54 PM Referred By: Confirmed By:STEPHY OBRIEN MD
== END 2020-05-07 11:59 | disposition home or self-care (01) | DRG 191 ==
LOC: ERS 16:00 → 2SW 19:00 → OBSVTOIN 05-06 15:16
PROVIDERS: ADMIT Student in an Organized Health Care Education/Training Program; ATTEND Student in an Organized Health Care Education/Training Program
DX: J44.1 Chronic obstructive pulmonary disease with (acute) exacerbation (principal); E87.2 Acidosis; I47.1 Supraventricular tachycardia; R07.89 Other chest pain; R10.9 Unspecified abdominal pain; F25.9 Schizoaffective disorder, unspecified; I50.9 Heart failure, unspecified; K21.9 Gastro-esophageal reflux disease without esophagitis; D64.9 Anemia, unspecified; E66.9 Obesity, unspecified; R19.7 Diarrhea, unspecified; Z86.711 Personal history of pulmonary embolism; Z79.01 Long term (current) use of anticoagulants; Z88.0 Allergy status to penicillin; Z88.2 Allergy status to sulfonamides; Z88.6 Allergy status to analgesic agent; Z88.8 Allergy status to other drugs, medicaments and biological substances; Z90.710 Acquired absence of both cervix and uterus; Z85.038 Personal history of other malignant neoplasm of large intestine; Z90.49 Acquired absence of other specified parts of digestive tract; Z85.07 Personal history of malignant neoplasm of pancreas; Z86.73 Personal history of transient ischemic attack (TIA), and cerebral infarction without residual deficits; Z68.37 Body mass index [BMI] 37.0-37.9, adult
CPT/HCPCS: 36415; 71045; 78452; 80048; 80053; 83690; 83735; 83880; 84484; 85025; 87635; 93005; 93017; 94640; 96361; 96365; 96375; 96376; A9500; C9113; G0378; J1642; J2785; J3475; J7512; J7620; U0003

== ENCOUNTER 2020-05-14 10:14 | Outpatient (CLI) | payer MEDICARE, MEDICAID, OTHER ==
[2020-05-15 15:29] LABS: SARS-CoV-2 MS2 Positive; SARS-CoV-2 N Gene Negative; SARS-CoV-2 S Gene Negative; SARS-CoV-2 by NAA Not Detected (NotDetected); SARS-CoV-2 orf1ab Negative
== END 2020-05-14 10:15 | disposition home or self-care (01) ==
LOC: LABBT 10:14
PROVIDERS: ATTEND Physician Assistant
DX: M48.02 Spinal stenosis, cervical region (principal); Z20.828 Contact with and (suspected) exposure to other viral communicable diseases
CPT/HCPCS: 87635; U0003

== ENCOUNTER 2020-05-18 10:09 | Day surgery (SDC) | payer MEDICARE, MEDICAID ==
[2020-05-17 12:34] VITALS: BMI 43.6
[2020-05-18] MEDS ORDERED: Morphine 4 MG/ML VIAL ONE (12:54)
[2020-05-18] MEDS ORDERED: Fentanyl 100 MCG/2 ML VIAL ONE (12:56)
--- NOTE | 2020-05-18 13:05 | MRI ---
MRI Cervical spine without contrast: HISTORY: Neck pain with bilateral arm and shoulder pain. COMPARISON: 07/18/2019 FINDINGS: The craniocervical junction is unremarkable. No significant cord signal abnormality. Paravertebral soft tissues have a normal appearance and normal signal intensity. There is fluid signal intensity seen within the posterior nasopharynx likely related to secretions. C1-2:No significant stenosis. C2-3: No significant central canal or neural foraminal narrowing. C3-4: Mild loss of intervertebral disc height. Broad-based disc osteophyte complex present with uncin ate process hypertrophy. Facet degenerative changes are noted. There is mild effacement of the ventral subarachnoid space without encroachment on the spinal cord. Mild to moderate right and modera te left-sided neural foraminal narrowing is again present. C4-5: Mild loss of intervertebral disc height. Broad-based disc osteophyte complex and uncinate proce ss hypertrophy is present. There is uncinate process hypertrophy seen on the right. Effacement of ventral subarachnoid space is present which does not deform the spinal cord. Left neural foramen is p atent with moderate right-sided neural foraminal narrowing. C5-6: Loss of intervertebral disc height. Broad-based disc osteophyte complex is present. Facet degen erative changes are seen. Moderate to severe bilateral neural foraminal narrowing is again seen. Effacement of the ventral subarachnoid space is present with slight flattening of the right anterolat eral aspect of the spinal cord. C6-7: Mild loss of intervertebral disc height. Broad-based disc osteophyte complex is present. Mild g eneralized narrowing of the central spinal canal is present. There is slight flattening of the anterior aspect of the spinal cord. Mild bilateral neural foraminal narrowing is present. C7-T1: Minimal disc osteophyte complex. Central spinal canal and neural foramina are present. IMPRESSION: Multilevel degenerative changes with varying degrees of neural foraminal narrowing not significantly progressed compared to study on 07/18/2019.
[2020-05-18] MEDS ORDERED: Sodium Chloride 0.9% 10 ML ONE (13:13)
== END 2020-05-18 13:59 | disposition home or self-care (01) ==
LOC: SDC/OP 10:09
PROVIDERS: ATTEND Physician Assistant
DX: M48.02 Spinal stenosis, cervical region (principal); M50.122 Cervical disc disorder at C5-C6 level with radiculopathy; M25.78 Osteophyte, vertebrae; Z79.01 Long term (current) use of anticoagulants; Z79.899 Other long term (current) drug therapy; Z88.0 Allergy status to penicillin; Z88.2 Allergy status to sulfonamides; Z88.5 Allergy status to narcotic agent; Z88.8 Allergy status to other drugs, medicaments and biological substances; Z91.018 Allergy to other foods
CPT/HCPCS: 72141; J1642; J2270; J3010

== ENCOUNTER 2020-05-22 11:03 | Emergency (ER) | payer MEDICARE, MEDICAID ==
--- NOTE | 2020-05-22 11:33 | RAD ---
XR Chest 1 View Portable HISTORY: Chest pain COMPARISON: 05/04/2020 FINDINGS: The heart size is normal. Right-sided Mediport remains in place. The lungs are without foca l areas of consolidation, pneumothorax or pleural effusions. IMPRESSION: No radiographic evidence of acute cardiopulmonary process.
[2020-05-22 12:25] LABS: #Basophils 0.1 thou/uL (0.0-0.2); #Eosinphils 0.1 thou/uL (0.0-0.7); #Lymphocytes 2.3 thou/uL (1.20-3.40); #Monocytes 1.2 thou/uL (0.11-0.59); #Neutrophils 5.1 thou/uL (1.40-6.50); %Basophils 1.2 % (0.0-1.0); %Eosinophils 0.9 % (0.0-10.0); %Lymphocytes 26.5 % (21.0-51.0); %Monocytes 13.8 % (0.0-10.0); %Neutrophils 57.6 % (42.0-75.0); Hemoglobin 10.6 g/dL (12.0-16.0); Mean Corpuscular HGB CONC 31.8 g/dL (32.0-36.0); Mean Corpuscular Hemoglobin 30.4 pg (27.0-31.0); Mean Corpuscular Volume 95.8 fL (78.0-98.0); Mean Platelet Volume 7.7 fL (7.4-10.4); Platelet Count 143 thou/uL (130-400); RBC Distribution Width 12.9 % (11.5-14.5); Red Blood Cell (RBC) Count 3.49 mill/uL (4.20-5.40); White Blood Cell (WBC) Count 8.9 thou/uL (4.8-10.8)
[2020-05-22 12:47] LABS: ALT (SGPT) 10 U/L (8-55); AST (SGOT) 16 U/L (5-34); Albumin 3.4 g/dL (3.5-5.0); Alkaline Phosphatase 42 U/L (40-110); Anion Gap 16 mmol/L (10-20); BUN (Urea Nitrogen) 19 mg/dL (9.8-20.1); Bilirubin, Total 0.3 mg/dL (0.2-1.2); CK (CPK) 97 U/L (29-168); Calc. Creatinine Clearance 0 mL/min (70-130); Carbon Dioxide 20 mmol/L (22-29); Chloride 108 mmol/L (98-107); Estimated GFR-MDRD 77; Globulin 2.6 g/dL (2.4-3.5); Glucose 81 mg/dL (70-105); Potassium 3.7 mmol/L (3.5-5.1); Sodium 140 mmol/L (136-145)
[2020-05-22 13:17] LABS: Bilirubin Negative (Negative); Blood, Urine Negative (Negative); Clarity Clear (Clear); Glucose, Urine (Dipstick) Normal (Negative); Ketone, Urine Negative (Negative); Leukocyte Negative Leu/uL (Negative); Nitrite Negative (Negative); Protein, Urine (Dipstick) Negative (Neg-Trace); Specific Gravity, Urine 1.006 (1.002-1.036); Urobilinogen Normal mg/dL (Less than 2); pH, Urine 5.5 (5.0-9.0)
[2020-05-22] MEDS ORDERED: Lidocaine Viscous Sol 2% 15 ml UD Cup ONE (14:03)
[2020-05-22] MEDS ORDERED: Acetaminophen 500 MG TAB ONE (14:03)
[2020-05-22] MEDS ORDERED: Mag-Al 1200 mg/1200 mg/30 ML UDCUP ONE (14:03)
[2020-05-22] MEDS ORDERED: Albuterol 200 PUFF (6.7GM INHALER) ONE (14:35)
[2020-05-22 15:19] LABS: Troponin I Less than 0.010 ng/mL (< 0.028)
--- NOTE | 2020-06-16 13:04 | EKG ---
Test Reason : Blood Pressure : / mmHG Vent. Rate : 091 BPM Atrial Rate : 091 BPM P-R Int : 100 ms QRS Dur : 090 ms QT Int : 372 ms P-R-T Axes : 075 026 -03 degrees QTc Int : 457 ms Sinus rhythm with short KS Nonspecific T wave abnormality Abnormal ECG Confirmed by SHREYAS HENRIQUEZ DO ([id number]), continuity editor GIORGIO GARCIA ([id number]) on 06/16/2020 1:04:14 PM Referred By: Confirmed By:SHREYAS HENRIQUEZ DO
== END 2020-05-22 15:43 | disposition home or self-care (01) ==
LOC: ERS 11:03
DX: R07.9 Chest pain, unspecified (principal); R06.02 Shortness of breath; R05 Cough; K21.9 Gastro-esophageal reflux disease without esophagitis; K56.609 Unspecified intestinal obstruction, unspecified as to partial versus complete obstruction; I20.9 Angina pectoris, unspecified; I11.0 Hypertensive heart disease with heart failure; I50.9 Heart failure, unspecified; I48.91 Unspecified atrial fibrillation; F25.9 Schizoaffective disorder, unspecified; F31.9 Bipolar disorder, unspecified; J44.9 Chronic obstructive pulmonary disease, unspecified; Z79.899 Other long term (current) drug therapy; Z79.01 Long term (current) use of anticoagulants; Z86.73 Personal history of transient ischemic attack (TIA), and cerebral infarction without residual deficits
CPT/HCPCS: 36415; 36416; 71045; 80053; 81003; 82550; 84484; 85025; 93005

== ENCOUNTER 2020-05-24 14:48 | Emergency (ER) | payer MEDICARE, MEDICAID | END 2020-05-24 16:10 | disposition home or self-care (01) | LOC: ERS 14:48 | DX: J45.901 Unspecified asthma with (acute) exacerbation (principal); K21.9 Gastro-esophageal reflux disease without esophagitis; I11.0 Hypertensive heart disease with heart failure; I50.9 Heart failure, unspecified; I48.91 Unspecified atrial fibrillation; F25.9 Schizoaffective disorder, unspecified; F31.9 Bipolar disorder, unspecified; I25.2 Old myocardial infarction; Z86.73 Personal history of transient ischemic attack (TIA), and cerebral infarction without residual deficits | CPT/HCPCS: 99281 ==

== ENCOUNTER 2020-05-29 14:15 | Emergency (ER) | payer MEDICARE, MEDICAID ==
[2020-05-29 15:04] LABS: #Basophils 0.1 thou/uL (0.0-0.2); #Eosinphils 0.1 thou/uL (0.0-0.7); #Lymphocytes 3.9 thou/uL (1.20-3.40); #Monocytes 0.9 thou/uL (0.11-0.59); #Neutrophils 4.8 thou/uL (1.40-6.50); %Basophils 1.1 % (0.0-1.0); %Eosinophils 0.6 % (0.0-10.0); %Lymphocytes 39.9 % (21.0-51.0); %Neutrophils 49.3 % (42.0-75.0); Hemoglobin 13.2 g/dL (12.0-16.0); Mean Corpuscular HGB CONC 31.7 g/dL (32.0-36.0); Mean Corpuscular Hemoglobin 29.1 pg (27.0-31.0); Mean Corpuscular Volume 91.7 fL (78.0-98.0); Mean Platelet Volume 7.6 fL (7.4-10.4); Platelet Count 231 thou/uL (130-400); RBC Distribution Width 12.8 % (11.5-14.5); Red Blood Cell (RBC) Count 4.53 mill/uL (4.20-5.40); White Blood Cell (WBC) Count 9.8 thou/uL (4.8-10.8)
--- NOTE | 2020-05-29 15:11 | RAD ---
EXAM: Single view of the chest HISTORY: Chest pain COMPARISON: 05/22/2020 FINDINGS: Single view of the chest shows a normal sized cardiomediastinal silhouette. The Mediport i s unchanged in position. There is no evidence of consolidation, mass, or pleural effusion. No acute osseous abnormality. Surgical clips are seen near the gastroesophageal junction. IMPRESSION: No evidence of acute cardiopulmonary disease
[2020-05-29 15:32] LABS: ALT (SGPT) 13 U/L (8-55); AST (SGOT) 25 U/L (5-34); Alkaline Phosphatase 56 U/L (40-110); Anion Gap 16 mmol/L (10-20); BUN (Urea Nitrogen) 28 mg/dL (9.8-20.1); Bilirubin, Total 0.4 mg/dL (0.2-1.2); Calc. Creatinine Clearance 0 mL/min (70-130); Calcium 9.3 mg/dL (7.8-10.44); Carbon Dioxide 23 mmol/L (22-29); Chloride 105 mmol/L (98-107); Estimated GFR-MDRD 59; Globulin 3.4 g/dL (2.4-3.5); Glucose 114 mg/dL (70-105); Potassium 4.8 mmol/L (3.5-5.1); Protein, Total 7.4 g/dL (6.0-8.3); Sodium 139 mmol/L (136-145)
== END 2020-05-29 16:04 | disposition home or self-care (01) ==
LOC: ERS 14:15
DX: R07.9 Chest pain, unspecified (principal); I25.10 Atherosclerotic heart disease of native coronary artery without angina pectoris; I25.2 Old myocardial infarction; Z86.73 Personal history of transient ischemic attack (TIA), and cerebral infarction without residual deficits; J44.9 Chronic obstructive pulmonary disease, unspecified; I50.9 Heart failure, unspecified; I48.91 Unspecified atrial fibrillation; F25.9 Schizoaffective disorder, unspecified; F31.9 Bipolar disorder, unspecified; Z86.711 Personal history of pulmonary embolism
CPT/HCPCS: 36415; 71045; 80053; 83880; 84484; 85025; 93005

== ENCOUNTER 2020-05-30 11:42 | Emergency (ER) | payer MEDICARE, MEDICAID ==
--- NOTE | 2020-05-30 12:40 | RAD ---
Exam: Chest one view HISTORY:Cough. Generalized weakness and chest pain. Comparison: 05/29/2020 FINDINGS: Cardiac silhouette:Normal Mediport: Unchanged Aorta: Unremarkable Pulmonary vessels: Normal Costophrenic angles: Clear LUNGS: No masses or consolidation. Pneumothorax: None Osseous abnormalities: No acute osseous abnormalities Stable surgical clips in the left upper quadrant. IMPRESSION: No acute cardiopulmonary process.
[2020-05-30 13:00] LABS: ALT (SGPT) 14 U/L (8-55); AST (SGOT) 27 U/L (5-34); Alkaline Phosphatase 58 U/L (40-110); Anion Gap 18 mmol/L (10-20); BUN (Urea Nitrogen) 26 mg/dL (9.8-20.1); Bilirubin, Total 0.6 mg/dL (0.2-1.2); Calc. Creatinine Clearance 0 mL/min (70-130); Calcium 9.2 mg/dL (7.8-10.44); Carbon Dioxide 21 mmol/L (22-29); Chloride 101 mmol/L (98-107); Estimated GFR-MDRD 59; Globulin 3.9 g/dL (2.4-3.5); Glucose 78 mg/dL (70-105); Lipase 15 U/L (8-78); Potassium 5.1 mmol/L (3.5-5.1); Protein, Total 7.9 g/dL (6.0-8.3); Sodium 135 mmol/L (136-145)
[2020-05-30 13:33] LABS: #Eosinphils 0.1 thou/uL (0.0-0.7); #Lymphocytes 4.2 thou/uL (1.20-3.40); #Monocytes 0.9 thou/uL (0.11-0.59); %Basophils 0.3 % (0.0-1.0); %Eosinophils 0.8 % (0.0-10.0); %Lymphocytes 40.9 % (21.0-51.0); %Monocytes 8.9 % (0.0-10.0); Hemoglobin 13.2 g/dL (12.0-16.0); Mean Corpuscular HGB CONC 32.7 g/dL (32.0-36.0); Mean Corpuscular Hemoglobin 30.2 pg (27.0-31.0); Mean Corpuscular Volume 92.3 fL (78.0-98.0); Mean Platelet Volume 8.2 fL (7.4-10.4); Platelet Count 248 thou/uL (130-400); Red Blood Cell (RBC) Count 4.36 mill/uL (4.20-5.40); White Blood Cell (WBC) Count 10.2 thou/uL (4.8-10.8)
[2020-05-30] MEDS ORDERED: Aspirin Chewable 81 MG TAB ONE (14:12)
--- NOTE | 2020-05-30 17:16 | RAD ---
P.M.: 1 view abdomen HISTORY: Evaluate for small bowel obstruction. COMPARISON: 11/13/2019 FINDINGS: Nonspecific bowel gas pattern. There are surgical clips in the abdomen. Scattered fecal material in a nondistended, nondilated colon. No suspicious densities in the abdomen or pelvis. No pneumoperitoneum on this supine projection IMPRESSION: Nonspecific bowel gas pattern. Consider further evaluation with CT.
== END 2020-05-30 17:33 | disposition home or self-care (01) ==
LOC: ERS 11:42
DX: R10.9 Unspecified abdominal pain (principal); I25.119 Atherosclerotic heart disease of native coronary artery with unspecified angina pectoris; I48.91 Unspecified atrial fibrillation; K21.9 Gastro-esophageal reflux disease without esophagitis; E78.5 Hyperlipidemia, unspecified; I10 Essential (primary) hypertension; Z79.01 Long term (current) use of anticoagulants; Z79.899 Other long term (current) drug therapy
CPT/HCPCS: 36415; 71045; 74018; 80053; 83690; 83880; 84484; 85025; 93005

== ENCOUNTER 2020-07-12 06:36 | Outpatient (CLI) | payer MEDICARE, MEDICAID ==
[2020-07-12 12:20] LABS: Hemoglobin 10.5 g/dL (12.0-16.0); Mean Corpuscular HGB CONC 31.8 G/DL (32.0-36.0); Mean Corpuscular Hemoglobin 29.3 PG (27.0-33.0); Mean Corpuscular Volume 92.2 fl (80.0-100.0); Platelet Count 178 10x3/uL (130-400); RBC Distribution Width 14.6 % (11.5-14.5); Red Blood Cell (RBC) Count 3.58 10x6/uL (3.90-5.20); White Blood Cell (WBC) Count 6.1 10x3/uL (4.5-11.0)
[2020-07-12 12:33] LABS: Anion Gap 12 mmol/L (10-20); BUN (Urea Nitrogen) 22 mg/dL (9.8-20.1); Calc. Creatinine Clearance 0 mL/min (70-130); Calcium 8.9 mg/dL (7.8-10.44); Carbon Dioxide 25 mmol/L (22-29); Chloride 106 mmol/L (98-107); Glucose 92 mg/dL (70-105); Potassium 3.9 mmol/L (3.5-5.1); Sodium 139 mmol/L (136-145)
[2020-07-12 12:47] LABS: PTT 30.2 sec (22.0-33.0); Prothrombin Time 10.9 sec (9.5-12.1)
[2020-07-12 19:02] LABS: SARS-CoV-2 MS2 Positive; SARS-CoV-2 N Gene Negative; SARS-CoV-2 S Gene Negative; SARS-CoV-2 by NAA Not Detected (NotDetected); SARS-CoV-2 orf1ab Negative
--- NOTE | 2020-07-13 07:19 | EKG ---
Test Reason : Blood Pressure : / mmHG Vent. Rate : 059 BPM Atrial Rate : 059 BPM P-R Int : 120 ms QRS Dur : 068 ms QT Int : 394 ms P-R-T Axes : 052 019 026 degrees QTc Int : 390 ms Sinus bradycardia Low voltage QRS short NV interval When compared with ECG of 30-MAY-2020 12:05, Vent. rate has decreased BY [address] Penny PAGAN ([id number]) on 07/13/2020 7:19:02 AM Referred By: Ramu GOINS Confirmed By:DR. Penny PAGAN
== END 2020-07-12 06:37 | disposition home or self-care (01) ==
LOC: LABBT 06:36
PROVIDERS: ATTEND Surgery
DX: Z01.818 Encounter for other preprocedural examination (principal); M50.10 Cervical disc disorder with radiculopathy, unspecified cervical region; M48.02 Spinal stenosis, cervical region; Z20.828 Contact with and (suspected) exposure to other viral communicable diseases
CPT/HCPCS: 80048; 85027; 85610; 85730; 93005; U0003; 87635; 93010

== ENCOUNTER 2020-07-17 05:52 | Day surgery (SDC) | payer MEDICARE, MEDICAID ==
[2020-07-16 09:50] VITALS: BMI 37.0
[2020-07-17] MEDS ORDERED: Clindamycin/D5W 900 mg/50 ml Premix Bag ONE (06:10)
[2020-07-17] MEDS ORDERED: Fentanyl 100 MCG/2 ML VIAL ONE ×3 (06:32→10:36)
[2020-07-17] MEDS ORDERED: Midazolam HCl 2 mg/2 ml Vial ONE (06:32)
[2020-07-17] MEDS ORDERED: Thrombin 5000 UNITS/5 ML VIAL ONE (06:39)
[2020-07-17] MEDS ORDERED: Sodium Chloride 0.9% 0 ML ONE (06:39)
[2020-07-17] MEDS ORDERED: Levofloxacin 500 mg/D5W 100 ml Premix Bag ONE (07:25)
[2020-07-17] MEDS ORDERED: Promethazine HCl 25 MG/ML VIAL IM PRN (09:16)
[2020-07-17] MEDS ORDERED: Promethazine HCl 25 MG/ML VIAL SLOW IVP PRN (09:16)
[2020-07-17] MEDS ORDERED: Ondansetron HCl/PF 4 MG/2 ML Vial IVP PRN (09:16)
[2020-07-17] MEDS ORDERED: Milk Of Magnesia 30 ML UDCUP PO PRN (09:50)
[2020-07-17] MEDS ORDERED: Bisacodyl 10 MG SUPP PR PRN (09:50)
[2020-07-17] MEDS ORDERED: Mag-Al 1200 mg/1200 mg/30 ML UDCUP PO PRN (09:50)
[2020-07-17] MEDS ORDERED: Acetaminophen 325 MG TAB PO PRN (09:50)
[2020-07-17] MEDS ORDERED: Ondansetron ODT 4 MG TAB PO PRN (09:53)
[2020-07-17] MEDS ORDERED: Nitroglycerin 0.4 MG TAB (25 Tab Bottle) SL PRN (09:53)
[2020-07-17] MEDS ORDERED: Ondansetron PF 4 MG/2 ML Vial ONE ×2 (10:58→11:02)
--- NOTE | 2020-07-17 10:58 | OP ---
DATE OF PROCEDURE: 07/17/2020 BLEACHER LARD: Edith Johnson PA-C PREPROCEDURE DIAGNOSES: 1. Cervical stenosis with neck and arm pain. 2. Cervical radiculopathy. POSTPROCEDURE DIAGNOSES: 1. Cervical stenosis with neck and arm pain. 2. Cervical radiculopathy. PROCEDURES PERFORMED: 1. Anterior C5-C6 and C6-C7 diskectomies for decompression of spinal cord and nerve roots. 2. Preparation of endplates with placement of interbody spacers, packed with local bone autograft obtained from same incision, allograft, C5-C6 and C6-C7 for arthrodesis (spacers separate from plate). 3. Anterior cervical plate and screw fixation, C5, C6, and C7. 4. Use of operative microscope for microdissection. DESCRIPTION OF PROCEDURE: After informed consent was obtained from the patient, the patient was brought to the OR. Proper patient, pause, and identification were carried out. She was placed under excellent general endotracheal anesthesia and positioned supine on the OR table. All appropriate points were padded. We identified an anterior transverse mitchel to allow for approach to the C5, C6, and C7 segments. This region was sterilely cleansed, prepared, and draped. Proper patient, pause, and identification were carried out. The wound was then opened with a combination of sharp, monopolar, and blunt dissection and proceeded to expose the prevertebral layer of deep cervical fascia in the anterior C5, C6, C7 segments. Following satisfactory exposure anteriorly, we then performed distraction at C5-C6. Microscope was brought in for microdissection. A C5-C6 diskectomy was performed with decompression of spinal cord and nerve roots. With satisfactory decompression and interbody spacer, appropriate dimension was placed, packed with graft for initiation of arthrodesis. This was separate from the plate. Microscope was then used to do C6-C7 diskectomy and decompression with placement of interbody spacer, packed with local bone autograft obtained from same incision, allograft for arthrodesis. Again, separate from the plate. Microscope was removed. Anterior cervical plate and screw fixation with final tightening occurred at C5, C6, and C7. The wound was copiously irrigated and closed in anatomic layers following placement of a drain. The patient emerged from anesthesia. Job ID: [id number]
[2020-07-17] MEDS ORDERED: ePHEDrine 50 MG/ML VIAL ONE (11:02)
[2020-07-17] MEDS ORDERED: Glycopyrrolate 0.2 MG/ML 5 ML SYRINGE ONE (11:02)
[2020-07-17] MEDS ORDERED: Lidocaine 1% PF 5 ML VIAL ONE (11:02)
[2020-07-17] MEDS ORDERED: PROPOFOL 200 MG/20 ML VIAL ONE (11:02)
[2020-07-17] MEDS ORDERED: Ketorolac Tromethamine 30 MG/ML VIAL ONE (11:02)
[2020-07-17] MEDS ORDERED: Dexamethasone 20 MG/5 ML VIAL ONE (11:02)
[2020-07-17] MEDS ORDERED: Rocuronium Bromide 10 MG/ML (10ML VIAL) ONE (11:02)
[2020-07-17] MEDS ORDERED: PHENYLEPHRINE-NS 100 MCG/ML 10 ML SYRINGE ONE (11:02)
[2020-07-17] MEDS: Clindamycin/D5W 900 MG in Premix Bag 1 BAG IVPB SCH ×2 (14:00→21:34)
[2020-07-17] MEDS: Albuterol Sulfate 1.25 MG/3 ML NEB NEB SCH ×3 (14:24→19:53)
[2020-07-17] MEDS: Sodium Chloride 0.9% 1,000 ML IV SCH (15:56)
[2020-07-17] MEDS: HYDROcodone/Acetaminophen 7.5/325 mg Tablet PO PRN (15:56)
[2020-07-17] MEDS: Morphine 2 MG/ML VIAL SLOW IVP PRN ×2 (19:38→23:03)
[2020-07-17] MEDS: Mometasone 200 MCG/Formoterol 5 MCG 120 PUFF INHALER INH SCH (19:49)
[2020-07-17] MEDS: Atorvastatin Calcium 40 MG TAB PO SCH (21:34)
[2020-07-17] MEDS: Flecainide 50 MG TAB PO SCH (21:34)
[2020-07-17] MEDS: Montelukast Sodium 10 mg Tablet PO SCH (21:34)
[2020-07-17] MEDS: risperiDONE 3 MG TAB PO SCH (22:11)
[2020-07-17] MEDS: Divalproex Sodium DR 500 MG TAB PO SCH (22:11)
[2020-07-18] MEDS: tiZANidine HCl 4 MG TAB PO PRN ×2 (02:49→22:11)
[2020-07-18] MEDS: Morphine 2 MG/ML VIAL SLOW IVP PRN ×2 (02:50→05:57)
[2020-07-18] MEDS: Sodium Chloride 0.9% 1,000 ML IV SCH ×3 (02:51→21:55)
[2020-07-18] MEDS: Clindamycin/D5W 900 MG in Premix Bag 1 BAG IVPB SCH ×3 (05:57→21:53)
[2020-07-18] MEDS: Mometasone 200 MCG/Formoterol 5 MCG 120 PUFF INHALER INH SCH ×2 (07:31→18:44)
[2020-07-18] MEDS: Albuterol Sulfate 1.25 MG/3 ML NEB NEB SCH ×4 (07:33→18:43)
[2020-07-18] MEDS ORDERED: FLU VACC QS2020-21(6MOS UP)/PF 60 MCG/0.5 ML SYRINGE IM ONE (09:00)
[2020-07-18] MEDS: Flecainide 50 MG TAB PO SCH ×2 (09:26→20:10)
[2020-07-18] MEDS: Lubiprostone 8 MCG CAP PO SCH (09:26)
[2020-07-18] MEDS: Furosemide 20 MG TAB PO SCH (09:26)
[2020-07-18] MEDS: Ferrous Sulfate 325 MG TAB PO SCH (09:26)
[2020-07-18] MEDS: Divalproex Sodium DR 500 MG TAB PO SCH ×2 (10:30→21:50)
--- NOTE | 2020-07-18 10:43 | PRG ---
DATE OF SERVICE: 07/18/2020 Ms. Krishna is postoperative day #1 after undergoing a C5 through C7 ACDF. She is in good spirits this morning. She endorses quite a bit of postoperative cervical pain for which she required multiple doses of morphine overnight. Otherwise, she reports that she is doing very well. She was pleased with the strength improvement in her hands. She has been ambulating without difficulty. She has good range of motion and strength throughout her bilateral upper and lower extremities. Her anterior cervical YESENIA drain output has been 40 mL total, with 10 mL output overnight. The patient is awake, alert, and appropriate. She is resting comfortably in bed this morning, in no acute distress. She has 5/5 strength throughout the bilateral upper and lower extremity myotomes. Her anterior cervical incision is dry. She has no significant dysphonia. The patient requests another night in the hospital for maximization of pain control. We will leave her anterior cervical YESENIA drain in place at this time. Continue tonsil diet. Please call for any neurologic changes or other concerns. Job ID: [id number] [facility]
[2020-07-18] MEDS: HYDROcodone/Acetaminophen 7.5/325 mg Tablet PO PRN ×2 (11:22→20:09)
[2020-07-18] MEDS: Montelukast Sodium 10 mg Tablet PO SCH (20:10)
[2020-07-18] MEDS: Atorvastatin Calcium 40 MG TAB PO SCH (20:10)
[2020-07-18] MEDS ORDERED: Ondansetron PF 4 MG/2 ML Vial IVP PRN (20:48)
[2020-07-18] MEDS: risperiDONE 3 MG TAB PO SCH (21:52)
[2020-07-18] MEDS: Acetaminophen/Codeine 30-300mg Tablet PO PRN (22:11)
[2020-07-19] MEDS: Sodium Chloride 0.9% 1,000 ML IV SCH (00:22)
[2020-07-19] MEDS: HYDROcodone/Acetaminophen 7.5/325 mg Tablet PO PRN (01:40)
[2020-07-19] MEDS: Clindamycin/D5W 900 MG in Premix Bag 1 BAG IVPB SCH (05:14)
[2020-07-19] MEDS: Acetaminophen/Codeine 30-300mg Tablet PO PRN (05:29)
[2020-07-19 07:33] VITALS: BP 100/58; TEMP 97.5
--- NOTE | 2020-07-19 08:12 | PRG ---
DATE OF SERVICE: 07/19/2020 Ms. Krishna is doing well. Postoperative day #2 following C5 through C7 ACDF. Her drain output is 22 mL over the last 24 hours and we will remove it. She does have excellent strength in bilateral upper extremities and is voiding on her own, mobilizing, and tolerating orals. We will arrange for discharge. We have gone over interim postoperative issues. Job ID: [id number]
[2020-07-19] MEDS: Albuterol Sulfate 1.25 MG/3 ML NEB NEB SCH (08:18)
[2020-07-19] MEDS: Mometasone 200 MCG/Formoterol 5 MCG 120 PUFF INHALER INH SCH (08:19)
[2020-07-19] MEDS: Ferrous Sulfate 325 MG TAB PO SCH (08:39)
[2020-07-19] MEDS: Furosemide 20 MG TAB PO SCH (08:39)
[2020-07-19] MEDS: Lubiprostone 8 MCG CAP PO SCH (08:39)
[2020-07-19] MEDS: Flecainide 50 MG TAB PO SCH (08:39)
[2020-07-19] MEDS: Divalproex Sodium DR 500 MG TAB PO SCH (09:48)
--- NOTE | 2020-07-20 15:17 | DIS ---
DATE OF ADMISSION: 07/17/2020 DATE OF DISCHARGE: 07/19/2020 DIAGNOSES: 1. Cervical stenosis. 2. Cervical radiculopathy. 3. Cervical herniated nucleus pulposus. PROCEDURES: C5-C7 anterior cervical diskectomies and fusion on July 17, 2020. CONSULT: None. HOSPITAL COURSE: Ms. Krishna is a very pleasant 60-year-old female who was admitted following the above procedure for postoperative pain control and monitoring. She experienced quite a bit of postoperative cervical pain and spasm, but otherwise she was doing very well with regard to her upper extremities. She is pleased with the improvement of strength in her hands. She demonstrated ability to ambulate without difficulty. Her anterior cervical YESENIA drain output tapered appropriately and was removed prior to discharge. She was discharged home in stable condition. Our team discussed postoperative restrictions and wound care. Instructed the patient to maintain a tonsil diet in the initial weeks after surgery. She was instructed on wearing her [place] J cervical collar when out of bed, ambulating, and riding in the car. She was provided with appropriate postoperative pain medications and muscle relaxants.Our team will arrange for outpatient followup in the upcoming week for reevaluation and wound check. She will call our office sooner with any questions or concerns. Job ID: [id number] [facility]
== END 2020-07-19 11:10 | disposition home or self-care (01) ==
LOC: SDC 05:52 → ONC 09:49 → SDC 07-19 11:10
PROVIDERS: ATTEND Surgery
PROC: 0RG20A0 Fusion of 2 or more Cervical Vertebral Joints with Interbody Fusion Device, Anterior Approach, Anterior Column, Open Approach (ICD-10-PCS; principal; 2020-07-17)
DX: M48.02 Spinal stenosis, cervical region (principal); M54.12 Radiculopathy, cervical region; K21.9 Gastro-esophageal reflux disease without esophagitis; F41.9 Anxiety disorder, unspecified; F32.9 Major depressive disorder, single episode, unspecified; J44.9 Chronic obstructive pulmonary disease, unspecified; Z79.01 Long term (current) use of anticoagulants; Z79.899 Other long term (current) drug therapy; Z88.0 Allergy status to penicillin; Z88.2 Allergy status to sulfonamides; Z88.5 Allergy status to narcotic agent; Z88.8 Allergy status to other drugs, medicaments and biological substances; Z91.018 Allergy to other foods; Z95.5 Presence of coronary angioplasty implant and graft
CPT/HCPCS: 20930; 20936; 22551; 22552; 22853 ×2; 76000; 94640 ×4; C1713 ×2; C1776; J2270 ×2; J1100; J1885; J1956; J2250; J2405; J2704; J3010; J3490

== ENCOUNTER 2020-07-30 16:16 | Emergency (ER) | payer MEDICARE, MEDICAID ==
[2020-07-30] MEDS ORDERED: Metoclopramide HCl 10 MG/2 ML VIAL ONE (18:31)
[2020-07-30] MEDS ORDERED: diphenhydrAMINE 50 MG/ML VIAL ONE (18:31)
[2020-07-30] MEDS ORDERED: Ketorolac Tromethamine 30 MG/ML VIAL ONE (20:39)
== END 2020-07-30 21:05 | disposition home or self-care (01) ==
LOC: ERS 16:16
DX: R25.1 Tremor, unspecified (principal); K21.9 Gastro-esophageal reflux disease without esophagitis; J44.9 Chronic obstructive pulmonary disease, unspecified; I11.0 Hypertensive heart disease with heart failure; I50.9 Heart failure, unspecified; I48.91 Unspecified atrial fibrillation; Z86.73 Personal history of transient ischemic attack (TIA), and cerebral infarction without residual deficits
CPT/HCPCS: 96365; 96375; J1200; J1642; J1885; J2765

== ENCOUNTER 2020-08-08 15:22 | Emergency (ER) | payer MEDICARE, MEDICAID ==
[~2020-08-08 15:22] MED LIST: Iopamidol-370 76% 500 ML 1 ML ONE
[2020-08-08] MEDS ORDERED: Aspirin Chewable 81 MG TAB ONE (15:57)
[2020-08-08] MEDS ORDERED: Nitroglycerin 2% Ointment 1 INCH/1 GM Packet ONE (15:57)
[2020-08-08 16:42] LABS: #Basophils 0.1 thou/uL (0.0-0.2); #Eosinphils 0.2 thou/uL (0.0-0.7); #Lymphocytes 4.5 thou/uL (1.20-3.40); #Monocytes 0.7 thou/uL (0.11-0.59); %Basophils 0.7 % (0.0-1.0); %Eosinophils 1.8 % (0.0-10.0); %Lymphocytes 43.3 % (21.0-51.0); %Monocytes 6.3 % (0.0-10.0); Hemoglobin 12.5 g/dL (12.0-16.0); Mean Corpuscular HGB CONC 31.9 g/dL (32.0-36.0); Mean Platelet Volume 7.5 fL (7.4-10.4); Platelet Count 187 thou/uL (130-400); RBC Distribution Width 12.2 % (11.5-14.5); Red Blood Cell (RBC) Count 4.31 mill/uL (4.20-5.40); White Blood Cell (WBC) Count 10.4 thou/uL (4.8-10.8)
[2020-08-08] MEDS ORDERED: Ondansetron PF 4 MG/2 ML Vial ONE (17:00)
--- NOTE | 2020-08-08 17:00 | RAD ---
Chest one view HISTORY: Chest pain. COMPARISON: 05/30/2020. FINDINGS: Cardiac silhouette is magnified by projection. Pulmonary vasculature is unremarkable. Mediastinum is midline with a right subclavian implanted port. Postoperative changes cervical spine. No lobar consolidation or evidence of pneumothorax. Numerous hemostasis clips over the left upper quadrant of the abdomen. IMPRESSION : No acute abnormalities are demonstrated.
[2020-08-08 17:01] LABS: ALT (SGPT) 10 U/L (8-55); AST (SGOT) 24 U/L (5-34); Alkaline Phosphatase 85 U/L (40-110); Anion Gap 21 mmol/L (10-20); BUN (Urea Nitrogen) 13 mg/dL (9.8-20.1); Bilirubin, Total 0.7 mg/dL (0.2-1.2); Calc. Creatinine Clearance 0 mL/min (70-130); Calcium 9.2 mg/dL (7.8-10.44); Carbon Dioxide 23 mmol/L (22-29); Chloride 100 mmol/L (98-107); Globulin 4.1 g/dL (2.4-3.5); Glucose 96 mg/dL (70-105); Lipase 21 U/L (8-78); Potassium 4.1 mmol/L (3.5-5.1); Protein, Total 8.1 g/dL (6.0-8.3); Sodium 140 mmol/L (136-145)
[2020-08-08 17:33] LABS: Bilirubin Negative (Negative); Blood, Urine Negative (Negative); Clarity Clear (Clear); Glucose, Urine (Dipstick) Normal (Negative); Ketone, Urine Negative (Negative); Leukocyte Negative Leu/uL (Negative); Nitrite Negative (Negative); Protein, Urine (Dipstick) Negative (Neg-Trace); Specific Gravity, Urine 1.006 (1.002-1.036); Urobilinogen Normal mg/dL (Less than 2); pH, Urine 6.5 (5.0-9.0)
[2020-08-08 20:39] LABS: Troponin I Less than 0.010 ng/mL (< 0.028)
--- NOTE | 2020-08-09 07:34 | CT ---
CT PULMONARY ANGIOGRAM WITH IV CONTRAST AND 3D MIP RECONSTRUCTIONS: DATE: 08/08/2020. PROVIDED CLINICAL HISTORY: Chest pain. FINDINGS: There is no evidence for central or segmental pulmonary embolus. The lungs are free of significant o pacity. The airway appears patent and of normal caliber. There is no pleural fluid or pneumothorax apparent. There is an implanted port seen within the subcutaneous adipose layer of the right anterio r chest wall. There is soft tissue gas and a noncircumscribed fluid density deep to the port as well as some stranding of the immediately surrounding fat. There is no evidence for a focal fluid collec tion. The catheter appears intact. The visualized portions of the upper abdomen demonstrate no acute abnormality. The osseous structures demonstrate no concerning lytic or blastic lesions. IMPRESSION: 1. No evidence for central or segmental pulmonary embolus. 2. Soft tissue gas and noncircumscribed fluid deep to the right chest wall implanted port. Correlat e with concerns for infection. POS: MIRTA
--- NOTE | 2020-08-11 15:12 | EKG ---
Test Reason : CHEST PAIN Blood Pressure : / mmHG Vent. Rate : 101 BPM Atrial Rate : 101 BPM P-R Int : 134 ms QRS Dur : 080 ms QT Int : 318 ms P-R-T Axes : 030 -11 020 degrees QTc Int : 412 ms Sinus tachycardia Minimal voltage criteria for LVH, may be normal variant Borderline ECG Confirmed by SHAY MONTALVO DO ([id number]), scientific editor GIORGIO GARCIA ([id number]) on 08/11/2020 3:12:24 PM Referred By: Confirmed By:SHAY MONTALVO DO
== END 2020-08-08 22:55 | disposition home or self-care (01) ==
LOC: ERS 15:22
DX: R07.9 Chest pain, unspecified (principal); K21.9 Gastro-esophageal reflux disease without esophagitis; J44.9 Chronic obstructive pulmonary disease, unspecified; I11.0 Hypertensive heart disease with heart failure; I50.9 Heart failure, unspecified; I48.91 Unspecified atrial fibrillation
CPT/HCPCS: 36415; 71045; 71275; 80053; 81003; 83690; 83880; 84484; 85025; 85379; 93005; 96374; J2405; Q9967

== ENCOUNTER 2020-08-28 08:56 | Outpatient (CLI) | payer MEDICARE, MEDICAID ==
--- NOTE | 2020-08-28 09:45 | RAD ---
CERVICAL SPINE 2 VIEWS: HISTORY: Cervical disk displacement. Followup prior anterior cervical fusion changes. FINDINGS: Anterior cervical fusion changes noted at C5, C6, and C7. There is evidence for minimal prevertebral soft tissue swelling. Minimal anterolisthesis of C4 on C5 and C3 on C4. Generalized Disk-osteophyt osis and facet arthrosis. IMPRESSION: Anterior cervical fusion changes at C5, C6, and C7. Evidence for some minimal prevertebral soft tiss ue fullness. Mild anterolisthesis of C3 on C4 and C4 on C5. POS: RRE
== END 2020-08-28 08:57 | disposition home or self-care (01) ==
LOC: BICRAD 08:56
PROVIDERS: ATTEND Surgery
DX: M48.02 Spinal stenosis, cervical region (principal); M50.20 Other cervical disc displacement, unspecified cervical region; M43.12 Spondylolisthesis, cervical region; Z98.1 Arthrodesis status
CPT/HCPCS: 72040

== ENCOUNTER 2020-09-08 11:47 | Emergency (ER) | payer MEDICARE, MEDICAID ==
[2020-09-09 02:30] LABS: SARS-CoV-2 PCR by NAA Not Detected (NotDetected)
== END 2020-09-08 12:41 | disposition home or self-care (01) ==
LOC: ERS 11:47
DX: R05 Cough (principal); Z20.822 Contact with and (suspected) exposure to COVID-19; K21.9 Gastro-esophageal reflux disease without esophagitis; Z86.73 Personal history of transient ischemic attack (TIA), and cerebral infarction without residual deficits; I10 Essential (primary) hypertension; I48.91 Unspecified atrial fibrillation
CPT/HCPCS: U0003; U0005; 87635; 99283

== ENCOUNTER 2020-10-16 14:13 | Emergency (ER) | payer MEDICARE, MEDICAID ==
[2020-10-16 14:53] LABS: #Lymphocytes 2.3 thou/uL (1.20-3.40); #Monocytes 1.1 thou/uL (0.11-0.59); #Neutrophils 10.2 thou/uL (1.40-6.50); %Basophils 0.2 % (0.0-1.0); %Eosinophils 0.2 % (0.0-10.0); %Lymphocytes 16.8 % (21.0-51.0); %Monocytes 7.9 % (0.0-10.0); Hemoglobin 12.4 g/dL (12.0-16.0); Mean Corpuscular HGB CONC 32.3 g/dL (32.0-36.0); Mean Corpuscular Hemoglobin 29.9 pg (27.0-31.0); Mean Corpuscular Volume 92.4 fL (78.0-98.0); Mean Platelet Volume 7.8 fL (7.4-10.4); Platelet Count 203 thou/uL (130-400); RBC Distribution Width 14.4 % (11.5-14.5); Red Blood Cell (RBC) Count 4.14 mill/uL (4.20-5.40); White Blood Cell (WBC) Count 13.5 thou/uL (4.8-10.8)
[2020-10-16 15:14] LABS: ALT (SGPT) 11 U/L (8-55); AST (SGOT) 18 U/L (5-34); Alkaline Phosphatase 75 U/L (40-110); Anion Gap 21 mmol/L (10-20); BUN (Urea Nitrogen) 19 mg/dL (9.8-20.1); Bilirubin, Total 0.9 mg/dL (0.2-1.2); Calc. Creatinine Clearance 0 mL/min (70-130); Calcium 9.4 mg/dL (7.8-10.44); Carbon Dioxide 19 mmol/L (22-29); Chloride 105 mmol/L (98-107); Globulin 3.6 g/dL (2.4-3.5); Glucose 126 mg/dL (70-105); Lipase 29 U/L (8-78); Potassium 4.5 mmol/L (3.5-5.1); Protein, Total 7.6 g/dL (6.0-8.3); Sodium 140 mmol/L (136-145)
[2020-10-16] MEDS ORDERED: Dicyclomine 20 MG TAB ONE (16:21)
[2020-10-16] MEDS ORDERED: Ondansetron ODT 4 MG TAB ONE (16:21)
== END 2020-10-16 16:57 | disposition home or self-care (01) ==
LOC: ERS 14:13
DX: R10.13 Epigastric pain (principal); R11.2 Nausea with vomiting, unspecified; K21.9 Gastro-esophageal reflux disease without esophagitis; Z86.73 Personal history of transient ischemic attack (TIA), and cerebral infarction without residual deficits; J44.9 Chronic obstructive pulmonary disease, unspecified; I48.91 Unspecified atrial fibrillation; I11.0 Hypertensive heart disease with heart failure; I50.9 Heart failure, unspecified
CPT/HCPCS: 36415; 71046; 80053; 83690; 84484; 85025; 93005; Q0162

== ENCOUNTER 2020-10-17 10:40 | Outpatient (CLI) | payer MEDICARE, MEDICAID | END 2020-10-17 10:41 | disposition home or self-care (01) | LOC: BICMAMMO 10:40 | PROVIDERS: ATTEND Specialist | DX: Z12.31 Encounter for screening mammogram for malignant neoplasm of breast (principal); Z80.3 Family history of malignant neoplasm of breast | CPT/HCPCS: 77063; 77067 ==

== ENCOUNTER 2020-11-08 19:56 | Emergency (ER) | payer MEDICARE, MEDICAID ==
[2020-11-08 20:53] LABS: #Eosinphils 0.1 thou/uL (0.0-0.7); #Lymphocytes 3.4 thou/uL (1.20-3.40); #Monocytes 0.9 thou/uL (0.11-0.59); #Neutrophils 4.3 thou/uL (1.40-6.50); %Basophils 0.3 % (0.0-1.0); %Lymphocytes 38.6 % (21.0-51.0); %Monocytes 10.4 % (0.0-10.0); %Neutrophils 49.7 % (42.0-75.0); Hemoglobin 10.9 g/dL (12.0-16.0); Mean Corpuscular HGB CONC 32.6 g/dL (32.0-36.0); Mean Corpuscular Hemoglobin 30.1 pg (27.0-31.0); Mean Corpuscular Volume 92.5 fL (78.0-98.0); Mean Platelet Volume 7.3 fL (7.4-10.4); Platelet Count 236 thou/uL (130-400); RBC Distribution Width 13.7 % (11.5-14.5); Red Blood Cell (RBC) Count 3.62 mill/uL (4.20-5.40); White Blood Cell (WBC) Count 8.7 thou/uL (4.8-10.8)
[2020-11-08 21:18] LABS: ALT (SGPT) 7 U/L (8-55); AST (SGOT) 18 U/L (5-34); Albumin 3.6 g/dL (3.5-5.0); Alkaline Phosphatase 65 U/L (40-110); Anion Gap 13 mmol/L (10-20); BUN (Urea Nitrogen) 22 mg/dL (9.8-20.1); Bilirubin, Total 0.4 mg/dL (0.2-1.2); Calc. Creatinine Clearance 0 mL/min (70-130); Carbon Dioxide 22 mmol/L (22-29); Chloride 110 mmol/L (98-107); Globulin 3.3 g/dL (2.4-3.5); Glucose 82 mg/dL (70-105); Lipase 24 U/L (8-78); Potassium 4.1 mmol/L (3.5-5.1); Protein, Total 6.9 g/dL (6.0-8.3); Sodium 141 mmol/L (136-145)
[2020-11-08 22:30] LABS: Bacteria/HPF None Seen HPF (None Seen); Bilirubin Negative (Negative); Blood, Urine 1+ (Negative); Clarity Clear (Clear); Glucose, Urine (Dipstick) 70 mg/dL (Negative); Ketone, Urine Trace mg/dL (Negative); Leukocyte 25 Leu/uL (Negative); Nitrite Negative (Negative); Protein, Urine (Dipstick) Negative (Neg-Trace); Specific Gravity, Urine 1.028 (1.002-1.036); Squamous Epithelial 0-3 HPF (0-3); WBC/HPF 0-3 HPF (0-3)
[2020-11-08] MEDS ORDERED: Acetaminophen 500 MG TAB ONE (22:35)
== END 2020-11-08 23:00 | disposition home or self-care (01) ==
LOC: ERS 19:56
DX: R07.89 Other chest pain (principal); K59.00 Constipation, unspecified; K21.9 Gastro-esophageal reflux disease without esophagitis; J44.9 Chronic obstructive pulmonary disease, unspecified; I11.0 Hypertensive heart disease with heart failure; I50.9 Heart failure, unspecified; I48.91 Unspecified atrial fibrillation; Z86.73 Personal history of transient ischemic attack (TIA), and cerebral infarction without residual deficits; Z95.5 Presence of coronary angioplasty implant and graft
CPT/HCPCS: 36415; 71045; 74018; 80053; 81003; 81015; 83690; 83880; 84484; 85025; 93005; 94760

== ENCOUNTER 2020-11-18 08:50 | Observation (INO) | payer MEDICARE, MEDICAID ==
[2020-11-18 10:42] LABS: #Eosinphils 0.3 thou/uL (0.0-0.7); #Lymphocytes 4.1 thou/uL (1.20-3.40); #Monocytes 1.1 thou/uL (0.11-0.59); #Neutrophils 3.7 thou/uL (1.40-6.50); %Basophils 0.1 % (0.0-1.0); %Eosinophils 2.8 % (0.0-10.0); %Lymphocytes 44.3 % (21.0-51.0); %Monocytes 11.8 % (0.0-10.0); Mean Corpuscular HGB CONC 32.1 g/dL (32.0-36.0); Mean Corpuscular Volume 93.4 fL (78.0-98.0); Mean Platelet Volume 7.7 fL (7.4-10.4); Platelet Count 205 thou/uL (130-400); RBC Distribution Width 13.3 % (11.5-14.5); Red Blood Cell (RBC) Count 3.68 mill/uL (4.20-5.40); White Blood Cell (WBC) Count 9.1 thou/uL (4.8-10.8)
[2020-11-18 11:00] LABS: ALT (SGPT) 9 U/L (8-55); AST (SGOT) 23 U/L (5-34); Albumin 3.7 g/dL (3.5-5.0); Alkaline Phosphatase 73 U/L (40-110); Anion Gap 18 mmol/L (10-20); BUN (Urea Nitrogen) 29 mg/dL (9.8-20.1); Bilirubin, Total 0.5 mg/dL (0.2-1.2); Calc. Creatinine Clearance 0 mL/min (70-130); Calcium 9.1 mg/dL (7.8-10.44); Carbon Dioxide 20 mmol/L (22-29); Chloride 102 mmol/L (98-107); Globulin 3.9 g/dL (2.4-3.5); Glucose 91 mg/dL (70-105); Potassium 4.5 mmol/L (3.5-5.1); Protein, Total 7.6 g/dL (6.0-8.3); Sodium 135 mmol/L (136-145)
[2020-11-18] MEDS ORDERED: Aspirin 325 MG TAB ONE (11:44)
[2020-11-18 13:31] LABS: Troponin I 0.078 ng/mL (< 0.028)
[2020-11-18] MEDS ORDERED: Nitroglycerin 2% Ointment 1 INCH/1 GM Packet ONE (13:54)
[2020-11-18] MEDS ORDERED: Acetaminophen 650 MG Suppository PR PRN (15:56)
[2020-11-18] MEDS ORDERED: Acetaminophen 325 MG TAB PO PRN (15:56)
[2020-11-18 16:44] VITALS: BMI 35.9
[2020-11-18 16:52] LABS: Troponin I 0.011 ng/mL (< 0.028)
[2020-11-18] MEDS ORDERED: Albuterol 200 PUFF (6.7GM INHALER) INH PRN (16:52)
[2020-11-18] MEDS ORDERED: Magnesium 2 GM/50 ML 2 GM in Premix Bag 1 BAG IVPB SCH (17:00)
[2020-11-18] MEDS: Albuterol Sulfate 1.25 MG/3 ML NEB NEB SCH (19:15)
[2020-11-18] MEDS: Mometasone 200 MCG/Formoterol 5 MCG 120 PUFF INHALER INH SCH (19:17)
[2020-11-18] MEDS ORDERED: Divalproex Sodium DR 500 MG TAB PO SCH (21:00)
[2020-11-18] MEDS ORDERED: Atorvastatin Calcium 40 MG TAB PO SCH (21:00)
[2020-11-18] MEDS ORDERED: risperiDONE 3 MG TAB PO SCH (21:00)
[2020-11-18] MEDS: Flecainide 50 MG TAB PO SCH (21:03)
[2020-11-18] MEDS: Apixaban 5 MG TAB PO SCH (21:03)
[2020-11-18] MEDS: Famotidine 20 MG TAB PO SCH (21:03)
[2020-11-18] MEDS ORDERED: HYDROcodone/Acetaminophen 10/325 mg Tablet PO PRN (21:11)
[2020-11-18] MEDS ORDERED: Nitroglycerin 0.4 MG TAB (25 Tab Bottle) SL PRN (22:26)
[2020-11-18] MEDS ORDERED: Mag-Al 1200 mg/1200 mg/30 ML UDCUP PO PRN (22:42)
[2020-11-19 05:36] LABS: Hemoglobin 10.4 g/dL (12.0-16.0); Mean Corpuscular Hemoglobin 29.8 pg (27.0-31.0); Mean Platelet Volume 7.6 fL (7.4-10.4); Platelet Count 201 thou/uL (130-400); RBC Distribution Width 13.1 % (11.5-14.5); Red Blood Cell (RBC) Count 3.49 mill/uL (4.20-5.40); White Blood Cell (WBC) Count 9.6 thou/uL (4.8-10.8)
[2020-11-19 05:45] LABS: Anion Gap 12 mmol/L (10-20); BUN (Urea Nitrogen) 28 mg/dL (9.8-20.1); Calc. Creatinine Clearance 91 mL/min (70-130); Calcium 8.5 mg/dL (7.8-10.44); Carbon Dioxide 22 mmol/L (22-29); Cardiac Risk 2.4 (Less than 4.5); Chloride 105 mmol/L (98-107); Cholesterol 127 mg/dl (< 200 Desired); Glucose 98 mg/dL (70-105); HDL Cholesterol 54 mg/dL (>60 Neg Risk); LDL Cholesterol, Calculated 55 mg/dL; Potassium 4.4 mmol/L (3.5-5.1); Sodium 135 mmol/L (136-145); Triglycerides 90 mg/dL (Less than 150)
[2020-11-19 06:15] LABS: Eosinophils 4 % (0-10); Lymphocytes 55 % (21-51); MDiff Complete? YES; Monocytes 9 % (0-10); Neutrophil 32 % (42-75)
[2020-11-19] MEDS: Mometasone 200 MCG/Formoterol 5 MCG 120 PUFF INHALER INH SCH (07:55)
[2020-11-19] MEDS: Albuterol Sulfate 1.25 MG/3 ML NEB NEB SCH ×2 (07:55→10:51)
[2020-11-19 07:56] VITALS: BP 101/62; TEMP 97.3
[2020-11-19 08:41] LABS: SARS-CoV-2 PCR by NAA Not Detected (NotDetected)
[2020-11-19] MEDS: Flecainide 50 MG TAB PO SCH (08:51)
[2020-11-19] MEDS: Famotidine 20 MG TAB PO SCH (08:51)
[2020-11-19] MEDS: Apixaban 5 MG TAB PO SCH (08:51)
[2020-11-19] MEDS ORDERED: Ferrous Sulfate 325 MG TAB PO SCH (09:00)
[2020-11-19] MEDS ORDERED: Lubiprostone 8 MCG CAP PO SCH (09:00)
== END 2020-11-19 11:15 | disposition home or self-care (01) ==
LOC: ERS 08:50 → 2SW 14:20
PROVIDERS: ADMIT Internal Medicine; ATTEND Internal Medicine
DX: R07.2 Precordial pain (principal); I25.2 Old myocardial infarction; I25.10 Atherosclerotic heart disease of native coronary artery without angina pectoris; J44.9 Chronic obstructive pulmonary disease, unspecified; K21.9 Gastro-esophageal reflux disease without esophagitis; I10 Essential (primary) hypertension; I48.0 Paroxysmal atrial fibrillation; Z86.711 Personal history of pulmonary embolism; Z86.73 Personal history of transient ischemic attack (TIA), and cerebral infarction without residual deficits; Z87.891 Personal history of nicotine dependence; Z79.01 Long term (current) use of anticoagulants; Z79.899 Other long term (current) drug therapy; Z88.0 Allergy status to penicillin; Z88.2 Allergy status to sulfonamides; Z88.5 Allergy status to narcotic agent; Z88.8 Allergy status to other drugs, medicaments and biological substances; Z91.018 Allergy to other foods; Z95.5 Presence of coronary angioplasty implant and graft; Z20.822 Contact with and (suspected) exposure to COVID-19
CPT/HCPCS: 71045; 80048; 80053; 80061; 80164; 83690; 83735; 83880; 84484 ×2; 85025 ×2; 85379; 93005; 94640 ×4; 94760; 99285; U0003; U0005; 36415; 87635; 93010; 96374; G0378; J1642; J3475

== ENCOUNTER 2020-11-23 09:31 | Day surgery (SDC) | payer MEDICARE, MEDICAID ==
[2020-11-22 10:47] VITALS: BMI 34.8
[2020-11-23] MEDS ORDERED: Sodium Chloride 0.9% 10 ML ONE ×2 (11:39→14:46)
[2020-11-23] MEDS ORDERED: ePHEDrine Sulfate 50 MG/10 ML VIAL ONE (12:15)
[2020-11-23] MEDS ORDERED: PHENYLEPHRINE-NS 100 MCG/ML 10 ML SYRINGE ONE (12:15)
[2020-11-23] MEDS ORDERED: PROPOFOL 200 MG/20 ML VIAL ONE (12:15)
[2020-11-23] MEDS ORDERED: Lidocaine 1% PF 5 ML VIAL ONE (12:15)
[2020-11-23] MEDS ORDERED: Fentanyl 100 MCG/2 ML VIAL ONE (12:57)
== END 2020-11-23 15:15 | disposition home or self-care (01) ==
LOC: SDC/OP 09:31 → EDSTATUS 12:00 → SDC/OP 15:15
PROVIDERS: ATTEND Surgery
DX: M43.16 Spondylolisthesis, lumbar region (principal); M54.16 Radiculopathy, lumbar region; D64.9 Anemia, unspecified; J45.909 Unspecified asthma, uncomplicated; I11.9 Hypertensive heart disease without heart failure; K21.9 Gastro-esophageal reflux disease without esophagitis; Z79.01 Long term (current) use of anticoagulants; Z79.899 Other long term (current) drug therapy; Z86.73 Personal history of transient ischemic attack (TIA), and cerebral infarction without residual deficits; Z88.0 Allergy status to penicillin; Z88.2 Allergy status to sulfonamides; Z88.5 Allergy status to narcotic agent; Z88.8 Allergy status to other drugs, medicaments and biological substances; Z91.018 Allergy to other foods
CPT/HCPCS: 72120; 72148; J1642; J2704; J3010

== ENCOUNTER 2020-11-29 13:45 | Emergency (ER) | payer MEDICARE, MEDICAID ==
[2020-11-29 14:55] LABS: #Basophils 0.1 thou/uL (0.0-0.2); #Eosinphils 0.2 thou/uL (0.0-0.7); #Lymphocytes 4.3 thou/uL (1.20-3.40); #Monocytes 0.6 thou/uL (0.11-0.59); #Neutrophils 3.9 thou/uL (1.40-6.50); %Basophils 0.6 % (0.0-1.0); %Eosinophils 2.2 % (0.0-10.0); %Lymphocytes 47.7 % (21.0-51.0); %Monocytes 6.6 % (0.0-10.0); %Neutrophils 42.9 % (42.0-75.0); Hemoglobin 11.8 g/dL (12.0-16.0); Mean Corpuscular HGB CONC 31.1 g/dL (32.0-36.0); Mean Corpuscular Volume 93.3 fL (78.0-98.0); Mean Platelet Volume 7.5 fL (7.4-10.4); Platelet Count 221 thou/uL (130-400); RBC Distribution Width 12.8 % (11.5-14.5); Red Blood Cell (RBC) Count 4.05 mill/uL (4.20-5.40)
[2020-11-29 15:16] LABS: ALT (SGPT) 8 U/L (8-55); AST (SGOT) 16 U/L (5-34); Albumin 3.7 g/dL (3.5-5.0); Alkaline Phosphatase 71 U/L (40-110); Anion Gap 13 mmol/L (10-20); BUN (Urea Nitrogen) 23 mg/dL (9.8-20.1); Bilirubin, Total 0.4 mg/dL (0.2-1.2); Calc. Creatinine Clearance 0 mL/min (70-130); Calcium 8.9 mg/dL (7.8-10.44); Carbon Dioxide 25 mmol/L (22-29); Chloride 107 mmol/L (98-107); Globulin 3.6 g/dL (2.4-3.5); Glucose 100 mg/dL (70-105); Lipase 22 U/L (8-78); Potassium 4.6 mmol/L (3.5-5.1); Protein, Total 7.3 g/dL (6.0-8.3); Sodium 140 mmol/L (136-145)
[2020-11-29 16:35] LABS: PTT 34.1 sec (22.9-36.1); Prothrombin Time 13.4 sec (12.0-14.7)
[2020-11-29 16:36] LABS: D-Dimer Test 0.31 *mcg/mL (0.27-0.43)
[2020-11-29 16:41] LABS: Bilirubin Negative (Negative); Blood, Urine Negative (Negative); Clarity Clear (Clear); Glucose, Urine (Dipstick) Normal (Negative); Ketone, Urine Negative (Negative); Leukocyte Negative Leu/uL (Negative); Nitrite Negative (Negative); Protein, Urine (Dipstick) Negative (Neg-Trace); Specific Gravity, Urine 1.012 (1.002-1.036); Urobilinogen Normal mg/dL (Less than 2); pH, Urine 5.5 (5.0-9.0)
[2020-11-29] MEDS ORDERED: HYDROcodone/Acetaminophen 5/325 mg Tablet ONE (18:26)
== END 2020-11-29 18:30 | disposition home or self-care (01) ==
LOC: ERS 13:45
DX: R07.89 Other chest pain (principal); I20.9 Angina pectoris, unspecified; I11.0 Hypertensive heart disease with heart failure; I50.9 Heart failure, unspecified; K21.9 Gastro-esophageal reflux disease without esophagitis; J44.9 Chronic obstructive pulmonary disease, unspecified; Z86.73 Personal history of transient ischemic attack (TIA), and cerebral infarction without residual deficits; Z79.01 Long term (current) use of anticoagulants; Z79.899 Other long term (current) drug therapy
CPT/HCPCS: 36415; 71045; 80053; 81003; 83690; 83880; 84484; 85025; 85379; 85610; 85730; 93005

== ENCOUNTER 2020-12-01 13:27 | Emergency (ER) | payer MEDICARE, MEDICAID ==
[2020-12-01 15:05] LABS: #Basophils 0.1 thou/uL (0.0-0.2); #Eosinphils 0.1 thou/uL (0.0-0.7); #Lymphocytes 3.7 thou/uL (1.20-3.40); #Monocytes 0.7 thou/uL (0.11-0.59); %Basophils 0.6 % (0.0-1.0); %Eosinophils 1.4 % (0.0-10.0); %Lymphocytes 43.1 % (21.0-51.0); %Monocytes 8.2 % (0.0-10.0); %Neutrophils 46.8 % (42.0-75.0); Mean Corpuscular HGB CONC 32.5 g/dL (32.0-36.0); Mean Corpuscular Hemoglobin 30.2 pg (27.0-31.0); Mean Corpuscular Volume 93.1 fL (78.0-98.0); Mean Platelet Volume 7.5 fL (7.4-10.4); Platelet Count 211 thou/uL (130-400); RBC Distribution Width 12.7 % (11.5-14.5); Red Blood Cell (RBC) Count 4.31 mill/uL (4.20-5.40); White Blood Cell (WBC) Count 8.5 thou/uL (4.8-10.8)
[2020-12-01 15:21] LABS: CK (CPK) 101 U/L (29-168); Lipase 20 U/L (8-78)
[2020-12-01 18:57] LABS: Troponin I 0.017 ng/mL (< 0.028)
[2020-12-01] MEDS ORDERED: Acetaminophen 500 MG TAB ONE (19:20)
== END 2020-12-01 20:02 | disposition home or self-care (01) ==
LOC: ERS 13:27
DX: R07.89 Other chest pain (principal); R51.9 Headache, unspecified; K21.9 Gastro-esophageal reflux disease without esophagitis; Z86.73 Personal history of transient ischemic attack (TIA), and cerebral infarction without residual deficits; J44.9 Chronic obstructive pulmonary disease, unspecified; I48.91 Unspecified atrial fibrillation; I11.0 Hypertensive heart disease with heart failure; I50.9 Heart failure, unspecified; Z79.51 Long term (current) use of inhaled steroids; Z79.899 Other long term (current) drug therapy
CPT/HCPCS: 36415; 70450; 71045; 82550; 83690; 83880; 84484; 85025; 93005; 94760

== ENCOUNTER 2020-12-04 02:01 | Emergency (ER) | payer MEDICARE, MEDICAID | END 2020-12-04 03:55 | disposition home or self-care (01) | LOC: ERS 02:01 | DX: R07.9 Chest pain, unspecified (principal); K21.9 Gastro-esophageal reflux disease without esophagitis; I11.0 Hypertensive heart disease with heart failure; I50.9 Heart failure, unspecified; I48.91 Unspecified atrial fibrillation; J44.9 Chronic obstructive pulmonary disease, unspecified; Z86.73 Personal history of transient ischemic attack (TIA), and cerebral infarction without residual deficits; Z79.899 Other long term (current) drug therapy; Z79.01 Long term (current) use of anticoagulants | CPT/HCPCS: 36415; 71045; 84484; 93005 ==

== ENCOUNTER 2020-12-05 21:24 | Emergency (ER) | payer MEDICARE, MEDICAID ==
[2020-12-05 23:22] LABS: Hemoglobin 10.2 g/dL (12.0-16.0); Mean Corpuscular HGB CONC 32.4 g/dL (32.0-36.0); Mean Corpuscular Hemoglobin 29.9 pg (27.0-31.0); Mean Corpuscular Volume 92.3 fL (78.0-98.0); Mean Platelet Volume 7.6 fL (7.4-10.4); Platelet Count 180 thou/uL (130-400); RBC Distribution Width 12.7 % (11.5-14.5); White Blood Cell (WBC) Count 11.1 thou/uL (4.8-10.8)
[2020-12-05 23:34] LABS: ALT (SGPT) 7 U/L (8-55); AST (SGOT) 17 U/L (5-34); Albumin 3.3 g/dL (3.5-5.0); Alkaline Phosphatase 62 U/L (40-110); Anion Gap 14 mmol/L (10-20); BUN (Urea Nitrogen) 19 mg/dL (9.8-20.1); Bilirubin, Total 0.3 mg/dL (0.2-1.2); Calc. Creatinine Clearance 0 mL/min (70-130); Calcium 8.4 mg/dL (7.8-10.44); Carbon Dioxide 20 mmol/L (22-29); Chloride 108 mmol/L (98-107); Globulin 3.3 g/dL (2.4-3.5); Glucose 102 mg/dL (70-105); Potassium 3.9 mmol/L (3.5-5.1); Protein, Total 6.6 g/dL (6.0-8.3); Sodium 138 mmol/L (136-145)
[2020-12-05 23:42] LABS: Band 3 % (5-11); Eosinophils 5 % (0-10); Lymphocytes 52 % (21-51); MDiff Complete? YES; Monocytes 6 % (0-10); Neutrophil 34 % (42-75)
== END 2020-12-06 00:25 | disposition home or self-care (01) ==
LOC: ERS 21:24
DX: R07.89 Other chest pain (principal); J44.9 Chronic obstructive pulmonary disease, unspecified; K21.9 Gastro-esophageal reflux disease without esophagitis; I11.0 Hypertensive heart disease with heart failure; I50.9 Heart failure, unspecified; I25.2 Old myocardial infarction; Z79.899 Other long term (current) drug therapy
CPT/HCPCS: 36415; 71045; 80053; 84484; 85025; 93005; 94760

== ENCOUNTER 2020-12-06 11:22 | Emergency (ER) | payer MEDICARE, MEDICAID | END 2020-12-06 12:29 | disposition home or self-care (01) | LOC: ERS 11:22 | DX: R07.89 Other chest pain (principal); M62.838 Other muscle spasm; Z79.899 Other long term (current) drug therapy; Z79.52 Long term (current) use of systemic steroids; Z79.01 Long term (current) use of anticoagulants; K21.9 Gastro-esophageal reflux disease without esophagitis; J44.9 Chronic obstructive pulmonary disease, unspecified; I50.9 Heart failure, unspecified; I48.91 Unspecified atrial fibrillation; I11.0 Hypertensive heart disease with heart failure | CPT/HCPCS: 93005 ==

== ENCOUNTER 2020-12-10 15:51 | Emergency (ER) | payer MEDICARE, MEDICAID ==
[2020-12-10 16:53] LABS: #Eosinphils 0.1 thou/uL (0.0-0.7); #Lymphocytes 3.6 thou/uL (1.20-3.40); #Monocytes 0.8 thou/uL (0.11-0.59); #Neutrophils 5.5 thou/uL (1.40-6.50); %Basophils 0.2 % (0.0-1.0); %Eosinophils 1.5 % (0.0-10.0); %Lymphocytes 35.9 % (21.0-51.0); %Neutrophils 54.4 % (42.0-75.0); Hemoglobin 11.1 g/dL (12.0-16.0); Mean Corpuscular HGB CONC 31.9 g/dL (32.0-36.0); Mean Corpuscular Hemoglobin 29.3 pg (27.0-31.0); Mean Corpuscular Volume 91.8 fL (78.0-98.0); Mean Platelet Volume 7.6 fL (7.4-10.4); Platelet Count 222 thou/uL (130-400); RBC Distribution Width 12.4 % (11.5-14.5); Red Blood Cell (RBC) Count 3.81 mill/uL (4.20-5.40)
[2020-12-10 17:10] LABS: ALT (SGPT) 9 U/L (8-55); AST (SGOT) 17 U/L (5-34); Albumin 3.8 g/dL (3.5-5.0); Alkaline Phosphatase 69 U/L (40-110); Anion Gap 13 mmol/L (10-20); BUN (Urea Nitrogen) 20 mg/dL (9.8-20.1); Bilirubin, Total 0.6 mg/dL (0.2-1.2); Calc. Creatinine Clearance 0 mL/min (70-130); Calcium 9.6 mg/dL (7.8-10.44); Carbon Dioxide 25 mmol/L (22-29); Chloride 109 mmol/L (98-107); Globulin 3.8 g/dL (2.4-3.5); Glucose 94 mg/dL (70-105); Potassium 3.9 mmol/L (3.5-5.1); Protein, Total 7.6 g/dL (6.0-8.3); Sodium 143 mmol/L (136-145)
== END 2020-12-10 20:39 | disposition home or self-care (01) ==
LOC: ERS 15:51
DX: R07.2 Precordial pain (principal); Z79.899 Other long term (current) drug therapy; Z79.52 Long term (current) use of systemic steroids; Z79.01 Long term (current) use of anticoagulants; K21.9 Gastro-esophageal reflux disease without esophagitis; I10 Essential (primary) hypertension; J44.9 Chronic obstructive pulmonary disease, unspecified; I50.9 Heart failure, unspecified; I48.91 Unspecified atrial fibrillation
CPT/HCPCS: 36415; 71045; 80053; 84484; 85025; 93005

== ENCOUNTER 2020-12-11 11:00 | Emergency (ER) | payer MEDICARE, MEDICAID ==
[2020-12-11 13:43] LABS: #Eosinphils 0.1 thou/uL (0.0-0.7); #Lymphocytes 3.5 thou/uL (1.20-3.40); #Monocytes 0.8 thou/uL (0.11-0.59); #Neutrophils 4.9 thou/uL (1.40-6.50); %Basophils 0.3 % (0.0-1.0); %Eosinophils 1.4 % (0.0-10.0); %Lymphocytes 37.6 % (21.0-51.0); %Monocytes 8.3 % (0.0-10.0); %Neutrophils 52.3 % (42.0-75.0); Hemoglobin 11.1 g/dL (12.0-16.0); Mean Corpuscular HGB CONC 31.6 g/dL (32.0-36.0); Mean Corpuscular Hemoglobin 29.1 pg (27.0-31.0); Mean Corpuscular Volume 91.9 fL (78.0-98.0); Mean Platelet Volume 7.4 fL (7.4-10.4); Platelet Count 221 thou/uL (130-400); RBC Distribution Width 12.4 % (11.5-14.5); Red Blood Cell (RBC) Count 3.81 mill/uL (4.20-5.40); White Blood Cell (WBC) Count 9.4 thou/uL (4.8-10.8)
[2020-12-11 14:05] LABS: ALT (SGPT) Less than 7 U/L (8-55); AST (SGOT) 13 U/L (5-34); Albumin 3.7 g/dL (3.5-5.0); Alkaline Phosphatase 67 U/L (40-110); Anion Gap 12 mmol/L (10-20); BUN (Urea Nitrogen) 20 mg/dL (9.8-20.1); Bilirubin, Total 0.6 mg/dL (0.2-1.2); Calc. Creatinine Clearance 0 mL/min (70-130); Calcium 9.4 mg/dL (7.8-10.44); Carbon Dioxide 25 mmol/L (22-29); Chloride 108 mmol/L (98-107); Globulin 3.7 g/dL (2.4-3.5); Glucose 84 mg/dL (70-105); Potassium 4.4 mmol/L (3.5-5.1); Protein, Total 7.4 g/dL (6.0-8.3); Sodium 141 mmol/L (136-145)
== END 2020-12-11 15:04 | disposition home or self-care (01) ==
LOC: ERS 11:00
DX: G89.29 Other chronic pain (principal); R07.89 Other chest pain; R20.2 Paresthesia of skin; K21.9 Gastro-esophageal reflux disease without esophagitis; Z86.73 Personal history of transient ischemic attack (TIA), and cerebral infarction without residual deficits; J44.9 Chronic obstructive pulmonary disease, unspecified; I11.0 Hypertensive heart disease with heart failure; I50.9 Heart failure, unspecified; Z79.51 Long term (current) use of inhaled steroids; Z79.01 Long term (current) use of anticoagulants; Z79.899 Other long term (current) drug therapy
CPT/HCPCS: 36415; 70551; 71045; 80053; 84484; 85025; 93005

== ENCOUNTER 2020-12-13 08:56 | Outpatient (CLI) | payer MEDICARE, MEDICAID ==
[2020-12-13 16:44] LABS: SARS-CoV-2 PCR by NAA Not Detected (NotDetected)
== END 2020-12-13 08:57 | disposition home or self-care (01) ==
LOC: LABBT 08:56
PROVIDERS: ATTEND Surgery
DX: Z01.812 Encounter for preprocedural laboratory examination (principal); M51.16 Intervertebral disc disorders with radiculopathy, lumbar region; Z20.822 Contact with and (suspected) exposure to COVID-19
CPT/HCPCS: U0003; U0005; 87635

== ENCOUNTER 2020-12-18 07:48 | Observation (INO) | payer MEDICARE, MEDICAID ==
[2020-12-18] MEDS ORDERED: Clindamycin/D5W 900 mg/50 ml Premix Bag ONE (08:12)
[2020-12-18] MEDS ORDERED: Levofloxacin 500 mg/D5W 100 ml Premix Bag ONE (08:12)
[2020-12-18] MEDS ORDERED: Sodium Chloride 0.9% 20 ML ONE (09:33)
[2020-12-18] MEDS ORDERED: Thrombin 5000 UNITS/5 ML VIAL ONE ×2 (09:56→12:25)
[2020-12-18] MEDS ORDERED: Fentanyl 100 MCG/2 ML VIAL ONE ×4 (10:04→17:56)
[2020-12-18] MEDS ORDERED: Midazolam HCl 2 mg/2 ml Vial ONE ×2 (10:05→10:36)
[2020-12-18] MEDS ORDERED: Dexmedetomidine 200 MCG/2 ML VIAL ONE (10:05)
[2020-12-18] MEDS ORDERED: Ketamine 50 MG/ML (10ML VIAL) ONE (10:05)
[2020-12-18] MEDS ORDERED: PROPOFOL 200 MG/20 ML VIAL ONE (10:51)
[2020-12-18] MEDS ORDERED: Dexamethasone 20 MG/5 ML VIAL ONE (10:51)
[2020-12-18] MEDS ORDERED: PHENYLEPHRINE-NS 100 MCG/ML 10 ML SYRINGE ONE ×3 (10:51→12:32)
[2020-12-18] MEDS ORDERED: Albuterol Sulfate HFA (OR ONLY) ONE ×3 (10:51→12:01)
[2020-12-18] MEDS ORDERED: Ondansetron PF 4 MG/2 ML Vial ONE (10:51)
[2020-12-18] MEDS ORDERED: Rocuronium Bromide 10 MG/ML (10ML VIAL) ONE (10:51)
[2020-12-18] MEDS ORDERED: Glycopyrrolate 0.2 MG/ML 5 ML SYRINGE ONE (10:51)
[2020-12-18] MEDS ORDERED: Rocuronium Bromide 50 MG/5 ML VIAL ONE (11:47)
[2020-12-18] MEDS ORDERED: Phenylephrine 10 MG/ML VIAL ONE (12:31)
[2020-12-18] MEDS ORDERED: SUGAMMADEX SODIUM 500 MG/5 ML VIAL ONE (12:44)
[2020-12-18] MEDS ORDERED: SUGAMMADEX SODIUM 200 MG/2 ML VIAL ONE (13:20)
[2020-12-18] MEDS ORDERED: HYDROmorphone 2 MG/ML VIAL ONE (14:08)
[2020-12-18] MEDS ORDERED: hydrALAZINE 20 MG/ML VIAL SLOW IVP PRN (15:39)
[2020-12-18] MEDS ORDERED: Albuterol Sulfate 1.25 MG/3 ML NEB ONE (17:56)
[2020-12-18] MEDS ORDERED: Promethazine HCl 25 MG/ML VIAL ONE (18:44)
[2020-12-18] MEDS: Clindamycin/D5W 900 MG in Premix Bag 1 BAG IVPB SCH (21:01)
[2020-12-18] MEDS: Sodium Chloride 0.9% 1,000 ML IV SCH (21:01)
[2020-12-18 21:06] VITALS: BMI 34.1
[2020-12-18] MEDS: tiZANidine HCl 4 MG TAB PO PRN (21:10)
[2020-12-18] MEDS: Fentanyl 100 MCG/2 ML VIAL SLOW IVP PRN (21:49)
[2020-12-18] MEDS ORDERED: Ondansetron ODT 4 MG TAB PO PRN (23:17)
[2020-12-18] MEDS ORDERED: Nitroglycerin 0.4 MG TAB (25 Tab Bottle) SL PRN (23:17)
[2020-12-18] MEDS ORDERED: Albuterol 200 PUFF (6.7GM INHALER) INH PRN (23:20)
[2020-12-18] MEDS: HYDROcodone/Acetaminophen 10/325 mg Tablet PO PRN (23:26)
[2020-12-19] MEDS: Clindamycin/D5W 900 MG in Premix Bag 1 BAG IVPB SCH ×3 (01:58→19:26)
[2020-12-19] MEDS: Sodium Chloride 0.9% 1,000 ML IV SCH ×2 (02:03→20:15)
[2020-12-19] MEDS: Acetaminophen/Codeine 30-300mg Tablet PO PRN (02:19)
[2020-12-19] MEDS: Fentanyl 100 MCG/2 ML VIAL SLOW IVP PRN ×4 (02:53→22:05)
[2020-12-19] MEDS: HYDROcodone/Acetaminophen 10/325 mg Tablet PO PRN ×2 (08:29→20:08)
[2020-12-19] MEDS: Flecainide 50 MG TAB PO SCH ×2 (08:31→20:07)
[2020-12-19] MEDS: Furosemide 40 MG TAB PO SCH (08:31)
[2020-12-19] MEDS: Lubiprostone 8 MCG CAP PO SCH (08:31)
[2020-12-19] MEDS: Ferrous Sulfate 325 MG TAB PO SCH (08:31)
[2020-12-19] MEDS: Mometasone 200 MCG/Formoterol 5 MCG 120 PUFF INHALER INH SCH ×2 (08:45→18:38)
[2020-12-19] MEDS: Albuterol Sulfate 1.25 MG/3 ML NEB NEB SCH ×4 (08:46→18:34)
[2020-12-19] MEDS: Divalproex Sodium DR 500 MG TAB PO SCH ×2 (10:37→20:08)
[2020-12-19] MEDS: Lidocaine 5% Patch TD SCH (11:23)
[2020-12-19] MEDS: Acetaminophen 325 MG TAB PO PRN (16:38)
[2020-12-19] MEDS: Montelukast Sodium 10 mg Tablet PO SCH (20:07)
[2020-12-19] MEDS: tiZANidine HCl 4 MG TAB PO PRN (20:08)
[2020-12-19] MEDS: Atorvastatin Calcium 40 MG TAB PO SCH (20:08)
[2020-12-19] MEDS ORDERED: risperiDONE 3 MG TAB PO SCH (21:00)
[2020-12-19] MEDS: Transdermal Patch Removal TOP SCH (21:54)
[2020-12-20] MEDS: Clindamycin/D5W 900 MG in Premix Bag 1 BAG IVPB SCH ×4 (00:29→23:57)
[2020-12-20] MEDS: Fentanyl 100 MCG/2 ML VIAL SLOW IVP PRN ×2 (04:29→11:52)
[2020-12-20] MEDS: Acetaminophen 325 MG TAB PO PRN ×2 (04:34→23:54)
[2020-12-20 05:13] LABS: Anion Gap 14 mmol/L (10-20); BUN (Urea Nitrogen) 13 mg/dL (9.8-20.1); Calc. Creatinine Clearance 87 mL/min (70-130); Calcium 8.8 mg/dL (7.8-10.44); Carbon Dioxide 25 mmol/L (22-29); Chloride 99 mmol/L (98-107); Glucose 106 mg/dL (70-105); Hemoglobin 9.2 g/dL (12.0-16.0); Mean Corpuscular HGB CONC 31.4 g/dL (32.0-36.0); Mean Corpuscular Hemoglobin 29.1 pg (27.0-31.0); Mean Corpuscular Volume 92.8 fL (78.0-98.0); Mean Platelet Volume 7.2 fL (7.4-10.4); Platelet Count 193 thou/uL (130-400); RBC Distribution Width 12.1 % (11.5-14.5); Red Blood Cell (RBC) Count 3.15 mill/uL (4.20-5.40); Sodium 134 mmol/L (136-145); White Blood Cell (WBC) Count 13.2 thou/uL (4.8-10.8)
[2020-12-20 05:41] LABS: Band 7 % (5-11); Lymphocytes 37 % (21-51); MDiff Complete? YES; Monocytes 16 % (0-10); Neutrophil 40 % (42-75)
[2020-12-20] MEDS: Mometasone 200 MCG/Formoterol 5 MCG 120 PUFF INHALER INH SCH ×2 (08:05→19:35)
[2020-12-20] MEDS: Albuterol Sulfate 1.25 MG/3 ML NEB NEB SCH ×4 (08:06→19:33)
[2020-12-20] MEDS: HYDROcodone/Acetaminophen 10/325 mg Tablet PO PRN ×3 (08:42→21:21)
[2020-12-20] MEDS: Lidocaine 5% Patch TD SCH (10:08)
[2020-12-20] MEDS: Divalproex Sodium DR 500 MG TAB PO SCH ×2 (12:07→21:22)
[2020-12-20] MEDS: Lubiprostone 8 MCG CAP PO SCH (12:07)
[2020-12-20] MEDS: Ferrous Sulfate 325 MG TAB PO SCH (12:07)
[2020-12-20] MEDS: Furosemide 40 MG TAB PO SCH (12:07)
[2020-12-20] MEDS: Flecainide 50 MG TAB PO SCH ×2 (12:07→21:22)
[2020-12-20] MEDS: Sodium Chloride 0.9% 1,000 ML IV SCH (16:19)
[2020-12-20] MEDS: tiZANidine HCl 4 MG TAB PO PRN (17:04)
[2020-12-20] MEDS: Atorvastatin Calcium 40 MG TAB PO SCH (21:22)
[2020-12-20] MEDS: Montelukast Sodium 10 mg Tablet PO SCH (21:22)
[2020-12-20] MEDS: risperiDONE 1 MG TAB PO SCH (21:30)
[2020-12-20] MEDS: Transdermal Patch Removal TOP SCH (23:22)
[2020-12-21] MEDS: tiZANidine HCl 4 MG TAB PO PRN ×3 (01:52→21:30)
[2020-12-21] MEDS: HYDROcodone/Acetaminophen 7.5/325 mg Tablet PO PRN ×2 (01:52→09:34)
[2020-12-21] MEDS: Sodium Chloride 0.9% 1,000 ML IV SCH ×3 (06:20→23:14)
[2020-12-21] MEDS: HYDROcodone/Acetaminophen 10/325 mg Tablet PO PRN ×2 (08:02→16:38)
[2020-12-21] MEDS: Ferrous Sulfate 325 MG TAB PO SCH (08:08)
[2020-12-21] MEDS: Furosemide 40 MG TAB PO SCH (08:08)
[2020-12-21] MEDS: Lubiprostone 8 MCG CAP PO SCH (08:08)
[2020-12-21] MEDS: Flecainide 50 MG TAB PO SCH ×2 (08:08→21:51)
[2020-12-21] MEDS: Albuterol Sulfate 1.25 MG/3 ML NEB NEB SCH ×4 (08:52→18:17)
[2020-12-21] MEDS: Mometasone 200 MCG/Formoterol 5 MCG 120 PUFF INHALER INH SCH ×2 (08:52→18:17)
[2020-12-21] MEDS: Divalproex Sodium DR 500 MG TAB PO SCH ×2 (09:34→21:51)
[2020-12-21] MEDS: Clindamycin/D5W 900 MG in Premix Bag 1 BAG IVPB SCH ×2 (10:44→18:58)
[2020-12-21] MEDS: Lidocaine 5% Patch TD SCH (15:22)
[2020-12-21] MEDS: Atorvastatin Calcium 40 MG TAB PO SCH (21:29)
[2020-12-21] MEDS: Acetaminophen/Codeine 30-300mg Tablet PO PRN (21:29)
[2020-12-21] MEDS: risperiDONE 1 MG TAB PO SCH (21:30)
[2020-12-21] MEDS: Montelukast Sodium 10 mg Tablet PO SCH (21:31)
[2020-12-21] MEDS: Transdermal Patch Removal TOP SCH (23:02)
[2020-12-22] MEDS: Clindamycin/D5W 900 MG in Premix Bag 1 BAG IVPB SCH (02:03)
[2020-12-22] MEDS: HYDROcodone/Acetaminophen 10/325 mg Tablet PO PRN ×2 (02:03→08:12)
[2020-12-22 05:48] LABS: #Eosinphils 0.2 thou/uL (0.0-0.7); #Lymphocytes 3.1 thou/uL (1.20-3.40); #Neutrophils 5.6 thou/uL (1.40-6.50); %Basophils 0.3 % (0.0-1.0); %Eosinophils 2.1 % (0.0-10.0); %Lymphocytes 31.1 % (21.0-51.0); %Monocytes 10.2 % (0.0-10.0); %Neutrophils 56.3 % (42.0-75.0); Hemoglobin 8.3 g/dL (12.0-16.0); Mean Corpuscular HGB CONC 31.9 g/dL (32.0-36.0); Mean Corpuscular Hemoglobin 28.9 pg (27.0-31.0); Mean Corpuscular Volume 90.6 fL (78.0-98.0); Mean Platelet Volume 7.6 fL (7.4-10.4); Platelet Count 162 thou/uL (130-400); Red Blood Cell (RBC) Count 2.89 mill/uL (4.20-5.40); White Blood Cell (WBC) Count 9.9 thou/uL (4.8-10.8)
[2020-12-22 06:10] LABS: Anion Gap 12 mmol/L (10-20); BUN (Urea Nitrogen) 21 mg/dL (9.8-20.1); Calc. Creatinine Clearance 94 mL/min (70-130); Calcium 8.8 mg/dL (7.8-10.44); Carbon Dioxide 26 mmol/L (22-29); Chloride 102 mmol/L (98-107); Glucose 84 mg/dL (70-105); Potassium 3.7 mmol/L (3.5-5.1); Sodium 136 mmol/L (136-145)
[2020-12-22] MEDS: Albuterol Sulfate 1.25 MG/3 ML NEB NEB SCH ×2 (07:28→10:50)
[2020-12-22] MEDS: Mometasone 200 MCG/Formoterol 5 MCG 120 PUFF INHALER INH SCH (07:28)
[2020-12-22] MEDS: Ferrous Sulfate 325 MG TAB PO SCH (08:10)
[2020-12-22] MEDS: Furosemide 40 MG TAB PO SCH (08:10)
[2020-12-22] MEDS: Divalproex Sodium DR 500 MG TAB PO SCH (08:10)
[2020-12-22] MEDS: Flecainide 50 MG TAB PO SCH (10:14)
[2020-12-22] MEDS: Acetaminophen/Codeine 30-300mg Tablet PO PRN (11:50)
[2020-12-22] MEDS: tiZANidine HCl 4 MG TAB PO PRN (11:50)
[2020-12-22 12:20] VITALS: BP 135/80; TEMP 98.7
== END 2020-12-22 13:28 | disposition home or self-care (01) ==
LOC: SDC 07:48 → ONC 20:33 → SURG A 12-21 18:56
PROVIDERS: ADMIT Surgery; ATTEND Internal Medicine
PROC: 01NB0ZZ Release Lumbar Nerve, Open Approach (ICD-10-PCS; principal; 2020-12-18)
DX: M48.061 Spinal stenosis, lumbar region without neurogenic claudication (principal); M51.16 Intervertebral disc disorders with radiculopathy, lumbar region; I34.1 Nonrheumatic mitral (valve) prolapse; I10 Essential (primary) hypertension; K21.9 Gastro-esophageal reflux disease without esophagitis; J44.9 Chronic obstructive pulmonary disease, unspecified; I25.10 Atherosclerotic heart disease of native coronary artery without angina pectoris; R33.9 Retention of urine, unspecified; Z85.07 Personal history of malignant neoplasm of pancreas; Z86.73 Personal history of transient ischemic attack (TIA), and cerebral infarction without residual deficits; Z79.899 Other long term (current) drug therapy; Z88.0 Allergy status to penicillin; Z88.2 Allergy status to sulfonamides; Z88.5 Allergy status to narcotic agent; Z88.8 Allergy status to other drugs, medicaments and biological substances; Z91.018 Allergy to other foods; Z95.5 Presence of coronary angioplasty implant and graft
CPT/HCPCS: 51702; 63047; 63048; 71045; 80048 ×2; 85025 ×2; 93970; 94640 ×9; 96365; 96366; 96375 ×2; 96376 ×3; 97110; 97116 ×2; 97139 ×5; 97530 ×2; 97535; G0378 ×5; 76000; J1100; J1170; J1642; J1956; J2250; J2370; J2405; J2550; J2704; J3010; J3370; J3490; Q0162

== ENCOUNTER 2020-12-28 13:57 | Emergency (ER) | payer MEDICARE, MEDICAID ==
[2020-12-28 15:11] LABS: #Eosinphils 0.2 thou/uL (0.0-0.7); #Lymphocytes 4.1 thou/uL (1.20-3.40); #Monocytes 1.3 thou/uL (0.11-0.59); #Neutrophils 6.3 thou/uL (1.40-6.50); %Basophils 0.4 % (0.0-1.0); %Eosinophils 1.5 % (0.0-10.0); %Lymphocytes 34.3 % (21.0-51.0); %Neutrophils 52.8 % (42.0-75.0); Hemoglobin 9.4 g/dL (12.0-16.0); Mean Corpuscular HGB CONC 32.9 g/dL (32.0-36.0); Mean Corpuscular Hemoglobin 29.6 pg (27.0-31.0); Mean Corpuscular Volume 89.8 fL (78.0-98.0); Mean Platelet Volume 5.9 fL (7.4-10.4); Platelet Count 440 thou/uL (130-400); RBC Distribution Width 12.3 % (11.5-14.5); Red Blood Cell (RBC) Count 3.19 mill/uL (4.20-5.40); White Blood Cell (WBC) Count 11.8 thou/uL (4.8-10.8)
[2020-12-28 15:32] LABS: ALT (SGPT) 8 U/L (8-55); AST (SGOT) 17 U/L (5-34); Albumin 3.3 g/dL (3.5-5.0); Alkaline Phosphatase 56 U/L (40-110); Anion Gap 16 mmol/L (10-20); BUN (Urea Nitrogen) 11 mg/dL (9.8-20.1); Bilirubin, Total 0.4 mg/dL (0.2-1.2); Calc. Creatinine Clearance 0 mL/min (70-130); Calcium 8.7 mg/dL (7.8-10.44); Carbon Dioxide 23 mmol/L (22-29); Chloride 107 mmol/L (98-107); Globulin 3.5 g/dL (2.4-3.5); Glucose 82 mg/dL (70-105); Lipase 57 U/L (8-78); Potassium 3.9 mmol/L (3.5-5.1); Protein, Total 6.8 g/dL (6.0-8.3); Sodium 142 mmol/L (136-145)
== END 2020-12-28 16:50 | disposition home or self-care (01) ==
LOC: ERS 13:57
DX: R06.02 Shortness of breath (principal); R07.9 Chest pain, unspecified; R60.0 Localized edema; K21.9 Gastro-esophageal reflux disease without esophagitis; J44.9 Chronic obstructive pulmonary disease, unspecified; I25.2 Old myocardial infarction; I11.0 Hypertensive heart disease with heart failure; I50.9 Heart failure, unspecified
CPT/HCPCS: 36415; 71045; 80053; 83690; 84484; 85025; 85379; 93005

== ENCOUNTER 2020-12-29 08:00 | Inpatient (IN) | payer MEDICARE, MEDICAID ==
[2020-12-29 09:12] LABS: #Eosinphils 0.2 thou/uL (0.0-0.7); #Lymphocytes 3.6 thou/uL (1.20-3.40); #Neutrophils 5.3 thou/uL (1.40-6.50); %Basophils 0.1 % (0.0-1.0); %Eosinophils 2.1 % (0.0-10.0); %Lymphocytes 35.3 % (21.0-51.0); %Monocytes 10.2 % (0.0-10.0); %Neutrophils 52.3 % (42.0-75.0); Hemoglobin 8.3 g/dL (12.0-16.0); Mean Corpuscular HGB CONC 32.8 g/dL (32.0-36.0); Mean Corpuscular Hemoglobin 29.9 pg (27.0-31.0); Mean Corpuscular Volume 91.1 fL (78.0-98.0); Platelet Count 444 thou/uL (130-400); RBC Distribution Width 12.4 % (11.5-14.5); Red Blood Cell (RBC) Count 2.79 mill/uL (4.20-5.40); White Blood Cell (WBC) Count 10.1 thou/uL (4.8-10.8)
[2020-12-29 09:23] LABS: CKMB 0.8 ng/mL (0-6.6)
[2020-12-29 09:33] LABS: ALT (SGPT) Less than 7 U/L (8-55); AST (SGOT) 13 U/L (5-34); Alkaline Phosphatase 53 U/L (40-110); Anion Gap 11 mmol/L (10-20); BUN (Urea Nitrogen) 11 mg/dL (9.8-20.1); Bilirubin, Total 0.3 mg/dL (0.2-1.2); Calc. Creatinine Clearance 0 mL/min (70-130); Calcium 8.9 mg/dL (7.8-10.44); Carbon Dioxide 29 mmol/L (22-29); Chloride 108 mmol/L (98-107); Globulin 3.3 g/dL (2.4-3.5); Glucose 108 mg/dL (70-105); Potassium 3.7 mmol/L (3.5-5.1); Protein, Total 6.3 g/dL (6.0-8.3); Sodium 144 mmol/L (136-145)
[2020-12-29] MEDS ORDERED: Aspirin Chewable 81 MG TAB ONE (09:47)
[2020-12-29] MEDS ORDERED: Furosemide 40 MG/4 ML VIAL ONE (10:19)
[2020-12-29] MEDS ORDERED: Acetaminophen 325 MG TAB PO PRN (11:12)
[2020-12-29] MEDS ORDERED: Senokot S 8.6-50 MG TAB PO PRN (11:12)
[2020-12-29 12:59] LABS: Troponin I Less than 0.010 ng/mL (< 0.028)
[2020-12-29 15:30] LABS: Troponin I Less than 0.010 ng/mL (< 0.028)
[2020-12-29] MEDS ORDERED: Ondansetron PF 4 MG/2 ML Vial ONE (17:55)
[2020-12-29] MEDS ORDERED: Acetaminophen 500 MG TAB ONE ×2 (17:55)
[2020-12-29] MEDS ORDERED: HYDROcodone/Acetaminophen 10/325 mg Tablet ONE (17:58)
[2020-12-29] MEDS: HYDROcodone/Acetaminophen 10/325 mg Tablet PO PRN ×2 (17:59→23:25)
[2020-12-29] MEDS: Ondansetron PF 4 MG/2 ML Vial IVP PRN (18:00)
[2020-12-29 18:03] LABS: Hemoglobin 9.6 g/dL (12.0-16.0)
[2020-12-29 20:02] LABS: SARS-CoV-2 PCR by NAA Not Detected (NotDetected)
[2020-12-29] MEDS: Mometasone 200 MCG/Formoterol 5 MCG 120 PUFF INHALER INH SCH (21:36)
[2020-12-29] MEDS: Atorvastatin Calcium 40 MG TAB PO SCH (22:01)
[2020-12-29] MEDS: Divalproex Sodium DR 500 MG TAB PO SCH (22:01)
[2020-12-29] MEDS: risperiDONE 3 MG TAB PO SCH (22:02)
[2020-12-29] MEDS: Apixaban 5 MG TAB PO SCH (22:02)
[2020-12-29 22:39] VITALS: BMI 35.2
[2020-12-29] MEDS ORDERED: Flecainide 50 MG TAB PO SCH (23:15)
[2020-12-30] MEDS: HYDROcodone/Acetaminophen 10/325 mg Tablet PO PRN ×3 (05:42→20:26)
[2020-12-30] MEDS: Mometasone 200 MCG/Formoterol 5 MCG 120 PUFF INHALER INH SCH ×2 (07:26→19:01)
[2020-12-30] MEDS: Furosemide 40 MG/4 ML VIAL SLOW IVP SCH ×3 (07:42→15:15)
[2020-12-30] MEDS: Flecainide 50 MG TAB PO SCH ×2 (08:30→20:25)
[2020-12-30] MEDS: Divalproex Sodium DR 500 MG TAB PO SCH ×2 (08:31→20:25)
[2020-12-30] MEDS: Apixaban 5 MG TAB PO SCH ×2 (08:31→20:26)
[2020-12-30] MEDS: Ondansetron PF 4 MG/2 ML Vial IVP PRN (12:52)
[2020-12-30 12:56] LABS: #Eosinphils 0.3 thou/uL (0.0-0.7); #Lymphocytes 3.7 thou/uL (1.20-3.40); #Monocytes 0.9 thou/uL (0.11-0.59); #Neutrophils 5.7 thou/uL (1.40-6.50); %Basophils 0.2 % (0.0-1.0); %Eosinophils 2.5 % (0.0-10.0); %Lymphocytes 34.7 % (21.0-51.0); %Monocytes 8.8 % (0.0-10.0); %Neutrophils 53.8 % (42.0-75.0); Hemoglobin 10.1 g/dL (12.0-16.0); Mean Corpuscular HGB CONC 32.7 g/dL (32.0-36.0); Mean Corpuscular Hemoglobin 29.8 pg (27.0-31.0); Mean Corpuscular Volume 91.2 fL (78.0-98.0); Platelet Count 484 thou/uL (130-400); RBC Distribution Width 12.9 % (11.5-14.5); Red Blood Cell (RBC) Count 3.38 mill/uL (4.20-5.40); White Blood Cell (WBC) Count 10.7 thou/uL (4.8-10.8)
[2020-12-30 13:13] LABS: ALT (SGPT) Less than 7 U/L (8-55); AST (SGOT) 16 U/L (5-34); Albumin 3.5 g/dL (3.5-5.0); Alkaline Phosphatase 59 U/L (40-110); Anion Gap 13 mmol/L (10-20); BUN (Urea Nitrogen) 13 mg/dL (9.8-20.1); Bilirubin, Total 0.4 mg/dL (0.2-1.2); Calc. Creatinine Clearance 94 mL/min (70-130); Calcium 9.3 mg/dL (7.8-10.44); Carbon Dioxide 30 mmol/L (22-29); Chloride 101 mmol/L (98-107); Globulin 3.7 g/dL (2.4-3.5); Glucose 92 mg/dL (70-105); Potassium 3.8 mmol/L (3.5-5.1); Protein, Total 7.2 g/dL (6.0-8.3); Sodium 140 mmol/L (136-145)
[2020-12-30] MEDS ORDERED: Albuterol Sulfate 1.25 MG/3 ML NEB NEB PRN (20:09)
[2020-12-30] MEDS: Atorvastatin Calcium 40 MG TAB PO SCH (20:26)
[2020-12-30] MEDS: risperiDONE 3 MG TAB PO SCH (20:26)
[2020-12-30] MEDS ORDERED: Albuterol Sulfate 1.25 MG/3 ML NEB NEB SCH (21:00)
[2020-12-31 00:36] LABS: Anion Gap 12 mmol/L (10-20); BUN (Urea Nitrogen) 16 mg/dL (9.8-20.1); Calc. Creatinine Clearance 87 mL/min (70-130); Calcium 8.8 mg/dL (7.8-10.44); Carbon Dioxide 31 mmol/L (22-29); Chloride 103 mmol/L (98-107); Glucose 101 mg/dL (70-105); Magnesium 1.8 mg/dL (1.6-2.6); Sodium 142 mmol/L (136-145)
[2020-12-31] MEDS ORDERED: Magnesium 2 GM/50 ML 2 GM in Premix Bag 1 BAG IVPB SCH (01:15)
[2020-12-31] MEDS: HYDROcodone/Acetaminophen 10/325 mg Tablet PO PRN ×2 (02:15→14:10)
[2020-12-31] MEDS: Furosemide 40 MG/4 ML VIAL SLOW IVP SCH ×2 (05:47→13:39)
[2020-12-31] MEDS: Mometasone 200 MCG/Formoterol 5 MCG 120 PUFF INHALER INH SCH ×2 (06:56→19:08)
[2020-12-31] MEDS ORDERED: Albuterol Sulfate 1.25 MG/3 ML NEB NEB SCH (07:00)
[2020-12-31] MEDS: Divalproex Sodium DR 500 MG TAB PO SCH ×2 (07:58→21:11)
[2020-12-31] MEDS: Flecainide 50 MG TAB PO SCH ×2 (07:59→21:10)
[2020-12-31] MEDS: Apixaban 5 MG TAB PO SCH ×2 (07:59→21:12)
[2020-12-31] MEDS ORDERED: Potassium Chloride 20 MEQ TAB PO SCH (08:45)
[2020-12-31] MEDS: Atorvastatin Calcium 40 MG TAB PO SCH (21:10)
[2020-12-31] MEDS: risperiDONE 3 MG TAB PO SCH (21:13)
[2021-01-01 05:50] LABS: Anion Gap 13 mmol/L (10-20); BUN (Urea Nitrogen) 16 mg/dL (9.8-20.1); Calc. Creatinine Clearance 104 mL/min (70-130); Calcium 9.5 mg/dL (7.8-10.44); Carbon Dioxide 28 mmol/L (22-29); Chloride 103 mmol/L (98-107); Glucose 90 mg/dL (70-105); Potassium 4.6 mmol/L (3.5-5.1); Sodium 139 mmol/L (136-145)
[2021-01-01] MEDS: HYDROcodone/Acetaminophen 10/325 mg Tablet PO PRN ×3 (05:51→20:20)
[2021-01-01] MEDS: Furosemide 40 MG/4 ML VIAL SLOW IVP SCH ×2 (05:53→13:18)
[2021-01-01] MEDS: Mometasone 200 MCG/Formoterol 5 MCG 120 PUFF INHALER INH SCH ×2 (07:49→19:18)
[2021-01-01] MEDS: Divalproex Sodium DR 500 MG TAB PO SCH ×2 (09:09→20:23)
[2021-01-01] MEDS: Flecainide 50 MG TAB PO SCH ×2 (09:10→20:24)
[2021-01-01] MEDS: Apixaban 5 MG TAB PO SCH ×2 (09:10→20:24)
[2021-01-01] MEDS ORDERED: Furosemide 20 MG TAB PO SCH (14:00)
[2021-01-01] MEDS ORDERED: Furosemide 40 MG TAB PO SCH (14:00)
[2021-01-01] MEDS: risperiDONE 3 MG TAB PO SCH (20:24)
[2021-01-01] MEDS: Atorvastatin Calcium 40 MG TAB PO SCH (20:24)
[2021-01-01] MEDS: tiZANidine HCl 4 MG TAB PO PRN (21:35)
[2021-01-02] MEDS: HYDROcodone/Acetaminophen 10/325 mg Tablet PO PRN (02:40)
[2021-01-02 05:47] LABS: Anion Gap 17 mmol/L (10-20); BUN (Urea Nitrogen) 31 mg/dL (9.8-20.1); Calc. Creatinine Clearance 48 mL/min (70-130); Calcium 9.8 mg/dL (7.8-10.44); Carbon Dioxide 27 mmol/L (22-29); Chloride 99 mmol/L (98-107); Glucose 109 mg/dL (70-105); Potassium 4.3 mmol/L (3.5-5.1); Sodium 139 mmol/L (136-145)
[2021-01-02] MEDS ORDERED: Furosemide 40 MG TAB PO SCH (06:00)
[2021-01-02] MEDS: Mometasone 200 MCG/Formoterol 5 MCG 120 PUFF INHALER INH SCH ×2 (06:40→19:18)
[2021-01-02] MEDS ORDERED: Sodium Chloride 0.9% 1,000 ML IV SCH (07:15)
[2021-01-02] MEDS: Divalproex Sodium DR 500 MG TAB PO SCH ×2 (08:27→20:37)
[2021-01-02] MEDS: Flecainide 50 MG TAB PO SCH ×2 (08:27→20:37)
[2021-01-02] MEDS: Apixaban 5 MG TAB PO SCH ×2 (08:28→20:36)
[2021-01-02] MEDS: Albumin 25% 25 GM/100 ML BOT IVPB SCH ×2 (13:29→22:59)
[2021-01-02 14:02] LABS: Bacteria/HPF None Seen HPF (None Seen); Bilirubin Negative (Negative); Blood, Urine 2+ (Negative); Clarity Clear (Clear); Glucose, Urine (Dipstick) Normal (Negative); Ketone, Urine Negative (Negative); Leukocyte Negative Leu/uL (Negative); Nitrite Negative (Negative); Protein, Urine (Dipstick) Negative (Neg-Trace); RBC/HPF Greater than 50 HPF (0-3); Specific Gravity, Urine 1.019 (1.002-1.036); Squamous Epithelial 0-3 HPF (0-3); WBC/HPF 0-3 HPF (0-3)
[2021-01-02] MEDS: Atorvastatin Calcium 40 MG TAB PO SCH (20:36)
[2021-01-02] MEDS: tiZANidine HCl 4 MG TAB PO PRN (20:37)
[2021-01-02] MEDS: risperiDONE 3 MG TAB PO SCH (22:59)
[2021-01-03 00:35] LABS: #Eosinphils 0.2 thou/uL (0.0-0.7); #Lymphocytes 3.5 thou/uL (1.20-3.40); #Monocytes 1.4 thou/uL (0.11-0.59); #Neutrophils 6.3 thou/uL (1.40-6.50); %Basophils 0.4 % (0.0-1.0); %Eosinophils 2.2 % (0.0-10.0); %Lymphocytes 30.7 % (21.0-51.0); %Monocytes 11.8 % (0.0-10.0); %Neutrophils 54.9 % (42.0-75.0); Hemoglobin 10.8 g/dL (12.0-16.0); Mean Corpuscular HGB CONC 33.4 g/dL (32.0-36.0); Mean Corpuscular Volume 89.7 fL (78.0-98.0); Mean Platelet Volume 6.2 fL (7.4-10.4); Platelet Count 483 thou/uL (130-400); RBC Distribution Width 12.9 % (11.5-14.5); Red Blood Cell (RBC) Count 3.61 mill/uL (4.20-5.40); White Blood Cell (WBC) Count 11.4 thou/uL (4.8-10.8)
[2021-01-03 00:48] LABS: Lactic Acid 1.7 mmol/L (0.5-2.2)
[2021-01-03 00:51] LABS: Anion Gap 17 mmol/L (10-20); BUN (Urea Nitrogen) 32 mg/dL (9.8-20.1); Calc. Creatinine Clearance 66 mL/min (70-130); Calcium 9.6 mg/dL (7.8-10.44); Carbon Dioxide 25 mmol/L (22-29); Chloride 98 mmol/L (98-107); Glucose 120 mg/dL (70-105); Potassium 4.5 mmol/L (3.5-5.1); Sodium 135 mmol/L (136-145)
[2021-01-03 00:58] LABS: Troponin I Less than 0.010 ng/mL (< 0.028)
[2021-01-03] MEDS: Albumin 25% 25 GM/100 ML BOT IVPB SCH (04:56)
[2021-01-03 05:29] LABS: #Basophils 0.1 thou/uL (0.0-0.2); #Eosinphils 0.3 thou/uL (0.0-0.7); #Lymphocytes 4.4 thou/uL (1.20-3.40); #Monocytes 1.3 thou/uL (0.11-0.59); #Neutrophils 6.1 thou/uL (1.40-6.50); %Basophils 0.8 % (0.0-1.0); %Eosinophils 2.3 % (0.0-10.0); %Lymphocytes 36.1 % (21.0-51.0); %Monocytes 10.6 % (0.0-10.0); %Neutrophils 50.2 % (42.0-75.0); Mean Corpuscular HGB CONC 32.6 g/dL (32.0-36.0); Mean Corpuscular Hemoglobin 29.4 pg (27.0-31.0); Mean Corpuscular Volume 90.2 fL (78.0-98.0); Mean Platelet Volume 6.4 fL (7.4-10.4); Platelet Count 518 thou/uL (130-400); RBC Distribution Width 12.7 % (11.5-14.5); Red Blood Cell (RBC) Count 3.73 mill/uL (4.20-5.40); White Blood Cell (WBC) Count 12.1 thou/uL (4.8-10.8)
[2021-01-03 05:40] LABS: Anion Gap 16 mmol/L (10-20); BUN (Urea Nitrogen) 31 mg/dL (9.8-20.1); Calc. Creatinine Clearance 78 mL/min (70-130); Calcium 9.9 mg/dL (7.8-10.44); Carbon Dioxide 23 mmol/L (22-29); Chloride 101 mmol/L (98-107); Glucose 105 mg/dL (70-105); Sodium 135 mmol/L (136-145)
[2021-01-03] MEDS: Mometasone 200 MCG/Formoterol 5 MCG 120 PUFF INHALER INH SCH (07:09)
[2021-01-03] MEDS: Divalproex Sodium DR 500 MG TAB PO SCH (08:17)
[2021-01-03] MEDS: Flecainide 50 MG TAB PO SCH (08:17)
[2021-01-03] MEDS: Apixaban 5 MG TAB PO SCH (08:18)
[2021-01-03 09:12] VITALS: TEMP 98.5
[2021-01-03 12:52] VITALS: BP 119/70
[2021-01-04] MEDS ORDERED: Furosemide 40 MG TAB PO SCH (09:00)
== END 2021-01-03 15:00 | disposition home or self-care (01) | DRG 291 ==
LOC: ERS 08:00 → ERHOLD 10:21 → 2SW 20:39 → OBSVTOIN 12-30 19:44
PROVIDERS: ADMIT Internal Medicine; ATTEND Internal Medicine
DX: I13.0 Hypertensive heart and chronic kidney disease with heart failure and stage 1 through stage 4 chronic kidney disease, or unspecified chronic kidney disease (principal); I50.33 Acute on chronic diastolic (congestive) heart failure; N17.9 Acute kidney failure, unspecified; E87.1 Hypo-osmolality and hyponatremia; N18.2 Chronic kidney disease, stage 2 (mild); I48.0 Paroxysmal atrial fibrillation; Z20.822 Contact with and (suspected) exposure to COVID-19; K21.9 Gastro-esophageal reflux disease without esophagitis; E83.42 Hypomagnesemia; E87.6 Hypokalemia; E66.9 Obesity, unspecified; D53.9 Nutritional anemia, unspecified; F20.9 Schizophrenia, unspecified; F31.9 Bipolar disorder, unspecified; M19.90 Unspecified osteoarthritis, unspecified site; Z96.653 Presence of artificial knee joint, bilateral; D63.1 Anemia in chronic kidney disease; J44.9 Chronic obstructive pulmonary disease, unspecified; Z68.35 Body mass index [BMI] 35.0-35.9, adult; Z88.0 Allergy status to penicillin; Z88.2 Allergy status to sulfonamides; Z88.8 Allergy status to other drugs, medicaments and biological substances; Z91.018 Allergy to other foods; Z79.899 Other long term (current) drug therapy; Z79.51 Long term (current) use of inhaled steroids; Z90.49 Acquired absence of other specified parts of digestive tract; Z95.5 Presence of coronary angioplasty implant and graft; Z86.73 Personal history of transient ischemic attack (TIA), and cerebral infarction without residual deficits; Z85.07 Personal history of malignant neoplasm of pancreas; Z92.21 Personal history of antineoplastic chemotherapy; Z92.3 Personal history of irradiation; Z90.710 Acquired absence of both cervix and uterus; Z98.890 Other specified postprocedural states
CPT/HCPCS: 36415; 36416; 71045; 80048; 80053; 81001; 82553; 83605; 83690; 83735; 83880; 84484; 85025; 85379; 87635; 93005; 93010; 93306; 94640; 96374; 96375; 96376; G0378; J1940; J2405; J3475; P9047; U0003; U0005

== ENCOUNTER 2021-01-04 20:38 | Inpatient (IN) | payer MEDICARE, MEDICAID ==
[2021-01-04 21:30] LABS: #Eosinphils 0.2 thou/uL (0.0-0.7); #Lymphocytes 4.3 thou/uL (1.20-3.40); #Monocytes 1.3 thou/uL (0.11-0.59); #Neutrophils 5.6 thou/uL (1.40-6.50); %Basophils 0.3 % (0.0-1.0); %Eosinophils 1.5 % (0.0-10.0); %Lymphocytes 37.8 % (21.0-51.0); %Monocytes 11.1 % (0.0-10.0); %Neutrophils 49.3 % (42.0-75.0); Hemoglobin 10.4 g/dL (12.0-16.0); Mean Corpuscular HGB CONC 32.5 g/dL (32.0-36.0); Mean Corpuscular Hemoglobin 28.9 pg (27.0-31.0); Mean Corpuscular Volume 89.1 fL (78.0-98.0); Mean Platelet Volume 6.5 fL (7.4-10.4); Platelet Count 445 thou/uL (130-400); RBC Distribution Width 12.6 % (11.5-14.5); Red Blood Cell (RBC) Count 3.61 mill/uL (4.20-5.40); White Blood Cell (WBC) Count 11.4 thou/uL (4.8-10.8)
[2021-01-04 21:57] LABS: ALT (SGPT) Less than 7 U/L (8-55); AST (SGOT) 15 U/L (5-34); Albumin 4.1 g/dL (3.5-5.0); Alkaline Phosphatase 65 U/L (40-110); Anion Gap 19 mmol/L (10-20); BUN (Urea Nitrogen) 44 mg/dL (9.8-20.1); Bilirubin, Total 0.6 mg/dL (0.2-1.2); Calc. Creatinine Clearance 0 mL/min (70-130); Calcium 9.4 mg/dL (7.8-10.44); Carbon Dioxide 20 mmol/L (22-29); Chloride 100 mmol/L (98-107); Globulin 3.9 g/dL (2.4-3.5); Glucose 90 mg/dL (70-105); Potassium 4.2 mmol/L (3.5-5.1); Sodium 135 mmol/L (136-145)
[2021-01-04 23:35] LABS: Bacteria/HPF None Seen HPF (None Seen); Bilirubin Negative (Negative); Blood, Urine Trace (Negative); Clarity Clear (Clear); Glucose, Urine (Dipstick) Normal (Negative); Ketone, Urine Negative (Negative); Leukocyte 25 Leu/uL (Negative); Nitrite Negative (Negative); Protein, Urine (Dipstick) Negative (Neg-Trace); RBC/HPF 0-3 HPF (0-3); Specific Gravity, Urine 1.009 (1.002-1.036); Squamous Epithelial 0-3 HPF (0-3); Urobilinogen Normal mg/dL (Less than 2); WBC/HPF 0-3 HPF (0-3)
[2021-01-05 00:57] VITALS: BMI 34.4
[2021-01-05] MEDS ORDERED: Sodium Chloride 0.9% 1,000 ML IV SCH (01:15)
[2021-01-05 01:42] LABS: Troponin I Less than 0.010 ng/mL (< 0.028)
[2021-01-05] MEDS ORDERED: Nitroglycerin 0.4 MG TAB (25 Tab Bottle) SL PRN (01:56)
[2021-01-05] MEDS ORDERED: tiZANidine HCl 4 MG TAB PO PRN (02:06)
[2021-01-05] MEDS ORDERED: Albuterol Sulfate 2.5 mg/3 ml Neb NEB PRN (02:31)
[2021-01-05 03:06] LABS: SARS-CoV-2 NAA Rapid Test Not Detected (NotDetected)
[2021-01-05 04:20] LABS: Troponin I Less than 0.010 ng/mL (< 0.028)
[2021-01-05] MEDS ORDERED: Mometasone 200 MCG/Formoterol 5 MCG 120 PUFF INHALER INH SCH (06:30)
[2021-01-05] MEDS: Albuterol Sulfate 1.25 MG/3 ML NEB NEB SCH ×4 (07:38→19:32)
[2021-01-05] MEDS: Divalproex Sodium DR 500 MG TAB PO SCH (08:00)
[2021-01-05] MEDS: HYDROcodone/Acetaminophen 10/325 mg Tablet PO PRN ×3 (08:00→20:04)
[2021-01-05] MEDS: Flecainide 50 MG TAB PO SCH ×2 (08:00→20:05)
[2021-01-05] MEDS: Lubiprostone 8 MCG CAP PO SCH (08:01)
[2021-01-05] MEDS ORDERED: Calcium Carbonate 500 MG ChewTAB PO PRN (08:06)
[2021-01-05] MEDS ORDERED: Loratadine 10 MG TAB PO PRN (08:06)
[2021-01-05] MEDS ORDERED: GUAIFENESIN SF SOLN 200 MG/10 ML UDCUP PO PRN (08:06)
[2021-01-05] MEDS ORDERED: hydrALAZINE 20 MG/ML VIAL SLOW IVP PRN (08:06)
[2021-01-05] MEDS ORDERED: Sodium Chloride 0.65% Nasal 44 ML BOT EA NARE PRN (08:06)
[2021-01-05] MEDS ORDERED: Loperamide HCl 2 MG CAP PO PRN (08:06)
[2021-01-05] MEDS ORDERED: Cepastat Lozenges 1 LOZ PO PRN (08:06)
[2021-01-05] MEDS ORDERED: Bisacodyl 5 MG TAB PO PRN (08:06)
[2021-01-05] MEDS ORDERED: Senokot S 8.6-50 MG TAB PO PRN (08:06)
[2021-01-05] MEDS ORDERED: Melatonin 3 MG TAB PO PRN (08:07)
[2021-01-05] MEDS: Sodium Chloride 0.9% 1,000 ML IV SCH ×2 (08:29→23:52)
[2021-01-05] MEDS ORDERED: Ferrous Sulfate 325 MG TAB PO SCH (09:00)
[2021-01-05] MEDS: Mometasone 200 MCG/Formoterol 5 MCG 120 PUFF INHALER INH SCH (19:30)
[2021-01-05] MEDS: Atorvastatin Calcium 40 MG TAB PO SCH (20:03)
[2021-01-05] MEDS: Montelukast Sodium 10 mg Tablet PO SCH (20:04)
[2021-01-05] MEDS ORDERED: Divalproex Sodium DR 500 MG TAB PO SCH (21:00)
[2021-01-05] MEDS ORDERED: risperiDONE 3 MG TAB PO SCH (21:00)
[2021-01-05] MEDS ORDERED: Cyclobenzaprine 10 MG TAB PO PRN (23:56)
[2021-01-06] MEDS: HYDROcodone/Acetaminophen 10/325 mg Tablet PO PRN ×2 (05:11→20:27)
[2021-01-06 05:39] LABS: Hemoglobin 9.3 g/dL (12.0-16.0); Mean Corpuscular HGB CONC 32.3 g/dL (32.0-36.0); Mean Corpuscular Hemoglobin 29.3 pg (27.0-31.0); Mean Corpuscular Volume 90.6 fL (78.0-98.0); Mean Platelet Volume 6.7 fL (7.4-10.4); Platelet Count 353 thou/uL (130-400); RBC Distribution Width 12.6 % (11.5-14.5); Red Blood Cell (RBC) Count 3.17 mill/uL (4.20-5.40); White Blood Cell (WBC) Count 8.9 thou/uL (4.8-10.8)
[2021-01-06 05:56] LABS: Eosinophils 6 % (0-10); Lymphocytes 52 % (21-51); MDiff Complete? YES; Monocytes 11 % (0-10); Neutrophil 31 % (42-75); Platelet Morphology Comment Appears Adequate
[2021-01-06 05:58] LABS: ALT (SGPT) Less than 7 U/L (8-55); AST (SGOT) 17 U/L (5-34); Albumin 3.4 g/dL (3.5-5.0); Alkaline Phosphatase 50 U/L (40-110); Anion Gap 13 mmol/L (10-20); BUN (Urea Nitrogen) 29 mg/dL (9.8-20.1); Bilirubin, Total 0.5 mg/dL (0.2-1.2); Calc. Creatinine Clearance 96 mL/min (70-130); Calcium 8.8 mg/dL (7.8-10.44); Carbon Dioxide 23 mmol/L (22-29); Chloride 107 mmol/L (98-107); Globulin 3.2 g/dL (2.4-3.5); Glucose 88 mg/dL (70-105); Magnesium 2.1 mg/dL (1.6-2.6); Phosphorus 4.2 mg/dL (2.3-4.7); Potassium 4.8 mmol/L (3.5-5.1); Protein, Total 6.6 g/dL (6.0-8.3); Sodium 138 mmol/L (136-145)
[2021-01-06] MEDS: Albuterol Sulfate 1.25 MG/3 ML NEB NEB SCH ×4 (07:49→19:01)
[2021-01-06] MEDS: Mometasone 200 MCG/Formoterol 5 MCG 120 PUFF INHALER INH SCH ×2 (07:49→18:58)
[2021-01-06] MEDS: Flecainide 50 MG TAB PO SCH ×2 (09:09→20:28)
[2021-01-06] MEDS: Divalproex Sodium DR 500 MG TAB PO SCH (09:09)
[2021-01-06] MEDS: Ferrous Sulfate 325 MG TAB PO SCH (09:09)
[2021-01-06] MEDS: Lubiprostone 8 MCG CAP PO SCH (09:43)
[2021-01-06] MEDS ORDERED: Aspirin Chewable 81 MG TAB PO SCH (10:45)
[2021-01-06] MEDS: Montelukast Sodium 10 mg Tablet PO SCH (20:28)
[2021-01-06] MEDS: Atorvastatin Calcium 40 MG TAB PO SCH (20:28)
[2021-01-07 05:11] LABS: Anion Gap 11 mmol/L (10-20); BUN (Urea Nitrogen) 18 mg/dL (9.8-20.1); Calc. Creatinine Clearance 111 mL/min (70-130); Carbon Dioxide 24 mmol/L (22-29); Chloride 108 mmol/L (98-107); Glucose 90 mg/dL (70-105); Potassium 5.1 mmol/L (3.5-5.1); Sodium 138 mmol/L (136-145)
[2021-01-07] MEDS: HYDROcodone/Acetaminophen 10/325 mg Tablet PO PRN ×2 (06:15→14:52)
[2021-01-07 06:29] LABS: Band 1 % (5-11); Eosinophils 5 % (0-10); Hemoglobin 9.5 g/dL (12.0-16.0); Hypochromia SLIGHT = 6-15 cells (100X) (0-5/hpf); Lymphocytes 55 % (21-51); MDiff Complete? YES; Mean Corpuscular HGB CONC 31.5 g/dL (32.0-36.0); Mean Corpuscular Hemoglobin 28.9 pg (27.0-31.0); Mean Corpuscular Volume 91.7 fL (78.0-98.0); Mean Platelet Volume 7.8 fL (7.4-10.4); Monocytes 5 % (0-10); Neutrophil 30 % (42-75); Platelet Count 261 thou/uL (130-400); Platelet Morphology Comment Appears Adequate; RBC Distribution Width 12.4 % (11.5-14.5); Reactive Lymphocytes 4 % (0-10); Red Blood Cell (RBC) Count 3.27 mill/uL (4.20-5.40); White Blood Cell (WBC) Count 8.8 thou/uL (4.8-10.8)
[2021-01-07] MEDS: Mometasone 200 MCG/Formoterol 5 MCG 120 PUFF INHALER INH SCH ×2 (07:27→19:27)
[2021-01-07] MEDS: Albuterol Sulfate 1.25 MG/3 ML NEB NEB SCH ×4 (07:28→19:29)
[2021-01-07] MEDS: Ferrous Sulfate 325 MG TAB PO SCH (10:22)
[2021-01-07] MEDS: Flecainide 50 MG TAB PO SCH ×2 (10:22→20:11)
[2021-01-07] MEDS: Aspirin Chewable 81 MG TAB PO SCH (10:22)
[2021-01-07] MEDS: Divalproex Sodium DR 500 MG TAB PO SCH (10:22)
[2021-01-07] MEDS: Lubiprostone 8 MCG CAP PO SCH (10:22)
[2021-01-07] MEDS: Montelukast Sodium 10 mg Tablet PO SCH (20:10)
[2021-01-07] MEDS: Atorvastatin Calcium 40 MG TAB PO SCH (20:10)
[2021-01-08 05:46] LABS: Hemoglobin A1c 5.3 % (4.0-6.0)
[2021-01-08 06:00] LABS: Cardiac Risk 2.2 (Less than 4.5)
[2021-01-08] MEDS: Albuterol Sulfate 1.25 MG/3 ML NEB NEB SCH ×4 (07:44→18:54)
[2021-01-08] MEDS: Mometasone 200 MCG/Formoterol 5 MCG 120 PUFF INHALER INH SCH ×2 (07:44→18:52)
[2021-01-08] MEDS: Aspirin Chewable 81 MG TAB PO SCH (08:46)
[2021-01-08] MEDS: Ferrous Sulfate 325 MG TAB PO SCH (08:46)
[2021-01-08] MEDS: HYDROcodone/Acetaminophen 10/325 mg Tablet PO PRN ×2 (08:47→20:20)
[2021-01-08] MEDS: Divalproex Sodium DR 500 MG TAB PO SCH (08:47)
[2021-01-08] MEDS: Flecainide 50 MG TAB PO SCH ×2 (08:47→20:21)
[2021-01-08] MEDS: Lubiprostone 8 MCG CAP PO SCH (08:47)
[2021-01-08] MEDS ORDERED: Ketorolac Tromethamine 30 MG/ML VIAL IVP PRN (11:59)
[2021-01-08 18:13] LABS: Bacteria/HPF None Seen HPF (None Seen); Bilirubin Negative (Negative); Blood, Urine Negative (Negative); Clarity Clear (Clear); Glucose, Urine (Dipstick) Normal (Negative); Ketone, Urine Negative (Negative); Leukocyte 250 Leu/uL (Negative); Nitrite Negative (Negative); Protein, Urine (Dipstick) Negative (Neg-Trace); RBC/HPF 0-3 HPF (0-3); Specific Gravity, Urine 1.014 (1.002-1.036); Squamous Epithelial 0-3 HPF (0-3); WBC/HPF 0-3 HPF (0-3); pH, Urine 6.5 (5.0-9.0)
[2021-01-08] MEDS: Montelukast Sodium 10 mg Tablet PO SCH (20:21)
[2021-01-08] MEDS: Atorvastatin Calcium 40 MG TAB PO SCH (20:21)
[2021-01-09] MEDS: HYDROcodone/Acetaminophen 10/325 mg Tablet PO PRN ×2 (01:12→12:02)
[2021-01-09] MEDS: Albuterol Sulfate 1.25 MG/3 ML NEB NEB SCH ×2 (06:40→11:15)
[2021-01-09] MEDS: Mometasone 200 MCG/Formoterol 5 MCG 120 PUFF INHALER INH SCH (06:40)
[2021-01-09] MEDS: Divalproex Sodium DR 500 MG TAB PO SCH (09:27)
[2021-01-09] MEDS: Aspirin Chewable 81 MG TAB PO SCH (09:27)
[2021-01-09] MEDS: Flecainide 50 MG TAB PO SCH (09:28)
[2021-01-09] MEDS: Ferrous Sulfate 325 MG TAB PO SCH (09:28)
[2021-01-09] MEDS: Lubiprostone 8 MCG CAP PO SCH (09:28)
[2021-01-09 10:20] VITALS: TEMP 98.1
[2021-01-09 12:34] VITALS: BP 164/91
== END 2021-01-09 13:01 | disposition home or self-care (01) | DRG 683 ==
LOC: ERS 20:38 → 2SW 23:55 → OBSVTOIN 01-05 10:35 → 2NO 01-08 17:16
PROVIDERS: ADMIT Student in an Organized Health Care Education/Training Program; ATTEND Internal Medicine
DX: N17.9 Acute kidney failure, unspecified (principal); I50.22 Chronic systolic (congestive) heart failure; I13.0 Hypertensive heart and chronic kidney disease with heart failure and stage 1 through stage 4 chronic kidney disease, or unspecified chronic kidney disease; I48.20 Chronic atrial fibrillation, unspecified; G45.9 Transient cerebral ischemic attack, unspecified; G81.91 Hemiplegia, unspecified affecting right dominant side; Z20.822 Contact with and (suspected) exposure to COVID-19; K21.9 Gastro-esophageal reflux disease without esophagitis; J44.9 Chronic obstructive pulmonary disease, unspecified; I25.10 Atherosclerotic heart disease of native coronary artery without angina pectoris; E66.9 Obesity, unspecified; N18.30 Chronic kidney disease, stage 3 unspecified; D63.1 Anemia in chronic kidney disease; F20.9 Schizophrenia, unspecified; F41.9 Anxiety disorder, unspecified; R31.9 Hematuria, unspecified; Z88.2 Allergy status to sulfonamides; Z88.1 Allergy status to other antibiotic agents; Z88.8 Allergy status to other drugs, medicaments and biological substances; Z88.5 Allergy status to narcotic agent; Z79.51 Long term (current) use of inhaled steroids; Z79.899 Other long term (current) drug therapy; I25.2 Old myocardial infarction; Z90.49 Acquired absence of other specified parts of digestive tract; Z86.73 Personal history of transient ischemic attack (TIA), and cerebral infarction without residual deficits; Z98.890 Other specified postprocedural states; Z86.711 Personal history of pulmonary embolism; Z91.14 Patient's other noncompliance with medication regimen; Z68.33 Body mass index [BMI] 33.0-33.9, adult; Z88.0 Allergy status to penicillin; Z79.01 Long term (current) use of anticoagulants
CPT/HCPCS: 36415; 36416; 51701; 70450; 70551; 71045; 76770; 80048; 80053; 80061; 81001; 81003; 81015; 82274; 83036; 83735; 83880; 84100; 84484; 85025; 87086; 93005; 93010; 93306; 93880; 94640; 94760; G0378; J1642; J1885; J7611; J7620; U0002; U0005

== ENCOUNTER 2021-01-11 11:18 | Emergency (ER) | payer MEDICARE, MEDICAID ==
[2021-01-11 12:05] LABS: Hemoglobin 10.7 g/dL (12.0-16.0); Mean Corpuscular HGB CONC 32.4 g/dL (32.0-36.0); Mean Corpuscular Hemoglobin 29.2 pg (27.0-31.0); Mean Platelet Volume 8.1 fL (7.4-10.4); Platelet Count 252 thou/uL (130-400); RBC Distribution Width 12.7 % (11.5-14.5); Red Blood Cell (RBC) Count 3.67 mill/uL (4.20-5.40); White Blood Cell (WBC) Count 10.1 thou/uL (4.8-10.8)
[2021-01-11 12:23] LABS: Band 7 % (5-11); Burr Cells SLIGHT = 2-5 cells (100X) (0-1/hpf); Eosinophils 1 % (0-10); Lymphocytes 30 % (21-51); MDiff Complete? YES; Monocytes 8 % (0-10); Neutrophil 50 % (42-75); Platelet Morphology Comment Appears Adequate; Polychromasia SLIGHT = 2-3 cells (100X) (0-2/hpf); Reactive Lymphocytes 3 % (0-10); Target Cells SLIGHT = 2-5 cells (100X) (0-1/hpf)
[2021-01-11 12:24] LABS: ALT (SGPT) Less than 7 U/L (8-55); AST (SGOT) 16 U/L (5-34); Albumin 4.1 g/dL (3.5-5.0); Alkaline Phosphatase 71 U/L (40-110); Anion Gap 17 mmol/L (10-20); BUN (Urea Nitrogen) 14 mg/dL (9.8-20.1); Bilirubin, Total 0.5 mg/dL (0.2-1.2); Calc. Creatinine Clearance 0 mL/min (70-130); Calcium 9.3 mg/dL (7.8-10.44); Carbon Dioxide 19 mmol/L (22-29); Chloride 109 mmol/L (98-107); Globulin 3.3 g/dL (2.4-3.5); Glucose 92 mg/dL (70-105); Potassium 5.1 mmol/L (3.5-5.1); Protein, Total 7.4 g/dL (6.0-8.3); Sodium 140 mmol/L (136-145)
== END 2021-01-11 12:43 | disposition home or self-care (01) ==
LOC: ERS 11:18
DX: R00.0 Tachycardia, unspecified (principal); K21.9 Gastro-esophageal reflux disease without esophagitis; Z86.73 Personal history of transient ischemic attack (TIA), and cerebral infarction without residual deficits; I11.0 Hypertensive heart disease with heart failure; I50.9 Heart failure, unspecified; J44.9 Chronic obstructive pulmonary disease, unspecified; Z79.01 Long term (current) use of anticoagulants; Z79.899 Other long term (current) drug therapy
CPT/HCPCS: 36415; 80053; 84484; 85025; 93005

== ENCOUNTER 2021-01-13 16:29 | Emergency (ER) | payer MEDICARE, MEDICAID ==
[2021-01-13 17:07] LABS: Hemoglobin 9.9 g/dL (12.0-16.0); Mean Corpuscular HGB CONC 32.6 g/dL (32.0-36.0); Mean Corpuscular Hemoglobin 29.2 pg (27.0-31.0); Mean Corpuscular Volume 89.7 fL (78.0-98.0); Mean Platelet Volume 7.1 fL (7.4-10.4); Platelet Count 284 thou/uL (130-400); RBC Distribution Width 12.6 % (11.5-14.5); Red Blood Cell (RBC) Count 3.39 mill/uL (4.20-5.40); White Blood Cell (WBC) Count 10.9 thou/uL (4.8-10.8)
[2021-01-13 17:26] LABS: Band 1 % (5-11); Eosinophils 3 % (0-10); Lymphocytes 33 % (21-51); MDiff Complete? YES; Monocytes 10 % (0-10); Neutrophil 33 % (42-75); Platelet Morphology Comment Appears Adequate; Polychromasia SLIGHT = 2-3 cells (100X) (0-2/hpf); Reactive Lymphocytes 20 % (0-10); Tear Drops SLIGHT = 2-5 cells (100X) (0-1/hpf)
[2021-01-13 17:36] LABS: Anion Gap 13 mmol/L (10-20); BUN (Urea Nitrogen) 11 mg/dL (9.8-20.1); Calc. Creatinine Clearance 0 mL/min (70-130); Calcium 9.2 mg/dL (7.8-10.44); Carbon Dioxide 23 mmol/L (22-29); Chloride 106 mmol/L (98-107); Glucose 83 mg/dL (70-105); Potassium 3.9 mmol/L (3.5-5.1); Sodium 138 mmol/L (136-145)
[2021-01-13 18:13] LABS: Bilirubin Negative (Negative); Blood, Urine Trace (Negative); Glucose, Urine (Dipstick) Negative (Negative); Ketone, Urine Negative (Negative); Leukocyte Negative (Negative); Nitrite Negative (Negative); Protein, Urine (Dipstick) Negative (Neg-Trace); Urobilinogen 0.2 mg/dL (Less than 2)
[2021-01-13 18:15] LABS: Bacteria/HPF None Seen HPF (None Seen); Clarity Clear (Clear); RBC/HPF 0-3 HPF (0-3); Specific Gravity, Urine 1.005 (1.002-1.036); Squamous Epithelial 0-3 HPF (0-3); WBC/HPF 0-3 HPF (0-3)
== END 2021-01-13 23:14 | disposition home or self-care (01) ==
LOC: ERS 16:29
DX: R55 Syncope and collapse (principal); K21.9 Gastro-esophageal reflux disease without esophagitis; J44.9 Chronic obstructive pulmonary disease, unspecified; I20.9 Angina pectoris, unspecified; I11.0 Hypertensive heart disease with heart failure; I50.9 Heart failure, unspecified; I48.91 Unspecified atrial fibrillation; Z86.73 Personal history of transient ischemic attack (TIA), and cerebral infarction without residual deficits; Z85.07 Personal history of malignant neoplasm of pancreas; Z79.01 Long term (current) use of anticoagulants; Z79.899 Other long term (current) drug therapy
CPT/HCPCS: 36415; 71046; 80048; 81003; 84484; 85025; 93005

== ENCOUNTER 2021-01-15 14:05 | Emergency (ER) | payer MEDICARE, MEDICAID ==
[2021-01-15 16:15] LABS: Hemoglobin 10.3 g/dL (12.0-16.0); Mean Corpuscular Hemoglobin 29.9 pg (27.0-31.0); Mean Corpuscular Volume 90.7 fL (78.0-98.0); Mean Platelet Volume 7.5 fL (7.4-10.4); Platelet Count 247 thou/uL (130-400); RBC Distribution Width 12.9 % (11.5-14.5); Red Blood Cell (RBC) Count 3.44 mill/uL (4.20-5.40)
[2021-01-15 16:23] LABS: AST (SGOT) 10 U/L (5-34); Albumin 3.7 g/dL (3.5-5.0); Anion Gap 13 mmol/L (10-20); BUN (Urea Nitrogen) 15 mg/dL (9.8-20.1); Bilirubin, Total 0.4 mg/dL (0.2-1.2); Calc. Creatinine Clearance 0 mL/min (70-130); Calcium 9.1 mg/dL (7.8-10.44); Carbon Dioxide 20 mmol/L (22-29); Chloride 109 mmol/L (98-107); Globulin 3.4 g/dL (2.4-3.5); Glucose 88 mg/dL (70-105); Potassium 4.4 mmol/L (3.5-5.1); Protein, Total 7.1 g/dL (6.0-8.3); Sodium 138 mmol/L (136-145)
[2021-01-15 16:24] LABS: Alkaline Phosphatase 67 U/L (40-110)
[2021-01-15 16:36] LABS: ALT (SGPT) Less than 7 U/L (8-55)
[2021-01-15 16:38] LABS: Band 2 % (5-11); Eosinophils 1 % (0-10); Lymphocytes 55 % (21-51); MDiff Complete? YES; Monocytes 6 % (0-10); Neutrophil 36 % (42-75); Platelet Morphology Comment Appears Adequate; RBC Morphology Normal
== END 2021-01-15 17:47 | disposition home or self-care (01) ==
LOC: ERS 14:05
DX: I95.9 Hypotension, unspecified (principal); J44.9 Chronic obstructive pulmonary disease, unspecified; I11.0 Hypertensive heart disease with heart failure; I50.9 Heart failure, unspecified; K21.9 Gastro-esophageal reflux disease without esophagitis; I48.91 Unspecified atrial fibrillation; I25.2 Old myocardial infarction; Z86.73 Personal history of transient ischemic attack (TIA), and cerebral infarction without residual deficits
CPT/HCPCS: 36415; 71045; 80053; 84484; 85025; 93005; J1642

== ENCOUNTER 2021-01-16 13:21 | Emergency (ER) | payer MEDICARE, MEDICAID ==
[2021-01-16 14:41] LABS: #Basophils 0.2 thou/uL (0.0-0.2); #Eosinphils 0.2 thou/uL (0.0-0.7); #Lymphocytes 4.2 thou/uL (1.20-3.40); #Monocytes 0.6 thou/uL (0.11-0.59); #Neutrophils 4.2 thou/uL (1.40-6.50); %Basophils 1.7 % (0.0-1.0); %Eosinophils 2.3 % (0.0-10.0); %Lymphocytes 44.4 % (21.0-51.0); %Monocytes 6.9 % (0.0-10.0); %Neutrophils 44.8 % (42.0-75.0); Hemoglobin 9.8 g/dL (12.0-16.0); Mean Corpuscular HGB CONC 31.2 g/dL (32.0-36.0); Mean Corpuscular Volume 92.7 fL (78.0-98.0); Mean Platelet Volume 8.3 fL (7.4-10.4); Platelet Count 194 thou/uL (130-400); RBC Distribution Width 12.8 % (11.5-14.5); Red Blood Cell (RBC) Count 3.39 mill/uL (4.20-5.40); White Blood Cell (WBC) Count 9.4 thou/uL (4.8-10.8)
[2021-01-16 14:53] LABS: ALT (SGPT) Less than 7 U/L (8-55); AST (SGOT) 11 U/L (5-34); Albumin 3.5 g/dL (3.5-5.0); Alkaline Phosphatase 66 U/L (40-110); Anion Gap 14 mmol/L (10-20); BUN (Urea Nitrogen) 15 mg/dL (9.8-20.1); Bilirubin, Total 0.4 mg/dL (0.2-1.2); Calc. Creatinine Clearance 0 mL/min (70-130); Calcium 8.5 mg/dL (7.8-10.44); Carbon Dioxide 16 mmol/L (22-29); Chloride 111 mmol/L (98-107); Glucose 81 mg/dL (70-105); Potassium 4.4 mmol/L (3.5-5.1); Protein, Total 6.5 g/dL (6.0-8.3); Sodium 137 mmol/L (136-145)
== END 2021-01-16 15:59 | disposition home or self-care (01) ==
LOC: ERS 13:21
DX: R07.89 Other chest pain (principal); K21.9 Gastro-esophageal reflux disease without esophagitis; Z86.73 Personal history of transient ischemic attack (TIA), and cerebral infarction without residual deficits; J45.909 Unspecified asthma, uncomplicated; I11.0 Hypertensive heart disease with heart failure; I50.9 Heart failure, unspecified; I48.91 Unspecified atrial fibrillation; I25.2 Old myocardial infarction
CPT/HCPCS: 71045; 80053; 84484; 85025; 93005

== ENCOUNTER 2021-01-17 02:01 | Emergency (ER) | payer MEDICARE, MEDICAID | END 2021-01-17 03:10 | disposition home or self-care (01) | LOC: ERS 02:01 | DX: R55 Syncope and collapse (principal); R29.700 NIHSS score 0; J44.9 Chronic obstructive pulmonary disease, unspecified; K21.9 Gastro-esophageal reflux disease without esophagitis; I11.0 Hypertensive heart disease with heart failure; I50.9 Heart failure, unspecified; I48.91 Unspecified atrial fibrillation; Z79.899 Other long term (current) drug therapy; Z79.01 Long term (current) use of anticoagulants; Z86.73 Personal history of transient ischemic attack (TIA), and cerebral infarction without residual deficits | CPT/HCPCS: 36598; 93005; J1642 ==

== ENCOUNTER 2021-01-17 10:47 | Outpatient (CLI) | payer MEDICARE, MEDICAID | END 2021-01-17 10:48 | disposition home or self-care (01) | LOC: RAD 10:47 | PROVIDERS: ATTEND Specialist | DX: D68.9 Coagulation defect, unspecified (principal) | CPT/HCPCS: 36598; J1642 ==

== ENCOUNTER 2021-01-28 07:46 | Day surgery (SDC) | payer MEDICARE, MEDICAID ==
[2021-01-24 09:45] VITALS: BMI 35.0
[2021-01-28] MEDS ORDERED: Ketorolac Tromethamine 30 MG/ML VIAL ONE (08:34)
[2021-01-28] MEDS ORDERED: Acetaminophen 500 MG TAB ONE (08:34)
[2021-01-28] MEDS ORDERED: Levofloxacin 500 mg/D5W 100 ml Premix Bag ONE (08:34)
[2021-01-28 09:04] LABS: #Eosinphils 0.2 thou/uL (0.0-0.7); #Lymphocytes 3.9 thou/uL (1.20-3.40); #Monocytes 0.6 thou/uL (0.11-0.59); #Neutrophils 4.3 thou/uL (1.40-6.50); %Basophils 0.1 % (0.0-1.0); %Eosinophils 1.8 % (0.0-10.0); %Lymphocytes 43.7 % (21.0-51.0); %Monocytes 6.4 % (0.0-10.0); Hemoglobin 8.7 g/dL (12.0-16.0); Mean Corpuscular HGB CONC 27.5 g/dL (32.0-36.0); Mean Corpuscular Hemoglobin 25.3 pg (27.0-31.0); Mean Corpuscular Volume 91.9 fL (78.0-98.0); Mean Platelet Volume 7.8 fL (7.4-10.4); Platelet Count 192 thou/uL (130-400); RBC Distribution Width 13.1 % (11.5-14.5); Red Blood Cell (RBC) Count 3.43 mill/uL (4.20-5.40); White Blood Cell (WBC) Count 8.9 thou/uL (4.8-10.8)
[2021-01-28 09:24] LABS: Anion Gap 17 mmol/L (10-20); BUN (Urea Nitrogen) 17 mg/dL (9.8-20.1); Calc. Creatinine Clearance 87 mL/min (70-130); Carbon Dioxide 17 mmol/L (22-29); Chloride 105 mmol/L (98-107); Glucose 89 mg/dL (70-105); Potassium 5.1 mmol/L (3.5-5.1); Sodium 134 mmol/L (136-145)
[2021-01-28] MEDS ORDERED: Sodium Chloride 0.9% 0 ML ONE (09:40)
[2021-01-28] MEDS ORDERED: Sodium Chloride 0.9% 10 ML ONE (09:48)
[2021-01-28] MEDS ORDERED: Bupivacaine 0.25% HCL 30 ML VIAL ONE (09:49)
[2021-01-28] MEDS ORDERED: Lidocaine 1% w/Epinephrine 1:100K 20 ML VIAL ONE (09:49)
[2021-01-28] MEDS ORDERED: Fentanyl 100 MCG/2 ML VIAL ONE (10:06)
[2021-01-28] MEDS ORDERED: Midazolam HCl 2 mg/2 ml Vial ONE (10:06)
[2021-01-28] MEDS ORDERED: HYDROcodone/Acetaminophen 5/325 mg Tablet ONE (11:49)
== END 2021-01-28 14:45 | disposition home or self-care (01) ==
LOC: SDC 07:46
PROVIDERS: ATTEND Specialist
PROC: 0JH60WZ Insertion of Totally Implantable Vascular Access Device into Chest Subcutaneous Tissue and Fascia, Open Approach (ICD-10-PCS; principal; 2021-01-28)
PROC: 0JPT0WZ Removal of Totally Implantable Vascular Access Device from Trunk Subcutaneous Tissue and Fascia, Open Approach (ICD-10-PCS; 2021-01-28)
DX: T82.518A Breakdown (mechanical) of other cardiac and vascular devices and implants, initial encounter (principal); T82.514A Breakdown (mechanical) of infusion catheter, initial encounter; I10 Essential (primary) hypertension; K21.9 Gastro-esophageal reflux disease without esophagitis; G89.29 Other chronic pain; M54.9 Dorsalgia, unspecified; J44.9 Chronic obstructive pulmonary disease, unspecified; Z86.711 Personal history of pulmonary embolism; Z79.01 Long term (current) use of anticoagulants; Z79.899 Other long term (current) drug therapy; Z88.0 Allergy status to penicillin; Z88.2 Allergy status to sulfonamides; Z88.5 Allergy status to narcotic agent; Z91.018 Allergy to other foods; Z95.5 Presence of coronary angioplasty implant and graft
CPT/HCPCS: 36415; 71045; 80048; 85025; C1788; J1642; J1885; J1956; J2250; J3010; S0020

== ENCOUNTER 2021-02-04 16:23 | Emergency (ER) | payer MEDICARE, MEDICAID ==
[2021-02-04] MEDS ORDERED: Acetaminophen 500 MG TAB ONE (17:58)
[2021-02-04] MEDS ORDERED: Ondansetron ODT 4 MG TAB ONE (17:58)
== END 2021-02-04 18:10 | disposition home or self-care (01) ==
LOC: ERS 16:23
DX: M54.10 Radiculopathy, site unspecified (principal); R51.9 Headache, unspecified; R11.0 Nausea; K21.9 Gastro-esophageal reflux disease without esophagitis; J44.9 Chronic obstructive pulmonary disease, unspecified; I11.0 Hypertensive heart disease with heart failure; I50.9 Heart failure, unspecified; I48.91 Unspecified atrial fibrillation; I20.9 Angina pectoris, unspecified; Z79.01 Long term (current) use of anticoagulants; Z86.73 Personal history of transient ischemic attack (TIA), and cerebral infarction without residual deficits; Z79.899 Other long term (current) drug therapy
CPT/HCPCS: 99283; Q0162

== ENCOUNTER 2021-02-06 12:21 | Emergency (ER) | payer MEDICARE, MEDICAID ==
[2021-02-06 13:28] LABS: #Basophils 0.1 thou/uL (0.0-0.2); #Eosinphils 0.6 thou/uL (0.0-0.7); #Monocytes 0.8 thou/uL (0.11-0.59); #Neutrophils 3.5 thou/uL (1.40-6.50); %Basophils 1.1 % (0.0-1.0); %Eosinophils 6.9 % (0.0-10.0); %Lymphocytes 44.3 % (21.0-51.0); %Monocytes 8.8 % (0.0-10.0); %Neutrophils 38.9 % (42.0-75.0); Hemoglobin 10.4 g/dL (12.0-16.0); Mean Corpuscular HGB CONC 31.5 g/dL (32.0-36.0); Mean Corpuscular Hemoglobin 28.5 pg (27.0-31.0); Mean Corpuscular Volume 90.6 fL (78.0-98.0); Mean Platelet Volume 7.2 fL (7.4-10.4); Platelet Count 316 thou/uL (130-400); RBC Distribution Width 13.2 % (11.5-14.5); Red Blood Cell (RBC) Count 3.65 mill/uL (4.20-5.40); White Blood Cell (WBC) Count 8.9 thou/uL (4.8-10.8)
[2021-02-06 13:38] LABS: ALT (SGPT) Less than 7 U/L (8-55); AST (SGOT) 10 U/L (5-34); Albumin 3.7 g/dL (3.5-5.0); Alkaline Phosphatase 69 U/L (40-110); Anion Gap 17 mmol/L (10-20); BUN (Urea Nitrogen) 16 mg/dL (9.8-20.1); Bilirubin, Total 0.4 mg/dL (0.2-1.2); Calc. Creatinine Clearance 0 mL/min (70-130); Calcium 8.5 mg/dL (7.8-10.44); Carbon Dioxide 18 mmol/L (22-29); Chloride 107 mmol/L (98-107); Globulin 3.3 g/dL (2.4-3.5); Glucose 62 mg/dL (70-105); Potassium 4.4 mmol/L (3.5-5.1); Sodium 138 mmol/L (136-145)
[2021-02-06] MEDS ORDERED: Furosemide 40 MG TAB ONE (14:54)
== END 2021-02-06 16:50 | disposition home or self-care (01) ==
LOC: ERS 12:21
DX: R07.9 Chest pain, unspecified (principal); K21.9 Gastro-esophageal reflux disease without esophagitis; I11.0 Hypertensive heart disease with heart failure; I50.9 Heart failure, unspecified; J44.9 Chronic obstructive pulmonary disease, unspecified; I20.9 Angina pectoris, unspecified; I48.91 Unspecified atrial fibrillation; Z85.07 Personal history of malignant neoplasm of pancreas; Z86.73 Personal history of transient ischemic attack (TIA), and cerebral infarction without residual deficits; Z79.01 Long term (current) use of anticoagulants; Z79.899 Other long term (current) drug therapy
CPT/HCPCS: 36415; 71045; 80053; 83880; 84484; 85025; 93005

== ENCOUNTER 2021-02-14 12:21 | Emergency (ER) | payer MEDICARE, MEDICAID ==
[2021-02-14 13:13] LABS: #Eosinphils 0.4 thou/uL (0.0-0.7); #Lymphocytes 3.4 thou/uL (1.20-3.40); #Monocytes 0.9 thou/uL (0.11-0.59); #Neutrophils 4.2 thou/uL (1.40-6.50); %Basophils 0.3 % (0.0-1.0); %Eosinophils 4.1 % (0.0-10.0); %Lymphocytes 37.9 % (21.0-51.0); %Monocytes 10.4 % (0.0-10.0); %Neutrophils 47.3 % (42.0-75.0); Hemoglobin 10.2 g/dL (12.0-16.0); Mean Corpuscular HGB CONC 33.4 g/dL (32.0-36.0); Mean Corpuscular Hemoglobin 29.5 pg (27.0-31.0); Mean Corpuscular Volume 88.4 fL (78.0-98.0); Mean Platelet Volume 7.5 fL (7.4-10.4); Platelet Count 232 thou/uL (130-400); RBC Distribution Width 13.4 % (11.5-14.5); Red Blood Cell (RBC) Count 3.44 mill/uL (4.20-5.40); White Blood Cell (WBC) Count 8.9 thou/uL (4.8-10.8)
[2021-02-14 13:34] LABS: ALT (SGPT) Less than 7 U/L (8-55); AST (SGOT) 13 U/L (5-34); Albumin 3.5 g/dL (3.5-5.0); Alkaline Phosphatase 66 U/L (40-110); Anion Gap 13 mmol/L (10-20); BUN (Urea Nitrogen) 20 mg/dL (9.8-20.1); Bilirubin, Total 0.4 mg/dL (0.2-1.2); Calc. Creatinine Clearance 0 mL/min (70-130); Calcium 8.6 mg/dL (7.8-10.44); Chloride 108 mmol/L (98-107); Globulin 3.2 g/dL (2.4-3.5); Glucose 101 mg/dL (70-105); Lipase 24 U/L (8-78); Potassium 3.9 mmol/L (3.5-5.1); Protein, Total 6.7 g/dL (6.0-8.3); Sodium 138 mmol/L (136-145)
[2021-02-14 13:41] LABS: Carbon Dioxide 21 mmol/L (22-29)
== END 2021-02-14 13:53 | disposition home or self-care (01) ==
LOC: ERS 12:21
DX: R07.89 Other chest pain (principal); I11.0 Hypertensive heart disease with heart failure; I50.9 Heart failure, unspecified; K21.9 Gastro-esophageal reflux disease without esophagitis; J44.9 Chronic obstructive pulmonary disease, unspecified; I48.91 Unspecified atrial fibrillation; Z86.73 Personal history of transient ischemic attack (TIA), and cerebral infarction without residual deficits; Z79.01 Long term (current) use of anticoagulants; Z79.899 Other long term (current) drug therapy
CPT/HCPCS: 71045; 80053; 83690; 84484; 85025; 93005; J1642

== ENCOUNTER 2021-03-19 14:34 | Inpatient (IN) | payer MEDICARE, MEDICAID ==
[2021-03-19 15:09] LABS: #Basophils 0.1 thou/uL (0.0-0.2); #Eosinphils 0.4 thou/uL (0.0-0.7); #Lymphocytes 4.2 thou/uL (1.20-3.40); #Monocytes 0.7 thou/uL (0.11-0.59); #Neutrophils 3.7 thou/uL (1.40-6.50); %Basophils 1.1 % (0.0-1.0); %Eosinophils 3.9 % (0.0-10.0); %Monocytes 7.6 % (0.0-10.0); %Neutrophils 41.4 % (42.0-75.0); Mean Corpuscular HGB CONC 31.4 g/dL (32.0-36.0); Mean Corpuscular Volume 89.2 fL (78.0-98.0); Mean Platelet Volume 7.7 fL (7.4-10.4); Platelet Count 217 thou/uL (130-400); RBC Distribution Width 14.2 % (11.5-14.5); Red Blood Cell (RBC) Count 3.21 mill/uL (4.20-5.40)
[2021-03-19] MEDS ORDERED: Aspirin Chewable 81 MG TAB ONE (15:27)
[2021-03-19 15:38] LABS: PTT 38.4 sec (22.9-36.1); Prothrombin Time 13.5 sec (12.0-14.7)
[2021-03-19 15:38] LABS: Albumin 3.2 g/dL (3.5-5.0); Anion Gap 10 mmol/L (10-20); BUN (Urea Nitrogen) 12 mg/dL (9.8-20.1); Bilirubin, Total 0.3 mg/dL (0.2-1.2); Calc. Creatinine Clearance 0 mL/min (70-130); Calcium 8.2 mg/dL (7.8-10.44); Carbon Dioxide 22 mmol/L (22-29); Chloride 108 mmol/L (98-107); Glucose 129 mg/dL (70-105); Potassium 4.8 mmol/L (3.5-5.1); Protein, Total 5.9 g/dL (6.0-8.3); Sodium 135 mmol/L (136-145)
[2021-03-19 15:39] LABS: D-Dimer Test 1.55 *mcg/mL (0.27-0.43)
[2021-03-19 15:39] LABS: ALT (SGPT) Less than 7 U/L (8-55); AST (SGOT) 10 U/L (5-34); Alkaline Phosphatase 65 U/L (40-110); Globulin 2.7 g/dL (2.4-3.5); Lipase 19 U/L (8-78)
[2021-03-19] MEDS ORDERED: Cefepime 2 GM VIAL ONE (16:41)
[2021-03-19 16:58] LABS: SARS-CoV-2 NAA Rapid Test Not Detected (NotDetected)
[2021-03-19 18:21] LABS: Troponin I Less than 0.010 ng/mL (< 0.028)
[2021-03-19] MEDS ORDERED: Ondansetron ODT 4 MG TAB PO PRN (18:46)
[2021-03-19] MEDS ORDERED: Acetaminophen 325 MG TAB PO PRN (18:46)
[2021-03-19] MEDS ORDERED: Ondansetron PF 4 MG/2 ML Vial IVP PRN (18:46)
[2021-03-19 19:05] LABS: Lactic Acid 1.2 mmol/L (0.5-2.2)
[2021-03-19] MEDS ORDERED: Nitroglycerin 0.4 MG TAB (25 Tab Bottle) SL PRN (19:16)
[2021-03-19] MEDS ORDERED: Albuterol Sulfate 2.5 mg/3 ml Neb NEB PRN (19:17)
[2021-03-19] MEDS ORDERED: Cefepime 2 GM in Sodium Chloride 0.9% 100 ML IVPB SCH (21:00)
[2021-03-19 21:50] LABS: Troponin I Less than 0.010 ng/mL (< 0.028)
[2021-03-19] MEDS: Enoxaparin Sodium 80 MG/0.8 ML SYRINGE SC SCH (21:59)
[2021-03-19] MEDS: Sodium Chloride 0.9% 1,000 ML IV SCH (22:03)
[2021-03-19] MEDS ORDERED: Enoxaparin Sodium 100 MG/ML SYRINGE SC SCH (22:15)
[2021-03-19 22:42] LABS: Bacteria/HPF None Seen HPF (None Seen); Bilirubin Negative (Negative); Blood, Urine Negative (Negative); Clarity Clear (Clear); Glucose, Urine (Dipstick) Normal (Negative); Ketone, Urine Negative (Negative); Leukocyte Negative Leu/uL (Negative); Nitrite Negative (Negative); Protein, Urine (Dipstick) Negative (Neg-Trace); RBC/HPF 0-3 HPF (0-3); Specific Gravity, Urine 1.007 (1.002-1.036); Squamous Epithelial None Seen HPF (0-3); Urobilinogen Normal mg/dL (Less than 2); WBC/HPF None Seen HPF (0-3); pH, Urine 5.5 (5.0-9.0)
[2021-03-19 22:44] LABS: Urine Culture Reflex No No
[2021-03-19] MEDS ORDERED: tiZANidine HCl 4 MG TAB PO SCH (23:30)
[2021-03-20] MEDS ORDERED: Ketorolac Tromethamine 30 MG/ML VIAL IVP SCH (00:15)
[2021-03-20] MEDS: Enoxaparin Sodium 80 MG/0.8 ML SYRINGE SC SCH (01:37)
[2021-03-20] MEDS: Benzonatate 100 MG CAP PO PRN ×2 (04:16→20:16)
[2021-03-20] MEDS: Cefepime 2 GM in Sodium Chloride 0.9% 100 ML IVPB SCH ×2 (04:16→17:11)
[2021-03-20 04:40] LABS: #Eosinphils 0.3 thou/uL (0.0-0.7); #Lymphocytes 4.1 thou/uL (1.20-3.40); #Monocytes 0.9 thou/uL (0.11-0.59); #Neutrophils 3.9 thou/uL (1.40-6.50); %Basophils 0.2 % (0.0-1.0); %Eosinophils 3.6 % (0.0-10.0); %Lymphocytes 44.3 % (21.0-51.0); %Monocytes 9.8 % (0.0-10.0); %Neutrophils 42.1 % (42.0-75.0); Hemoglobin 8.7 g/dL (12.0-16.0); Mean Corpuscular HGB CONC 29.5 g/dL (32.0-36.0); Mean Corpuscular Hemoglobin 26.9 pg (27.0-31.0); Mean Corpuscular Volume 91.2 fL (78.0-98.0); Mean Platelet Volume 8.4 fL (7.4-10.4); Platelet Count 196 thou/uL (130-400); RBC Distribution Width 14.4 % (11.5-14.5); Red Blood Cell (RBC) Count 3.23 mill/uL (4.20-5.40); White Blood Cell (WBC) Count 9.2 thou/uL (4.8-10.8)
[2021-03-20 04:52] LABS: Anion Gap 11 mmol/L (10-20); BUN (Urea Nitrogen) 13 mg/dL (9.8-20.1); Calc. Creatinine Clearance 0 mL/min (70-130); Calcium 8.3 mg/dL (7.8-10.44); Carbon Dioxide 21 mmol/L (22-29); Chloride 112 mmol/L (98-107); Glucose 97 mg/dL (70-105); Potassium 5.1 mmol/L (3.5-5.1); Sodium 139 mmol/L (136-145)
[2021-03-20] MEDS: Sodium Chloride 0.9% 1,000 ML IV SCH ×2 (05:31→17:05)
[2021-03-20] MEDS ORDERED: Enoxaparin Sodium 100 MG/ML SYRINGE SC SCH (09:00)
[2021-03-20] MEDS ORDERED: Non-Formulary Item 1 EACH (Budesonide-Formoterol [Symbicort 160-4.5] 160 MG/4.5 MG Aer) INH SCH (09:00)
[2021-03-20] MEDS: Flecainide 50 MG TAB PO SCH ×2 (09:32→20:15)
[2021-03-20] MEDS: Aspirin Chewable 81 MG TAB PO SCH (09:32)
[2021-03-20] MEDS: Morphine 2 MG/ML VIAL SLOW IVP PRN ×3 (09:32→20:16)
[2021-03-20] MEDS: Azithromycin 500 MG in Sodium Chloride 0.9% 250 ML 250 ML IVPB SCH (10:03)
[2021-03-20] MEDS: Divalproex Sodium DR 500 MG TAB PO SCH ×2 (10:03→20:15)
[2021-03-20 15:55] VITALS: BMI 37.0
[2021-03-20] MEDS ORDERED: Cefepime 2 GM VIAL ONE (17:07)
[2021-03-20] MEDS: Mometasone 200 MCG/Formoterol 5 MCG 120 PUFF INHALER INH SCH (17:59)
[2021-03-20] MEDS: Apixaban 5 MG TAB PO SCH (20:15)
[2021-03-20] MEDS: Atorvastatin Calcium 40 MG TAB PO SCH (20:15)
[2021-03-20] MEDS: risperiDONE 3 MG TAB PO SCH (20:16)
[2021-03-20] MEDS: Montelukast Sodium 10 mg Tablet PO SCH (20:16)
[2021-03-21] MEDS: Cefepime 2 GM in Sodium Chloride 0.9% 100 ML IVPB SCH ×2 (03:57→17:15)
[2021-03-21] MEDS: Sodium Chloride 0.9% 1,000 ML IV SCH ×3 (03:58→17:30)
[2021-03-21] MEDS: Benzonatate 100 MG CAP PO PRN ×2 (04:26→17:58)
[2021-03-21 04:34] LABS: #Basophils 0.1 thou/uL (0.0-0.2); #Eosinphils 0.4 thou/uL (0.0-0.7); #Lymphocytes 3.3 thou/uL (1.20-3.40); #Monocytes 0.8 thou/uL (0.11-0.59); #Neutrophils 2.9 thou/uL (1.40-6.50); %Eosinophils 5.5 % (0.0-10.0); %Lymphocytes 44.6 % (21.0-51.0); %Monocytes 10.4 % (0.0-10.0); %Neutrophils 38.5 % (42.0-75.0); Hemoglobin 8.7 g/dL (12.0-16.0); Mean Corpuscular Hemoglobin 28.2 pg (27.0-31.0); Mean Corpuscular Volume 88.2 fL (78.0-98.0); Mean Platelet Volume 7.6 fL (7.4-10.4); Platelet Count 201 thou/uL (130-400); RBC Distribution Width 14.4 % (11.5-14.5); Red Blood Cell (RBC) Count 3.08 mill/uL (4.20-5.40); White Blood Cell (WBC) Count 7.5 thou/uL (4.8-10.8)
[2021-03-21 04:55] LABS: Anion Gap 12 mmol/L (10-20); BUN (Urea Nitrogen) 11 mg/dL (9.8-20.1); Calc. Creatinine Clearance 112 mL/min (70-130); Calcium 8.6 mg/dL (7.8-10.44); Carbon Dioxide 23 mmol/L (22-29); Chloride 111 mmol/L (98-107); Glucose 113 mg/dL (70-105); Potassium 4.5 mmol/L (3.5-5.1); Sodium 141 mmol/L (136-145)
[2021-03-21 05:00] LABS: Troponin I Less than 0.010 ng/mL (< 0.028)
[2021-03-21] MEDS: Morphine 2 MG/ML VIAL SLOW IVP PRN ×2 (05:16→09:24)
[2021-03-21] MEDS: Divalproex Sodium DR 500 MG TAB PO SCH ×2 (07:58→20:49)
[2021-03-21] MEDS: Aspirin Chewable 81 MG TAB PO SCH (07:58)
[2021-03-21] MEDS: Apixaban 5 MG TAB PO SCH ×2 (07:59→20:46)
[2021-03-21] MEDS: Ferrous Sulfate 325 MG TAB PO SCH (07:59)
[2021-03-21] MEDS: Flecainide 50 MG TAB PO SCH ×2 (07:59→20:48)
[2021-03-21] MEDS ORDERED: Enoxaparin Sodium 40 MG/0.4 ML SYRINGE SC SCH (09:00)
[2021-03-21] MEDS ORDERED: Carvedilol 6.25 MG TAB PO SCH (09:14)
[2021-03-21] MEDS: Carvedilol 3.125 MG TAB PO SCH ×2 (09:25→20:46)
[2021-03-21] MEDS: Azithromycin 500 MG in Sodium Chloride 0.9% 250 ML 250 ML IVPB SCH (10:55)
[2021-03-21] MEDS: HYDROcodone/Acetaminophen 5/325 mg Tablet PO PRN ×2 (13:55→20:49)
[2021-03-21] MEDS: Mometasone 200 MCG/Formoterol 5 MCG 120 PUFF INHALER INH SCH ×2 (15:59→19:30)
[2021-03-21] MEDS: Atorvastatin Calcium 40 MG TAB PO SCH (20:46)
[2021-03-21] MEDS: Montelukast Sodium 10 mg Tablet PO SCH (20:48)
[2021-03-21] MEDS: risperiDONE 3 MG TAB PO SCH (20:48)
[2021-03-22] MEDS: tiZANidine HCl 4 MG TAB PO PRN ×2 (01:01→11:27)
[2021-03-22] MEDS: HYDROcodone/Acetaminophen 5/325 mg Tablet PO PRN ×2 (01:01→09:26)
[2021-03-22] MEDS: Sodium Chloride 0.9% 1,000 ML IV SCH ×2 (03:35→14:04)
[2021-03-22] MEDS: Divalproex Sodium DR 500 MG TAB PO SCH (08:23)
[2021-03-22] MEDS: Aspirin Chewable 81 MG TAB PO SCH (08:23)
[2021-03-22] MEDS: Flecainide 50 MG TAB PO SCH (08:23)
[2021-03-22] MEDS: Carvedilol 3.125 MG TAB PO SCH (08:23)
[2021-03-22] MEDS: Apixaban 5 MG TAB PO SCH (08:23)
[2021-03-22] MEDS: Ferrous Sulfate 325 MG TAB PO SCH (08:23)
[2021-03-22] MEDS ORDERED: Azithromycin 250 MG TAB PO SCH (09:00)
[2021-03-22 11:15] LABS: #Eosinphils 0.4 thou/uL (0.0-0.7); #Monocytes 0.7 thou/uL (0.11-0.59); #Neutrophils 3.4 thou/uL (1.40-6.50); %Basophils 0.3 % (0.0-1.0); %Eosinophils 5.6 % (0.0-10.0); %Lymphocytes 40.2 % (21.0-51.0); %Monocytes 9.1 % (0.0-10.0); %Neutrophils 44.9 % (42.0-75.0); Hemoglobin 8.6 g/dL (12.0-16.0); Mean Corpuscular HGB CONC 31.4 g/dL (32.0-36.0); Mean Corpuscular Hemoglobin 27.7 pg (27.0-31.0); Mean Corpuscular Volume 88.2 fL (78.0-98.0); Mean Platelet Volume 7.8 fL (7.4-10.4); Platelet Count 220 thou/uL (130-400); RBC Distribution Width 14.4 % (11.5-14.5); White Blood Cell (WBC) Count 7.5 thou/uL (4.8-10.8)
[2021-03-22 11:26] LABS: Anion Gap 7 mmol/L (10-20); BUN (Urea Nitrogen) 11 mg/dL (9.8-20.1); Calc. Creatinine Clearance 125 mL/min (70-130); Calcium 8.7 mg/dL (7.8-10.44); Carbon Dioxide 27 mmol/L (22-29); Chloride 109 mmol/L (98-107); Glucose 87 mg/dL (70-105); Magnesium 1.9 mg/dL (1.6-2.6); Potassium 4.3 mmol/L (3.5-5.1); Sodium 139 mmol/L (136-145)
[2021-03-22 15:46] VITALS: BP 96/52; TEMP 97.4
== END 2021-03-22 16:20 | disposition home health service (06) | DRG 194 ==
LOC: ERS 14:34 → 2NO 17:16
PROVIDERS: ADMIT Internal Medicine; ATTEND Internal Medicine
DX: J18.9 Pneumonia, unspecified organism (principal); Z20.822 Contact with and (suspected) exposure to COVID-19; I50.32 Chronic diastolic (congestive) heart failure; J44.0 Chronic obstructive pulmonary disease with (acute) lower respiratory infection; I13.0 Hypertensive heart and chronic kidney disease with heart failure and stage 1 through stage 4 chronic kidney disease, or unspecified chronic kidney disease; J44.9 Chronic obstructive pulmonary disease, unspecified; I25.10 Atherosclerotic heart disease of native coronary artery without angina pectoris; F25.9 Schizoaffective disorder, unspecified; K21.9 Gastro-esophageal reflux disease without esophagitis; I48.0 Paroxysmal atrial fibrillation; N18.30 Chronic kidney disease, stage 3 unspecified; F31.9 Bipolar disorder, unspecified; I95.9 Hypotension, unspecified; D63.1 Anemia in chronic kidney disease; Z86.73 Personal history of transient ischemic attack (TIA), and cerebral infarction without residual deficits; Z86.711 Personal history of pulmonary embolism; Z79.01 Long term (current) use of anticoagulants; Z86.718 Personal history of other venous thrombosis and embolism; Z88.6 Allergy status to analgesic agent; Z88.0 Allergy status to penicillin; Z88.8 Allergy status to other drugs, medicaments and biological substances; Z91.018 Allergy to other foods; Z91.09 Other allergy status, other than to drugs and biological substances; Z85.07 Personal history of malignant neoplasm of pancreas; Z92.3 Personal history of irradiation; Z92.21 Personal history of antineoplastic chemotherapy; Z95.5 Presence of coronary angioplasty implant and graft; Z90.49 Acquired absence of other specified parts of digestive tract; Z90.89 Acquired absence of other organs; Z79.899 Other long term (current) drug therapy; Z79.51 Long term (current) use of inhaled steroids; Z79.82 Long term (current) use of aspirin; Z98.890 Other specified postprocedural states
CPT/HCPCS: 0240U; 36415; 36416; 71045; 78451; 80048; 80053; 81001; 82533; 83605; 83690; 83735; 83880; 84443; 84484; 85025; 85379; 85610; 85730; 87040; 93005; 93010; 93970; 96365; A9540; J0456; J0692; J1642; J1650; J1885; J2270; J2405; J3490; J7050

== ENCOUNTER 2021-03-26 12:15 | Emergency (ER) | payer MEDICARE, MEDICAID ==
[2021-03-26 14:38] LABS: #Eosinphils 0.1 thou/uL (0.0-0.7); #Lymphocytes 3.7 thou/uL (1.20-3.40); #Monocytes 0.7 thou/uL (0.11-0.59); #Neutrophils 4.3 thou/uL (1.40-6.50); %Basophils 0.3 % (0.0-1.0); %Eosinophils 1.4 % (0.0-10.0); %Lymphocytes 41.6 % (21.0-51.0); %Monocytes 8.2 % (0.0-10.0); %Neutrophils 48.5 % (42.0-75.0); Mean Corpuscular HGB CONC 33.1 g/dL (32.0-36.0); Mean Corpuscular Hemoglobin 28.8 pg (27.0-31.0); Mean Platelet Volume 7.9 fL (7.4-10.4); Platelet Count 235 thou/uL (130-400); RBC Distribution Width 14.5 % (11.5-14.5); Red Blood Cell (RBC) Count 4.16 mill/uL (4.20-5.40); White Blood Cell (WBC) Count 8.8 thou/uL (4.8-10.8)
[2021-03-26 14:58] LABS: ALT (SGPT) Less than 7 U/L (8-55); AST (SGOT) 12 U/L (5-34); Albumin 4.1 g/dL (3.5-5.0); Alkaline Phosphatase 72 U/L (40-110); Anion Gap 16 mmol/L (10-20); BUN (Urea Nitrogen) 13 mg/dL (9.8-20.1); Bilirubin, Total 0.5 mg/dL (0.2-1.2); Calc. Creatinine Clearance 0 mL/min (70-130); Carbon Dioxide 21 mmol/L (22-29); Chloride 105 mmol/L (98-107); Globulin 4.2 g/dL (2.4-3.5); Glucose 85 mg/dL (70-105); Potassium 4.5 mmol/L (3.5-5.1); Protein, Total 8.3 g/dL (6.0-8.3); Sodium 137 mmol/L (136-145)
== END 2021-03-26 18:00 | disposition home or self-care (01) ==
LOC: ERS 12:15
DX: I11.0 Hypertensive heart disease with heart failure (principal); I50.9 Heart failure, unspecified; K21.9 Gastro-esophageal reflux disease without esophagitis; J44.9 Chronic obstructive pulmonary disease, unspecified; I48.91 Unspecified atrial fibrillation; Z86.73 Personal history of transient ischemic attack (TIA), and cerebral infarction without residual deficits
CPT/HCPCS: 36415; 71046; 80053; 83880; 84484; 85025; 93005

== ENCOUNTER 2021-04-01 12:21 | Emergency (ER) | payer MEDICARE, MEDICAID | END 2021-04-01 13:18 | disposition home or self-care (01) | LOC: ERS 12:21 | DX: Z01.30 Encounter for examination of blood pressure without abnormal findings (principal); K21.9 Gastro-esophageal reflux disease without esophagitis; J44.9 Chronic obstructive pulmonary disease, unspecified; I50.9 Heart failure, unspecified; I25.2 Old myocardial infarction | CPT/HCPCS: 71045; 93005; 94760 ==

== ENCOUNTER 2021-04-14 13:50 | Emergency (ER) | payer MEDICARE, MEDICAID ==
[2021-04-14] MEDS ORDERED: Nitroglycerin 0.4 MG TAB 1 EACH ONE (14:19)
[2021-04-14 14:29] LABS: Hemoglobin 10.9 g/dL (12.0-16.0); Mean Corpuscular HGB CONC 31.9 g/dL (32.0-36.0); Mean Corpuscular Hemoglobin 27.8 pg (27.0-31.0); Mean Platelet Volume 8.2 fL (7.4-10.4); Platelet Count 163 thou/uL (130-400); RBC Distribution Width 14.1 % (11.5-14.5); Red Blood Cell (RBC) Count 3.94 mill/uL (4.20-5.40); White Blood Cell (WBC) Count 7.4 thou/uL (4.8-10.8)
[2021-04-14 14:45] LABS: Band 2 % (5-11); Eosinophils 3 % (0-10); Lymphocytes 48 % (21-51); MDiff Complete? YES; Monocytes 5 % (0-10); Neutrophil 42 % (42-75); Ovalocytes SLIGHT = 2-5 cells (100X) (0-1/hpf); Platelet Morphology Comment Appears Adequate; Polychromasia SLIGHT = 2-3 cells (100X) (0-2/hpf)
[2021-04-14 15:05] LABS: ALT (SGPT) Less than 7 U/L (8-55); AST (SGOT) 13 U/L (5-34); Albumin 3.5 g/dL (3.5-5.0); Alkaline Phosphatase 68 U/L (40-110); Anion Gap 16 mmol/L (10-20); BUN (Urea Nitrogen) 17 mg/dL (9.8-20.1); Bilirubin, Total 0.4 mg/dL (0.2-1.2); Calc. Creatinine Clearance 0 mL/min (70-130); Calcium 8.9 mg/dL (7.8-10.44); Carbon Dioxide 19 mmol/L (22-29); Chloride 110 mmol/L (98-107); Globulin 3.2 g/dL (2.4-3.5); Glucose 79 mg/dL (70-105); Potassium 4.5 mmol/L (3.5-5.1); Protein, Total 6.7 g/dL (6.0-8.3); Sodium 140 mmol/L (136-145)
== END 2021-04-14 16:23 | disposition home or self-care (01) ==
LOC: ERS 13:50
DX: R07.2 Precordial pain (principal); K21.9 Gastro-esophageal reflux disease without esophagitis; J44.9 Chronic obstructive pulmonary disease, unspecified; I11.0 Hypertensive heart disease with heart failure; I50.9 Heart failure, unspecified; I25.2 Old myocardial infarction; Z79.899 Other long term (current) drug therapy
CPT/HCPCS: 36415; 71045; 80053; 84484; 85025; 93005; 94760

== ENCOUNTER 2021-04-15 15:43 | Emergency (ER) | payer MEDICARE, MEDICAID | END 2021-04-15 18:55 | disposition home or self-care (01) | LOC: ERS 15:43 | DX: R20.2 Paresthesia of skin (principal); K21.9 Gastro-esophageal reflux disease without esophagitis; J44.9 Chronic obstructive pulmonary disease, unspecified; I11.0 Hypertensive heart disease with heart failure; I50.9 Heart failure, unspecified; I20.9 Angina pectoris, unspecified; I48.91 Unspecified atrial fibrillation; Z86.73 Personal history of transient ischemic attack (TIA), and cerebral infarction without residual deficits | CPT/HCPCS: 93005 ==

== ENCOUNTER 2021-04-22 20:21 | Emergency (ER) | payer MEDICARE, MEDICAID ==
[2021-04-22 22:35] LABS: #Eosinphils 0.1 thou/uL (0.0-0.7); #Lymphocytes 4.3 thou/uL (1.20-3.40); #Monocytes 0.8 thou/uL (0.11-0.59); #Neutrophils 4.1 thou/uL (1.40-6.50); %Basophils 0.3 % (0.0-1.0); %Eosinophils 1.4 % (0.0-10.0); %Lymphocytes 45.9 % (21.0-51.0); %Monocytes 8.6 % (0.0-10.0); %Neutrophils 43.8 % (42.0-75.0); Hemoglobin 10.3 g/dL (12.0-16.0); Mean Corpuscular HGB CONC 32.4 g/dL (32.0-36.0); Mean Corpuscular Hemoglobin 28.5 pg (27.0-31.0); Mean Corpuscular Volume 87.8 fL (78.0-98.0); Platelet Count 163 thou/uL (130-400); RBC Distribution Width 14.8 % (11.5-14.5); Red Blood Cell (RBC) Count 3.62 mill/uL (4.20-5.40); White Blood Cell (WBC) Count 9.3 thou/uL (4.8-10.8)
[2021-04-22 23:07] LABS: Bacteria/HPF None Seen HPF (None Seen); Bilirubin Negative (Negative); Blood, Urine 3+ (Negative); Clarity Extra Turbid (Clear); Glucose, Urine (Dipstick) Normal (Negative); Ketone, Urine Trace mg/dL (Negative); Leukocyte 250 Leu/uL (Negative); Nitrite Negative (Negative); Protein, Urine (Dipstick) 100 mg/dL (Neg-Trace); RBC/HPF Greater than 50 HPF (0-3); Specific Gravity, Urine 1.028 (1.002-1.036); Squamous Epithelial None Seen HPF (0-3); Urobilinogen 3 mg/dL (Less than 2); WBC/HPF 21-50 HPF (0-3)
== END 2021-04-23 00:39 | disposition home or self-care (01) ==
LOC: ERS 20:21
DX: R31.9 Hematuria, unspecified (principal); K21.9 Gastro-esophageal reflux disease without esophagitis; E11.9 Type 2 diabetes mellitus without complications; J44.9 Chronic obstructive pulmonary disease, unspecified; I20.9 Angina pectoris, unspecified; I11.0 Hypertensive heart disease with heart failure; I50.9 Heart failure, unspecified; I48.91 Unspecified atrial fibrillation; Z86.73 Personal history of transient ischemic attack (TIA), and cerebral infarction without residual deficits
CPT/HCPCS: 36415; 71045; 81003; 81015; 85025; J7620

== ENCOUNTER 2021-05-11 20:08 | Emergency (ER) | payer MEDICARE, MEDICAID ==
[2021-05-11 21:15] LABS: #Basophils 0.1 thou/uL (0.0-0.2); #Eosinphils 0.1 thou/uL (0.0-0.7); #Lymphocytes 4.5 thou/uL (1.20-3.40); #Monocytes 0.9 thou/uL (0.11-0.59); #Neutrophils 4.2 thou/uL (1.40-6.50); %Basophils 0.7 % (0.0-1.0); %Eosinophils 1.5 % (0.0-10.0); %Lymphocytes 45.6 % (21.0-51.0); %Monocytes 9.6 % (0.0-10.0); %Neutrophils 42.7 % (42.0-75.0); Hemoglobin 10.9 g/dL (12.0-16.0); Mean Corpuscular HGB CONC 33.1 g/dL (32.0-36.0); Mean Corpuscular Hemoglobin 29.3 pg (27.0-31.0); Mean Corpuscular Volume 88.4 fL (78.0-98.0); Mean Platelet Volume 8.2 fL (7.4-10.4); Platelet Count 165 thou/uL (130-400); RBC Distribution Width 15.2 % (11.5-14.5); Red Blood Cell (RBC) Count 3.73 mill/uL (4.20-5.40); White Blood Cell (WBC) Count 9.8 thou/uL (4.8-10.8)
[2021-05-11 21:35] LABS: ALT (SGPT) Less than 7 U/L (8-55); AST (SGOT) 10 U/L (5-34); Albumin 3.2 g/dL (3.5-5.0); Alkaline Phosphatase 66 U/L (40-110); Anion Gap 13 mmol/L (10-20); BUN (Urea Nitrogen) 24 mg/dL (9.8-20.1); Bilirubin, Total 0.3 mg/dL (0.2-1.2); Calc. Creatinine Clearance 0 mL/min (70-130); Calcium 8.5 mg/dL (7.8-10.44); Carbon Dioxide 20 mmol/L (22-29); Chloride 106 mmol/L (98-107); Globulin 3.1 g/dL (2.4-3.5); Glucose 113 mg/dL (70-105); Potassium 4.9 mmol/L (3.5-5.1); Protein, Total 6.3 g/dL (6.0-8.3); Sodium 134 mmol/L (136-145)
[2021-05-12] MEDS ORDERED: Acetaminophen 500 MG TAB ONE (00:02)
[2021-05-12 00:38] LABS: Troponin I Less than 0.010 ng/mL (< 0.028)
== END 2021-05-12 01:21 | disposition home or self-care (01) ==
LOC: ERS 20:08
DX: R07.9 Chest pain, unspecified (principal); R94.31 Abnormal electrocardiogram [ECG] [EKG]; I11.0 Hypertensive heart disease with heart failure; I50.9 Heart failure, unspecified; K21.9 Gastro-esophageal reflux disease without esophagitis; I48.91 Unspecified atrial fibrillation; I25.10 Atherosclerotic heart disease of native coronary artery without angina pectoris; I25.2 Old myocardial infarction; J44.9 Chronic obstructive pulmonary disease, unspecified; D49.0 Neoplasm of unspecified behavior of digestive system; E11.9 Type 2 diabetes mellitus without complications; Z86.73 Personal history of transient ischemic attack (TIA), and cerebral infarction without residual deficits; Z95.5 Presence of coronary angioplasty implant and graft
CPT/HCPCS: 36415; 71045; 80053; 84484; 85025; 93005

== ENCOUNTER 2021-05-16 08:05 | Outpatient (CLI) | payer MEDICARE, MEDICAID | END 2021-05-16 08:06 | disposition home or self-care (01) | LOC: RAD 08:05 | PROVIDERS: ATTEND Internal Medicine Critical Care Medicine | DX: R06.00 Dyspnea, unspecified (principal) | CPT/HCPCS: 71046 ==

== ENCOUNTER 2021-06-03 11:42 | Emergency (ER) | payer MEDICARE, MEDICAID ==
[2021-06-03] MEDS ORDERED: Aspirin Chewable 81 MG TAB ONE (12:21)
[2021-06-03 13:44] LABS: #Eosinphils 0.1 thou/uL (0.0-0.7); #Lymphocytes 4.3 thou/uL (1.20-3.40); #Monocytes 0.8 thou/uL (0.11-0.59); #Neutrophils 3.9 thou/uL (1.40-6.50); %Basophils 0.5 % (0.0-1.0); %Eosinophils 1.4 % (0.0-10.0); %Monocytes 8.2 % (0.0-10.0); %Neutrophils 42.9 % (42.0-75.0); Hemoglobin 11.4 g/dL (12.0-16.0); Mean Corpuscular HGB CONC 32.8 g/dL (32.0-36.0); Mean Corpuscular Hemoglobin 28.9 pg (27.0-31.0); Mean Corpuscular Volume 88.1 fL (78.0-98.0); Platelet Count 193 thou/uL (130-400); RBC Distribution Width 14.9 % (11.5-14.5); Red Blood Cell (RBC) Count 3.94 mill/uL (4.20-5.40); White Blood Cell (WBC) Count 9.1 thou/uL (4.8-10.8)
[2021-06-03 14:14] LABS: ALT (SGPT) 8 U/L (8-55); AST (SGOT) 17 U/L (5-34); Albumin 3.4 g/dL (3.4-4.8); Alkaline Phosphatase 66 U/L (40-110); Anion Gap 14 mmol/L (10-20); BUN (Urea Nitrogen) 13 mg/dL (9.8-20.1); Bilirubin, Total 0.5 mg/dL (0.2-1.2); Calc. Creatinine Clearance 0 mL/min (70-130); Carbon Dioxide 20 mmol/L (23-31); Chloride 109 mmol/L (98-107); Globulin 3.3 g/dL (2.4-3.5); Glucose 80 mg/dL (80-115); Lipase 12 U/L (8-78); Potassium 4.6 mmol/L (3.5-5.1); Protein, Total 6.7 g/dL (5.8-8.1); Sodium 138 mmol/L (136-145)
== END 2021-06-03 14:40 | disposition home or self-care (01) ==
LOC: ERS 11:42
DX: R07.2 Precordial pain (principal); R55 Syncope and collapse; R42 Dizziness and giddiness; R53.81 Other malaise; I11.0 Hypertensive heart disease with heart failure; I50.9 Heart failure, unspecified; I48.91 Unspecified atrial fibrillation; I25.10 Atherosclerotic heart disease of native coronary artery without angina pectoris; E11.9 Type 2 diabetes mellitus without complications; J44.9 Chronic obstructive pulmonary disease, unspecified; Z79.82 Long term (current) use of aspirin; Z79.01 Long term (current) use of anticoagulants; Z79.899 Other long term (current) drug therapy
CPT/HCPCS: 36415; 36416; 71045; 80053; 83690; 84484; 85025; 93005

== ENCOUNTER 2021-06-16 16:03 | Emergency (ER) | payer MEDICARE, MEDICAID ==
[2021-06-16 17:33] LABS: #Basophils 0.1 thou/uL (0.0-0.2); #Eosinphils 0.1 thou/uL (0.0-0.7); #Lymphocytes 2.5 thou/uL (1.20-3.40); #Monocytes 0.7 thou/uL (0.11-0.59); #Neutrophils 3.3 thou/uL (1.40-6.50); %Basophils 0.8 % (0.0-1.0); %Eosinophils 1.6 % (0.0-10.0); %Lymphocytes 37.7 % (21.0-51.0); %Neutrophils 49.9 % (42.0-75.0); Hemoglobin 10.8 g/dL (12.0-16.0); Mean Corpuscular HGB CONC 32.3 g/dL (32.0-36.0); Mean Corpuscular Hemoglobin 28.6 pg (27.0-31.0); Mean Corpuscular Volume 88.6 fL (78.0-98.0); Mean Platelet Volume 8.1 fL (7.4-10.4); Platelet Count 179 thou/uL (130-400); RBC Distribution Width 15.2 % (11.5-14.5); Red Blood Cell (RBC) Count 3.79 mill/uL (4.20-5.40); White Blood Cell (WBC) Count 6.7 thou/uL (4.8-10.8)
[2021-06-16 17:55] LABS: ALT (SGPT) 11 U/L (8-55); AST (SGOT) 18 U/L (5-34); Albumin 3.6 g/dL (3.4-4.8); Alkaline Phosphatase 63 U/L (40-110); Anion Gap 12 mmol/L (10-20); BUN (Urea Nitrogen) 22 mg/dL (9.8-20.1); Bilirubin, Total 0.5 mg/dL (0.2-1.2); Calc. Creatinine Clearance 0 mL/min (70-130); Carbon Dioxide 22 mmol/L (23-31); Chloride 109 mmol/L (98-107); Glucose 124 mg/dL (80-115); Magnesium 1.8 mg/dL (1.6-2.6); Potassium 3.8 mmol/L (3.5-5.1); Protein, Total 6.6 g/dL (5.8-8.1); Sodium 139 mmol/L (136-145)
[2021-06-16 20:31] LABS: Troponin I 0.013 ng/mL (< 0.028)
== END 2021-06-16 21:27 | disposition home or self-care (01) ==
LOC: ERS 16:03
DX: R07.9 Chest pain, unspecified (principal); R20.2 Paresthesia of skin; I48.91 Unspecified atrial fibrillation; I25.10 Atherosclerotic heart disease of native coronary artery without angina pectoris; E11.9 Type 2 diabetes mellitus without complications; J44.9 Chronic obstructive pulmonary disease, unspecified; Z79.01 Long term (current) use of anticoagulants; Z79.82 Long term (current) use of aspirin; Z79.899 Other long term (current) drug therapy
CPT/HCPCS: 36415; 70450; 71045; 80053; 83690; 83735; 83880; 84484; 85025; 93005; 96374; J1642

== ENCOUNTER 2021-06-28 11:06 | Emergency (ER) | payer MEDICARE, MEDICAID ==
[2021-06-28] MEDS ORDERED: methylPREDNISolone Sod Succ/PF 125 MG/2 ML VIAL ONE (11:44)
[2021-06-28] MEDS ORDERED: Albuterol 200 PUFF (6.7GM INHALER) ONE (11:49)
[2021-06-28 12:07] LABS: Actual Bicarbonate (HCO3v) 21 mEq/L (22-28); Analyzer IN Cardio ER; Base Excess -1.6 mEq/L (-2.0 to +3.0); Calcium, Ionized (venous) 1.12 mmol/L (1.16-1.32); Chloride (VBG) 106 mmol/L (98-106); Hemoglobin (Hb) 11.4 g/dL (11.7-16.0); Potassium (VBG) 4.59 mmol/L (3.70-5.30); Sodium 137.4 mmol/L (133-146); pH (venous) 7.46 (7.32-7.43)
[2021-06-28 12:09] LABS: #Eosinphils 0.3 thou/uL (0.0-0.7); #Lymphocytes 3.7 thou/uL (1.20-3.40); #Monocytes 0.8 thou/uL (0.11-0.59); #Neutrophils 3.4 thou/uL (1.40-6.50); %Basophils 0.1 % (0.0-1.0); %Eosinophils 4.2 % (0.0-10.0); %Lymphocytes 44.7 % (21.0-51.0); %Monocytes 9.7 % (0.0-10.0); %Neutrophils 41.3 % (42.0-75.0); Hemoglobin 10.6 g/dL (12.0-16.0); Mean Corpuscular HGB CONC 32.5 g/dL (32.0-36.0); Mean Corpuscular Hemoglobin 28.9 pg (27.0-31.0); Mean Platelet Volume 7.6 fL (7.4-10.4); Platelet Count 184 thou/uL (130-400); RBC Distribution Width 14.7 % (11.5-14.5); Red Blood Cell (RBC) Count 3.66 mill/uL (4.20-5.40); White Blood Cell (WBC) Count 8.3 thou/uL (4.8-10.8)
[2021-06-28 12:26] LABS: ALT (SGPT) 11 U/L (8-55); AST (SGOT) 16 U/L (5-34); Albumin 3.4 g/dL (3.4-4.8); Alkaline Phosphatase 64 U/L (40-110); Anion Gap 11 mmol/L (10-20); BUN (Urea Nitrogen) 19 mg/dL (9.8-20.1); Bilirubin, Total 0.4 mg/dL (0.2-1.2); Calc. Creatinine Clearance 0 mL/min (70-130); Calcium 9.2 mg/dL (7.8-10.44); Carbon Dioxide 24 mmol/L (23-31); Chloride 108 mmol/L (98-107); Globulin 3.2 g/dL (2.4-3.5); Glucose 110 mg/dL (80-115); Magnesium 1.8 mg/dL (1.6-2.6); Potassium 4.6 mmol/L (3.5-5.1); Protein, Total 6.6 g/dL (5.8-8.1); Sodium 138 mmol/L (136-145)
[2021-06-28 13:20] LABS: SARS-CoV-2 NAA Rapid Test Not Detected (NotDetected)
== END 2021-06-28 15:03 | disposition home or self-care (01) ==
LOC: ERS 11:06
DX: J44.1 Chronic obstructive pulmonary disease with (acute) exacerbation (principal); C25.9 Malignant neoplasm of pancreas, unspecified; I50.9 Heart failure, unspecified; I48.91 Unspecified atrial fibrillation; I25.10 Atherosclerotic heart disease of native coronary artery without angina pectoris; E11.9 Type 2 diabetes mellitus without complications; Z20.822 Contact with and (suspected) exposure to COVID-19
CPT/HCPCS: 71045; 80053; 82805; 83735; 83880; 84484; 85025; 93005; 94640; 94664; 96374; 96375; 99285; U0002; 36415; J1642; J2930; J7620

== ENCOUNTER 2021-07-18 11:05 | Emergency (ER) | payer MEDICARE, OTHER ==
[2021-07-18 11:49] LABS: #Eosinphils 0.1 thou/uL (0.0-0.7); #Lymphocytes 2.8 thou/uL (1.20-3.40); #Monocytes 0.7 thou/uL (0.11-0.59); #Neutrophils 3.6 thou/uL (1.40-6.50); %Basophils 0.7 % (0.0-1.0); %Eosinophils 1.4 % (0.0-10.0); %Lymphocytes 38.9 % (21.0-51.0); %Neutrophils 50.1 % (42.0-75.0); Hemoglobin 11.8 g/dL (12.0-16.0); Mean Corpuscular HGB CONC 31.9 g/dL (32.0-36.0); Mean Corpuscular Hemoglobin 29.1 pg (27.0-31.0); Mean Corpuscular Volume 91.1 fL (78.0-98.0); Mean Platelet Volume 8.2 fL (7.4-10.4); Platelet Count 154 thou/uL (130-400); RBC Distribution Width 14.9 % (11.5-14.5); Red Blood Cell (RBC) Count 4.07 mill/uL (4.20-5.40); White Blood Cell (WBC) Count 7.2 thou/uL (4.8-10.8)
[2021-07-18 12:05] LABS: ALT (SGPT) 13 U/L (8-55); AST (SGOT) 27 U/L (5-34); Albumin 3.6 g/dL (3.4-4.8); Alkaline Phosphatase 65 U/L (40-110); Anion Gap 19 mmol/L (10-20); BUN (Urea Nitrogen) 20 mg/dL (9.8-20.1); Bilirubin, Total 0.5 mg/dL (0.2-1.2); Calc. Creatinine Clearance 0 mL/min (70-130); Calcium 8.4 mg/dL (7.8-10.44); Carbon Dioxide 17 mmol/L (23-31); Chloride 108 mmol/L (98-107); Globulin 3.3 g/dL (2.4-3.5); Glucose 162 mg/dL (80-115); Potassium 4.6 mmol/L (3.5-5.1); Protein, Total 6.9 g/dL (5.8-8.1); Sodium 139 mmol/L (136-145)
[2021-07-18] MEDS ORDERED: Aspirin Chewable 81 MG TAB ONE (12:40)
[2021-07-18] MEDS ORDERED: Dexamethasone 10 MG/ML VIAL ONE (12:40)
[2021-07-18 14:59] LABS: Troponin I Less than 0.010 ng/mL (< 0.028)
== END 2021-07-18 15:50 | disposition home or self-care (01) ==
LOC: ERS 11:05
DX: R07.9 Chest pain, unspecified (principal); J44.9 Chronic obstructive pulmonary disease, unspecified; I11.0 Hypertensive heart disease with heart failure; I50.9 Heart failure, unspecified; I48.91 Unspecified atrial fibrillation; E11.9 Type 2 diabetes mellitus without complications; I25.10 Atherosclerotic heart disease of native coronary artery without angina pectoris; I25.2 Old myocardial infarction
CPT/HCPCS: 36415; 71045; 80053; 83880; 84484; 85025; 93005; J1100; J7620

== ENCOUNTER 2021-07-24 12:46 | Observation (INO) | payer MEDICARE, MEDICAID ==
[2021-07-24 15:23] LABS: ALT (SGPT) 13 U/L (8-55); AST (SGOT) 27 U/L (5-34); Albumin 4.1 g/dL (3.4-4.8); Alkaline Phosphatase 74 U/L (40-110); Anion Gap 19 mmol/L (10-20); BUN (Urea Nitrogen) 19 mg/dL (9.8-20.1); Bilirubin, Total 0.5 mg/dL (0.2-1.2); Calc. Creatinine Clearance 0 mL/min (70-130); Calcium 9.7 mg/dL (7.8-10.44); Carbon Dioxide 20 mmol/L (23-31); Chloride 105 mmol/L (98-107); Globulin 3.9 g/dL (2.4-3.5); Glucose 89 mg/dL (80-115); Potassium 5.2 mmol/L (3.5-5.1); Sodium 139 mmol/L (136-145)
[2021-07-24 15:30] LABS: #Eosinphils 0.1 thou/uL (0.0-0.7); #Lymphocytes 4.4 thou/uL (1.20-3.40); #Monocytes 0.7 thou/uL (0.11-0.59); #Neutrophils 4.6 thou/uL (1.40-6.50); %Basophils 0.2 % (0.0-1.0); %Eosinophils 1.5 % (0.0-10.0); %Lymphocytes 44.5 % (21.0-51.0); %Monocytes 7.3 % (0.0-10.0); %Neutrophils 46.6 % (42.0-75.0); Mean Corpuscular HGB CONC 32.7 g/dL (32.0-36.0); Mean Corpuscular Hemoglobin 29.5 pg (27.0-31.0); Mean Corpuscular Volume 90.3 fL (78.0-98.0); Mean Platelet Volume 7.7 fL (7.4-10.4); Platelet Count 199 thou/uL (130-400); RBC Distribution Width 14.6 % (11.5-14.5); Red Blood Cell (RBC) Count 4.39 mill/uL (4.20-5.40); White Blood Cell (WBC) Count 9.9 thou/uL (4.8-10.8)
[2021-07-24] MEDS ORDERED: Aspirin 325 MG TAB ONE (19:50)
[2021-07-24 23:57] VITALS: BMI 37.8
[2021-07-25] MEDS ORDERED: Nitroglycerin 0.4 MG TAB (25 Tab Bottle) SL PRN (02:07)
[2021-07-25] MEDS ORDERED: Acetaminophen 325 MG TAB PO PRN (02:07)
[2021-07-25] MEDS ORDERED: tiZANidine HCl 4 MG TAB PO PRN (02:10)
[2021-07-25] MEDS ORDERED: HYDROcodone/Acetaminophen 10/325 mg Tablet PO PRN (02:10)
[2021-07-25] MEDS ORDERED: Albuterol 200 PUFF (6.7GM INHALER) INH PRN (02:10)
[2021-07-25] MEDS ORDERED: risperiDONE 3 MG TAB PO SCH ×2 (02:45→21:00)
[2021-07-25] MEDS ORDERED: Divalproex Sodium DR 500 MG TAB PO SCH ×2 (02:45→21:00)
[2021-07-25] MEDS ORDERED: Apixaban 5 MG TAB PO SCH (03:00)
[2021-07-25 06:04] LABS: #Eosinphils 0.2 thou/uL (0.0-0.7); #Lymphocytes 3.8 thou/uL (1.20-3.40); #Monocytes 0.8 thou/uL (0.11-0.59); #Neutrophils 3.4 thou/uL (1.40-6.50); %Basophils 0.5 % (0.0-1.0); %Eosinophils 2.3 % (0.0-10.0); %Lymphocytes 45.8 % (21.0-51.0); %Neutrophils 41.5 % (42.0-75.0); Hemoglobin 11.8 g/dL (12.0-16.0); Mean Corpuscular Hemoglobin 30.2 pg (27.0-31.0); Mean Corpuscular Volume 91.6 fL (78.0-98.0); Mean Platelet Volume 7.9 fL (7.4-10.4); Platelet Count 194 thou/uL (130-400); RBC Distribution Width 14.3 % (11.5-14.5); Red Blood Cell (RBC) Count 3.92 mill/uL (4.20-5.40); White Blood Cell (WBC) Count 8.3 thou/uL (4.8-10.8)
[2021-07-25 06:27] LABS: Anion Gap 15 mmol/L (10-20); BUN (Urea Nitrogen) 22 mg/dL (9.8-20.1); Calc. Creatinine Clearance 99 mL/min (70-130); Calcium 9.6 mg/dL (7.8-10.44); Carbon Dioxide 22 mmol/L (23-31); Chloride 104 mmol/L (98-107); Cholesterol 127 mg/dl (< 200 Desired); Glucose 83 mg/dL (80-115); HDL Cholesterol 63 mg/dL (>60 Neg Risk); LDL Cholesterol, Calculated 51 mg/dL; Potassium 4.2 mmol/L (3.5-5.1); Sodium 137 mmol/L (136-145); Triglycerides 67 mg/dL (Less than 150)
[2021-07-25 06:29] LABS: Troponin I Less than 0.010 ng/mL (< 0.028)
[2021-07-25 06:52] LABS: Troponin I Less than 0.010 ng/mL (< 0.028)
[2021-07-25] MEDS: Mometasone 200 MCG/Formoterol 5 MCG 120 PUFF INHALER INH SCH ×2 (07:39→18:38)
[2021-07-25] MEDS: Ferrous Sulfate 325 MG TAB PO SCH (08:30)
[2021-07-25] MEDS: Aspirin Chewable 81 MG TAB PO SCH (08:30)
[2021-07-25] MEDS: cycloSPORINE 0.05% Ophthalmic Droperette EA EYE SCH ×2 (08:30→21:36)
[2021-07-25] MEDS: Flecainide 50 MG TAB PO SCH ×2 (08:30→21:37)
[2021-07-25] MEDS: Divalproex Sodium DR 500 MG TAB PO SCH (08:30)
[2021-07-25] MEDS: Carvedilol 3.125 MG TAB PO SCH ×2 (08:30→17:00)
[2021-07-25] MEDS: Lubiprostone 8 MCG CAP PO SCH (08:31)
[2021-07-25] MEDS: Acetaminophen 325 MG TAB PO PRN ×2 (08:34→17:00)
[2021-07-25] MEDS: Loteprednol Etabonate 0.5% Ophth Suspension 5 ml Bottle EA EYE SCH ×4 (10:28→21:37)
[2021-07-25 11:45] LABS: SARS-CoV-2 PCR by NAA Not Detected (NotDetected)
[2021-07-25] MEDS ORDERED: Atorvastatin Calcium 40 MG TAB PO SCH (21:00)
[2021-07-25] MEDS ORDERED: Montelukast Sodium 10 mg Tablet PO SCH (21:00)
[2021-07-25] MEDS: Apixaban 5 MG TAB PO SCH (21:37)
[2021-07-26] MEDS: Mometasone 200 MCG/Formoterol 5 MCG 120 PUFF INHALER INH SCH (08:59)
[2021-07-26] MEDS: Loteprednol Etabonate 0.5% Ophth Suspension 5 ml Bottle EA EYE SCH ×2 (09:32→14:31)
[2021-07-26] MEDS: Aspirin Chewable 81 MG TAB PO SCH (09:37)
[2021-07-26] MEDS: Divalproex Sodium DR 500 MG TAB PO SCH (09:38)
[2021-07-26] MEDS: Ferrous Sulfate 325 MG TAB PO SCH (09:38)
[2021-07-26] MEDS: Carvedilol 3.125 MG TAB PO SCH (09:39)
[2021-07-26] MEDS: Flecainide 50 MG TAB PO SCH (09:39)
[2021-07-26] MEDS: Apixaban 5 MG TAB PO SCH (09:39)
[2021-07-26] MEDS: Lubiprostone 8 MCG CAP PO SCH (09:40)
[2021-07-26] MEDS: cycloSPORINE 0.05% Ophthalmic Droperette EA EYE SCH (12:37)
[2021-07-26 12:53] VITALS: BP 116/76; TEMP 97.5
== END 2021-07-26 15:20 | disposition home health service (06) ==
LOC: ERS 12:46 → NEURO 18:01
PROVIDERS: ADMIT Family Medicine; ATTEND Hospitalist
DX: R07.2 Precordial pain (principal); R55 Syncope and collapse; R51.9 Headache, unspecified; I11.0 Hypertensive heart disease with heart failure; I50.30 Unspecified diastolic (congestive) heart failure; J44.9 Chronic obstructive pulmonary disease, unspecified; I25.10 Atherosclerotic heart disease of native coronary artery without angina pectoris; E11.9 Type 2 diabetes mellitus without complications; I25.2 Old myocardial infarction; R42 Dizziness and giddiness; R20.2 Paresthesia of skin; R53.1 Weakness; I48.20 Chronic atrial fibrillation, unspecified; H53.8 Other visual disturbances; H53.2 Diplopia; I08.3 Combined rheumatic disorders of mitral, aortic and tricuspid valves; Z91.14 Patient's other noncompliance with medication regimen; Z79.01 Long term (current) use of anticoagulants; Z79.82 Long term (current) use of aspirin; Z79.899 Other long term (current) drug therapy; Z88.0 Allergy status to penicillin; Z88.2 Allergy status to sulfonamides; Z88.5 Allergy status to narcotic agent; Z88.8 Allergy status to other drugs, medicaments and biological substances; Z91.018 Allergy to other foods; Z95.5 Presence of coronary angioplasty implant and graft; Z95.810 Presence of automatic (implantable) cardiac defibrillator; Z20.822 Contact with and (suspected) exposure to COVID-19
CPT/HCPCS: 70450; 70551; 71045; 80048; 80053; 80061; 82962 ×3; 83880; 84484 ×3; 85025 ×2; 93005; 93306; 94640; 95712; 95819; 95957; 97116; 97139 ×2; 99285; G0378 ×4; U0003; U0005; 36415; 36416; J1642

== ENCOUNTER 2021-08-29 12:49 | Outpatient (CLI) | payer MEDICARE, OTHER ==
[2021-08-30 12:02] LABS: SARS-CoV-2 PCR by NAA Not Detected (NotDetected)
== END 2021-08-29 12:50 | disposition home or self-care (01) ==
LOC: LABBT 12:49
PROVIDERS: ATTEND Internal Medicine
DX: Z01.812 Encounter for preprocedural laboratory examination (principal); R13.10 Dysphagia, unspecified; K21.9 Gastro-esophageal reflux disease without esophagitis; K59.00 Constipation, unspecified; Z20.822 Contact with and (suspected) exposure to COVID-19
CPT/HCPCS: U0003; U0005

== ENCOUNTER 2021-09-03 07:24 | Day surgery (SDC) | payer MEDICARE, MEDICAID ==
[2021-08-30 12:08] VITALS: BMI 39.1
[2021-09-03] MEDS ORDERED: PROPOFOL 200 MG/20 ML VIAL ONE (11:33)
[2021-09-03] MEDS ORDERED: Lidocaine 1% PF 5 ML VIAL ONE (11:33)
== END 2021-09-03 13:00 | disposition home or self-care (01) ==
LOC: SDC 07:24
PROVIDERS: ATTEND Internal Medicine
PROC: 0DB38ZX Excision of Lower Esophagus, Via Natural or Artificial Opening Endoscopic, Diagnostic (ICD-10-PCS; principal; 2021-09-03)
PROC: 0DB78ZX Excision of Stomach, Pylorus, Via Natural or Artificial Opening Endoscopic, Diagnostic (ICD-10-PCS; 2021-09-03)
PROC: 0DB18ZX Excision of Upper Esophagus, Via Natural or Artificial Opening Endoscopic, Diagnostic (ICD-10-PCS; 2021-09-03)
PROC: 0D738ZZ Dilation of Lower Esophagus, Via Natural or Artificial Opening Endoscopic (ICD-10-PCS; 2021-09-03)
DX: K22.2 Esophageal obstruction (principal); K21.00 Gastro-esophageal reflux disease with esophagitis, without bleeding; K31.89 Other diseases of stomach and duodenum; K31.7 Polyp of stomach and duodenum; K59.00 Constipation, unspecified; I48.91 Unspecified atrial fibrillation; J44.9 Chronic obstructive pulmonary disease, unspecified; I11.0 Hypertensive heart disease with heart failure; I50.9 Heart failure, unspecified; G89.29 Other chronic pain; M54.9 Dorsalgia, unspecified; Z87.891 Personal history of nicotine dependence; Z79.01 Long term (current) use of anticoagulants; Z79.82 Long term (current) use of aspirin; Z79.899 Other long term (current) drug therapy; Z88.0 Allergy status to penicillin; Z88.2 Allergy status to sulfonamides; Z88.5 Allergy status to narcotic agent; Z88.8 Allergy status to other drugs, medicaments and biological substances; Z91.018 Allergy to other foods; Z95.5 Presence of coronary angioplasty implant and graft
CPT/HCPCS: 88305; J2704

== ENCOUNTER 2021-09-28 16:44 | Emergency (ER) | payer MEDICARE, MEDICAID | END 2021-09-28 21:16 | disposition home or self-care (01) | LOC: ERS 16:44 | DX: R20.2 Paresthesia of skin (principal); R20.0 Anesthesia of skin; I11.0 Hypertensive heart disease with heart failure; I50.9 Heart failure, unspecified; I48.91 Unspecified atrial fibrillation; I25.10 Atherosclerotic heart disease of native coronary artery without angina pectoris; E11.9 Type 2 diabetes mellitus without complications; J44.9 Chronic obstructive pulmonary disease, unspecified; Z95.5 Presence of coronary angioplasty implant and graft; Z85.07 Personal history of malignant neoplasm of pancreas | CPT/HCPCS: 36416; 74022; 93005 ==

== ENCOUNTER 2021-10-10 12:01 | Outpatient (CLI) | payer MEDICARE, MEDICAID | END 2021-10-10 12:02 | disposition home or self-care (01) | LOC: BICCT 12:01 | PROVIDERS: ATTEND Internal Medicine | DX: R10.31 Right lower quadrant pain (principal); R13.10 Dysphagia, unspecified; E27.8 Other specified disorders of adrenal gland; N20.0 Calculus of kidney; N28.1 Cyst of kidney, acquired; K22.89 Other specified disease of esophagus; M47.816 Spondylosis without myelopathy or radiculopathy, lumbar region; Z90.49 Acquired absence of other specified parts of digestive tract; Z98.890 Other specified postprocedural states | CPT/HCPCS: 74177; 82565 ==

== ENCOUNTER 2021-11-11 07:21 | Outpatient (CLI) | payer OTHER, MEDICAID | END 2021-11-11 07:22 | disposition home or self-care (01) | LOC: RAD 07:21 | PROVIDERS: ATTEND Physician Assistant Medical | DX: R10.31 Right lower quadrant pain (principal); R13.10 Dysphagia, unspecified; K59.00 Constipation, unspecified | CPT/HCPCS: 74220 ==

== ENCOUNTER 2021-11-16 05:42 | Emergency (ER) | payer MEDICARE, MEDICAID | END 2021-11-16 09:09 | disposition home or self-care (01) | LOC: ERS 05:42 | DX: R07.89 Other chest pain (principal); E11.9 Type 2 diabetes mellitus without complications; I11.0 Hypertensive heart disease with heart failure; I50.9 Heart failure, unspecified; I25.2 Old myocardial infarction; I25.10 Atherosclerotic heart disease of native coronary artery without angina pectoris; I48.91 Unspecified atrial fibrillation; J44.9 Chronic obstructive pulmonary disease, unspecified; Z79.01 Long term (current) use of anticoagulants; Z79.82 Long term (current) use of aspirin; Z79.51 Long term (current) use of inhaled steroids; Z79.899 Other long term (current) drug therapy | CPT/HCPCS: 36415; 84484; 93005 ==

== ENCOUNTER 2021-12-06 09:46 | Outpatient (CLI) | payer MEDICARE, MEDICAID | END 2021-12-06 09:47 | disposition home or self-care (01) | LOC: BICMAMMO 09:46 | PROVIDERS: ATTEND Specialist | DX: Z12.31 Encounter for screening mammogram for malignant neoplasm of breast (principal); Z91.89 Other specified personal risk factors, not elsewhere classified; Z85.72 Personal history of non-Hodgkin lymphomas; Z80.3 Family history of malignant neoplasm of breast | CPT/HCPCS: 77063; 77067 ==

== ENCOUNTER 2021-12-18 19:00 | Outpatient (CLI) | payer MEDICARE, MEDICAID | END 2021-12-18 19:01 | disposition home or self-care (01) | LOC: SLEEPLAB 19:00 | PROVIDERS: ATTEND Internal Medicine Critical Care Medicine | DX: G47.33 Obstructive sleep apnea (adult) (pediatric) (principal); J45.909 Unspecified asthma, uncomplicated; R53.83 Other fatigue; G47.00 Insomnia, unspecified; G47.10 Hypersomnia, unspecified; F32.9 Major depressive disorder, single episode, unspecified; K21.9 Gastro-esophageal reflux disease without esophagitis | CPT/HCPCS: 95810 ==

== ENCOUNTER 2021-12-29 10:38 | Emergency (ER) | payer MEDICARE, OTHER ==
[2021-12-29] MEDS ORDERED: HYDROcodone/Acetaminophen 5/325 mg Tablet ONE (12:10)
== END 2021-12-29 13:35 | disposition home or self-care (01) ==
LOC: ERS 10:38
DX: M25.562 Pain in left knee (principal); M54.50 Low back pain, unspecified; J44.9 Chronic obstructive pulmonary disease, unspecified; W19.XXXA Unspecified fall, initial encounter; I25.10 Atherosclerotic heart disease of native coronary artery without angina pectoris; I11.0 Hypertensive heart disease with heart failure; I50.9 Heart failure, unspecified; I25.2 Old myocardial infarction; I48.91 Unspecified atrial fibrillation; E11.9 Type 2 diabetes mellitus without complications; K21.9 Gastro-esophageal reflux disease without esophagitis; Z86.73 Personal history of transient ischemic attack (TIA), and cerebral infarction without residual deficits; Z85.07 Personal history of malignant neoplasm of pancreas
CPT/HCPCS: 71045; 72100; 94640; J7620

== ENCOUNTER 2022-01-10 16:04 | Emergency (ER) | payer MEDICARE, MEDICAID ==
[2022-01-10 16:46] LABS: #Eosinphils 0.1 thou/uL (0.0-0.7); #Lymphocytes 4.8 thou/uL (1.20-3.40); #Monocytes 0.7 thou/uL (0.11-0.59); #Neutrophils 4.2 thou/uL (1.40-6.50); %Basophils 0.5 % (0.0-1.0); %Eosinophils 1.4 % (0.0-10.0); %Lymphocytes 48.5 % (21.0-51.0); %Monocytes 7.3 % (0.0-10.0); %Neutrophils 42.4 % (42.0-75.0); Mean Corpuscular HGB CONC 31.3 g/dL (32.0-36.0); Mean Corpuscular Hemoglobin 28.6 pg (27.0-31.0); Mean Corpuscular Volume 91.4 fL (78.0-98.0); Mean Platelet Volume 7.3 fL (7.4-10.4); Platelet Count 232 thou/uL (130-400); Red Blood Cell (RBC) Count 3.83 mill/uL (4.20-5.40); White Blood Cell (WBC) Count 9.8 thou/uL (4.8-10.8)
[2022-01-10 17:08] LABS: ALT (SGPT) 8 U/L (8-55); AST (SGOT) 16 U/L (5-34); Albumin 3.7 g/dL (3.4-4.8); Alkaline Phosphatase 65 U/L (40-110); Anion Gap 14 mmol/L (10-20); BUN (Urea Nitrogen) 25 mg/dL (9.8-20.1); Bilirubin, Total 0.4 mg/dL (0.2-1.2); CK (CPK) 170 U/L (29-168); Calc. Creatinine Clearance 0 mL/min (70-130); Calcium 9.2 mg/dL (7.8-10.44); Carbon Dioxide 25 mmol/L (23-31); Chloride 106 mmol/L (98-107); Globulin 3.1 g/dL (2.4-3.5); Glucose 72 mg/dL (80-115); Lipase 31 U/L (8-78); Potassium 4.5 mmol/L (3.5-5.1); Protein, Total 6.8 g/dL (5.8-8.1); Sodium 140 mmol/L (136-145)
== END 2022-01-10 19:19 | disposition home or self-care (01) ==
LOC: ERS 16:04
DX: R07.89 Other chest pain (principal); I11.0 Hypertensive heart disease with heart failure; I50.9 Heart failure, unspecified; I25.10 Atherosclerotic heart disease of native coronary artery without angina pectoris; I25.2 Old myocardial infarction; I48.91 Unspecified atrial fibrillation; E11.9 Type 2 diabetes mellitus without complications; K21.9 Gastro-esophageal reflux disease without esophagitis; J44.9 Chronic obstructive pulmonary disease, unspecified; Z95.5 Presence of coronary angioplasty implant and graft; Z86.73 Personal history of transient ischemic attack (TIA), and cerebral infarction without residual deficits; Z85.07 Personal history of malignant neoplasm of pancreas; Z79.82 Long term (current) use of aspirin; Z79.01 Long term (current) use of anticoagulants; Z79.84 Long term (current) use of oral hypoglycemic drugs; Z79.899 Other long term (current) drug therapy
CPT/HCPCS: 36415; 71045; 80053; 82550; 83690; 83880; 84484; 85025; 93005; 96360; J1642

== ENCOUNTER 2022-03-04 22:45 | Emergency (ER) | payer MEDICARE, MEDICAID ==
[2022-03-05 02:03] LABS: #Eosinphils 0.4 thou/uL (0.0-0.7); #Lymphocytes 3.9 thou/uL (1.20-3.40); #Monocytes 0.8 thou/uL (0.11-0.59); #Neutrophils 4.1 thou/uL (1.40-6.50); %Basophils 0.2 % (0.0-1.0); %Eosinophils 4.4 % (0.0-10.0); %Lymphocytes 41.9 % (21.0-51.0); %Monocytes 8.8 % (0.0-10.0); %Neutrophils 44.7 % (42.0-75.0); Hemoglobin 10.8 g/dL (12.0-16.0); Mean Corpuscular Hemoglobin 29.1 pg (27.0-31.0); Mean Corpuscular Volume 91.1 fL (78.0-98.0); Mean Platelet Volume 7.7 fL (7.4-10.4); Platelet Count 181 thou/uL (130-400); RBC Distribution Width 13.2 % (11.5-14.5); Red Blood Cell (RBC) Count 3.71 mill/uL (4.20-5.40); White Blood Cell (WBC) Count 9.2 thou/uL (4.8-10.8)
[2022-03-05] MEDS ORDERED: methylPREDNISolone Sod Succ/PF 125 MG/2 ML VIAL ONE (02:12)
[2022-03-05 02:26] LABS: ALT (SGPT) 8 U/L (8-55); AST (SGOT) 16 U/L (5-34); Albumin 3.5 g/dL (3.4-4.8); Alkaline Phosphatase 66 U/L (40-110); Anion Gap 14 mmol/L (10-20); BUN (Urea Nitrogen) 20 mg/dL (9.8-20.1); Bilirubin, Total 0.4 mg/dL (0.2-1.2); Calc. Creatinine Clearance 0 mL/min (70-130); Calcium 9.4 mg/dL (7.8-10.44); Carbon Dioxide 25 mmol/L (23-31); Chloride 106 mmol/L (98-107); Estimated GFR 73; Globulin 3.2 g/dL (2.4-3.5); Glucose 105 mg/dL (80-115); Lipase 21 U/L (8-78); Potassium 4.2 mmol/L (3.5-5.1); Protein, Total 6.7 g/dL (5.8-8.1); Sodium 141 mmol/L (136-145)
== END 2022-03-05 03:56 | disposition home or self-care (01) ==
LOC: ERS 22:45
DX: J44.1 Chronic obstructive pulmonary disease with (acute) exacerbation (principal); E11.9 Type 2 diabetes mellitus without complications; I25.119 Atherosclerotic heart disease of native coronary artery with unspecified angina pectoris; I25.2 Old myocardial infarction; I48.91 Unspecified atrial fibrillation; K21.9 Gastro-esophageal reflux disease without esophagitis; J44.9 Chronic obstructive pulmonary disease, unspecified; Z86.73 Personal history of transient ischemic attack (TIA), and cerebral infarction without residual deficits; Z79.899 Other long term (current) drug therapy; Z79.82 Long term (current) use of aspirin; Z79.01 Long term (current) use of anticoagulants
CPT/HCPCS: 71045; 80053; 83690; 84484; 85025; 93005; 94640; 96374; J1642; J2930; J7620

== ENCOUNTER 2022-03-19 12:40 | Emergency (ER) | payer OTHER, MEDICAID ==
[2022-03-19] MEDS ORDERED: Acetaminophen 500 MG TAB ONE (13:20)
[2022-03-19] MEDS ORDERED: Magnesium 2 GM/50 ML BAG (IN WATER) ONE (13:20)
[2022-03-19 14:23] LABS: #Basophils 0.1 thou/uL (0.0-0.2); #Eosinphils 0.3 thou/uL (0.0-0.7); #Lymphocytes 4.8 thou/uL (1.20-3.40); #Monocytes 0.9 thou/uL (0.11-0.59); #Neutrophils 6.1 thou/uL (1.40-6.50); %Basophils 0.5 % (0.0-1.0); %Eosinophils 2.8 % (0.0-10.0); %Lymphocytes 39.5 % (21.0-51.0); %Monocytes 7.3 % (0.0-10.0); %Neutrophils 49.9 % (42.0-75.0); Hemoglobin 11.6 g/dL (12.0-16.0); Mean Corpuscular HGB CONC 32.1 g/dL (32.0-36.0); Mean Corpuscular Hemoglobin 29.2 pg (27.0-31.0); Mean Corpuscular Volume 90.9 fL (78.0-98.0); Mean Platelet Volume 7.6 fL (7.4-10.4); Platelet Count 237 thou/uL (130-400); RBC Distribution Width 13.7 % (11.5-14.5); Red Blood Cell (RBC) Count 3.97 mill/uL (4.20-5.40); White Blood Cell (WBC) Count 12.3 thou/uL (4.8-10.8)
[2022-03-19 14:45] LABS: ALT (SGPT) 9 U/L (8-55); AST (SGOT) 20 U/L (5-34); Albumin 3.7 g/dL (3.4-4.8); Alkaline Phosphatase 70 U/L (40-110); Anion Gap 12 mmol/L (10-20); BUN (Urea Nitrogen) 15 mg/dL (9.8-20.1); Bilirubin, Total 0.6 mg/dL (0.2-1.2); CK (CPK) 115 U/L (29-168); Calc. Creatinine Clearance 0 mL/min (70-130); Calcium 9.6 mg/dL (7.8-10.44); Carbon Dioxide 28 mmol/L (23-31); Chloride 105 mmol/L (98-107); Estimated GFR 53; Globulin 3.3 g/dL (2.4-3.5); Glucose 66 mg/dL (80-115); Magnesium 2.2 mg/dL (1.6-2.6); Potassium 5.3 mmol/L (3.5-5.1); Sodium 140 mmol/L (136-145)
== END 2022-03-19 15:14 | disposition home or self-care (01) ==
LOC: ERS 12:40
DX: R51.9 Headache, unspecified (principal); R42 Dizziness and giddiness; R20.2 Paresthesia of skin; I11.0 Hypertensive heart disease with heart failure; I50.9 Heart failure, unspecified; I25.10 Atherosclerotic heart disease of native coronary artery without angina pectoris; I48.91 Unspecified atrial fibrillation; I25.2 Old myocardial infarction; E11.9 Type 2 diabetes mellitus without complications; K21.9 Gastro-esophageal reflux disease without esophagitis; J44.9 Chronic obstructive pulmonary disease, unspecified; E78.5 Hyperlipidemia, unspecified; E66.9 Obesity, unspecified; Z68.45 Body mass index [BMI] 70 or greater, adult; Z95.5 Presence of coronary angioplasty implant and graft; Z86.73 Personal history of transient ischemic attack (TIA), and cerebral infarction without residual deficits; Z85.07 Personal history of malignant neoplasm of pancreas; Z79.82 Long term (current) use of aspirin; Z79.01 Long term (current) use of anticoagulants; Z79.84 Long term (current) use of oral hypoglycemic drugs; Z79.899 Other long term (current) drug therapy
CPT/HCPCS: 71045; 80053; 82550; 83735; 83880; 84484; 85025; 93005; 96365; J3475

== ENCOUNTER 2022-03-31 13:34 | Emergency (ER) | payer MEDICARE, MEDICAID ==
[2022-03-31 14:39] LABS: #Eosinphils 0.2 thou/uL (0.0-0.7); #Lymphocytes 3.2 thou/uL (1.20-3.40); #Monocytes 0.5 thou/uL (0.11-0.59); #Neutrophils 3.8 thou/uL (1.40-6.50); %Basophils 0.5 % (0.0-1.0); %Eosinophils 3.2 % (0.0-10.0); %Lymphocytes 40.8 % (21.0-51.0); %Neutrophils 48.5 % (42.0-75.0); Hemoglobin 12.2 g/dL (12.0-16.0); Mean Corpuscular HGB CONC 31.5 g/dL (32.0-36.0); Mean Corpuscular Hemoglobin 28.7 pg (27.0-31.0); Mean Corpuscular Volume 91.1 fL (78.0-98.0); Mean Platelet Volume 7.5 fL (7.4-10.4); Platelet Count 222 thou/uL (130-400); RBC Distribution Width 13.7 % (11.5-14.5); Red Blood Cell (RBC) Count 4.26 mill/uL (4.20-5.40); White Blood Cell (WBC) Count 7.7 thou/uL (4.8-10.8)
[2022-03-31 14:50] LABS: Prothrombin Time 13.4 sec (12.0-14.7)
[2022-03-31 14:52] LABS: PTT 46.5 sec (22.9-36.1)
[2022-03-31 15:02] LABS: Anion Gap 16 mmol/L (10-20); BUN (Urea Nitrogen) 27 mg/dL (9.8-20.1); Calc. Creatinine Clearance 0 mL/min (70-130); Calcium 9.9 mg/dL (7.8-10.44); Carbon Dioxide 25 mmol/L (23-31); Chloride 103 mmol/L (98-107); Estimated GFR 53; Glucose 97 mg/dL (80-115); Potassium 4.9 mmol/L (3.5-5.1); Sodium 139 mmol/L (136-145)
== END 2022-03-31 15:51 | disposition home or self-care (01) ==
LOC: ERS 13:34
DX: R07.2 Precordial pain (principal); F31.9 Bipolar disorder, unspecified; F20.9 Schizophrenia, unspecified; I10 Essential (primary) hypertension; I11.0 Hypertensive heart disease with heart failure; I50.9 Heart failure, unspecified; I25.10 Atherosclerotic heart disease of native coronary artery without angina pectoris; I25.2 Old myocardial infarction; I48.91 Unspecified atrial fibrillation; E11.9 Type 2 diabetes mellitus without complications; K21.9 Gastro-esophageal reflux disease without esophagitis; J44.9 Chronic obstructive pulmonary disease, unspecified; E78.5 Hyperlipidemia, unspecified; E66.9 Obesity, unspecified; Z68.45 Body mass index [BMI] 70 or greater, adult; Z95.5 Presence of coronary angioplasty implant and graft; Z86.16 Personal history of COVID-19; Z85.07 Personal history of malignant neoplasm of pancreas; Z79.82 Long term (current) use of aspirin; Z79.01 Long term (current) use of anticoagulants; Z79.899 Other long term (current) drug therapy
CPT/HCPCS: 36415; 80048; 84484; 85025; 85610; 85730; 93005

== ENCOUNTER 2022-04-06 01:08 | Emergency (ER) | payer MEDICAID, MEDICARE, OTHER ==
[2022-04-06 02:54] LABS: PTT 35.9 sec (22.9-36.1)
[2022-04-06 03:04] LABS: ALT (SGPT) 11 U/L (8-55); AST (SGOT) 24 U/L (5-34); Albumin 4.1 g/dL (3.4-4.8); Alkaline Phosphatase 75 U/L (40-110); Anion Gap 18 mmol/L (10-20); BUN (Urea Nitrogen) 27 mg/dL (9.8-20.1); Bilirubin, Total 0.7 mg/dL (0.2-1.2); Calc. Creatinine Clearance 0 mL/min (70-130); Calcium 9.4 mg/dL (7.8-10.44); Carbon Dioxide 21 mmol/L (23-31); Chloride 104 mmol/L (98-107); Estimated GFR 49; Globulin 3.2 g/dL (2.4-3.5); Glucose 90 mg/dL (80-115); Potassium 4.1 mmol/L (3.5-5.1); Protein, Total 7.3 g/dL (5.8-8.1); Sodium 139 mmol/L (136-145)
[2022-04-06 03:09] LABS: Eosinophils 3 % (0-10); Hemoglobin 13.1 g/dL (12.0-16.0); Lymphocytes 44 % (21-51); MDiff Complete? YES; Mean Corpuscular HGB CONC 33.7 g/dL (32.0-36.0); Mean Corpuscular Hemoglobin 30.2 pg (27.0-31.0); Mean Corpuscular Volume 89.6 fL (78.0-98.0); Mean Platelet Volume 9.5 fL (7.4-10.4); Monocytes 10 % (0-10); Neutrophil 43 % (42-75); Platelet Clumps SLIGHT; Platelet Morphology Comment PLT clumps seen-ADEQ; RBC Distribution Width 13.7 % (11.5-14.5); Red Blood Cell (RBC) Count 4.32 mill/uL (4.20-5.40)
== END 2022-04-06 05:37 | disposition home or self-care (01) ==
LOC: ERS 01:08
DX: R29.898 Other symptoms and signs involving the musculoskeletal system (principal)
CPT/HCPCS: 36415; 71045; 80053; 84484; 85025; 85610; 85730; 93005

== ENCOUNTER 2022-04-09 10:41 | Emergency (ER) | payer OTHER, MEDICAID ==
[2022-04-09 12:22] LABS: Bacteria/HPF None Seen HPF (None Seen); Bilirubin 1+ (Negative); Blood, Urine 1+ (Negative); Clarity Clear (Clear); Glucose, Urine (Dipstick) Normal (Negative); Ketone, Urine Trace mg/dL (Negative); Leukocyte Negative Leu/uL (Negative); Nitrite Negative (Negative); Protein, Urine (Dipstick) 30 mg/dL (Neg-Trace); Specific Gravity, Urine 1.048 (1.002-1.036); Squamous Epithelial None Seen HPF (0-3); WBC/HPF 0-3 HPF (0-3)
[2022-04-09] MEDS ORDERED: Acetaminophen 500 MG TAB ONE (12:49)
== END 2022-04-09 12:56 | disposition home or self-care (01) ==
LOC: ERS 10:41
DX: R33.9 Retention of urine, unspecified (principal); M54.50 Low back pain, unspecified; I13.0 Hypertensive heart and chronic kidney disease with heart failure and stage 1 through stage 4 chronic kidney disease, or unspecified chronic kidney disease; E11.22 Type 2 diabetes mellitus with diabetic chronic kidney disease; N18.9 Chronic kidney disease, unspecified; I50.9 Heart failure, unspecified; I25.10 Atherosclerotic heart disease of native coronary artery without angina pectoris; E78.5 Hyperlipidemia, unspecified; J44.9 Chronic obstructive pulmonary disease, unspecified; Z86.718 Personal history of other venous thrombosis and embolism; Z86.711 Personal history of pulmonary embolism
CPT/HCPCS: 51701; 81003; 81015

== ENCOUNTER 2022-04-21 16:16 | Inpatient (IN) | payer OTHER, MEDICAID ==
[2022-04-21] MEDS ORDERED: Ondansetron ODT 4 MG TAB ONE (17:00)
[2022-04-21 17:24] LABS: Bilirubin Negative (Negative); Blood, Urine Negative (Negative); Clarity Clear (Clear); Glucose, Urine (Dipstick) Normal (Negative); Ketone, Urine Negative (Negative); Leukocyte 25 Leu/uL (Negative); Nitrite Negative (Negative); Protein, Urine (Dipstick) Negative (Neg-Trace); RBC/HPF 0-3 HPF (0-3); Squamous Epithelial None Seen HPF (0-3); Urobilinogen Normal mg/dL (Less than 2)
[2022-04-21 17:25] LABS: Bacteria/HPF 1+ HPF (None Seen)
[2022-04-21 17:32] LABS: #Eosinphils 0.3 thou/uL (0.0-0.7); #Lymphocytes 4.2 thou/uL (1.20-3.40); #Monocytes 0.9 thou/uL (0.11-0.59); #Neutrophils 4.5 thou/uL (1.40-6.50); %Basophils 0.3 % (0.0-1.0); %Eosinophils 2.9 % (0.0-10.0); %Lymphocytes 42.3 % (21.0-51.0); %Monocytes 8.6 % (0.0-10.0); %Neutrophils 45.9 % (42.0-75.0); Hemoglobin 12.5 g/dL (12.0-16.0); Mean Corpuscular Hemoglobin 28.3 pg (27.0-31.0); Mean Corpuscular Volume 91.4 fL (78.0-98.0); Mean Platelet Volume 7.5 fL (7.4-10.4); Platelet Count 235 thou/uL (130-400); RBC Distribution Width 13.8 % (11.5-14.5); Red Blood Cell (RBC) Count 4.43 mill/uL (4.20-5.40); White Blood Cell (WBC) Count 9.9 thou/uL (4.8-10.8)
[2022-04-21 17:58] LABS: ALT (SGPT) 11 U/L (8-55); AST (SGOT) 18 U/L (5-34); Alkaline Phosphatase 74 U/L (40-110); Anion Gap 15 mmol/L (10-20); BUN (Urea Nitrogen) 24 mg/dL (9.8-20.1); Bilirubin, Total 0.6 mg/dL (0.2-1.2); Calc. Creatinine Clearance 0 mL/min (70-130); Calcium 9.4 mg/dL (7.8-10.44); Carbon Dioxide 22 mmol/L (23-31); Chloride 105 mmol/L (98-107); Estimated GFR 68; Globulin 3.4 g/dL (2.4-3.5); Glucose 131 mg/dL (80-115); Lipase 26 U/L (8-78); Potassium 4.8 mmol/L (3.5-5.1); Protein, Total 7.4 g/dL (5.8-8.1); Sodium 137 mmol/L (136-145)
[2022-04-21] MEDS ORDERED: Morphine 4 MG/ML VIAL ONE (18:55)
[2022-04-21] MEDS ORDERED: Acetaminophen 650 MG Suppository PR PRN (22:26)
[2022-04-21] MEDS ORDERED: Acetaminophen 325 MG TAB PO PRN (22:26)
[2022-04-21] MEDS ORDERED: Ondansetron PF 4 MG/2 ML Vial IVP PRN (22:26)
[2022-04-21 23:25] VITALS: BMI 39.9
[2022-04-21] MEDS ORDERED: Sodium Chloride 0.9% 1,000 ML IV SCH (23:45)
[2022-04-22] MEDS: Ondansetron ODT 4 MG TAB PO PRN ×3 (00:06→17:46)
[2022-04-22] MEDS ORDERED: Dextrose 50% Abboject 50 ML SYRINGE SLOW IVP PRN (00:10)
[2022-04-22] MEDS ORDERED: Dextrose 5% in Water 1,000 ML IV PRN (00:10)
[2022-04-22] MEDS ORDERED: Sodium Chloride 0.9% 1,000 ML IV SCH (00:12)
[2022-04-22] MEDS: Morphine 4 MG/ML VIAL SLOW IVP PRN ×3 (00:44→10:20)
[2022-04-22] MEDS: Dextrose 10% in Water 1,000 ML IV SCH ×2 (01:23→21:38)
[2022-04-22 05:00] LABS: #Eosinphils 0.2 thou/uL (0.0-0.7); #Monocytes 0.8 thou/uL (0.11-0.59); #Neutrophils 3.5 thou/uL (1.40-6.50); %Basophils 0.3 % (0.0-1.0); %Eosinophils 2.6 % (0.0-10.0); %Lymphocytes 40.1 % (21.0-51.0); %Monocytes 10.9 % (0.0-10.0); %Neutrophils 46.1 % (42.0-75.0); Hemoglobin 10.5 g/dL (12.0-16.0); Mean Corpuscular HGB CONC 31.1 g/dL (32.0-36.0); Mean Corpuscular Hemoglobin 28.6 pg (27.0-31.0); Mean Corpuscular Volume 91.7 fL (78.0-98.0); Mean Platelet Volume 7.3 fL (7.4-10.4); Platelet Count 212 thou/uL (130-400); RBC Distribution Width 13.8 % (11.5-14.5); Red Blood Cell (RBC) Count 3.68 mill/uL (4.20-5.40); White Blood Cell (WBC) Count 7.5 thou/uL (4.8-10.8)
[2022-04-22] MEDS: Albuterol 200 PUFF (6.7GM INHALER) INH SCH ×2 (05:02→07:10)
[2022-04-22] MEDS: Sodium Chloride 0.9% 1,000 ML IV SCH ×2 (05:14→12:32)
[2022-04-22 05:20] LABS: Anion Gap 13 mmol/L (10-20); BUN (Urea Nitrogen) 19 mg/dL (9.8-20.1); Calc. Creatinine Clearance 109 mL/min (70-130); Calcium 8.7 mg/dL (7.8-10.44); Carbon Dioxide 23 mmol/L (23-31); Chloride 109 mmol/L (98-107); Estimated GFR 73; Glucose 103 mg/dL (80-115); Potassium 4.3 mmol/L (3.5-5.1); Sodium 141 mmol/L (136-145)
[2022-04-22] MEDS ORDERED: HYDROcodone/Acetaminophen 10/325 mg Tablet PO PRN (08:01)
[2022-04-22] MEDS ORDERED: Aspirin Chewable 81 MG TAB PO SCH (09:00)
[2022-04-22] MEDS ORDERED: Non-Formulary Item 1 EACH (Esomeprazole Magnesium [Nexium] 20 MG Capsule.Dr) PO SCH (09:00)
[2022-04-22] MEDS ORDERED: cycloSPORINE 0.05% Ophthalmic Droperette EA EYE SCH (09:00)
[2022-04-22] MEDS ORDERED: Apixaban 5 MG TAB PO SCH (09:00)
[2022-04-22] MEDS ORDERED: Carvedilol 6.25 MG TAB PO SCH (09:00)
[2022-04-22] MEDS ORDERED: Non-Formulary Item 1 EACH (Budesonide-Formoterol [Symbicort 160-4.5] 160 MG/4.5 MG Aer) INH SCH (09:00)
[2022-04-22] MEDS ORDERED: Enoxaparin Sodium 40 MG/0.4 ML SYRINGE SC SCH (09:00)
[2022-04-22] MEDS ORDERED: Prevnar 13-Val Conj/PF 0.5 ML SYRINGE IM ONE (09:00)
[2022-04-22] MEDS: Carvedilol 6.25 MG TAB PO SCH ×2 (10:21→21:14)
[2022-04-22] MEDS: Divalproex Sodium DR 500 MG TAB PO SCH (10:22)
[2022-04-22] MEDS: Flecainide 50 MG TAB PO SCH ×2 (10:22→21:14)
[2022-04-22] MEDS ORDERED: Albuterol 200 PUFF (6.7GM INHALER) INH SCH (10:30)
[2022-04-22] MEDS ORDERED: Iopamidol-370 76% 500 ML 1 ML ONE (10:47)
[2022-04-22] MEDS: Mometasone 200 MCG/Formoterol 5 MCG 120 PUFF INHALER INH SCH ×2 (10:52→19:12)
[2022-04-22] MEDS: cycloSPORINE 0.05% Ophthalmic Droperette EA EYE SCH ×2 (11:20→22:50)
[2022-04-22] MEDS: tiZANidine HCl 4 MG TAB PO PRN (12:38)
[2022-04-22] MEDS ORDERED: Morphine 4 MG/ML VIAL SLOW IVP PRN (15:44)
[2022-04-22] MEDS: Sodium Chloride 0.45% 1,000 ML IV SCH ×2 (18:24→18:26)
[2022-04-22] MEDS: Budesonide 0.5 MG/2 ML NEB NEB SCH (19:12)
[2022-04-22] MEDS ORDERED: Divalproex Sodium DR 500 MG TAB PO SCH (21:00)
[2022-04-22] MEDS ORDERED: risperiDONE 3 MG TAB PO SCH (21:00)
[2022-04-22] MEDS ORDERED: Montelukast Sodium 10 mg Tablet PO SCH (21:00)
[2022-04-22] MEDS ORDERED: Atorvastatin Calcium 40 MG TAB PO SCH (21:00)
[2022-04-23] MEDS: Sodium Chloride 0.45% 1,000 ML IV SCH ×3 (03:48→11:00)
[2022-04-23] MEDS: tiZANidine HCl 4 MG TAB PO PRN (03:58)
[2022-04-23] MEDS: HYDROcodone/Acetaminophen 10/325 mg Tablet PO PRN ×2 (06:10→15:40)
[2022-04-23 06:21] LABS: #Eosinphils 0.3 thou/uL (0.0-0.7); #Lymphocytes 3.3 thou/uL (1.20-3.40); #Monocytes 0.6 thou/uL (0.11-0.59); #Neutrophils 3.1 thou/uL (1.40-6.50); %Basophils 0.2 % (0.0-1.0); %Eosinophils 3.8 % (0.0-10.0); %Lymphocytes 45.3 % (21.0-51.0); %Monocytes 8.1 % (0.0-10.0); %Neutrophils 42.7 % (42.0-75.0); Hemoglobin 10.1 g/dL (12.0-16.0); Mean Corpuscular Hemoglobin 28.7 pg (27.0-31.0); Mean Corpuscular Volume 92.6 fL (78.0-98.0); Mean Platelet Volume 7.4 fL (7.4-10.4); Platelet Count 203 thou/uL (130-400); RBC Distribution Width 13.9 % (11.5-14.5); Red Blood Cell (RBC) Count 3.53 mill/uL (4.20-5.40); White Blood Cell (WBC) Count 7.3 thou/uL (4.8-10.8)
[2022-04-23 06:42] LABS: ALT (SGPT) 12 U/L (8-55); AST (SGOT) 17 U/L (5-34); Albumin 3.3 g/dL (3.4-4.8); Alkaline Phosphatase 62 U/L (40-110); Anion Gap 12 mmol/L (10-20); BUN (Urea Nitrogen) 11 mg/dL (9.8-20.1); Bilirubin, Total 0.7 mg/dL (0.2-1.2); Calc. Creatinine Clearance 114 mL/min (70-130); Calcium 8.8 mg/dL (7.8-10.44); Carbon Dioxide 26 mmol/L (23-31); Chloride 108 mmol/L (98-107); Estimated GFR 77; Globulin 2.6 g/dL (2.4-3.5); Glucose 99 mg/dL (80-115); Potassium 4.5 mmol/L (3.5-5.1); Protein, Total 5.9 g/dL (5.8-8.1); Sodium 141 mmol/L (136-145)
[2022-04-23] MEDS: Budesonide 0.5 MG/2 ML NEB NEB SCH (06:46)
[2022-04-23] MEDS: Mometasone 200 MCG/Formoterol 5 MCG 120 PUFF INHALER INH SCH (06:46)
[2022-04-23] MEDS: Divalproex Sodium DR 500 MG TAB PO SCH (08:54)
[2022-04-23] MEDS: Carvedilol 6.25 MG TAB PO SCH (08:54)
[2022-04-23] MEDS: Flecainide 50 MG TAB PO SCH (08:55)
[2022-04-23] MEDS ORDERED: Pantoprazole 40 MG VIAL IVP SCH (09:00)
[2022-04-23] MEDS: cycloSPORINE 0.05% Ophthalmic Droperette EA EYE SCH (11:01)
[2022-04-23 12:14] VITALS: BP 119/82; TEMP 97.6
== END 2022-04-23 16:12 | disposition home or self-care (01) | DRG 392 ==
LOC: ERS 16:16 → MSONC 21:45 → OBSVTOIN 04-22 12:29
PROVIDERS: ADMIT Internal Medicine; ATTEND Internal Medicine
DX: R10.84 Generalized abdominal pain (principal); J44.1 Chronic obstructive pulmonary disease with (acute) exacerbation; I48.20 Chronic atrial fibrillation, unspecified; Z20.822 Contact with and (suspected) exposure to COVID-19; I25.10 Atherosclerotic heart disease of native coronary artery without angina pectoris; N18.9 Chronic kidney disease, unspecified; E11.22 Type 2 diabetes mellitus with diabetic chronic kidney disease; I12.9 Hypertensive chronic kidney disease with stage 1 through stage 4 chronic kidney disease, or unspecified chronic kidney disease; E66.01 Morbid (severe) obesity due to excess calories; F25.9 Schizoaffective disorder, unspecified; Z86.718 Personal history of other venous thrombosis and embolism; Z86.711 Personal history of pulmonary embolism; Z79.899 Other long term (current) drug therapy; Z88.1 Allergy status to other antibiotic agents; Z88.5 Allergy status to narcotic agent; Z88.0 Allergy status to penicillin; Z88.2 Allergy status to sulfonamides; Z91.018 Allergy to other foods; Z79.51 Long term (current) use of inhaled steroids; Z79.82 Long term (current) use of aspirin; Z79.01 Long term (current) use of anticoagulants; Z90.710 Acquired absence of both cervix and uterus; Z98.890 Other specified postprocedural states; Z68.39 Body mass index [BMI] 39.0-39.9, adult
CPT/HCPCS: 36415; 36416; 74022; 74177; 80048; 80053; 81003; 81015; 83690; 85025; 93005; 94640; 96361; 96374; 96376; C9113; G0378; J1642; J2270; J7050; J7620; J7626; Q0162; Q9967; U0003; U0005

== ENCOUNTER 2022-04-27 19:16 | Emergency (ER) | payer OTHER ==
[2022-04-27 20:05] LABS: #Eosinphils 0.1 thou/uL (0.0-0.7); #Lymphocytes 4.8 thou/uL (1.20-3.40); #Monocytes 1.3 thou/uL (0.11-0.59); #Neutrophils 4.6 thou/uL (1.40-6.50); %Basophils 0.1 % (0.0-1.0); %Eosinophils 1.2 % (0.0-10.0); %Lymphocytes 44.1 % (21.0-51.0); %Monocytes 12.1 % (0.0-10.0); %Neutrophils 42.5 % (42.0-75.0); Hemoglobin 11.1 g/dL (12.0-16.0); Mean Corpuscular HGB CONC 32.2 g/dL (32.0-36.0); Mean Corpuscular Hemoglobin 29.3 pg (27.0-31.0); Mean Corpuscular Volume 91.1 fL (78.0-98.0); Mean Platelet Volume 7.8 fL (7.4-10.4); Platelet Count 196 thou/uL (130-400); Red Blood Cell (RBC) Count 3.78 mill/uL (4.20-5.40); White Blood Cell (WBC) Count 10.9 thou/uL (4.8-10.8)
[2022-04-27 20:20] LABS: ALT (SGPT) 10 U/L (8-55); AST (SGOT) 21 U/L (5-34); Albumin 3.7 g/dL (3.4-4.8); Alkaline Phosphatase 62 U/L (40-110); Anion Gap 15 mmol/L (10-20); BUN (Urea Nitrogen) 19 mg/dL (9.8-20.1); Bilirubin, Total 1.1 mg/dL (0.2-1.2); Calc. Creatinine Clearance 0 mL/min (70-130); Calcium 9.4 mg/dL (7.8-10.44); Carbon Dioxide 20 mmol/L (23-31); Chloride 104 mmol/L (98-107); Estimated GFR 48; Globulin 2.9 g/dL (2.4-3.5); Glucose 85 mg/dL (80-115); Lipase 21 U/L (8-78); Protein, Total 6.6 g/dL (5.8-8.1); Sodium 135 mmol/L (136-145)
== END 2022-04-27 22:23 | disposition home or self-care (01) ==
LOC: ERS 19:16
DX: R10.9 Unspecified abdominal pain (principal); R07.89 Other chest pain; I13.0 Hypertensive heart and chronic kidney disease with heart failure and stage 1 through stage 4 chronic kidney disease, or unspecified chronic kidney disease; E11.22 Type 2 diabetes mellitus with diabetic chronic kidney disease; N18.9 Chronic kidney disease, unspecified; I50.9 Heart failure, unspecified; I25.10 Atherosclerotic heart disease of native coronary artery without angina pectoris; J44.9 Chronic obstructive pulmonary disease, unspecified; Z86.711 Personal history of pulmonary embolism; Z86.718 Personal history of other venous thrombosis and embolism; Z79.01 Long term (current) use of anticoagulants; Z79.82 Long term (current) use of aspirin; Z79.899 Other long term (current) drug therapy
CPT/HCPCS: 36415; 74022; 80053; 83690; 84484; 85025; 93005

== ENCOUNTER 2022-05-13 20:51 | Observation (INO) | payer OTHER, MEDICAID ==
[2022-05-13 21:28] LABS: #Lymphocytes 3.6 thou/uL (1.20-3.40); #Neutrophils 4.9 thou/uL (1.40-6.50); %Basophils 0.4 % (0.0-1.0); %Eosinophils 0.2 % (0.0-10.0); %Lymphocytes 37.8 % (21.0-51.0); %Monocytes 10.8 % (0.0-10.0); %Neutrophils 50.9 % (42.0-75.0); Mean Corpuscular Hemoglobin 29.3 pg (27.0-31.0); Mean Corpuscular Volume 91.7 fL (78.0-98.0); Mean Platelet Volume 7.4 fL (7.4-10.4); Platelet Count 221 thou/uL (130-400); RBC Distribution Width 14.3 % (11.5-14.5); Red Blood Cell (RBC) Count 3.08 mill/uL (4.20-5.40); White Blood Cell (WBC) Count 9.6 thou/uL (4.8-10.8)
[2022-05-13 21:56] LABS: ALT (SGPT) 13 U/L (8-55); Albumin 3.4 g/dL (3.4-4.8); Alkaline Phosphatase 53 U/L (40-110); Anion Gap 14 mmol/L (10-20); BUN (Urea Nitrogen) 28 mg/dL (9.8-20.1); Bilirubin, Total 0.6 mg/dL (0.2-1.2); Calc. Creatinine Clearance 0 mL/min (70-130); Calcium 8.3 mg/dL (7.8-10.44); Carbon Dioxide 21 mmol/L (23-31); Chloride 112 mmol/L (98-107); Estimated GFR 62; Globulin 2.4 g/dL (2.4-3.5); Glucose 110 mg/dL (80-115); Potassium 3.7 mmol/L (3.5-5.1); Protein, Total 5.8 g/dL (5.8-8.1); Sodium 143 mmol/L (136-145)
[2022-05-13 22:06] LABS: AST (SGOT) 24 U/L (5-34)
[2022-05-13] MEDS ORDERED: Vancomycin 1 GM/200 ML BAG ONE (22:37)
[2022-05-13] MEDS ORDERED: cefTRIAXone\\ROCEPHIN 1 GM VIAL ONE (22:37)
[2022-05-13 23:01] LABS: Bacteria/HPF None Seen HPF (None Seen); Bilirubin Negative (Negative); Blood, Urine Negative (Negative); Clarity Clear (Clear); Glucose, Urine (Dipstick) Normal (Negative); Ketone, Urine Negative (Negative); Leukocyte 25 Leu/uL (Negative); Mucous/LPF Rare LPF (<2+); Nitrite Negative (Negative); Protein, Urine (Dipstick) Negative (Neg-Trace); RBC/HPF 0-3 HPF (0-3); Specific Gravity, Urine 1.011 (1.002-1.036); Squamous Epithelial 0-3 HPF (0-3); Transitional Epithelial 0-3 HPF (None Seen); Urobilinogen Normal mg/dL (Less than 2); WBC/HPF 0-3 HPF (0-3)
[2022-05-13 23:24] LABS: #Lymphocytes 4.5 thou/uL (1.20-3.40); #Monocytes 1.3 thou/uL (0.11-0.59); #Neutrophils 6.5 thou/uL (1.40-6.50); %Basophils 0.1 % (0.0-1.0); %Eosinophils 0.3 % (0.0-10.0); %Lymphocytes 36.4 % (21.0-51.0); %Monocytes 10.2 % (0.0-10.0); Hemoglobin 10.1 g/dL (12.0-16.0); Mean Corpuscular HGB CONC 31.1 g/dL (32.0-36.0); Mean Corpuscular Hemoglobin 28.8 pg (27.0-31.0); Mean Corpuscular Volume 92.9 fL (78.0-98.0); Mean Platelet Volume 7.6 fL (7.4-10.4); Platelet Count 242 thou/uL (130-400); RBC Distribution Width 14.3 % (11.5-14.5); Red Blood Cell (RBC) Count 3.49 mill/uL (4.20-5.40); White Blood Cell (WBC) Count 12.2 thou/uL (4.8-10.8)
[2022-05-13] MEDS ORDERED: Acetaminophen 325 MG TAB PO PRN (23:44)
[2022-05-13] MEDS ORDERED: Ondansetron PF 4 MG/2 ML Vial IVP PRN (23:44)
[2022-05-14] MEDS ORDERED: Dextrose 5% in Water 1,000 ML IV PRN (00:12)
[2022-05-14] MEDS ORDERED: HumaLOG 300 UNITS/3 ML VIAL SC PRN ×2 (00:12)
[2022-05-14] MEDS ORDERED: Dextrose 50% Abboject 50 ML SYRINGE SLOW IVP PRN (00:12)
[2022-05-14] MEDS ORDERED: Sodium Chloride 0.9% 1,000 ML IV SCH (00:15)
[2022-05-14 00:29] VITALS: BMI 38.1
[2022-05-14 02:12] LABS: Lactic Acid 1.1 mmol/L (0.5-2.2)
[2022-05-14 02:17] LABS: Iron 57 ug/dL (50-170); Iron Binding Capacity, Total 273 mcg/dL (265-497)
[2022-05-14 02:28] LABS: Anion Gap 16 mmol/L (10-20); BUN (Urea Nitrogen) 26 mg/dL (9.8-20.1); Calc. Creatinine Clearance 107 mL/min (70-130); Calcium 8.3 mg/dL (7.8-10.44); Carbon Dioxide 18 mmol/L (23-31); Chloride 111 mmol/L (98-107); Estimated GFR 75; Glucose 99 mg/dL (80-115); Potassium 3.8 mmol/L (3.5-5.1); Sodium 141 mmol/L (136-145)
[2022-05-14 05:28] LABS: #Eosinphils 0.1 thou/uL (0.0-0.7); #Lymphocytes 4.3 thou/uL (1.20-3.40); #Monocytes 1.1 thou/uL (0.11-0.59); #Neutrophils 5.2 thou/uL (1.40-6.50); %Basophils 0.2 % (0.0-1.0); %Eosinophils 0.9 % (0.0-10.0); %Lymphocytes 40.2 % (21.0-51.0); %Monocytes 10.1 % (0.0-10.0); %Neutrophils 48.6 % (42.0-75.0); Hemoglobin 9.6 g/dL (12.0-16.0); Mean Corpuscular HGB CONC 31.3 g/dL (32.0-36.0); Mean Corpuscular Hemoglobin 28.8 pg (27.0-31.0); Mean Corpuscular Volume 92.2 fL (78.0-98.0); Mean Platelet Volume 7.9 fL (7.4-10.4); Platelet Count 233 thou/uL (130-400); RBC Distribution Width 14.4 % (11.5-14.5); Red Blood Cell (RBC) Count 3.34 mill/uL (4.20-5.40); White Blood Cell (WBC) Count 10.8 thou/uL (4.8-10.8)
[2022-05-14] MEDS ORDERED: Apixaban 5 MG TAB PO SCH (09:00)
[2022-05-14] MEDS ORDERED: Artificial Tear Sol 15 ML BOT EA EYE PRN (13:09)
[2022-05-14] MEDS ORDERED: Flecainide 50 MG TAB PO SCH ×2 (13:45→21:00)
[2022-05-14] MEDS ORDERED: Carvedilol 6.25 MG TAB PO SCH ×2 (13:45→21:00)
[2022-05-14 15:39] VITALS: BP 114/91; TEMP 97.3
[2022-05-14] MEDS ORDERED: Mometasone 200 MCG/Formoterol 5 MCG 120 PUFF INHALER INH SCH (18:30)
[2022-05-14] MEDS ORDERED: Divalproex Sodium DR 500 MG TAB PO SCH (21:00)
[2022-05-14] MEDS ORDERED: Atorvastatin Calcium 40 MG TAB PO SCH (21:00)
[2022-05-14] MEDS ORDERED: Montelukast Sodium 10 mg Tablet PO SCH (21:00)
[2022-05-14] MEDS ORDERED: risperiDONE 3 MG TAB PO SCH (21:00)
[2022-05-14] MEDS ORDERED: cefTRIAXone\\ROCEPHIN 1 GM in Sodium Chloride 0.9% 100 ML IVPB SCH (23:00)
[2022-05-15] MEDS ORDERED: Divalproex Sodium DR 500 MG TAB PO SCH (09:00)
[2022-05-17] MEDS ORDERED: FLU VACC QS2022-23(6MOS UP)/PF 60 MCG/0.5 ML SYRINGE IM ONE (09:00)
== END 2022-05-14 17:44 | disposition home or self-care (01) ==
LOC: ERS 20:51 → NEURO 22:40
PROVIDERS: ADMIT Family Medicine; ATTEND Family Medicine
DX: N39.0 Urinary tract infection, site not specified (principal); B96.20 Unspecified Escherichia coli [E. coli] as the cause of diseases classified elsewhere; E86.0 Dehydration; J44.9 Chronic obstructive pulmonary disease, unspecified; D53.9 Nutritional anemia, unspecified; I25.10 Atherosclerotic heart disease of native coronary artery without angina pectoris; I11.0 Hypertensive heart disease with heart failure; I50.32 Chronic diastolic (congestive) heart failure; F25.9 Schizoaffective disorder, unspecified; E78.5 Hyperlipidemia, unspecified; I95.9 Hypotension, unspecified; E11.10 Type 2 diabetes mellitus with ketoacidosis without coma; Z86.711 Personal history of pulmonary embolism; Z79.01 Long term (current) use of anticoagulants; Z79.82 Long term (current) use of aspirin; Z79.899 Other long term (current) drug therapy; Z88.0 Allergy status to penicillin; Z88.2 Allergy status to sulfonamides; Z88.5 Allergy status to narcotic agent; Z88.8 Allergy status to other drugs, medicaments and biological substances; Z91.018 Allergy to other foods
CPT/HCPCS: 80048; 80053; 82962; 83540; 83550; 83605 ×2; 85025 ×3; 87040; 87077; 87086; 87149 ×2; 87186; 93005; 94640; 96361; 96365; 99285; G0378 ×2; 36416; 81003; 81015; J0696; J1642; J3370; J7050; J7620

== ENCOUNTER 2022-05-15 23:57 | Emergency (ER) | payer OTHER, MEDICAID ==
[2022-05-16 01:05] LABS: #Eosinphils 0.2 thou/uL (0.0-0.7); #Lymphocytes 4.3 thou/uL (1.20-3.40); %Basophils 0.2 % (0.0-1.0); %Lymphocytes 45.5 % (21.0-51.0); %Monocytes 10.1 % (0.0-10.0); %Neutrophils 42.3 % (42.0-75.0); Mean Corpuscular HGB CONC 30.8 g/dL (32.0-36.0); Mean Corpuscular Hemoglobin 28.5 pg (27.0-31.0); Mean Corpuscular Volume 92.5 fL (78.0-98.0); Mean Platelet Volume 7.9 fL (7.4-10.4); Platelet Count 237 thou/uL (130-400); RBC Distribution Width 14.6 % (11.5-14.5); White Blood Cell (WBC) Count 9.5 thou/uL (4.8-10.8)
[2022-05-16] MEDS ORDERED: Azithromycin 500 MG VIAL ONE (01:18)
[2022-05-16] MEDS ORDERED: methylPREDNISolone Sod Succ/PF 125 MG/2 ML VIAL ONE (01:18)
[2022-05-16 01:21] LABS: ALT (SGPT) 15 U/L (8-55); AST (SGOT) 25 U/L (5-34); Albumin 3.7 g/dL (3.4-4.8); Alkaline Phosphatase 60 U/L (40-110); Anion Gap 16 mmol/L (10-20); BUN (Urea Nitrogen) 21 mg/dL (9.8-20.1); Bilirubin, Total 0.8 mg/dL (0.2-1.2); Calc. Creatinine Clearance 0 mL/min (70-130); Calcium 8.9 mg/dL (7.8-10.44); Carbon Dioxide 17 mmol/L (23-31); Chloride 108 mmol/L (98-107); Estimated GFR 72; Globulin 2.6 g/dL (2.4-3.5); Glucose 104 mg/dL (80-115); Potassium 3.6 mmol/L (3.5-5.1); Protein, Total 6.3 g/dL (5.8-8.1); Sodium 137 mmol/L (136-145)
== END 2022-05-16 03:05 | disposition home or self-care (01) ==
LOC: ERS 23:57
DX: J43.9 Emphysema, unspecified (principal); I11.0 Hypertensive heart disease with heart failure; I50.9 Heart failure, unspecified; E11.9 Type 2 diabetes mellitus without complications; I25.10 Atherosclerotic heart disease of native coronary artery without angina pectoris; E78.5 Hyperlipidemia, unspecified; Z86.711 Personal history of pulmonary embolism
CPT/HCPCS: 36415; 71045; 80053; 83880; 84484; 85025; 85379; 93005; 96365; 96375; J0456; J2930; J7620

== ENCOUNTER 2022-05-17 20:34 | Emergency (ER) | payer OTHER, MEDICAID ==
[2022-05-17] MEDS ORDERED: Acetaminophen 500 MG TAB ONE (23:17)
[2022-05-18 00:08] LABS: Troponin I 0.011 ng/mL (< 0.028)
== END 2022-05-18 01:01 | disposition home or self-care (01) ==
LOC: ERS 20:34
DX: R00.2 Palpitations (principal); I25.10 Atherosclerotic heart disease of native coronary artery without angina pectoris; I13.0 Hypertensive heart and chronic kidney disease with heart failure and stage 1 through stage 4 chronic kidney disease, or unspecified chronic kidney disease; E11.22 Type 2 diabetes mellitus with diabetic chronic kidney disease; I50.9 Heart failure, unspecified; N18.9 Chronic kidney disease, unspecified; E78.5 Hyperlipidemia, unspecified; J43.9 Emphysema, unspecified; Z86.711 Personal history of pulmonary embolism; Z86.718 Personal history of other venous thrombosis and embolism
CPT/HCPCS: 36415; 84484; 93005

== ENCOUNTER 2022-05-18 16:22 | Emergency (ER) | payer OTHER, MEDICAID ==
[2022-05-18 16:58] LABS: #Lymphocytes 1.7 thou/uL (1.20-3.40); #Monocytes 0.2 thou/uL (0.11-0.59); %Basophils 0.1 % (0.0-1.0); %Eosinophils 0.3 % (0.0-10.0); %Lymphocytes 21.5 % (21.0-51.0); %Monocytes 2.8 % (0.0-10.0); %Neutrophils 75.3 % (42.0-75.0); Hemoglobin 10.8 g/dL (12.0-16.0); Mean Corpuscular HGB CONC 31.1 g/dL (32.0-36.0); Mean Corpuscular Volume 93.3 fL (78.0-98.0); Mean Platelet Volume 7.3 fL (7.4-10.4); Platelet Count 322 thou/uL (130-400); RBC Distribution Width 14.8 % (11.5-14.5); Red Blood Cell (RBC) Count 3.73 mill/uL (4.20-5.40)
[2022-05-18 17:19] LABS: ALT (SGPT) 18 U/L (8-55); AST (SGOT) 30 U/L (5-34); Alkaline Phosphatase 63 U/L (40-110); Anion Gap 18 mmol/L (10-20); BUN (Urea Nitrogen) 26 mg/dL (9.8-20.1); Bilirubin, Total 0.9 mg/dL (0.2-1.2); Calc. Creatinine Clearance 0 mL/min (70-130); Calcium 9.1 mg/dL (7.8-10.44); Carbon Dioxide 17 mmol/L (23-31); Chloride 109 mmol/L (98-107); Estimated GFR 60; Globulin 2.9 g/dL (2.4-3.5); Glucose 131 mg/dL (80-115); Potassium 4.8 mmol/L (3.5-5.1); Protein, Total 6.9 g/dL (5.8-8.1); Sodium 139 mmol/L (136-145)
== END 2022-05-18 19:15 | disposition home or self-care (01) ==
LOC: ERS 16:22
DX: J44.1 Chronic obstructive pulmonary disease with (acute) exacerbation (principal); I11.0 Hypertensive heart disease with heart failure; I50.9 Heart failure, unspecified; E11.9 Type 2 diabetes mellitus without complications; Z87.891 Personal history of nicotine dependence
CPT/HCPCS: 36415; 71045; 80053; 84484; 85025; 93005

== ENCOUNTER 2022-05-19 19:15 | Inpatient (IN) | payer OTHER, MEDICAID ==
[~2022-05-19 19:15] MED LIST changes: +Iopamidol 370 76% 100 ML VIAL ONE; -Iopamidol-370 76% 500 ML 1 ML ONE
[2022-05-19] MEDS ORDERED: Norepinephrine 4 MG/4 ML VIAL ONE ×2 (19:27→19:30)
[2022-05-19] MEDS ORDERED: NOREPINEPHRINE 8 MG/250 ML-D5W 250 ML ONE (19:27)
[2022-05-19 19:51] LABS: Actual Bicarbonate (HCO3a) 16.8 mEq/L (22-28); Analyzer IN Cardio ER; Base Excess (BEa) -7.7 mEq/L (-2.0 to +3.0); CO2 Tension 30.5 mmHg (35.0-45.0); Calcium, Ionized (arterial) 1.15 mmol/L (1.12-1.30); Carboxyhemoglobin (COHb) 0.3 gm% (0.0-3.0); Hemoglobin (Hb) 8.7 g/dL (12.0-16.0); Potassium - ABG Lab 3.36 mmol/L (3.70-5.30); pH, Arterial 7.36 (7.35-7.45)
[2022-05-19 20:11] LABS: ALT (SGPT) 14 U/L (8-55); AST (SGOT) 14 U/L (5-34); Albumin 3.1 g/dL (3.4-4.8); Alcohol Less than 10 mg/dL (Less than 10); Alkaline Phosphatase 50 U/L (40-110); Anion Gap 14 mmol/L (10-20); BUN (Urea Nitrogen) 34 mg/dL (9.8-20.1); Bilirubin, Total 0.5 mg/dL (0.2-1.2); CK (CPK) 277 U/L (29-168); Calc. Creatinine Clearance 0 mL/min (70-130); Calcium 8.4 mg/dL (7.8-10.44); Carbon Dioxide 19 mmol/L (23-31); Chloride 109 mmol/L (98-107); Estimated GFR 39; Globulin 2.2 g/dL (2.4-3.5); Glucose 161 mg/dL (80-115); Lipase 50 U/L (8-78); Potassium 3.4 mmol/L (3.5-5.1); Protein, Total 5.3 g/dL (5.8-8.1); Salicylate Less than 8.0 mg/dL (15.0-30.0); Sodium 139 mmol/L (136-145)
[2022-05-19 20:19] LABS: O2 Tension (PaO2), arterial 38.3 mmHg (> 80.0); Puncture Site RRA
[2022-05-19 20:20] LABS: ALV-art Gradient 151.735 mmHg (0-20)
[2022-05-19] MEDS ORDERED: Cefepime 2 GM VIAL ONE (20:20)
[2022-05-19 20:24] LABS: #Lymphocytes 2.2 thou/uL (1.20-3.40); #Monocytes 1.2 thou/uL (0.11-0.59); #Neutrophils 8.1 thou/uL (1.40-6.50); %Basophils 0.1 % (0.0-1.0); %Eosinophils 0.2 % (0.0-10.0); %Lymphocytes 19.4 % (21.0-51.0); %Monocytes 10.3 % (0.0-10.0); Hemoglobin 8.2 g/dL (12.0-16.0); Mean Corpuscular HGB CONC 30.9 g/dL (32.0-36.0); Mean Corpuscular Hemoglobin 29.7 pg (27.0-31.0); Mean Corpuscular Volume 96.1 fL (78.0-98.0); Mean Platelet Volume 7.3 fL (7.4-10.4); Platelet Count 284 thou/uL (130-400); RBC Distribution Width 14.6 % (11.5-14.5); Red Blood Cell (RBC) Count 2.77 mill/uL (4.20-5.40); White Blood Cell (WBC) Count 11.6 thou/uL (4.8-10.8)
[2022-05-19 20:25] LABS: Bilirubin Negative (Negative); Blood, Urine Negative (Negative); Clarity Clear (Clear); Glucose, Urine (Dipstick) Normal (Negative); Ketone, Urine Negative (Negative); Leukocyte Negative Leu/uL (Negative); Nitrite Negative (Negative); Protein, Urine (Dipstick) Negative (Neg-Trace); Specific Gravity, Urine 1.009 (1.002-1.036); Urobilinogen Normal mg/dL (Less than 2); pH, Urine 5.5 (5.0-9.0)
[2022-05-19 20:33] LABS: Amphetamine Not Detected (NotDetected); Barbiturates Screen Not Detected (NotDetected); Benzodiazepine Screen Not Detected (NotDetected); Cocaine Metabolite Screen Not Detected (NotDetected); Methadone Not Detected (NotDetected); Oxycodone Screen Not Detected (NotDetected); Phencyclidine (PCP) Not Detected (NotDetected); THC/Cannabinoid Screen Not Detected (NotDetected); Tricyclic Screen Not Detected (NotDetected)
[2022-05-19 20:44] LABS: Methamphetamine Not Detected (NotDetected); Opiate Screen Detected (NotDetected)
[2022-05-19] MEDS ORDERED: Vancomycin 1 GM/200 ML BAG ONE (21:04)
[2022-05-19] MEDS ORDERED: Electrolyte Replacement Protocol 1 EACH FS SCH (22:30)
[2022-05-19 22:48] LABS: Lactic Acid 1.8 mmol/L (0.5-2.2)
[2022-05-19] MEDS ORDERED: Acetaminophen 650 MG Suppository PR PRN (22:50)
[2022-05-19] MEDS ORDERED: Ondansetron ODT 4 MG TAB PO PRN (22:50)
[2022-05-19] MEDS ORDERED: Ondansetron PF 4 MG/2 ML Vial IVP PRN (22:50)
[2022-05-19] MEDS ORDERED: Acetaminophen 325 MG TAB PO PRN (22:50)
[2022-05-19 22:53] LABS: Magnesium 1.9 mg/dL (1.6-2.6)
[2022-05-19] MEDS ORDERED: NOREPINEPHRINE 8 MG/250 ML-D5W 250 ML IVPB SCH (23:00)
[2022-05-19 23:39] LABS: SARS-CoV-2 NAA Rapid Test Not Detected (NotDetected)
[2022-05-20] MEDS ORDERED: Dextrose 50% Abboject 50 ML SYRINGE SLOW IVP PRN (01:12)
[2022-05-20] MEDS ORDERED: HumaLOG 300 UNITS/3 ML VIAL SC PRN ×2 (01:12)
[2022-05-20] MEDS ORDERED: Dextrose 5% in Water 1,000 ML IV PRN (01:12)
[2022-05-20] MEDS: Sodium Chloride 0.9% 1,000 ML IV SCH ×4 (01:45→23:05)
[2022-05-20 01:56] LABS: #Lymphocytes 2.7 thou/uL (1.20-3.40); #Monocytes 1.3 thou/uL (0.11-0.59); #Neutrophils 8.2 thou/uL (1.40-6.50); %Basophils 0.1 % (0.0-1.0); %Eosinophils 0.1 % (0.0-10.0); %Monocytes 10.8 % (0.0-10.0); %Neutrophils 67.1 % (42.0-75.0); Hemoglobin 8.3 g/dL (12.0-16.0); Mean Corpuscular HGB CONC 31.5 g/dL (32.0-36.0); Mean Corpuscular Volume 92.2 fL (78.0-98.0); Mean Platelet Volume 7.3 fL (7.4-10.4); Platelet Count 267 thou/uL (130-400); RBC Distribution Width 14.7 % (11.5-14.5); Red Blood Cell (RBC) Count 2.85 mill/uL (4.20-5.40); White Blood Cell (WBC) Count 12.2 thou/uL (4.8-10.8)
[2022-05-20 02:20] LABS: Anion Gap 13 mmol/L (10-20); BUN (Urea Nitrogen) 28 mg/dL (9.8-20.1); Calc. Creatinine Clearance 0 mL/min (70-130); Calcium 8.2 mg/dL (7.8-10.44); Carbon Dioxide 19 mmol/L (23-31); Chloride 110 mmol/L (98-107); Estimated GFR 62; Glucose 131 mg/dL (80-115); Potassium 3.6 mmol/L (3.5-5.1); Sodium 138 mmol/L (136-145)
[2022-05-20] MEDS ORDERED: Magnesium 2 GM/50 ML(in water) 2 GM in Premix Bag 1 BAG IVPB SCH (08:00)
[2022-05-20] MEDS ORDERED: Cefepime 2 GM VIAL ONE (08:48)
[2022-05-20] MEDS ORDERED: Enoxaparin Sodium 40 MG/0.4 ML SYRINGE ONE (08:48)
[2022-05-20] MEDS ORDERED: Magnesium 2 GM/50 ML BAG (IN WATER) ONE (08:48)
[2022-05-20] MEDS: Enoxaparin Sodium 40 MG/0.4 ML SYRINGE SC SCH (08:51)
[2022-05-20] MEDS: Cefepime 2 GM in Sodium Chloride 0.9% 100 ML IVPB SCH ×2 (08:56→20:52)
[2022-05-20] MEDS ORDERED: Acetaminophen 325 MG TAB ONE (10:53)
[2022-05-20 16:44] VITALS: BMI 40.2
[2022-05-20] MEDS: HYDROcodone/Acetaminophen 10/325 mg Tablet PO PRN ×2 (17:25→23:03)
[2022-05-20] MEDS ORDERED: FLU VACC QS2022-23(6MOS UP)/PF 60 MCG/0.5 ML SYRINGE IM ONE (18:00)
[2022-05-20] MEDS ORDERED: Prevnar 13-Val Conj/PF 0.5 ML SYRINGE IM ONE (18:00)
[2022-05-21] MEDS: HYDROcodone/Acetaminophen 10/325 mg Tablet PO PRN ×2 (05:12→11:37)
[2022-05-21] MEDS: Sodium Chloride 0.9% 1,000 ML IV SCH (08:33)
[2022-05-21] MEDS: Enoxaparin Sodium 40 MG/0.4 ML SYRINGE SC SCH (08:34)
[2022-05-21] MEDS: Cefepime 2 GM in Sodium Chloride 0.9% 100 ML IVPB SCH (08:34)
[2022-05-21] MEDS ORDERED: tiZANidine HCl 4 MG TAB PO PRN (09:37)
[2022-05-21] MEDS ORDERED: OXcarbazepine 300 MG TAB PO SCH ×2 (10:15→21:00)
[2022-05-21 12:43] VITALS: BP 122/73; TEMP 98
[2022-05-21] MEDS ORDERED: Carvedilol 3.125 MG TAB PO SCH (21:00)
[2022-05-21] MEDS ORDERED: Flecainide 50 MG TAB PO SCH (21:00)
[2022-05-21] MEDS ORDERED: Atorvastatin Calcium 40 MG TAB PO SCH (21:00)
[2022-05-21] MEDS ORDERED: Non-Formulary Item 1 EACH (Esomeprazole Magnesium [Nexium] 40 MG Cap) PO SCH (21:00)
[2022-05-21] MEDS ORDERED: Apixaban 5 MG TAB PO SCH (21:00)
[2022-05-21] MEDS ORDERED: Magnesium Oxide 400 MG TAB PO SCH (21:00)
[2022-05-21] MEDS ORDERED: risperiDONE 3 MG TAB PO SCH (21:00)
[2022-05-21] MEDS ORDERED: Non-Formulary Item 1 EACH (Magnesium Oxide [Magnesium] 400 MG Tablet) PO SCH (21:00)
[2022-05-22] MEDS ORDERED: Ferrous Sulfate 325 MG TAB PO SCH (08:00)
[2022-05-22] MEDS ORDERED: Potassium Chloride 10 MEQ TAB PO SCH (09:00)
[2022-05-22] MEDS ORDERED: Montelukast Sodium 10 mg Tablet PO SCH (09:00)
[2022-05-22] MEDS ORDERED: Cholecalciferol 1,000 UNITS (25 MCG) TAB PO SCH (09:00)
[2022-05-22] MEDS ORDERED: Non-Formulary Item 1 EACH (Ferrous Sulfate [Iron] 325 MG Tablet) PO SCH (09:00)
[2022-05-22] MEDS ORDERED: Non-Formulary Item 1 EACH (Cholecalciferol (Vitamin D3) [Vitamin D3] 25 MCG Capsule) PO SCH (09:00)
[2022-05-22] MEDS ORDERED: Aspirin Chewable 81 MG TAB PO SCH (09:00)
== END 2022-05-21 13:35 | disposition home or self-care (01) | DRG 915 ==
LOC: ERS 19:15 → ERHOLD 22:07 → 2NO 05-20 16:18
PROVIDERS: ADMIT Internal Medicine; ATTEND Internal Medicine
PROC: 3E033XZ Introduction of Vasopressor into Peripheral Vein, Percutaneous Approach (ICD-10-PCS; principal; 2022-05-19)
DX: T88.6XXA Anaphylactic reaction due to adverse effect of correct drug or medicament properly administered, initial encounter (principal); G92.9 Unspecified toxic encephalopathy; N17.9 Acute kidney failure, unspecified; I13.0 Hypertensive heart and chronic kidney disease with heart failure and stage 1 through stage 4 chronic kidney disease, or unspecified chronic kidney disease; Z68.41 Body mass index [BMI] 40.0-44.9, adult; I25.10 Atherosclerotic heart disease of native coronary artery without angina pectoris; Z20.822 Contact with and (suspected) exposure to COVID-19; J43.9 Emphysema, unspecified; F41.9 Anxiety disorder, unspecified; F25.9 Schizoaffective disorder, unspecified; E87.6 Hypokalemia; N18.30 Chronic kidney disease, stage 3 unspecified; E66.9 Obesity, unspecified; E83.42 Hypomagnesemia; E11.22 Type 2 diabetes mellitus with diabetic chronic kidney disease; T40.2X5A Adverse effect of other opioids, initial encounter; I50.9 Heart failure, unspecified; E78.5 Hyperlipidemia, unspecified; D63.1 Anemia in chronic kidney disease; E86.0 Dehydration; E27.8 Other specified disorders of adrenal gland; Z87.891 Personal history of nicotine dependence; Z88.0 Allergy status to penicillin; Z88.2 Allergy status to sulfonamides; Z88.5 Allergy status to narcotic agent; Z79.899 Other long term (current) drug therapy; Z79.51 Long term (current) use of inhaled steroids; Z91.018 Allergy to other foods; Z79.82 Long term (current) use of aspirin; Z79.01 Long term (current) use of anticoagulants; Z86.711 Personal history of pulmonary embolism; Z88.8 Allergy status to other drugs, medicaments and biological substances
CPT/HCPCS: 36415; 36416; 36600; 51701; 70450; 71045; 71260; 74177; 80048; 80053; 80306; 80307; 81003; 82140; 82550; 82805; 83605; 83690; 83735; 84443; 84484; 85025; 93005; 94760; 96365; 96366; 96368; J0692; J1642; J1650; J3370; J3475; J3490; J7050; Q0162; Q9967; U0002

== ENCOUNTER 2022-05-23 11:40 | Emergency (ER) | payer OTHER, MEDICAID ==
[2022-05-23 13:05] LABS: #Basophils 0.1 thou/uL (0.0-0.2); #Eosinphils 0.1 thou/uL (0.0-0.7); #Lymphocytes 3.7 thou/uL (1.20-3.40); #Monocytes 1.1 thou/uL (0.11-0.59); #Neutrophils 7.4 thou/uL (1.40-6.50); %Basophils 0.7 % (0.0-1.0); %Eosinophils 0.5 % (0.0-10.0); %Lymphocytes 30.1 % (21.0-51.0); %Neutrophils 59.8 % (42.0-75.0); Hemoglobin 8.2 g/dL (12.0-16.0); Mean Corpuscular HGB CONC 30.4 g/dL (32.0-36.0); Mean Corpuscular Hemoglobin 28.6 pg (27.0-31.0); Mean Platelet Volume 7.1 fL (7.4-10.4); Platelet Count 312 thou/uL (130-400); RBC Distribution Width 14.9 % (11.5-14.5); Red Blood Cell (RBC) Count 2.87 mill/uL (4.20-5.40); White Blood Cell (WBC) Count 12.4 thou/uL (4.8-10.8)
[2022-05-23 13:26] LABS: ALT (SGPT) 15 U/L (8-55); AST (SGOT) 22 U/L (5-34); Albumin 3.8 g/dL (3.4-4.8); Alkaline Phosphatase 58 U/L (40-110); Anion Gap 15 mmol/L (10-20); BUN (Urea Nitrogen) 28 mg/dL (9.8-20.1); Bilirubin, Total 1.4 mg/dL (0.2-1.2); Calc. Creatinine Clearance 0 mL/min (70-130); Calcium 8.9 mg/dL (7.8-10.44); Carbon Dioxide 21 mmol/L (23-31); Chloride 109 mmol/L (98-107); Estimated GFR 62; Globulin 2.4 g/dL (2.4-3.5); Glucose 107 mg/dL (80-115); Protein, Total 6.2 g/dL (5.8-8.1); Sodium 141 mmol/L (136-145)
== END 2022-05-23 17:15 | disposition home or self-care (01) ==
LOC: ERS 11:40
DX: S80.12XA Contusion of left lower leg, initial encounter (principal); S70.12XA Contusion of left thigh, initial encounter; R07.9 Chest pain, unspecified; X58.XXXA Exposure to other specified factors, initial encounter; Z79.899 Other long term (current) drug therapy; Z79.01 Long term (current) use of anticoagulants; Z79.82 Long term (current) use of aspirin; I25.10 Atherosclerotic heart disease of native coronary artery without angina pectoris; E11.9 Type 2 diabetes mellitus without complications; E78.5 Hyperlipidemia, unspecified; I10 Essential (primary) hypertension; J43.9 Emphysema, unspecified; Z87.891 Personal history of nicotine dependence
CPT/HCPCS: 36415; 71045; 80053; 84484; 85025; 93005

== ENCOUNTER 2022-05-25 19:15 | Emergency (ER) | payer OTHER, MEDICAID | END 2022-05-25 20:37 | disposition home or self-care (01) | LOC: ERS 19:15 | DX: R06.02 Shortness of breath (principal); I25.10 Atherosclerotic heart disease of native coronary artery without angina pectoris; E11.9 Type 2 diabetes mellitus without complications; E78.5 Hyperlipidemia, unspecified; I11.0 Hypertensive heart disease with heart failure; I50.9 Heart failure, unspecified; Z87.891 Personal history of nicotine dependence; Z79.01 Long term (current) use of anticoagulants; Z79.899 Other long term (current) drug therapy; Z79.82 Long term (current) use of aspirin | CPT/HCPCS: 71045; 93005 ==

== ENCOUNTER 2022-05-25 23:04 | Emergency (ER) | payer OTHER, MEDICAID ==
[2022-05-26] MEDS ORDERED: Furosemide 40 MG/4 ML VIAL ONE (00:07)
[2022-05-26 00:09] LABS: #Basophils 0.1 thou/uL (0.0-0.2); #Eosinphils 0.2 thou/uL (0.0-0.7); #Lymphocytes 5.1 thou/uL (1.20-3.40); #Monocytes 1.1 thou/uL (0.11-0.59); #Neutrophils 6.5 thou/uL (1.40-6.50); %Basophils 0.7 % (0.0-1.0); %Eosinophils 1.2 % (0.0-10.0); %Lymphocytes 39.2 % (21.0-51.0); %Monocytes 8.7 % (0.0-10.0); %Neutrophils 50.2 % (42.0-75.0); Hemoglobin 9.6 g/dL (12.0-16.0); Mean Corpuscular HGB CONC 32.7 g/dL (32.0-36.0); Mean Corpuscular Hemoglobin 30.6 pg (27.0-31.0); Mean Corpuscular Volume 93.8 fL (78.0-98.0); Platelet Count 350 thou/uL (130-400); RBC Distribution Width 15.3 % (11.5-14.5); Red Blood Cell (RBC) Count 3.12 mill/uL (4.20-5.40)
[2022-05-26 00:19] LABS: Prothrombin Time 13.7 sec (12.0-14.7)
[2022-05-26 00:21] LABS: PTT 107.8 sec (22.9-36.1)
[2022-05-26 00:22] LABS: ALT (SGPT) 13 U/L (8-55); AST (SGOT) 20 U/L (5-34); Albumin 3.7 g/dL (3.4-4.8); Alkaline Phosphatase 63 U/L (40-110); Anion Gap 14 mmol/L (10-20); BUN (Urea Nitrogen) 23 mg/dL (9.8-20.1); Bilirubin, Total 2.2 mg/dL (0.2-1.2); Calc. Creatinine Clearance 0 mL/min (70-130); Carbon Dioxide 21 mmol/L (23-31); Chloride 105 mmol/L (98-107); Estimated GFR 85; Globulin 2.9 g/dL (2.4-3.5); Glucose 118 mg/dL (80-115); Magnesium 1.7 mg/dL (1.6-2.6); Potassium 3.6 mmol/L (3.5-5.1); Protein, Total 6.6 g/dL (5.8-8.1); Sodium 136 mmol/L (136-145)
[2022-05-26 00:23] LABS: Acetaminophen Less than 10.0 mcg/mL (10.0-30.0); Alcohol Less than 10 mg/dL (Less than 10); Salicylate Less than 8.0 mg/dL (15.0-30.0)
== END 2022-05-26 03:06 | disposition home or self-care (01) ==
LOC: ERS 23:04
DX: E87.70 Fluid overload, unspecified (principal); R06.02 Shortness of breath; Z79.899 Other long term (current) drug therapy; Z79.82 Long term (current) use of aspirin; Z79.01 Long term (current) use of anticoagulants; I25.10 Atherosclerotic heart disease of native coronary artery without angina pectoris; I50.9 Heart failure, unspecified; E11.9 Type 2 diabetes mellitus without complications; I11.0 Hypertensive heart disease with heart failure; J43.9 Emphysema, unspecified; Z87.891 Personal history of nicotine dependence; E78.5 Hyperlipidemia, unspecified
CPT/HCPCS: 71045; 80053; 80307; 83735; 84443; 84484; 85025; 85610; 85730; 93005; 96374; J1642; J1940

== ENCOUNTER 2022-06-02 20:38 | Emergency (ER) | payer OTHER, MEDICAID ==
[2022-06-02 22:26] LABS: Hemoglobin 9.6 g/dL (12.0-16.0); Mean Corpuscular HGB CONC 31.1 g/dL (32.0-36.0); Mean Corpuscular Hemoglobin 28.8 pg (27.0-31.0); Mean Corpuscular Volume 92.8 fl (78.0-98.0); Mean Platelet Volume 7.2 fL (7.4-10.4); Platelet Count 343 thou/uL (130-400); RBC Distribution Width 15.6 % (11.5-14.5); Red Blood Cell (RBC) Count 3.31 mill/uL (4.20-5.40); White Blood Cell (WBC) Count 8.5 thou/uL (4.8-10.8)
[2022-06-02 22:41] LABS: ALT (SGPT) 16 U/L (8-55); AST (SGOT) 20 U/L (5-34); Albumin 3.8 g/dL (3.4-4.8); Alkaline Phosphatase 79 U/L (40-110); Anion Gap 14 mmol/L (10-20); BUN (Urea Nitrogen) 15 mg/dL (9.8-20.1); Bilirubin, Total 1.2 mg/dL (0.2-1.2); Calc. Creatinine Clearance 0 mL/min (70-130); Calcium 9.1 mg/dL (7.8-10.44); Carbon Dioxide 21 mmol/L (23-31); Chloride 107 mmol/L (98-107); Estimated GFR 68; Glucose 106 mg/dL (80-115); Potassium 3.9 mmol/L (3.5-5.1); Protein, Total 6.8 g/dL (5.8-8.1); Sodium 138 mmol/L (136-145)
[2022-06-02 23:22] LABS: #Eosinphils 0.1 thou/uL (0.0-0.7); #Lymphocytes 2.5 thou/uL (1.20-3.40); #Monocytes 0.7 thou/uL (0.11-0.59); #Neutrophils 5.2 thou/uL (1.40-6.50); %Basophils 0.3 % (0.0-1.0); %Eosinophils 1.7 % (0.0-10.0); %Lymphocytes 28.8 % (21.0-51.0); %Monocytes 7.8 % (0.0-10.0); %Neutrophils 61.5 % (42.0-75.0); RBC Morphology Normal
== END 2022-06-03 00:17 | disposition home or self-care (01) ==
LOC: ERS 20:38
DX: R07.9 Chest pain, unspecified (principal); R45.1 Restlessness and agitation; I11.0 Hypertensive heart disease with heart failure; I50.9 Heart failure, unspecified; I48.91 Unspecified atrial fibrillation; E78.5 Hyperlipidemia, unspecified; J44.9 Chronic obstructive pulmonary disease, unspecified; E11.9 Type 2 diabetes mellitus without complications
CPT/HCPCS: 36415; 71045; 80053; 83880; 84484; 85025; 93005

== ENCOUNTER 2023-10-03 00:27 | Emergency (ER) | payer OTHER, MEDICAID ==
[2023-10-03] MEDS ORDERED: methylPREDNISolone Sod Succ/PF 125 MG/2 ML VIAL ONE (00:54)
[2023-10-03] MEDS ORDERED: Magnesium 2 GM/50 ML BAG (IN WATER) ONE (00:54)
[2023-10-03 01:41] LABS: #Monocytes 0.8 thou/uL (0.11-0.59); #Neutrophils 5.7 thou/uL (1.40-6.50); %Basophils 0.4 % (0.0-1.0); %Eosinophils 0.1 % (0.0-10.0); %Lymphocytes 38.5 % (21.0-51.0); %Monocytes 7.5 % (0.0-10.0); %Neutrophils 52.5 % (42.0-75.0); Hematocrit 34.9 % (36.0-47.0); Hemoglobin 10.9 g/dL (12.0-16.0); Mean Corpuscular HGB CONC 31.2 g/dL (32.0-36.0); Mean Corpuscular Hemoglobin 27.1 pg (27.0-31.0); Mean Corpuscular Volume 86.8 fl (78.0-98.0); Mean Platelet Volume 10.1 fL (7.4-10.4); Platelet Count 217 10x3/uL (130-400); RBC Distribution Width 17.2 % (11.5-14.5); Red Blood Cell (RBC) Count 4.02 mill/uL (4.20-5.40); White Blood Cell (WBC) Count 10.9 10x3/uL (4.8-10.8)
[2023-10-03 01:59] LABS: ALT (SGPT) 11 U/L (8-55); AST (SGOT) 15 U/L (5-34); Albumin 3.9 g/dL (3.4-4.8); Alkaline Phosphatase 55 U/L (40-110); Anion Gap 15 mmol/L (10-20); BUN (Urea Nitrogen) 38 mg/dL (9.8-20.1); Bilirubin, Total 0.4 mg/dL (0.2-1.2); Calc. Creatinine Clearance 0 mL/min (70-130); Calcium 8.9 mg/dL (7.8-10.44); Carbon Dioxide 25 mmol/L (23-31); Chloride 105 mmol/L (98-107); Estimated GFR 53; Globulin 2.9 g/dL (2.4-3.5); Glucose 117 mg/dL (80-115); Potassium 4.1 mmol/L (3.5-5.1); Protein, Total 6.8 g/dL (5.8-8.1); Sodium 141 mmol/L (136-145)
[2023-10-03 02:02] LABS: Troponin I Less than 0.010 ng/mL (< 0.028)
[2023-10-03] MEDS ORDERED: Ipratropium/Albuterol 3 ML NEB ONE (02:23)
== END 2023-10-03 03:30 | disposition home or self-care (01) ==
LOC: ERS 00:27
DX: J44.1 Chronic obstructive pulmonary disease with (acute) exacerbation (principal); I11.0 Hypertensive heart disease with heart failure; I50.9 Heart failure, unspecified; I25.10 Atherosclerotic heart disease of native coronary artery without angina pectoris; E78.5 Hyperlipidemia, unspecified; Z79.899 Other long term (current) drug therapy; Z79.01 Long term (current) use of anticoagulants; Z79.82 Long term (current) use of aspirin; Z87.891 Personal history of nicotine dependence
CPT/HCPCS: 36415; 71045; 80053; 83880; 84484; 85025; 93005; 96365; 96375; J2930; J3475; J7620

== ENCOUNTER 2023-10-07 20:14 | Emergency (ER) | payer OTHER, MEDICAID ==
[2023-10-07 20:48] LABS: Bacteria/HPF 1+ HPF (None Seen); Bilirubin Negative (Negative); Blood, Urine 1+ (Negative); CAUTI Indications for Culture Dysuria,urgency,freq; Clarity Clear (Clear); Glucose, Urine (Dipstick) Normal (Negative); Ketone, Urine Trace mg/dL (Negative); Leukocyte 25 Leu/uL (Negative); Nitrite Negative (Negative); Protein, Urine (Dipstick) Negative (Neg-Trace); RBC/HPF 0-3 HPF (0-3); Specific Gravity, Urine 1.029 (1.002-1.036); WBC/HPF 0-3 HPF (0-3); pH, Urine 5.5 (5.0-9.0)
[2023-10-07 20:50] LABS: Urine Culture Reflex No No
[2023-10-07 21:15] LABS: Influenza A by NAA Not Detected (NotDetected); Influenza B by NAA Not Detected (NotDetected); SARS-CoV-2 NAA Rapid Test Not Detected (NotDetected)
[2023-10-07] MEDS ORDERED: Ketorolac Tromethamine 30 MG (1 mL) VIAL ONE (21:37)
== END 2023-10-07 21:31 | disposition home or self-care (01) ==
LOC: ERS 20:14
DX: R31.9 Hematuria, unspecified (principal); I25.10 Atherosclerotic heart disease of native coronary artery without angina pectoris; J43.9 Emphysema, unspecified; I11.0 Hypertensive heart disease with heart failure; I50.9 Heart failure, unspecified; E11.9 Type 2 diabetes mellitus without complications; E78.5 Hyperlipidemia, unspecified; Z79.82 Long term (current) use of aspirin; Z79.899 Other long term (current) drug therapy; Z87.891 Personal history of nicotine dependence
CPT/HCPCS: 0240U; 71045; 81001; 96372; J1885

== ENCOUNTER 2023-10-14 01:39 | Observation (INO) | payer OTHER, MEDICAID ==
[2023-10-14 03:28] LABS: #Eosinphils 0.1 thou/uL (0.0-0.7); #Monocytes 0.8 thou/uL (0.11-0.59); #Neutrophils 4.5 thou/uL (1.40-6.50); %Basophils 0.2 % (0.0-1.0); %Eosinophils 1.2 % (0.0-10.0); %Lymphocytes 38.5 % (21.0-51.0); %Neutrophils 49.7 % (42.0-75.0); Hematocrit 34.6 % (36.0-47.0); Hemoglobin 10.7 g/dL (12.0-16.0); Mean Corpuscular HGB CONC 30.9 g/dL (32.0-36.0); Mean Corpuscular Hemoglobin 27.7 pg (27.0-31.0); Mean Corpuscular Volume 89.6 fl (78.0-98.0); Mean Platelet Volume 10.2 fL (7.4-10.4); Platelet Count 178 10x3/uL (130-400); RBC Distribution Width 17.2 % (11.5-14.5); Red Blood Cell (RBC) Count 3.86 mill/uL (4.20-5.40)
[2023-10-14 03:42] LABS: Prothrombin Time 13.2 sec (12.0-14.7)
[2023-10-14 03:43] LABS: PTT 40.1 sec (22.9-36.1)
[2023-10-14 03:53] LABS: ALT (SGPT) 13 U/L (8-55); AST (SGOT) 17 U/L (5-34); Albumin 3.4 g/dL (3.4-4.8); Alkaline Phosphatase 57 U/L (40-110); Anion Gap 11 mmol/L (10-20); BUN (Urea Nitrogen) 23 mg/dL (9.8-20.1); Bilirubin, Total 0.7 mg/dL (0.2-1.2); Calc. Creatinine Clearance 0 mL/min (70-130); Calcium 8.6 mg/dL (7.8-10.44); Carbon Dioxide 23 mmol/L (23-31); Chloride 109 mmol/L (98-107); Estimated GFR 80; Globulin 2.6 g/dL (2.4-3.5); Glucose 96 mg/dL (80-115); Magnesium 1.8 mg/dL (1.6-2.6); Sodium 139 mmol/L (136-145)
[2023-10-14 03:56] LABS: Troponin I Less than 0.010 ng/mL (< 0.028)
[2023-10-14 04:03] LABS: Bilirubin Negative (Negative); Blood, Urine 1+ (Negative); CAUTI Indications for Culture Alt mental st,lethar; Clarity Clear (Clear); Glucose, Urine (Dipstick) Normal (Negative); Ketone, Urine Negative (Negative); Leukocyte Negative Leu/uL (Negative); Nitrite Negative (Negative); Protein, Urine (Dipstick) Negative (Neg-Trace); Specific Gravity, Urine 1.026 (1.002-1.036); Squamous Epithelial 0-3 HPF (0-3); Urobilinogen 6 mg/dL (Less than 2); WBC/HPF 0-3 HPF (0-3)
[2023-10-14 04:10] LABS: Bacteria/HPF 1+ HPF (None Seen)
[2023-10-14 04:11] LABS: Urine Culture Reflex No No
[2023-10-14] MEDS ORDERED: Acetaminophen 500 MG TAB ONE (05:13)
[2023-10-14] MEDS ORDERED: Acetaminophen 325 MG TAB PO PRN (05:30)
[2023-10-14] MEDS ORDERED: Ondansetron PF 4 MG/2 ML Vial IVP PRN (05:30)
[2023-10-14] MEDS ORDERED: Ipratropium/Albuterol 3 ML NEB EZPAP PRN (05:34)
[2023-10-14 07:20] LABS: Cardiac Risk 1.8 (Less than 4.5)
[2023-10-14] MEDS ORDERED: Aspirin Chewable 81 MG TAB ONE (08:40)
[2023-10-14] MEDS ORDERED: Flecainide 50 MG TAB PO SCH (09:00)
[2023-10-14] MEDS: Aspirin 81 mg Enteric Coated Tablet PO SCH (09:16)
[2023-10-14] MEDS ORDERED: Divalproex Sodium 250 MG (DR) TAB ONE (10:54)
[2023-10-14] MEDS ORDERED: Iopamidol-370 76% 500 ML MDV (1 ML CHARGE) ONE (11:01)
[2023-10-14] MEDS: Divalproex Sodium DR 500 MG TAB PO SCH (11:06)
[2023-10-14 14:51] VITALS: TEMP 98.6
[2023-10-14 16:11] VITALS: BP 114/74
[2023-10-14] MEDS ORDERED: Divalproex Sodium DR 500 MG TAB PO SCH (21:00)
[2023-10-14] MEDS ORDERED: Apixaban 5 MG TAB PO SCH (21:00)
[2023-10-14] MEDS ORDERED: OXcarbazepine 300 MG TAB PO SCH (21:00)
[2023-10-14] MEDS ORDERED: risperiDONE 3 MG TAB PO SCH (21:00)
[2023-10-14] MEDS ORDERED: Atorvastatin Calcium 40 MG TAB PO SCH (21:00)
== END 2023-10-15 09:07 | disposition home or self-care (01) ==
LOC: ERS 01:39 → ERHOLD 04:44
PROVIDERS: ADMIT Internal Medicine; ATTEND Emergency Medicine
DX: R29.90 Unspecified symptoms and signs involving the nervous system (principal); I25.10 Atherosclerotic heart disease of native coronary artery without angina pectoris; I11.0 Hypertensive heart disease with heart failure; I50.32 Chronic diastolic (congestive) heart failure; E78.5 Hyperlipidemia, unspecified; E11.9 Type 2 diabetes mellitus without complications; D64.9 Anemia, unspecified; I48.0 Paroxysmal atrial fibrillation; J44.9 Chronic obstructive pulmonary disease, unspecified; F41.9 Anxiety disorder, unspecified; F25.9 Schizoaffective disorder, unspecified; Z88.8 Allergy status to other drugs, medicaments and biological substances; Z88.0 Allergy status to penicillin; Z88.2 Allergy status to sulfonamides; Z88.5 Allergy status to narcotic agent; Z91.018 Allergy to other foods; Z79.82 Long term (current) use of aspirin; Z79.899 Other long term (current) drug therapy; Z79.01 Long term (current) use of anticoagulants; Z98.890 Other specified postprocedural states; Z90.710 Acquired absence of both cervix and uterus; Z95.5 Presence of coronary angioplasty implant and graft; Z87.891 Personal history of nicotine dependence; Z86.711 Personal history of pulmonary embolism; Z86.718 Personal history of other venous thrombosis and embolism; Z85.07 Personal history of malignant neoplasm of pancreas; Z86.73 Personal history of transient ischemic attack (TIA), and cerebral infarction without residual deficits
CPT/HCPCS: 51701; 70496; 70498; 70551; 80053; 80061; 80164; 81001; 83735; 84484; 85025; 85610; 85730; 93005; 93971; 99285; G0378; J1642; Q9967

== ENCOUNTER 2023-10-17 21:00 | Emergency (ER) | payer MEDICAID, OTHER ==
[2023-10-17] MEDS ORDERED: Ondansetron PF 4 MG/2 ML Vial ONE (21:13)
[2023-10-17 21:24] LABS: #Eosinphils 0.1 thou/uL (0.0-0.7); #Monocytes 0.8 thou/uL (0.11-0.59); #Neutrophils 4.9 thou/uL (1.40-6.50); %Basophils 0.2 % (0.0-1.0); %Eosinophils 0.5 % (0.0-10.0); %Lymphocytes 37.7 % (21.0-51.0); %Monocytes 8.5 % (0.0-10.0); %Neutrophils 52.6 % (42.0-75.0); Hematocrit 31.3 % (36.0-47.0); Hemoglobin 9.7 g/dL (12.0-16.0); Mean Corpuscular Hemoglobin 27.9 pg (27.0-31.0); Mean Corpuscular Volume 89.9 fl (78.0-98.0); Platelet Count 182 10x3/uL (130-400); RBC Distribution Width 17.5 % (11.5-14.5); Red Blood Cell (RBC) Count 3.48 mill/uL (4.20-5.40); White Blood Cell (WBC) Count 9.3 10x3/uL (4.8-10.8)
[2023-10-17 22:00] LABS: ALT (SGPT) 12 U/L (8-55); AST (SGOT) 20 U/L (5-34); Albumin 3.4 g/dL (3.4-4.8); Alkaline Phosphatase 61 U/L (40-110); Anion Gap 13 mmol/L (10-20); BUN (Urea Nitrogen) 21 mg/dL (9.8-20.1); Bilirubin, Total 0.5 mg/dL (0.2-1.2); Calc. Creatinine Clearance 0 mL/min (70-130); Calcium 8.8 mg/dL (7.8-10.44); Carbon Dioxide 22 mmol/L (23-31); Chloride 107 mmol/L (98-107); Estimated GFR 73; Globulin 2.6 g/dL (2.4-3.5); Glucose 141 mg/dL (80-115); Potassium 4.1 mmol/L (3.5-5.1); Sodium 138 mmol/L (136-145)
[2023-10-17 22:03] LABS: Troponin I 0.012 ng/mL (< 0.028)
[2023-10-17] MEDS ORDERED: Magnesium 2 GM/50 ML BAG (IN WATER) ONE (22:11)
== END 2023-10-18 01:12 | disposition short-term general hospital (02) ==
LOC: ERS 21:00
DX: I47.20 Ventricular tachycardia, unspecified (principal); R07.9 Chest pain, unspecified; E11.9 Type 2 diabetes mellitus without complications; I10 Essential (primary) hypertension; J44.9 Chronic obstructive pulmonary disease, unspecified; E78.5 Hyperlipidemia, unspecified; I25.10 Atherosclerotic heart disease of native coronary artery without angina pectoris; I50.9 Heart failure, unspecified; J43.9 Emphysema, unspecified; Z87.891 Personal history of nicotine dependence; Z79.82 Long term (current) use of aspirin; Z79.01 Long term (current) use of anticoagulants; Z79.899 Other long term (current) drug therapy; Z86.711 Personal history of pulmonary embolism; Z86.718 Personal history of other venous thrombosis and embolism
CPT/HCPCS: 71045; 80053; 83880; 84484; 85025; 93005; 96374; 96375; J2405; J3475

== ENCOUNTER 2023-11-02 01:56 | Observation (INO) | payer OTHER, MEDICAID ==
[2023-11-02] MEDS ORDERED: NOREPINEPHRINE 8 MG/250 ML-D5W 0 ML ONE (02:14)
[2023-11-02 02:38] LABS: #Basophils 0.03 10x3/uL (0.0-0.2); %Basophils 0.3 % (0.0-1.0); %Eosinophils 0.9 % (0.0-10.0); %Lymphocytes 51.7 % (21.0-51.0); %Monocytes 9.3 % (0.0-10.0); %Neutrophils 37.1 % (42.0-75.0); Hematocrit 32.3 % (36.0-47.0); Hemoglobin 10.2 g/dL (12.0-16.0); Mean Corpuscular HGB CONC 31.6 g/dL (32.0-36.0); Mean Corpuscular Hemoglobin 28.6 pg (27.0-31.0); Mean Corpuscular Volume 90.5 fL (78.0-98.0); Mean Platelet Volume 9.7 fL (7.4-10.4); Platelet Count 213 10x3/uL (130-400); RBC Distribution Width 17.5 % (11.5-14.5); Red Blood Cell (RBC) Count 3.57 mill/uL (4.20-5.40)
[2023-11-02 03:00] LABS: Troponin I 0.021 ng/mL (< 0.028)
[2023-11-02 03:28] LABS: Albumin 3.3 g/dL (3.4-4.8)
[2023-11-02 03:29] LABS: Chloride 107 mmol/L (98-107); Potassium 3.8 mmol/L (3.5-5.1); Sodium 140 mmol/L (136-145)
[2023-11-02 03:30] LABS: Calcium 8.7 mg/dL (7.8-10.44); Glucose 118 mg/dL (80-115)
[2023-11-02 03:31] LABS: Globulin 2.5 g/dL (2.4-3.5); Protein, Total 5.8 g/dL (5.8-8.1)
[2023-11-02 03:32] LABS: Anion Gap 17 mmol/L (10-20); Bilirubin, Total 0.5 mg/dL (0.2-1.2); Carbon Dioxide 20 mmol/L (23-31)
[2023-11-02 03:33] LABS: Alkaline Phosphatase 49 U/L (40-110)
[2023-11-02 03:34] LABS: Calc. Creatinine Clearance 0 mL/min (70-130); Estimated GFR 55
[2023-11-02 03:35] LABS: BUN (Urea Nitrogen) 33 mg/dL (9.8-20.1)
[2023-11-02 03:36] LABS: ALT (SGPT) 20 U/L (8-55); AST (SGOT) 25 U/L (5-34); Lipase 24 U/L (8-78)
[2023-11-02] MEDS ORDERED: Amiodarone 150 MG/3 ML VIAL ONE (05:22)
[2023-11-02 06:15] LABS: Bacteria/HPF None Seen HPF (None Seen); Bilirubin Negative (Negative); Blood, Urine Negative (Negative); CAUTI Indications for Culture Dysuria,urgency,freq; Clarity Clear (Clear); Glucose, Urine (Dipstick) Normal (Negative); Ketone, Urine Negative (Negative); Leukocyte 75 Leu/uL (Negative); Nitrite Negative (Negative); Protein, Urine (Dipstick) Negative (Neg-Trace); RBC/HPF 0-3 HPF (0-3); Specific Gravity, Urine 1.026 (1.002-1.036); Squamous Epithelial 0-3 HPF (0-3); Urobilinogen 3 mg/dL (Less than 2); WBC/HPF 0-3 HPF (0-3); pH, Urine 5.5 (5.0-9.0)
[2023-11-02 06:26] LABS: Troponin I 0.014 ng/mL (< 0.028)
[2023-11-02 06:27] LABS: Urine Culture Reflex No No
[2023-11-02 06:28] LABS: Lactic Acid 1.2 mmol/L (0.5-2.2)
[2023-11-02] MEDS ORDERED: Acetaminophen 325 MG TAB PO PRN (09:08)
[2023-11-02] MEDS ORDERED: Acetaminophen 650 MG Suppository PR PRN (09:08)
[2023-11-02 10:02] VITALS: BMI 40.3
[2023-11-02] MEDS: Apixaban 5 MG TAB PO SCH (10:20)
[2023-11-02] MEDS: Carvedilol 3.125 MG TAB PO SCH (10:21)
[2023-11-02] MEDS: OXcarbazepine 300 MG TAB PO SCH (10:21)
[2023-11-02] MEDS ORDERED: Dextrose 50% Abboject 50 ML SYRINGE SLOW IVP PRN (10:30)
[2023-11-02] MEDS ORDERED: Insulin Regular 300 UNITS/3 ML VIAL SC PRN ×2 (10:30)
[2023-11-02] MEDS ORDERED: Dextrose 5% in Water 1,000 ML IV PRN (10:30)
[2023-11-02] MEDS ORDERED: Glucagon 1 MG/ML KIT IM PRN (10:30)
[2023-11-02 10:31] LABS: Troponin I Less than 0.010 ng/mL (< 0.028)
[2023-11-02 10:45] LABS: Magnesium 1.9 mg/dL (1.6-2.6)
[2023-11-02] MEDS: Flecainide 50 MG TAB PO SCH ×2 (11:26→19:30)
[2023-11-02 12:04] LABS: Pregnancy Test - Urine (BHCG) Negative (Negative); Pregu Control Bar Appear? YES (CONTROL BAR); Specific Gravity 1.022 (1.002-1.036)
[2023-11-02 12:05] LABS: Pregu Control Background? CLEAR/WHITE (CLR/WHITE)
[2023-11-02] MEDS: Ondansetron PF 4 MG/2 ML Vial IVP PRN (18:33)
[2023-11-02] MEDS: Magnesium Oxide 400 MG TAB PO SCH (19:30)
[2023-11-02] MEDS: Atorvastatin Calcium 40 MG TAB PO SCH (19:30)
[2023-11-02] MEDS: risperiDONE 3 MG TAB PO SCH (19:36)
[2023-11-02] MEDS ORDERED: Haloperidol Lactate 5 MG/ML VIAL SLOW IVP SCH (20:15)
[2023-11-02] MEDS ORDERED: Sterile Water 10 ML VIAL FS PRN (20:30)
[2023-11-02] MEDS ORDERED: Non-Formulary Item 1 EACH (Magnesium Oxide [Magnesium] 400 MG Tablet) PO SCH (21:00)
[2023-11-03] MEDS: OLANZapine 5 MG TAB PO SCH (03:39)
[2023-11-03] MEDS: OLANZapine 10 MG VIAL IM SCH (03:39)
[2023-11-03 05:43] LABS: #Basophils 0.04 10x3/uL (0.0-0.2); %Basophils 0.4 % (0.0-1.0); %Eosinophils 1.3 % (0.0-10.0); %Monocytes 11.5 % (0.0-10.0); Hematocrit 35.6 % (36.0-47.0); Mean Corpuscular HGB CONC 30.9 g/dL (32.0-36.0); Mean Corpuscular Hemoglobin 28.5 pg (27.0-31.0); Mean Corpuscular Volume 92.2 fL (78.0-98.0); Mean Platelet Volume 9.6 fL (7.4-10.4); Platelet Count 230 10x3/uL (130-400); RBC Distribution Width 17.3 % (11.5-14.5); Red Blood Cell (RBC) Count 3.86 mill/uL (4.20-5.40)
[2023-11-03 05:54] LABS: Anion Gap 16 mmol/L (10-20); BUN (Urea Nitrogen) 16 mg/dL (9.8-20.1); Calc. Creatinine Clearance 107 mL/min (70-130); Calcium 8.9 mg/dL (7.8-10.44); Carbon Dioxide 18 mmol/L (23-31); Cardiac Risk 1.7 (Less than 4.5); Chloride 109 mmol/L (98-107); Cholesterol 95 mg/dl (< 200 Desired); Estimated GFR 77; Glucose 99 mg/dL (80-115); HDL Cholesterol 55 mg/dL (>60 Neg Risk); LDL Cholesterol, Calculated 28 mg/dL; Potassium 4.3 mmol/L (3.5-5.1); Sodium 139 mmol/L (136-145); Triglycerides 58 mg/dL (Less than 150)
[2023-11-03] MEDS: Montelukast Sodium 10 mg Tablet PO SCH (08:40)
[2023-11-03] MEDS: Aspirin Chewable 81 MG TAB PO SCH (08:40)
[2023-11-03] MEDS ORDERED: Regadenoson 0.4 MG/5 ML SYRINGE ONE (10:19)
[2023-11-03] MEDS ORDERED: Lorazepam 2 MG/ML VIAL SLOW IVP PRN (12:08)
[2023-11-03 12:20] VITALS: BP 111/64; TEMP 97.6
== END 2023-11-03 15:03 | disposition home or self-care (01) ==
LOC: ERS 01:56 → ERHOLD 06:37 → 2NO 09:13
PROVIDERS: ADMIT Internal Medicine; ATTEND Internal Medicine
DX: R07.9 Chest pain, unspecified (principal); I25.10 Atherosclerotic heart disease of native coronary artery without angina pectoris; I11.0 Hypertensive heart disease with heart failure; I50.9 Heart failure, unspecified; E11.9 Type 2 diabetes mellitus without complications; E03.9 Hypothyroidism, unspecified; F25.9 Schizoaffective disorder, unspecified; E78.5 Hyperlipidemia, unspecified; J44.9 Chronic obstructive pulmonary disease, unspecified; Z98.890 Other specified postprocedural states; Z79.01 Long term (current) use of anticoagulants; Z79.82 Long term (current) use of aspirin; Z79.899 Other long term (current) drug therapy; Z99.81 Dependence on supplemental oxygen; Z88.8 Allergy status to other drugs, medicaments and biological substances; Z88.5 Allergy status to narcotic agent; Z88.0 Allergy status to penicillin; Z88.2 Allergy status to sulfonamides; Z86.711 Personal history of pulmonary embolism; Z86.718 Personal history of other venous thrombosis and embolism; Z91.018 Allergy to other foods; Z91.048 Other nonmedicinal substance allergy status; Z79.890 Hormone replacement therapy
CPT/HCPCS: 51701; 71045; 78452; 80048; 80053; 80061; 81001; 81025; 82962 ×2; 83605; 83690; 83735; 83880; 84484 ×2; 85025 ×2; 93005; 93017; 94760; 96361; 96372; 96374; 96375; 99285; A9502; G0378 ×3; J2785; 36415; 36416; J0282; J1642; J2405

== ENCOUNTER 2023-11-07 02:58 | Emergency (ER) | payer OTHER, MEDICAID ==
[2023-11-07 05:31] LABS: ALT (SGPT) 18 U/L (8-55); AST (SGOT) 24 U/L (5-34); Albumin 3.7 g/dL (3.4-4.8); Alkaline Phosphatase 57 U/L (40-110); Anion Gap 19 mmol/L (10-20); BUN (Urea Nitrogen) 29 mg/dL (9.8-20.1); Bilirubin, Total 0.7 mg/dL (0.2-1.2); Calc. Creatinine Clearance 0 mL/min (70-130); Calcium 9.3 mg/dL (7.8-10.44); Carbon Dioxide 21 mmol/L (23-31); Chloride 107 mmol/L (98-107); Estimated GFR 69; Globulin 2.7 g/dL (2.4-3.5); Glucose 95 mg/dL (80-115); Potassium 4.3 mmol/L (3.5-5.1); Protein, Total 6.4 g/dL (5.8-8.1); Sodium 143 mmol/L (136-145); Troponin I Less than 0.010 ng/mL (< 0.028)
[2023-11-07 05:46] LABS: #Basophils 0.03 10x3/uL (0.0-0.2); %Basophils 0.3 % (0.0-1.0); %Eosinophils 0.4 % (0.0-10.0); %Lymphocytes 47.2 % (21.0-51.0); %Neutrophils 41.8 % (42.0-75.0); Hematocrit 35.6 % (36.0-47.0); Mean Corpuscular HGB CONC 30.9 g/dL (32.0-36.0); Mean Corpuscular Hemoglobin 28.2 pg (27.0-31.0); Mean Corpuscular Volume 91.3 fL (78.0-98.0); Mean Platelet Volume 10.2 fL (7.4-10.4); Platelet Count 221 10x3/uL (130-400); RBC Distribution Width 17.8 % (11.5-14.5)
[2023-11-07 08:18] LABS: Troponin I Less than 0.010 ng/mL (< 0.028)
== END 2023-11-07 08:37 | disposition home or self-care (01) ==
LOC: ERS 02:58
DX: R07.9 Chest pain, unspecified (principal); I25.10 Atherosclerotic heart disease of native coronary artery without angina pectoris; I11.0 Hypertensive heart disease with heart failure; I50.9 Heart failure, unspecified; J44.9 Chronic obstructive pulmonary disease, unspecified; E11.9 Type 2 diabetes mellitus without complications; Z87.891 Personal history of nicotine dependence; Z79.899 Other long term (current) drug therapy; Z79.82 Long term (current) use of aspirin; Z79.01 Long term (current) use of anticoagulants
CPT/HCPCS: 36415; 71045; 80053; 83880; 84484; 85025; 93005

== ENCOUNTER 2024-02-09 09:06 | Outpatient (CLI) | payer OTHER | END 2024-02-09 09:07 | disposition home or self-care (01) | LOC: RAD 09:06 | PROVIDERS: ATTEND Internal Medicine Critical Care Medicine | DX: R06.00 Dyspnea, unspecified (principal) | CPT/HCPCS: 71046 ==

== ENCOUNTER 2024-09-03 16:39 | Emergency (ER) | payer OTHER, MEDICAID ==
[2024-09-03] MEDS ORDERED: Ketorolac Tromethamine 30 MG (1 mL) VIAL ONE (17:51)
[2024-09-03 20:20] LABS: ALT (SGPT) 9 U/L (Less than 34); AST (SGOT) 15 U/L (11-34); Albumin 3.6 g/dL (3.1-4.5); Alkaline Phosphatase 113 U/L (40-110); Anion Gap 16 mmol/L (10-20); BUN (Urea Nitrogen) 14 mg/dL (9.8-20.1); Bilirubin, Total 0.6 mg/dL (0.3-1.2); Calc. Creatinine Clearance 0 mL/min (70-130); Calcium 9.1 mg/dL (7.8-10.44); Carbon Dioxide 18 mmol/L (23-31); Chloride 103 mmol/L (98-107); Estimated GFR 76; Globulin 4.1 g/dL (2.4-3.5); Glucose 139 mg/dL (80-115); Protein, Total 7.7 g/dL (5.8-8.1); Sodium 133 mmol/L (136-145)
[2024-09-03 20:25] LABS: Troponin I Less than 0.010 ng/mL (< 0.028)
[2024-09-03] MEDS ORDERED: Ipratropium/Albuterol 3 ML NEB ONE (20:31)
[2024-09-03] MEDS ORDERED: methylPREDNISolone Sod Succ/PF 125 MG/2 ML VIAL ONE (20:31)
[2024-09-03 20:53] LABS: #Basophils Less than 0.03 10x3/uL (0.0-0.2); #Eosinophils Less than 0.03 10x3/uL (0.0-0.7); %Basophils 0.2 % (0.0-1.0); %Eosinophils 0.1 % (0.0-10.0); %Lymphocytes 8.6 % (21.0-51.0); %Monocytes 2.9 % (0.0-10.0); %Neutrophils 86.9 % (42.0-75.0); Hematocrit 34.2 % (36.0-47.0); Hemoglobin 10.8 g/dL (12.0-16.0); Mean Corpuscular HGB CONC 31.6 g/dL (32.0-36.0); Mean Corpuscular Volume 82.4 fL (78.0-98.0); Mean Platelet Volume 9.4 fL (7.4-10.4); Platelet Count 316 10x3/uL (130-400); RBC Distribution Width 15.9 % (11.5-14.5); Red Blood Cell (RBC) Count 4.15 mill/uL (4.20-5.40)
== END 2024-09-03 22:10 | disposition home or self-care (01) ==
LOC: ERS 16:39
DX: J44.1 Chronic obstructive pulmonary disease with (acute) exacerbation (principal); I25.10 Atherosclerotic heart disease of native coronary artery without angina pectoris; I11.0 Hypertensive heart disease with heart failure; I50.9 Heart failure, unspecified; E78.5 Hyperlipidemia, unspecified; J45.909 Unspecified asthma, uncomplicated; E11.9 Type 2 diabetes mellitus without complications; Z79.51 Long term (current) use of inhaled steroids; Z79.82 Long term (current) use of aspirin; Z79.01 Long term (current) use of anticoagulants; Z87.891 Personal history of nicotine dependence
CPT/HCPCS: 71045; 80053; 83880; 84484; 85025; 85379; 87428; 93005; J1642; J1885; J2919; 36415; 96372; 96374; J7620

== ENCOUNTER 2024-10-01 01:30 | Emergency (ER) | payer OTHER, MEDICAID ==
[2024-10-01 02:48] LABS: #Basophils 0.03 10x3/uL (0.0-0.2); #Eosinophils Less than 0.03 10x3/uL (0.0-0.7); %Basophils 0.3 % (0.0-1.0); %Eosinophils 0.1 % (0.0-10.0); %Lymphocytes 20.1 % (21.0-51.0); %Monocytes 2.2 % (0.0-10.0); %Neutrophils 76.4 % (42.0-75.0); Hematocrit 36.7 % (36.0-47.0); Hemoglobin 11.4 g/dL (12.0-16.0); Mean Corpuscular HGB CONC 31.1 g/dL (32.0-36.0); Mean Corpuscular Hemoglobin 26.1 pg (27.0-31.0); Mean Platelet Volume 9.4 fL (7.4-10.4); Platelet Count 285 10x3/uL (130-400); RBC Distribution Width 16.8 % (11.5-14.5); Red Blood Cell (RBC) Count 4.37 mill/uL (4.20-5.40)
[2024-10-01] MEDS ORDERED: Aspirin Chewable 81 MG TAB ONE (03:08)
[2024-10-01] MEDS ORDERED: Ipratropium/Albuterol 3 ML NEB ONE (03:20)
[2024-10-01] MEDS ORDERED: predniSONE 20 MG TAB ONE (03:20)
[2024-10-01 03:22] LABS: ALT (SGPT) 13 U/L (Less than 34); AST (SGOT) 15 U/L (11-34); Albumin 3.7 g/dL (3.1-4.5); Alkaline Phosphatase 96 U/L (40-110); Anion Gap 16 mmol/L (10-20); BUN (Urea Nitrogen) 16 mg/dL (9.8-20.1); Bilirubin, Total 0.5 mg/dL (0.3-1.2); Calc. Creatinine Clearance 0 mL/min (70-130); Calcium 9.4 mg/dL (7.8-10.44); Carbon Dioxide 20 mmol/L (23-31); Chloride 104 mmol/L (98-107); Estimated GFR 54; Globulin 3.5 g/dL (2.4-3.5); Glucose 156 mg/dL (80-115); Potassium 4.8 mmol/L (3.5-5.1); Protein, Total 7.2 g/dL (5.8-8.1); Sodium 135 mmol/L (136-145)
[2024-10-01 03:27] LABS: Troponin I 0.013 ng/mL (< 0.028)
== END 2024-10-01 05:42 | disposition home or self-care (01) ==
LOC: ERS 01:30
DX: J44.89 Other specified chronic obstructive pulmonary disease (principal); I11.0 Hypertensive heart disease with heart failure; I50.9 Heart failure, unspecified; I25.10 Atherosclerotic heart disease of native coronary artery without angina pectoris; E78.5 Hyperlipidemia, unspecified; Z87.891 Personal history of nicotine dependence
CPT/HCPCS: 71045; 80053; 83880; 84484; 85025; 87428; 93005; 94760; J7512; J7620

== ENCOUNTER 2025-03-08 11:07 | Emergency (ER) | payer OTHER, MEDICAID ==
[2025-03-08] MEDS ORDERED: Ondansetron PF 4 MG/2 ML Vial ONE (11:33)
[2025-03-08] MEDS ORDERED: Iopamidol-370 76% 500 ML MDV (1 ML CHARGE) ONE (11:35)
[2025-03-08 11:48] LABS: #Basophils 0.04 10x3/uL (0.0-0.2); #Eosinophils 0.10 10x3/uL (0.0-0.7); #Monocytes 1.01 10x3/uL (0.11-0.59); #Neutrophils 6.38 10x3/uL (1.40-6.50); %Basophils 0.3 % (0.0-1.0); %Eosinophils 0.8 % (0.0-10.0); %Lymphocytes 40.2 % (21.0-51.0); %Monocytes 7.8 % (0.0-10.0); %Neutrophils 49.7 % (42.0-75.0); Hematocrit 33.7 % (36.0-47.0); Hemoglobin 10.1 g/dL (12.0-16.0); Mean Corpuscular Hemoglobin 25.4 pg (27.0-31.0); Mean Corpuscular Volume 84.9 fL (78.0-98.0); Platelet Count 277 10x3/uL (130-400); Red Blood Cell (RBC) Count 3.97 mill/uL (4.20-5.40); White Blood Cell (WBC) Count 12.87 10x3/uL (4.8-10.8)
[2025-03-08 12:20] LABS: ALT (SGPT) 12 U/L (Less than 34); AST (SGOT) 24 U/L (11-34); Albumin 3.4 g/dL (3.1-4.5); Alkaline Phosphatase 102 U/L (40-110); Anion Gap 16 mmol/L (10-20); BUN (Urea Nitrogen) 17 mg/dL (9.8-20.1); Bilirubin, Total 0.3 mg/dL (0.3-1.2); Calc. Creatinine Clearance 0 mL/min (70-130); Calcium 8.7 mg/dL (7.8-10.44); Carbon Dioxide 16 mmol/L (23-31); Chloride 110 mmol/L (98-107); Globulin 3.4 g/dL (2.4-3.5); Glucose 85 mg/dL (80-115); Potassium 3.5 mmol/L (3.5-5.1); Sodium 138 mmol/L (136-145)
[2025-03-08 12:46] LABS: Bacteria/HPF 1+ HPF (None Seen); CAUTI Indications for Culture Pelvic or flank pain; Glucose, Urine (Dipstick) Normal (Negative); Leukocyte Negative Leu/uL (Negative); Protein, Urine (Dipstick) Negative (Neg-Trace); RBC/HPF 0-3 HPF (0-3); Specific Gravity, Urine 1.018 (1.002-1.036); WBC/HPF 0-3 HPF (0-3)
[2025-03-08 12:47] LABS: Urine Culture Reflex No No
[2025-03-08] MEDS ORDERED: Acetaminophen 500 MG TAB ONE (13:06)
== END 2025-03-08 15:39 | disposition home or self-care (01) ==
LOC: ERS 11:07
DX: R30.0 Dysuria (principal); E86.0 Dehydration; I11.0 Hypertensive heart disease with heart failure; I50.9 Heart failure, unspecified; E11.9 Type 2 diabetes mellitus without complications; E78.5 Hyperlipidemia, unspecified; J44.9 Chronic obstructive pulmonary disease, unspecified; Z55.6 Problems related to health literacy; Z86.711 Personal history of pulmonary embolism; Z87.891 Personal history of nicotine dependence; Z86.718 Personal history of other venous thrombosis and embolism; Z79.51 Long term (current) use of inhaled steroids; Z79.82 Long term (current) use of aspirin; Z79.01 Long term (current) use of anticoagulants; Z79.890 Hormone replacement therapy; Z79.899 Other long term (current) drug therapy
CPT/HCPCS: 74177; 80053; 81001; 85025; 87086; J1642; J2405; J3010; 36415; 51702; 96374; 96375; Q9967

== ENCOUNTER 2025-07-14 10:40 | Outpatient (CLI) | payer OTHER, MEDICAID | END 2025-07-14 10:41 | disposition home or self-care (01) | LOC: ULT 10:40 | PROVIDERS: ATTEND Orthopaedic Surgery | DX: I82.402 Acute embolism and thrombosis of unspecified deep veins of left lower extremity (principal) ==